=== PATIENT | female | born 1950 | race Caucasian/White ===

== ENCOUNTER → 2017-05-27 | Outpatient (CLI) | payer BC, SELFPAY | PROVIDERS: Visit Provider Internal Medicine | DX: R07.89 Other chest pain (principal); I10 Essential (primary) hypertension; R06.00 Dyspnea, unspecified; G47.33 Obstructive sleep apnea (adult) (pediatric) | CPT/HCPCS: 75571; 76770; 93976 ==

== ENCOUNTER → 2017-07-24 11:18 | Outpatient (CLI) | payer BC, SELFPAY ==
--- NOTE | 2017-07-24 11:30 | XR_ITS ---
XR ankle LT min 3V HISTORY: Pain following injury ITS.REASON: LEDT ANKLE SPRAIN ORDERING PHYSICIAN: GENIE Saldivar PATIENT AGE: 66 years COMPARISON: None FINDINGS: No fracture or dislocation. Some minimal hypertrophic change at the tip of the medial malleolus and along the anterior distal tibia. IMPRESSION: No acute finding
== END ==
PROVIDERS: PCP Physician Assistant; Visit Provider Physician Assistant
DX: S93.402A Sprain of unspecified ligament of left ankle, initial encounter (principal)
CPT/HCPCS: 73610

== ENCOUNTER → 2017-11-30 16:20 | Outpatient (CLI) | payer MEDICARE, SELFPAY ==
--- NOTE | 2017-11-30 | NVE_ITS ---
Venous Exam Indications: 729.81 Swelling of limb. IMPRESSIONS 1. There is no evidence of significant Reflux. 2. No evidence of deep or superficial vein thrombosis involving the left lower extremity History: Left lower extremity pain. Swelling of the left lower extremity. Risk factors: Hypertension. Patient states her lateral ankle has been swollen since August 2017. She denies any trauma. Left lower extremity venous duplex evaluation. Doppler flow study including spectral analysis, color and dickson scale imaging. Location: Vascular laboratory. Patient status: Outpatient. Tables: Venous flow and imaging: + +-------+ + Location Overall Flow properties + +-------+ + Left common femoral Patent Normal phasicity; spontaneous; normal augmentation; compressible + +-------+ + Left saphenofemoral junction Patent Compressible + +-------+ + Left profunda femoral Patent Compressible + +-------+ + Left femoral Patent Normal phasicity; spontaneous; normal augmentation; compressible + +-------+ + Left greater saphenous Patent Normal phasicity; spontaneous; normal augmentation; compressible + +-------+ + Left popliteal Patent Normal phasicity; spontaneous; normal augmentation; compressible + +-------+ + Left posterior tibial Patent Compressible + +-------+ + Left peroneal Patent Compressible + +-------+ + Left gastrocnemius Patent Compressible + +-------+ + Left soleal Patent Compressible + +-------+ + (Report amended ) Electronically signed by: Jun Todd [id number]
--- NOTE | 2017-11-30 16:53 | XR_ITS ---
EXAM: XR lumbar spine min 4V HISTORY: ITS.REASON: ACUTE BILATERAL LOW BACK PAIN W/ LEFT SIDE SCIATICA ORDERING PHYSICIAN: Jeyson Garcia MD PATIENT AGE: 67 years COMPARISON: None FINDINGS: Mild degenerative disc disease is present at T12-L1 and L1-L2. There is minimal anterolisthesis of L4 on L5 of 3 mm and there are mild facet arthritic changes at L5-S1. No fracture or dislocation. Facet hypertrophic changes are present on the right at L5-S1. IMPRESSION: 1. Degenerative disc disease T12-L1 and L1-L2. 2. Facet arthritic changes at L5-S1. 3. 3 mm anterolisthesis of L4 on L5
== END ==
PROVIDERS: PCP Family Medicine; Visit Provider Family Medicine
DX: M54.42 Lumbago with sciatica, left side (principal); R60.0 Localized edema
CPT/HCPCS: 72110; 93971

== ENCOUNTER → 2017-12-03 11:22 | Outpatient (CLI) | payer MEDICARE, SELFPAY ==
--- NOTE | 2017-12-03 11:37 | XR_ITS ---
XR foot LT min 3V HISTORY: Left foot pain and swelling ITS.REASON: LEFT FOOT AND ANKLE PAIN ORDERING PHYSICIAN: Bobby Cespedes MD PATIENT AGE: 67 years COMPARISON: None FINDINGS: No fracture or dislocation. No lytic or blastic change. There is normal mineralization.. The joint spaces are well-preserved. There are hypertrophic changes along the neck of the talus anteriorly minimal hypertrophic changes are present at the lateral aspect of the first MTP joint. IMPRESSION: 1. No acute finding. 2. Mild bony hypertrophic changes of the talus and the first MCP joint
--- NOTE | 2017-12-03 11:37 | XR_ITS ---
XR ankle LT min 3V HISTORY: ITS.REASON: LEFT FOOT AND ANKLE PAIN ORDERING PHYSICIAN: Bobby Cespedes MD PATIENT AGE: 67 years Comparison: 07/24/2017 FINDINGS: There are mild hypertrophic changes of the tip of the medial malleolus and the anterior aspect of the distal tibia. No fracture or dislocation. The talar dome has an unremarkable appearance. The joint spaces well-preserved. IMPRESSION: Mild hypertrophic changes of the anterior distal tibia and medial malleolus otherwise negative
== END ==
PROVIDERS: PCP Family Medicine; Visit Provider Family Medicine
DX: M79.672 Pain in left foot (principal)
CPT/HCPCS: 73610; 73630

== ENCOUNTER → 2018-04-05 12:32 | Outpatient (CLI) | payer MEDICARE, SELFPAY ==
--- NOTE | 2018-04-05 12:46 | MR_ITS ---
MR ankle LT wo/w con HISTORY: Pain and swelling with numbness ITS.REASON: Osteoarthritis and pain ORDERING PHYSICIAN: Tanya Quarles DPM PATIENT AGE: 67 years Comparison: 12/03/2017 TECHNIQUE: Standard multiplanar multiecho sequences are performed without and with gadolinium enhancement. FINDINGS: There is slight increased T2 signal along the talar dome medially which does show some mild contrast enhancement. This area measures approximately 8 x 4 mm with some minimal subcortical cystic change along the junction of the medial talar dome in the lateral aspect of the talus.. The ligaments appear intact about the ankle. No fracture or dislocation. There is increased T2 signal surrounding an os trigonum. There is some enhancement at this region as well. Small amount fluid is present around the flexor hallucis longus tendon. The other tendons have an unremarkable appearance IMPRESSION: 1. 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 2. Inflammatory changes surrounding an os trigonum with a small amount of fluid and enhancement at this area 3. Tendinitis of the flexor hallucis longus
--- NOTE | 2018-04-05 12:46 | MR_ITS ---
MR foot LT wo/w con HISTORY: Left foot pain and swelling with pain greater along the great toe ITS.REASON: Osteoarthritis and pain ORDERING PHYSICIAN: Tanya Quarles DPM PATIENT AGE: 67 years Comparison: None TECHNIQUE: Standard multiplanar multiecho sequences are performed without and with contrast enhancement. FINDINGS: No fracture or dislocation. No bony destructive process. No bone marrow edema. There is a small amount of fluid at the metatarsal phalangeal joint of the first, second, third, and fourth toes.. Fluid is also present in the intermetatarsal region distally between this first and second and third and fourth metatarsals. No soft tissue mass abscess or other significant anomalies. The tendons and ligaments have an unremarkable appearance. IMPRESSION: 1. Small amount of fluid in the first through fourth metatarsophalangeal joints and intermetatarsal region consistent with intermetatarsal bursitis/cellulitis/capsulitis 2. Otherwise negative MRI of the left foot
[2018-04-05 12:59] LABS: Blood Urea Nitrogen 16 mg/dL (7-18); Creatinine,Serum 0.87 mg/dL (0.55-1.02); Estimated Glomerular Filt Rate 65 ml/min (>60); GFR (African American) 79 ML/MIN (>60)
--- NOTE | 2018-04-05 15:39 | HMH.ITSHM ---
Current Home Medications as stated by this patient Antonette Sim or data entry representative. []LISINOPRIL MELOXICAM DICLOFENAC LEVOTHYROXINE FUROSEMIDE BENADRYL
== END ==
PROVIDERS: Visit Provider Podiatrist
DX: M19.072 Primary osteoarthritis, left ankle and foot (principal); M25.872 Other specified joint disorders, left ankle and foot
CPT/HCPCS: 36415; 73223; 73720; 82565; 84520; A9576

== ENCOUNTER → 2018-04-20 14:41 | Outpatient (CLI) | payer MEDICARE, SELFPAY ==
--- NOTE | 2018-04-20 15:20 | XR_ITS ---
XR chest 2V HISTORY: ITS.REASON: HTN, ORDERING PHYSICIAN: Tanya Quarles DPM PATIENT AGE: 67 years COMPARISON: None FINDINGS: The cardiomediastinal silhouette and pulmonary vascularity are within normal limits. No lobar consolidation or collapse. On the lateral view there is a faint nodular opacity overlying the T7 vertebral body and may be due to summation artifact having a somewhat square appearance or could be due to a a sclerotic area in the T7 vertebral body. No acute bony anomalies. IMPRESSION: No acute finding. Faint nodular opacity overlies the T7 vertebral body at 7 mm. Consider follow-up chest x-ray to confirm stability
[2018-04-20 15:37] LABS: Basophils % 0.5 % (0.1-2.0); Eosinophils # 0.1 K/mm3 (0.0-0.4); Hematocrit 44.5 % (37.0-47.0); Hemoglobin 14.4 g/dL (12.2-16.2); Lymphocytes # 3.3 K/mm3 (0.7-4.5); Lymphocytes % 45.7 % (10-50); Mean Corpuscular HGB Conc 32.2 g/dL (31.8-35.4); Mean Corpuscular Hemoglobin 30.1 pg (27.0-31.2); Mean Corpuscular Volume 93.5 fl (81-99); Mean Platelet Volume 7.9 fl (7.4-10.4); Monocytes # 0.3 K/mm3 (0.1-1.0); Monocytes % 3.8 % (1.7-9.3); Neutrophils # 3.4 K/mm3 (1.8-7.8); Platelet Count 202 K/mm3 (142-424); Red Blood Count 4.76 M/mm3 (4.20-5.40); White Blood Count 7.2 K/mm3 (4.8-10.8)
[2018-04-20 16:04] LABS: Alanine Aminotransferase 61 U/L (12-78); Albumin Level 3.7 gm/dL (3.4-5.0); Alkaline Phosphatase 85 U/L (46-116); Blood Urea Nitrogen 16 mg/dL (7-18); Chloride 103 mmol/L (98-107); Globulin 3.7 gm/dl (1.3-3.2); Total Protein,Serum 7.4 gm/dL (6.4-8.2)
[2018-04-20 16:18] LABS: Potassium 4.3 mmoL/L (3.5-5.1)
[2018-04-20 16:32] LABS: Anion Gap 12.3 mEq/L (5-15); Aspartate Amino Transferase 31 U/L (15-37); Bilirubin,Total 0.4 mg/dL (0.2-1.0); Calcium 9.2 mg/dL (8.5-10.1); Carbon Dioxide 30 mmol/L (21.0-32.0); Creatinine,Serum 0.93 mg/dL (0.55-1.02); Estimated Glomerular Filt Rate 61 ml/min (>60); GFR (African American) 73 ML/MIN (>60); Glucose 87 mg/dL (74-106); Sodium 141 mmol/L (136-145)
[2018-04-22 19:50] LABS: Vitamin D 25 Hydroxy 16.6 ng/mL (30.0-100.0)
== END ==
PROVIDERS: Visit Provider Podiatrist
DX: Z01.818 Encounter for other preprocedural examination (principal); E55.9 Vitamin D deficiency, unspecified
CPT/HCPCS: 36415; 71046; 80053; 82652; 85025

== ENCOUNTER → 2018-05-20 13:03 | Outpatient (CLI) | payer MEDICARE, SELFPAY ==
--- NOTE | 2018-05-20 | XR_ITS ---
XR chest 2V HISTORY: Follow-up lung nodule ORDERING PHYSICIAN: Tanya Quarles DPM PATIENT AGE: 67 years COMPARISON: None FINDINGS: The cardiomediastinal silhouette and pulmonary vascularity are within normal limits. Previously described nodular density overlying the C7 vertebral body is once again noted. Developing pulmonary nodule is considered. Consider chest CT for further evaluation. There is calcified granuloma in the left lower lobe. No lobar consolidation or collapse. No acute bony anomalies. IMPRESSION: Persistent nodular density overlying the mid thoracic spine. Consider chest CT for further evaluation
--- NOTE | 2018-05-20 13:06 | XR_ITS ---
XR ankle wt bearing LT min 3V HISTORY: Follow-up surgery ITS.REASON: post-op views ORDERING PHYSICIAN: Tanya Quarles DPM PATIENT AGE: 67 years Comparison: 05/12/2018 FINDINGS: There remains good alignment. A splint is present. There are mild osteoarthritic changes with hypertrophy of the medial malleolus tip. Small spur along the neck of the talus with mild osteoarthritic change of the ankle. IMPRESSION: Mild osteoarthritic change. Posterior splint in place with good alignment
--- NOTE | 2018-05-20 13:06 | XR_ITS ---
XR foot wt bearing LT 3V HISTORY: ITS.REASON: post-op views ORDERING PHYSICIAN: Tanya Quarles DPM PATIENT AGE: 67 years COMPARISON: 05/12/2018 FINDINGS: Posterior splint remains in place. There remains good alignment. IMPRESSION: No change with no acute finding
== END ==
PROVIDERS: PCP Family Medicine; Visit Provider Podiatrist
DX: Z98.890 Other specified postprocedural states (principal)
CPT/HCPCS: 71046; 73610; 73630

== ENCOUNTER → 2018-06-10 10:23 | Outpatient (CLI) | payer MEDICARE, SELFPAY ==
--- NOTE | 2018-06-10 | CT_ITS ---
CT chest wo con HISTORY: Pulmonary nodule, solitary pulmonary nodule, abnormal chest x-ray ITS.REASON: ABNORMAL CXR ORDERING PHYSICIAN: Bobby Cespedes MD PATIENT AGE: 67 years COMPARISON: 05/20/2018 Technique: Axial images obtained with sagittal and coronal reformats. All CT scans at the facility use one or more dose reduction, viz: automated exposure control, ma/kV adjustment per patient size (including targeted exams where dose is matched to indication, i.e. head), or iterative reconstruction technique. FINDINGS: No mediastinal or hilar mass or adenopathy. There is small mediastinal Lymph nodes no ascitic. Some nodes are calcified. Normal heart size. No evidence of pericardial effusion. No suspicious pulmonary nodules are evident. No central obstructing lesion. There is a 3 mm subpleural nodular density in the right lower lobe anteriorly just deep to the major fissure. Image #38. Calcified granulomas are present in the left lower lobe. 3 mm noncalcified nodule superior segment left lower lobe axial image #2. There is prominent hypertrophy of the left costal vertebral joint at the T8 level which may account for the radiographic abnormality. Upper abdominal images show some infiltration of the retroperitoneal fat which is nonspecific along with some small nodes in the celiac region. No acute bony anomalies. IMPRESSION: 1. No suspicious pulmonary nodules evident. 2. Radiographic abnormality likely corresponds to overlying osteophyte
[2018-06-10 10:46] LABS: Blood Urea Nitrogen 17 mg/dL (7-18); Creatinine,Serum 0.94 mg/dL (0.55-1.02); Estimated Glomerular Filt Rate 60 ml/min (>60); GFR (African American) 72 ML/MIN (>60)
== END ==
PROVIDERS: Visit Provider Family Medicine
DX: R93.89 Abnormal findings on diagnostic imaging of other specified body structures (principal)
CPT/HCPCS: 36415; 71250; 82565; 84520

== ENCOUNTER → 2018-06-22 09:33 | Outpatient (CLI) | payer MEDICARE, SELFPAY ==
--- NOTE | 2018-06-22 09:37 | XR_ITS ---
XR foot wt bearing LT 3V HISTORY: Follow-up surgery ITS.REASON: postop views ORDERING PHYSICIAN: Tanya Quarles DPM PATIENT AGE: 67 years COMPARISON: 05/20/2018 FINDINGS: Normal alignment. Splint has been removed. Minimal osteoarthritic changes are present at the first metatarsophalangeal joint and at the tarsal metatarsal region dorsally. IMPRESSION: Interval removal of the splint with no acute finding..
--- NOTE | 2018-06-22 09:37 | XR_ITS ---
XR ankle wt bearing LT min 3V HISTORY: Follow-up surgery ITS.REASON: post op views ORDERING PHYSICIAN: Tanya Quarles DPM PATIENT AGE: 67 years Comparison: 05/20/2018 FINDINGS: The posterior splint has been removed. There is good alignment. Mild osteoarthritic changes are present at the ankle and midfoot overall not significant change. Normal alignment. No fracture or dislocation. IMPRESSION: Mild osteoarthritic change of the ankle and midfoot.
== END ==
PROVIDERS: PCP Family Medicine; Visit Provider Podiatrist
DX: Z98.890 Other specified postprocedural states (principal)
CPT/HCPCS: 73610; 73630

== ENCOUNTER 2018-07-27 09:00 | Outpatient (RCR) | payer MEDICARE, SELFPAY ==
--- NOTE | 2018-07-05 11:52 | HMH.PTOPWND ---
Rehab Outpt Wound Evaluation Rehab OP Wound Evaluation Start: 07/05/18 11:38 Freq: Status: Active Protocol: Document 07/05/18 11:38 GENOVEVA (Rec: 07/05/18 11:50 PHORNE [id number]) Electronically Signed By Trae Echevarria, PT 07/05/18 11:38 Subjective/History History History Pt is a 67 yowf who presents with c/o daniel LE edema, left > right, x ~ 1-2 mos S/P left ankle surgery for cyst removal . Her treatment was complicated by a fall at home the day after surgery with a resulting hematoma of the left ankle which required I&D. She now presents with open wound to the left lateral ankle and pain in the left foot. She reports being very sensitive to touch along the lateral left foot and ankle. She has hx of HTN and left knee meniscus repair. Subjective Subjective Pain currently 3/10, 8/10 at worst. Wound Eval Wound Left Lateral Ankle Wound Type post-I&D Is This a Chronic Wound Yes Wound Length (cm) 1.0 Wound Width (cm) 2.0 Wound Bed Appearance Beefy Red Yellow Percentage Granulated (%) 25 Percentage of Slough (%) 75 Wound Margins Description Well Defined Surrounding Tissue Appearance Delight Edema Type Pitting Edema Degree 1+ Query Text:1+ Trace, Barely Detectable, Rebound 15-30 seconds 2+ Moderate, Slight Indentation, Rebound 10-20 seconds 3+ Deep, Deeper Indentation, Rebound > 30 seconds 4+ Very Deep, Rebound > 60 seconds Edema Appearance Tight Puffy Drainage Description Serous Drainage Amount Small Primary Dressing Silver Dressing Comment Tegaderm Ag mesh Wound Secondary Dressing Type Hydrocolloid Comment flexicol 2x2 Wound Debridement Method Sharps Forceps Wound Debridement Amount of Tissue Minimal Removed Dressing Change Patient Tolerance Tolerated Well Lymphedema Eval Classification of Lymphedema Secondary Lymphedema Yes Stemmer's sign Stemmer's Sign no Stage of Lymphedema
== END 2018-07-27 09:05 | disposition home or self-care (01) ==
LOC: PT 09:00
PROVIDERS: Visit Provider Podiatrist
DX: S90.32XA Contusion of left foot, initial encounter (principal); R60.0 Localized edema
CPT/HCPCS: 97140; 97162

== ENCOUNTER 2018-10-04 10:00 | Outpatient (RCR) | payer MEDICARE, SELFPAY ==
--- NOTE | 2018-08-05 10:34 | HMH.PTOPEV ---
PT Outpatient Evaluation Rehab PT Outpatient Evaluation Start: 08/05/18 10:19 Freq: Status: Active Protocol: Document 08/05/18 10:20 GONZÁLEZ (Rec: 08/05/18 10:34 GONZÁLEZ [id number]) Electronically Signed By Bruce Kurtz, PT 08/05/18 10:20 Outpatient Therapy Subjective History Subjective History Pt reports L foot/ankle sx. on 05/12/18 for lateral ankle area cyst removal, and for ' fractured bone repair'. Pt reports success ful sx., however, fell off knee scooter after sx., causing DVT x2 in L foot, which lead to 2 other procedures to remove DVT's, and created chronic pain, swelling, and hypersensitivity in L foot. Chief Complaint Pain Stiff Swelling Gives out/Unstable Paresthesia Weakness Symptom Type Ache Throb Sharp Dull Stabbing Burning Numbness Tingling Symptoms Relieved By Rest/Positioning Symptoms Aggravated By Standing Physical Activity Walking Prior Functional Limitations Housework Standing Walking Current Functional Limitations Housework Standing Walking Balance Symptom Description Constant but Variable Level of pain today (0-10) 4 Pain scale - at its best (0-10) 3 Pain scale - at its worst (0-10) 8 Ankle/Foot Eval Gait Observation General Gait Pattern Observation Antalgic Gait Wide Based Gait Palpation Tenderness left Ankle/Foot Palpation Findings Tenderness Ankle/Foot Palpation Overall Comment 2-3/4 ATF TTP positive PTF TTP positive CF TTP positive ROM right Ankle/Foot Dorsiflexion w/Knee Extended 0-15 Active Range Motion (degrees) Ankle/Foot Plantar Flexion Active Range 0-40 of Motion (degrees) Ankle/Foot Eversion Active Range of 0-25 Motion (degrees) Ankle/Foot Inversion A
== END 2018-10-04 10:05 | disposition home or self-care (01) ==
LOC: PT 10:00
PROVIDERS: Visit Provider Podiatrist
DX: M25.572 Pain in left ankle and joints of left foot (principal); Z98.890 Other specified postprocedural states
CPT/HCPCS: 97010; 97014; 97016; 97110; 97112; 97140; 97163; G0283

== ENCOUNTER → 2018-11-09 13:30 | Outpatient (CLI) | payer MEDICARE, SELFPAY ==
--- NOTE | 2018-11-09 13:33 | CA_ITS ---
PROCEDURE: 2-D M-mode and color Doppler study INDICATIONS FOR THE TEST: Chest pain COPD Heart Murmur Tobacco Smoking Palpitations Fatigue Syncope EdemaX HypertensionXDiabetes Mellitus Rheumatic Fever SOBXDOE Obesity HyperlipidemiaX Family History HD Additional History TOMMY,CM TDS HEIGHT: 62 WEIGHT:203 GENDER: Female B/P:137/75 2-D/M-MODE INTERPRETATION: 2-D MEASUREMENTS OBSERVED VALUES IN CMS Right Ventricular Dimension (RVDd) 2.3 Interventricular Septum (Thickness)(IVsd) 1.2 Left Ventricular Internal Dimensions(LVIDd) 5.1 Left Ventricular Posterior Wall (Thickness)(LVPWd) .9 Aortic Root 3.5 Aortic Cusp Separation 1.9 Left Atrial Dimensions (LAD) 2.9 2D 1. Left Atrium is mildly enlarged, left ventricle is normal size, mild concentric left ventricular hypertrophy, visually estimated ejection fraction 55% with no regional wall motion abnormality. 2. The right atrium and right ventricle are mildly enlarged with normal contractility. 3. The aortic valve is minimally thickened and fibrosed. 4. The mitral and tricuspid valve leaflets are minimally thickened. 5. The pulmonic valve is poorly present. 6. No significant pericardial effusion noted. DOPPLER INTERROGATION: Doppler interrogation of the aortic, mitral and tricuspid valvular presence of mild mitral and tricuspid regurgitation, tricuspid regurgitation jet velocity is inadequate for calculation of the right ventricular systolic pressure, grade 1 diastolic dysfunction seen with tissue Doppler evidence of raised left atrial pressure. CONCLUSION: 1. Mildly enlarged left atrium, normal left ventricular size, mild concentric left ventricular hypertrophy, visually estimated ejection fraction 55% with no regional wall motion abnormality, grade 1 diastolic dysfunction seen with tissue Doppler evidence of raised left atrial pressure. 2. Mildly enlarged right ventricle with normal contractility. 3. Mild mitral and tricuspid regurgitation 4. No significant pericardial effusion noted.
== END ==
PROVIDERS: PCP Family Medicine; Visit Provider Nurse Practitioner Family
DX: G47.33 Obstructive sleep apnea (adult) (pediatric) (principal); I10 Essential (primary) hypertension; R06.02 Shortness of breath
CPT/HCPCS: 93306

== ENCOUNTER → 2018-11-16 09:12 | Outpatient (CLI) | payer MEDICARE, SELFPAY ==
--- NOTE | 2018-11-16 09:17 | MM_ITS ---
MM Dig screening mamm BI w/CAD ORDERING PHYSICIAN : GENIE Saldivar PATIENT AGE: 68 years GENDER: Female COMPARISON: Previous old films screen mammogram from March 2009 & October [address] chest from 06/10/2018 utilized INDICATION: Routine screening no hormones. No new complaints. Noncontributory family history. TECHNIQUE: Standard CC and MLO images were obtained. R2 CAD reviewed. Axillary cc views bilaterally included FINDINGS: Moderately dense heterogeneous breast pattern bilaterally- decreased sensitivity mammography.. RIGHT BREAST:I Region area of density at the superior, labeled A. Most likely is a stable feature reflecting overlapping dense tissue. However this area highlighted by CAD & would benefit from spot view & ultrasound to further evaluate this region. I believe this area of tissue labeled A likely reflects overlapping tissue extending towards upper-outer quadrant on x-ray cc view is well.. These additional studies also benefit to augment mammography in evaluating this heterogeneous breast.. LEFT BREAST: No prominent findings. Question a small 6.5 mm area of nodularity at the lateral central breast on initial cc view,-labeled X . This is not seen on other views.. It processing was present on previous studies from 2007. . Others just breast demonstrates Other areas of minimal nodularity most which most likely reflect normal fibroglandular elements and/or normal ductal elements. However suggest spot views to evaluate X and ultrasound survey {to augment mammography in this dense heterogeneous breast as well ------IMPRESSION: Moderately dense heterogeneous breast . Mammography ofdecreased sensitivity in breast of this character Suggest spot views ultrasound bilaterally, to further address areas of increased density discussed above. Favor these are benign features-likely merely reflecting overlapping moderately tissue or minor benign nodularity BI-RADS Category: 0 Need Additional Imaging Evaluation RECOMMENDED FOLLOW-UP: IMM - IMMEDIATE FOLLOW-UP RECOMMENDED (A letter has been sent to the patient regarding results of the study.)
== END ==
PROVIDERS: PCP Family Medicine; Visit Provider Physician Assistant
DX: Z12.31 Encounter for screening mammogram for malignant neoplasm of breast (principal)
CPT/HCPCS: 77067

== ENCOUNTER → 2018-11-26 12:56 | Outpatient (CLI) | payer MEDICARE, SELFPAY ==
--- NOTE | 2018-11-26 12:59 | US_ITS ---
US breast LT complete INDICATION: Abnormal mammogram follow-up ORDERING PHYSICIAN: GENIE Saldivar PATIENT AGE: 68 years COMPARISON: 11/26/2018, 11/16/2018, 03/06/2009 TECHNIQUE: Complete breast ultrasound with axilla FINDINGS: There is a 5 mm hypoechoic rounded nodule at 12:00 near the nipple unchanged consistent with a cyst or hypoechoic fibroadenoma. A 3 mm cyst is present at 11:00 area no suspicious lesions evident. IMPRESSION: Benign findings, no convincing evidence of malignancy BI-RADS Category: 2 Benign Finding(s) RECOMMENDED FOLLOW-UP: 1YR - 1 YEAR FOLLOW-UP (A letter has been sent to the patient regarding results of the study.)
--- NOTE | 2018-11-26 12:59 | US_ITS ---
US breast RT complete INDICATION: Abnormal mammogram ORDERING PHYSICIAN: GENIE Saldivar PATIENT AGE: 68 years COMPARISON: 11/16/2018, 11/26/2018 TECHNIQUE: Complete right breast ultrasound with axilla FINDINGS: There is some mild ductal dilatation at 5:00. Small hyperechoic nodule present at 10:00 at 5 mm and may represent a small lipoma. Small nodes are present in the axilla. No suspicious nodules are evident. IMPRESSION: Benign findings, no convincing evidence of malignancy BI-RADS Category: 2 Benign Finding(s) RECOMMENDED FOLLOW-UP: 1YR - 1 YEAR FOLLOW-UP (A letter has been sent to the patient regarding results of the study.)
--- NOTE | 2018-11-26 12:59 | MM_ITS ---
MM Dig mamm BI DX w/CAD COMPARISON: Digital screening mammogram with CAD 11/16/2018 INDICATION: Additional evaluation of possible asymmetric densities in each breast TECHNIQUE: Spot compression MLO view right breast and spot compression CC views of both breasts. FINDINGS: The spot compression views demonstrate diffusely heterogenic parenchymal pattern but decreased concern for any definite suspicious asymmetric density in either breast. There is no definite architectural distortion in either breast on the spot compression views and ultrasound performed the same date of each breast showed benign findings with tiny cysts seen in the left breast and mild ductal hyperplasia right breast along with what is likely a tiny lipoma. IMPRESSION: Heterogenic breast parenchyma with no suspicious lesion seen, recommend patient continue with yearly screening mammography BI-RADS Category: 2 Benign Finding(s) RECOMMENDED FOLLOW-UP: 1YR - 1 YEAR FOLLOW-UP (A letter has been sent to the patient regarding results of the study.)
== END ==
PROVIDERS: PCP Physician Assistant; Visit Provider Physician Assistant
DX: R92.8 Other abnormal and inconclusive findings on diagnostic imaging of breast (principal)
CPT/HCPCS: 76641; 77066

== ENCOUNTER → 2018-11-29 20:09 | Outpatient (CLI) | payer MEDICARE, SELFPAY | PROVIDERS: PCP Family Medicine; Visit Provider Internal Medicine | DX: G47.33 Obstructive sleep apnea (adult) (pediatric) (principal); I10 Essential (primary) hypertension | CPT/HCPCS: 95810 ==

== ENCOUNTER → 2019-03-17 10:45 | Outpatient (CLI) | payer MEDICARE, SELFPAY | PROVIDERS: Visit Provider Nurse Practitioner Family | DX: G47.33 Obstructive sleep apnea (adult) (pediatric) (principal) | CPT/HCPCS: 94762 ==

== ENCOUNTER → 2019-04-06 20:02 | Outpatient (CLI) | payer MEDICARE, SELFPAY | PROVIDERS: PCP Family Medicine; Visit Provider Nurse Practitioner Family | DX: G47.33 Obstructive sleep apnea (adult) (pediatric) (principal) | CPT/HCPCS: 95811 ==

== ENCOUNTER → 2019-06-27 15:00 | Outpatient (CLI) | payer MEDICARE, SELFPAY ==
--- NOTE | 2019-06-27 15:06 | US_ITS ---
PROCEDURE: US SPINAL CANAL CONTENT CLINICAL INDICATION: MASS OF BACK Palpable area in the mid COMPARISON: No exams were available for comparison FINDINGS: Ultrasound performed of the palpable abnormality in the mid back demonstrating an oval 2.6 x 1.5 x 0.6 cm fairly well-circumscribed area of slight decreased echogenicity compared to the subcutaneous fat with some central linear increased echogenicity. This may represent a lipoma IMPRESSION: Probable lipoma corresponding to palpable abnormality over the spine Dictated by: Jun Todd MD 06/27/2019 15:23 Electronically signed by Jun Todd MD in [place] 06/27/2019 15:23
== END ==
PROVIDERS: PCP Family Medicine; Visit Provider Physician Assistant
DX: R22.2 Localized swelling, mass and lump, trunk (principal)
CPT/HCPCS: 76800

== ENCOUNTER → 2019-11-29 09:12 | Outpatient (CLI) | payer MEDICARE, SELFPAY ==
--- NOTE | 2019-11-29 09:18 | XR_ITS ---
PROCEDURE: XR FOOT WT BEARING RT 3V CLINICAL INDICATION: PAIN COMPARISON: [id number] XR foot LT min 3V from 12/03/2017 [id number] XR foot LT min 3V from 05/12/2018 [id number] XR foot wt bearing LT 3V from 05/20/2018 [id number] XR foot wt bearing LT 3V from 06/22/2018 FINDINGS: No fracture or dislocation. No lytic or blastic change. There is normal mineralization. Mild osteoarthritic change 1st MTP joint with bony hypertrophy at the distal aspect of the 1st metatarsal. Other findings:None. IMPRESSION: Mild degenerative changes Dictated by: Jun Todd MD 11/29/2019 15:44 Electronically signed by Jun Todd MD in [facility] 11/29/2019 15:44
--- NOTE | 2019-11-29 09:18 | XR_ITS ---
PROCEDURE: XR FOOT WT BEARING LT 3V CLINICAL INDICATION: PAIN COMPARISON: [id number] XR foot LT min 3V from 12/03/2017 [id number] XR foot LT min 3V from 05/12/2018 [id number] XR foot wt bearing LT 3V from 05/20/2018 [id number] XR foot wt bearing LT 3V from 06/22/2018 FINDINGS: No fracture or dislocation. No lytic or blastic change. There is normal mineralization. Minimal osteoarthritic change 1st metatarsophalangeal joint. There is an area of dystrophic calcification along the dorsal aspect of the posterior talar process versus an old fracture the posterior talar process. Other findings:There are mild osteoarthritic changes at the ankle joint anteriorly IMPRESSION: Chronic changes as detailed above, no acute finding Dictated by: Jun Todd MD 11/29/2019 15:43 Electronically signed by Jun Todd MD in [facility] 11/29/2019 15:43
== END ==
PROVIDERS: PCP Family Medicine; Visit Provider Podiatrist
DX: M79.671 Pain in right foot (principal); M79.672 Pain in left foot
CPT/HCPCS: 73630

== ENCOUNTER → 2019-11-30 10:34 | Outpatient (CLI) | payer MEDICARE, SELFPAY ==
[2019-11-30 11:25] LABS: Basophils # 0.4 K/mm3 (0-0.2); Basophils % 6.6 % (0.1-2.0); Eosinophils # 0.1 K/mm3 (0.0-0.4); Eosinophils % 1.7 % (0.1-12.0); Hematocrit 43.7 % (37.0-47.0); Hemoglobin 14.1 g/dL (12.2-16.2); Lymphocytes # 3.1 K/mm3 (0.7-4.5); Lymphocytes % 49.8 % (10-50); Mean Corpuscular HGB Conc 32.4 g/dL (31.8-35.4); Mean Corpuscular Hemoglobin 31.8 pg (27.0-31.2); Mean Platelet Volume 10.7 fl (7.4-10.4); Monocytes # 0.3 K/mm3 (0.1-1.0); Monocytes % 4.1 % (1.7-9.3); Neutrophils # 2.7 K/mm3 (1.8-7.8); Neutrophils % 44.4 % (37.0-80.0); Platelet Count 189 K/mm3 (142-424); Red Blood Count 4.45 M/mm3 (4.20-5.40); Red Cell Distribution Width 17.8 % (11.5-17.5); White Blood Count 6.2 K/mm3 (4.8-10.8)
[2019-11-30 11:51] LABS: Hemoglobin A1C 8.4 % (4.0-6.0)
[2019-11-30 11:52] LABS: Chloride 103 mmol/L (98-107); Sodium 137 mmol/L (136-145)
[2019-11-30 11:54] LABS: Alanine Aminotransferase 41 U/L (12-78); Alkaline Phosphatase 98 U/L (38-126); Aspartate Amino Transferase 36 U/L (14-36); Bilirubin,Total 0.6 mg/dl (0.2-1.3); Blood Urea Nitrogen 18 mg/dl (7-17); Carbon Dioxide 28 mmol/L (22.0-30.0); Estimated Glomerular Filt Rate 72 ml/min (>60); GFR (African American) 87 ML/MIN (>60)
[2019-11-30 11:55] LABS: Albumin Level 4.1 g/dl (3.5-5.0); Albumin/Globulin Ratio 1.4 (1.1-1.8); Calcium 9.9 mg/dl (8.4-10.2); Glucose 182 mg/dl (74-100); Total Protein,Serum 7.1 g/dl (6.3-8.2); Uric Acid 5.5 mg/dl (2.5-6.2)
[2019-11-30 12:00] LABS: C-Reactive Protein 4.6 mg/L (0-4)
[2019-11-30 12:02] LABS: Erythrocyte Sedimentation Rate 24 mm/hr (0-30)
[2019-11-30 12:26] LABS: Thyroid Stimulating Hormone 3.66 uIU/mL (0.465-4.68)
[2019-12-01 11:34] LABS: Folate 14.7 ng/mL (>3.0); Vitamin B12 423 pg/mL (232-1245)
[2019-12-01 13:13] LABS: Anti-Centromere B Antibodies <0.2 AI (0.0-0.9); Anti-Jo-1 <0.2 AI (0.0-0.9); Anti-Smith Antibody <0.2 AI (0.0-0.9); Antichromatin Antibodies <0.2 AI (0.0-0.9); Antiscleroderma-70 Antibodies <0.2 AI (0.0-0.9); RNP Antibodies 1.3 AI (0.0-0.9); Sjogren's Anti-SS-A 0.3 AI (0.0-0.9); Sjogren's Anti-SS-B <0.2 AI (0.0-0.9)
[2019-12-01 14:22] LABS: Anti-DNA (DS) Ab Qn 6 IU/mL (0-9)
[2019-12-02 17:15] LABS: RA Latex Turbid. <10.0 IU/mL (0.0-13.9)
[2019-12-03 18:05] LABS: Antinuclear Antibodies, IFA Negative (.)
[2019-12-05 10:23] LABS: 1,25 Dihydroxy Vitamin D 54 pg/mL (.); 1,25-Dihydroxy, Vitamin D-2 <10 pg/mL (.); 1,25-Dihydroxy, Vitamin D-3 54 pg/mL (.)
== END ==
PROVIDERS: Visit Provider Podiatrist
DX: R53.83 Other fatigue; R73.9 Hyperglycemia, unspecified; M79.672 Pain in left foot; M79.671 Pain in right foot
CPT/HCPCS: 36415; 80053; 82607; 82652; 82746; 83036; 84443; 84550; 85025; 85651; 86038; 86140; 86225; 86235; 86431

== ENCOUNTER → 2019-12-14 12:55 | Outpatient (CLI) | payer MEDICARE, SELFPAY ==
--- NOTE | 2019-12-14 13:03 | XR_ITS ---
PROCEDURE: XR DEXA AXIAL SKELETON CLINICAL HISTORY: Osteopenia COMPARISON: No exams were available for comparison FINDINGS: The study is submitted to nm for interpretation on 01/25/2020. The right hip BMD is 0.768 with a T-score of -0.7. The left hip BMD is 0.706 with a T-score of -1.3. The lumbar spine BMD is 1.078 with a T-score of 0.3. IMPRESSION: This patient is considered osteopenic according to the World Health Organization criteria. Bone density is between 10 and 25 percent below young normal . Fracture risk is moderate. Treatment is advised. Based on these results of follow-up exam is recommended in 2 years Dictated by: Jun Todd MD 01/25/2020 11:39 Jun Todd MD in [facility] 01/25/2020 11:39
== END ==
PROVIDERS: PCP Family Medicine; Visit Provider Podiatrist
DX: M85.89 Other specified disorders of bone density and structure, multiple sites
CPT/HCPCS: 77080

== ENCOUNTER → 2020-01-26 09:00 | Outpatient (CLI) | payer MEDICARE, SELFPAY ==
--- NOTE | 2020-01-26 09:04 | MM_ITS ---
PROCEDURE: MM DIG SCREENING MAMM BI W/CAD Digital Breast Tomosynthesis Included CLINICAL INDICATION: SCREENING There is no personal or family history of breast cancer. COMPARISON: MG DIG MAMM-SCREEN LATOYA from 11/16/2018 MG DIG MAMM-DX LATOYA from 11/26/2018 TECHNIQUE: Standard CC and MLO images and 3D Tomosynthesis was obtained. R2 CAD reviewed. FINDINGS: Moderate scattered fibroglandular densities are seen in the central portions of both breasts and the findings of bilateral and symmetrical. There are mole markers on each breast. There are a couple of benign microcalcifications in each breast. There is no suspicious lesion and no suspicious microcalcifications. IMPRESSION: Moderate breast density with no suspicious lesions seen BI-RAD Category: 2 Benign Finding(s) FOLLOW-UP: 1YR 1 Year Follow-up (A letter has been sent to the patient regarding results of the study.) Dictated by: Dr. Octaviano Carpio MD 01/28/2020 17:23 Dr. Octaviano Carpio MD in [place] 01/28/2020 17:23
== END ==
PROVIDERS: PCP Family Medicine; Visit Provider Family Medicine
DX: Z12.31 Encounter for screening mammogram for malignant neoplasm of breast (principal)
CPT/HCPCS: 77063; 77067

== ENCOUNTER → 2020-03-20 09:33 | Outpatient (CLI) | payer MEDICARE, SELFPAY ==
--- NOTE | 2020-03-20 09:55 | XR_ITS ---
PROCEDURE: XR KNEE LT 4V CLINICAL INDICATION: LEFT KNEE PAIN COMPARISON: CR KNEE3L KNEE-3 VIEWS-LT from 10/10/2014 FINDINGS: There has been interval progression of the prominent degenerate changes seen on the previous study. There now is basically [id number] appearance medial joint space with mild eburnation of the medial tibial plateau. There is prominent spurring of the tibial spines. There is mild stable spurring of the lateral tibial plateau. There is narrowing of patellofemoral space. There is no definite effusion. IMPRESSION: Prominent degenerate change primarily involving the medial joint space with basically [id number] appearance with interval progression from the previous study Dictated by: Dr. Octaviano Carpio MD 03/20/2020 10:28 Dr. Octaviano Carpio MD in [place] 03/20/2020 10:28
== END ==
PROVIDERS: PCP Family Medicine; Visit Provider Orthopaedic Surgery
DX: M25.562 Pain in left knee (principal)
CPT/HCPCS: 73564

== ENCOUNTER → 2020-06-06 12:37 | Outpatient (CLI) | payer MEDICARE, SELFPAY ==
--- NOTE | 2020-06-06 12:47 | XR_ITS ---
PROCEDURE: XR HIP RT 2-3V W/PELVIS CLINICAL INDICATION: right hip pain COMPARISON: No exams were available for comparison FINDINGS: Minimal osteoarthritic changes are present involving right hip. No fracture or dislocation. No lytic or blastic change. Calcific density is present in pelvic region slightly toward the right and 9 mm consistent a phleboliths with a smaller calcific density just lateral to this region. There are some degenerative facet arthritic changes at the L5-S1 junction. IMPRESSION: Mild osteoarthritis of the right hips 6 Dictated by: Jun Todd MD 06/06/2020 18:11 Jun Todd MD in [place] 06/06/2020 18:12
== END ==
PROVIDERS: PCP Family Medicine; Visit Provider Orthopaedic Surgery
DX: M25.551 Pain in right hip (principal)
CPT/HCPCS: 73502

== ENCOUNTER → 2020-06-28 12:58 | Outpatient (POV) | payer MEDICARE, SELFPAY ==
[2020-06-28 13:41] VITALS: BP 142/77; PULSE 74; RESP 18; O2SAT 99; BMI 33.6
--- NOTE | 2020-06-28 15:48 | HMH.PMCON ---
Assessment and Plan (1) Sacroiliitis Status: Chronic Category: Medical Code(s): M46.1 - Sacroiliitis, not elsewhere classified (2) Back pain Status: Chronic Category: Medical Code(s): M54.9 - Dorsalgia, unspecified - Assessment and plan all Dx Assessment and Plan for all problems:: We will set up a right SI joint injection for the patient. I believe given her symptomology this would benefit her. I discussed with her she does not get relief from this injection we will move forward with a lumbar MRI to help determine pathology. Patient is agreeable she is failed over 6 months of conservative therapy including physical therapy. She is continuing anti-inflammatories. Dr. Ibrahim has reviewed this note and agrees with this plan of care. This note was dictated using voice recognition software and may contain errors or omissions HPI - Data of Consult Consult date: 06/28/20 Requesting Physician: Rachel Amos APRN Primary Care Provider: Bobby Cespedes MD - Consult Narrative Reason for consult: Back pain and right hip pain History of present illness: Ms. Sim is a 69 year old female who presents today for consultation regards to her back and right hip pain. Patient rates her pain a 5 out of 10. She is had this for multiple years. Patient states that sitting for long periods and leaning forward increases pain while nothing really decreases her pain. She is pain and numbness in her right leg they do not travel to her toe. Patient has had injections by Dr. Haddad in the past with minimal relief. She is tried and failed daytime caregiver along with physical therapy. Patient has had some moderate relief with massage therapy. She is also on anti-inflammatories. Patient does have a positive Dario test SI joint compression test Ras's test and distraction test on the right side. I do believe she may benefit from a right SI joint injection. She is agreeable. CC: Rachel Amos APRN [facility] History I have reviewed the patient's past medical history: Yes Medical History: Reports:: Cardiomyopathy, Diabetes Mellitus Type 2, Hyperlipidemia, Hypertension, Lung Disease, Migraine Denies:: Cancer, Diabetes Mellitus Type 1, Internal Pacemaker, MRSA, Seizures *Have you ever received a pneumonia vaccine?: Yes *Have you received a flu vaccine this season?: Yes Other Medical History: Reports: Arthritis, Hypothyroidism, Thyroid Disease, Other. Denies: Blood Transfusion Reaction Laterality Cases: Left: Arthroscopy Knee, Right: Other Other Surgeries: Yes: No Previous Surgery, Cardiac Catheterization, Colonoscopy, , EGD, Hysterectomy-Total, Hysterectomy-Partial, Other (foot surgery). No: Pacemaker Amputation: No Fractures: No - *Social History Smoking Status: Never smoker Alcohol Intake: never Alcohol Intake Frequency:: holidays/special occasions only Substance Use Type: denies use *Occupational Status:: employed Housing: house Household Members: other *Travel in the last 8 weeks: None Family Hx:: Unable to obtain Review of Systems - Review of Systems ROS General: no recent weight change, no fever, no sleep disturbances Respiratory: no cough, no shortness of air, no recurring pulmonary infections Cardiovascular/Peripheral Vascular: No chest pain, No palpitations, no edema, no shortness of breath. Gastrointestinal: no new onset incontinence, normal bowel movements reported Genitourinary: no new onset incontinence Musculoskeletal: Back pain, right SI joint pain Psychiatric: normal mood/ affect Neurological: [denies new onset weakness in extremities], [denies new onset balance issues] Meds Home Medications Medication Instructions Recorded Confirmed Type levothyroxine 75 mcg capsule 75 mcg PO DAILY cap 09/08/17 06/06/20 History Cholecalciferol (Vitamin D3) 50,000 unit PO QWEEK 05/11/18 06/06/20 History [Vitamin D3 50,000 unit Cap] lisinopril 20 mg tablet 20 mg PO DAILY
== END ==
PROVIDERS: PCP Family Medicine; Visit Provider Clinical Nurse Specialist Family Health
DX: M46.1 Sacroiliitis, not elsewhere classified (principal); M54.9 Dorsalgia, unspecified
CPT/HCPCS: 99202; G0463

== ENCOUNTER 2020-07-06 11:32 | Day surgery (SDC) | payer MEDICARE, SELFPAY ==
[2020-07-06 11:41] VITALS: BP 139/58; PULSE 56; RESP 18; TEMP 36.4; O2SAT 98; BMI 32.9
[2020-07-06 12:08] VITALS: BP 125/65; PULSE 68; RESP 18
[2020-07-06 12:09] VITALS: BP 128/68; PULSE 85; RESP 18; O2SAT 99
--- NOTE | 2020-07-06 12:13 | HMH.PMPROC ---
- Procedure Date: 07/06/20 Time: 12:13 Anesthesiologist:: Gordon Ibrahim MD Complications:: None Pre-procedure Diagnosis:: Sacroiliitis Post-procedure Diagnosis:: Same Indications for Procedure:: This patient is a pleasant 69-year-old white female who we are treating for right-sided hip pain and right-sided sacroiliitis. She is tender over the right SI joint. She has positive Ras's test on the right side. She has a positive Dario test on the right side. She has positive SI joint compression test on the right side. We are doing a right SI joint injection under fluoroscopy today to help her with her pain symptoms. Procedure Details:: Right SI joint injection under fluoroscopy Informed consent was obtained and the risks and benefits of the procedure was going to the patient. Patient was taken to the procedure room. Patient was placed prone on the procedure table. The right hip was prepped using ChloraPrep. The skin and subcutaneous tissues were anesthetized using lidocaine. I placed a 22-gauge spinal needle into the inferior aspect of the right SI joint. Needle placement was confirmed with dye. After this we injected 5 mL bupivacaine 0.25% and Depo-Medrol 40 mg into the right SI joint. The patient tolerated the procedure well with no complication. Plan and Disposition:: We will follow-up with her in 2 weeks. Will reevaluate her symptoms at that time.
[2020-07-06 12:25] VITALS: BP 148/68; PULSE 56; RESP 20; O2SAT 98
== END 2020-07-06 12:25 | disposition home or self-care (01) ==
LOC: SC.PAINP 11:35
PROVIDERS: PCP Family Medicine; Visit Provider Anesthesiology
DX: M46.1 Sacroiliitis, not elsewhere classified (principal); I10 Essential (primary) hypertension; K21.9 Gastro-esophageal reflux disease without esophagitis; E11.9 Type 2 diabetes mellitus without complications; G47.33 Obstructive sleep apnea (adult) (pediatric); E07.9 Disorder of thyroid, unspecified; Z91.041 Radiographic dye allergy status
CPT/HCPCS: 27096; G0260; J1040; Q9966

== ENCOUNTER → 2020-07-25 12:20 | Outpatient (CLI) | payer MEDICARE, SELFPAY ==
--- NOTE | 2020-07-25 12:31 | XR_ITS ---
PROCEDURE: XR KNEE RT 4V CLINICAL INDICATION: RT KNEE INJURY Pain COMPARISON: CR KNEE3L KNEE-3 VIEWS-LT from 10/10/2014 CR XR KNEE LT 4V from 03/20/2020 FINDINGS: There are mild osteoarthritic changes involving all 3 compartments. No acute fracture or dislocation. Other findings:None. IMPRESSION: Mild osteoarthritis otherwise negative Dictated by: Jun Todd MD 07/25/2020 16:51 Jun Todd MD in [place] 07/25/2020 16:51
== END ==
PROVIDERS: PCP Physician Assistant; Visit Provider Physician Assistant
DX: S89.91XA Unspecified injury of right lower leg, initial encounter (principal)
CPT/HCPCS: 73564

== ENCOUNTER → 2020-07-31 13:42 | Outpatient (CLI) | payer MEDICARE, SELFPAY ==
--- NOTE | 2020-07-31 13:46 | MR_ITS ---
PROCEDURE: MR KNEE RT WO CON CLINICAL INDICATION: INJURY OF RIGHT KNEE Pt fell on knee x2wks ago. Medial sided knee pain. Bruising and swelling in knee. COMPARISON: CR XR KNEE RT 4V from 07/25/2020 TECHNIQUE: Routine multiplanar multi echo sequences are performed without gadolinium enhancement. FINDINGS: Cruciate ligaments in, collateral ligaments, patellar tendon, and quadriceps tendon have an unremarkable appearance. The patellar cartilage is thinned with a small area subchondral edematous change involving the superior patella posteriorly consistent with chondromalacia patella. No meniscal tear.. There is mild diffuse subcutaneous edema about the knee. This is greatest in the prepatellar region. There is a thin collection of fluid in the prepatellar region. There is a small knee joint effusion with an area of loculated fluid present along the posterior tibiofibular junction at the fibular head region. This is contiguous with small knee joint effusion consistent with a multilocular Ortez's cyst. This measures 3 cm cephalad caudad and 1 cm transverse. No fracture or dislocation. Mild osteoarthritic changes are present involving all 3 compartments. No fracture or bone bruise. IMPRESSION: 1. No internal derangement. 2. Chondromalacia patella with subchondral bone marrow changes in the superior patella posteriorly which could be due to some developing osteochondrosis. 3. Mild osteoarthritic changes. Loculated Ortez's cyst present in the tibiofibular region. 4. Subcutaneous edema about the knee with a thin fluid collection superficial to the patella consistent with edematous changes or even old hemorrhage Dictated by: Jun Todd MD 08/01/2020 13:29 Jun Todd MD in [place] 08/01/2020 13:29
== END ==
PROVIDERS: PCP Family Medicine; Visit Provider Physician Assistant
DX: S89.91XA Unspecified injury of right lower leg, initial encounter (principal)
CPT/HCPCS: 73721

== ENCOUNTER → 2020-12-08 09:50 | Outpatient (CLI) | payer MEDICARE, SELFPAY ==
[2020-12-08 10:59] LABS: Basophils % 0.8 % (0.1-2.0); Eosinophils # 0.1 K/mm3 (0.0-0.4); Eosinophils % 2.3 % (0.1-12.0); Hematocrit 42.1 % (37.0-47.0); Hemoglobin 13.8 g/dL (12.2-16.2); Lymphocytes # 2.5 K/mm3 (0.7-4.5); Lymphocytes % 44.7 % (10-50); Mean Corpuscular HGB Conc 32.8 g/dL (31.8-35.4); Mean Corpuscular Hemoglobin 29.9 pg (27.0-31.2); Mean Corpuscular Volume 91.3 fl (81-99); Mean Platelet Volume 8.7 fl (7.4-10.4); Monocytes # 0.2 K/mm3 (0.1-1.0); Monocytes % 3.3 % (1.7-9.3); Neutrophils # 2.8 K/mm3 (1.8-7.8); Neutrophils % 48.9 % (37.0-80.0); Platelet Count 174 K/mm3 (142-424); Red Blood Count 4.61 M/mm3 (4.20-5.40); Red Cell Distribution Width 13.4 % (11.5-17.5); White Blood Count 5.7 K/mm3 (4.8-10.8)
[2020-12-08 11:34] LABS: Chloride 104 mmol/L (98-107); Sodium 140 mmol/L (136-145)
[2020-12-08 11:37] LABS: Blood Urea Nitrogen 22 mg/dl (7-17); Carbon Dioxide 28 mmol/L (22.0-30.0); Estimated Glomerular Filt Rate 83 ml/min (>60); GFR (African American) 101 ML/MIN (>60)
[2020-12-08 11:38] LABS: Calcium 9.5 mg/dl (8.4-10.2); Glucose 113 mg/dl (74-100)
== END ==
PROVIDERS: Visit Provider Surgery
DX: M46.1 Sacroiliitis, not elsewhere classified (principal); D17.1 Benign lipomatous neoplasm of skin and subcutaneous tissue of trunk; Z01.812 Encounter for preprocedural laboratory examination; Z20.822 Contact with and (suspected) exposure to COVID-19
CPT/HCPCS: 80048; 85025; U0003

== ENCOUNTER 2020-12-11 06:13 | Day surgery (SDC) | payer MEDICARE, SELFPAY ==
[2020-12-05 12:27] VITALS: BMI 33.3
[2020-12-11] VITALS (9 sets, daily range): BP systolic 95–133; BP diastolic 52–74; PULSE 50–65; RESP 16–18; TEMP 36.2–36.8; O2SAT 92–97
--- NOTE | 2020-12-11 06:56 | HMH.ANESCL ---
[facility] Anesthesia Checklist - Patient Identification Patient Identification: Arm Band - Structural Data Admitted From: Home Planned Operative Procedure/s: Lipoma excision - back Consent for Planned Operative Procedure(s) Verified: Yes - NPO Status Verified Time NPO: 00:00 - Additional verifications Anesthesia Reactions: No Hx Blood Transfusions: No Blood Transfusion Reaction: No - Airway Assessment C-Spine Mobility Assessed: Yes TMJ Mobility Assessed: Yes Dentition: Partials - Neurological Assessment Level of Consciousness: Awake Hx Seizures: No Numbness or tingling in extremities: No - Anesthesia Plan Anesthesia Risk discussed: Yes Anesthesia Plan: Verified ASA Class: III Anesthesia Type: General [facility] History I have reviewed the patient's past medical history: Yes Medical History: Reports:: Cardiomyopathy, Diabetes Mellitus Type 2, Hyperlipidemia, Hypertension, Migraine Denies:: Cancer, Diabetes Mellitus Type 1, Internal Pacemaker, MRSA, Seizures *Have you ever received a pneumonia vaccine?: Yes *Have you received a flu vaccine this season?: Yes Other Medical History: Reports: Arthritis, Hypothyroidism, Thyroid Disease, Other (TOMMY). Denies: Blood Transfusion Reaction Anesthesia experience/problems:: None Laterality Cases: Left: Arthroscopy Knee, Right: Other Other Surgeries: Yes: No Previous Surgery, Cardiac Catheterization, Colonoscopy, (x2), EGD, Hysterectomy-Total, Hysterectomy-Partial, Other. No: Pacemaker Amputation: No Fractures: Yes (fx right wrist) - *Social History Last grade of school completed: GED Smoking Status: Never smoker Alcohol Intake: current Alcohol Intake Frequency:: a few times a month Substance Use Type: denies use *Occupational Status:: retired Housing: house Household Members: spouse *Travel in the last 8 weeks: Inside the [facility] Family Hx:: Cancer, Coronary Artery Disease, Heart Attack
--- NOTE | 2020-12-11 07:51 | P.OP_ITS ---
Date of procedure: 12/11/20 Pre-op Diagnosis:: Lipoma on mid back Post-op Diagnosis:: Same Procedure performed:: Excision of lipoma (excisional length approximately 3.0 cm) with intermediate complexity closure. Surgeon:: Mello Castillo MD INSIDE SALES SPECIALIST:: Randall Contreras Anesthesia: LMA Estimated blood loss (mL): 5 Clinical Note:: Patient is a pleasant 70-year-old female referred by Maria Fernanda Genao for lipoma on her back. She does state that she has had several lipomas in the past. Incidentally she does have an asymptomatic lipoma on her right forearm. She had a lesion removed from her right posterior shoulder area sometime ago which was quite large. On the mid thoracic area just to the left of the spine she has a lipoma. She states that this has been x-rayed in the past. It has been present for up to 3 years but has been causing her more problems. She states that it is bothersome more frequently especially when laying down at night and having p ressure on the area. On examination she was found to have a subtle approximately 2 cm subcutaneous lipoma near the mid thoracic area just to the left of the midline. It was explained to the patient that excision may not relieve her pain and discomfort. She understood and wished to proceed. Plan was made for excision under anesthesia. Operative findings:: Consistent with subcutaneous lipoma Operative note:: In the preoperative area with the patient awake and with her direction the area was marked with a skin marker. Patient was taken to the operating room. General anesthesia was induced via LMA. She was positioned in right lateral decubitus position. The area was prepped and draped in standard surgical fashion. Approximately 3 cm incision was made overlying the lesion. Dissection was carried down through full-thickness of the skin to the superficial subcutaneous tissues. Relatively well-circumscribed mildly lobulated fatty nodule was encountered. It was dissected free from surrounding tissues with tenotomy dissection. This was in the subcutaneous tissues. It was sent off as specimen. Hemostasis was achieved with electrocautery. Local anesthetic was infiltrated. Deep dermal tissues were closed with interrupted 3-0 Vicryl. Skin was closed with 4-0 Monocryl in a subcuticular fashion. Clean dry sterile dressing was applied. Condition: stable Disposition: PACU Specimens:: Lipoma Complications:: None immediately apparent
--- NOTE | 2020-12-11 07:55 | P.PN_ITS ---
[facility] Anesthesia Record Part I Intake, IV Amount: 500 Estimated blood loss (mL): 5 Urine output (mL): 0 Blood Pressure: 95/52 SaO2: 93 Pulse Rate: 50 Respiratory Rate: 16 Temperature: 98.2 F Patient is:: Drowsy, Stable Stable to PACU at:: 07:50
--- NOTE | 2020-12-11 08:11 | PC.NURSE ---
FSBS 101
[2020-12-11 08:15] LABS: POC Glucose,Bedside 101 (70-110)
--- NOTE | 2020-12-11 10:20 | HMH.ANESII ---
[facility] Anesthesia Record Part II Discharge Time: 08:20 Destination: Surgical Day Care (OP Surgery) PACU nurse assessment reviewed?: Yes Patient Condition:: Good Anesthesia Complications:: None Swallowing reflex intact?: Yes Cyanosis?: No Blood Pressure: 128/67 Pulse Rate: 50 Temperature: 97.2 F Mental Status: Alert & Oriented Pain level:: 0 Nausea and/or vomitting:: None Intake, IV Amount: 0
[2020-12-12 08:50] LABS: POC Glucose,Bedside 108 (70-110)
== END 2020-12-11 08:55 | disposition home or self-care (01) ==
LOC: OR 06:14
PROVIDERS: PCP Family Medicine; Visit Provider Surgery
DX: D17.1 Benign lipomatous neoplasm of skin and subcutaneous tissue of trunk (principal); E11.9 Type 2 diabetes mellitus without complications; I42.9 Cardiomyopathy, unspecified; E78.5 Hyperlipidemia, unspecified; I10 Essential (primary) hypertension; G43.909 Migraine, unspecified, not intractable, without status migrainosus; M19.90 Unspecified osteoarthritis, unspecified site; E03.9 Hypothyroidism, unspecified; G47.33 Obstructive sleep apnea (adult) (pediatric); Z80.9 Family history of malignant neoplasm, unspecified; Z82.3 Family history of stroke; Z91.041 Radiographic dye allergy status
CPT/HCPCS: 11403; 82962; 88304; 96374; J2405

== ENCOUNTER → 2021-03-08 14:50 | Outpatient (CLI) | payer MEDICARE, SELFPAY ==
--- NOTE | 2021-03-08 14:56 | XR_ITS ---
PROCEDURE: XR HIP RT 2-3V W/PELVIS CLINICAL INDICATION: RT HIP PAIN COMPARISON: CR XR HIP RT 2-3V W/PELVIS from 06/06/2020 FINDINGS: No fracture or dislocation is evident. No significant degenerative change. No lytic or blastic change. Unremarkable soft tissues. IMPRESSION: No acute findings. Dictated by: Dr. Octaviano Carpio MD 03/08/2021 15:38 Dr. Octaivano Carpio MD in [place] 03/08/2021 15:38
--- NOTE | 2021-03-08 14:56 | XR_ITS ---
PROCEDURE: XR HIP LT 2-3V W/PELVIS CLINICAL INDICATION: LT HIP PAIN COMPARISON: CR XR HIP RT 2-3V W/PELVIS from 06/06/2020 FINDINGS: No fracture or dislocation is evident. No significant degenerative change. No lytic or blastic change. Unremarkable soft tissues. There is a small smoothly marginated bone fragment adjacent to the greater trochanter probably a partially avulsed osteophyte. There are no soft tissue calcifications. IMPRESSION: No significant abnormality noted Dictated by: Dr. Octaviano Carpio MD 03/08/2021 15:37 Dr. Octaviano Carpio MD in [place] 03/08/2021 15:37
== END ==
PROVIDERS: PCP Family Medicine; Visit Provider Physician Assistant
DX: M25.552 Pain in left hip (principal); M25.551 Pain in right hip
CPT/HCPCS: 73502

== ENCOUNTER → 2021-03-21 12:56 | Outpatient (CLI) | payer MEDICARE, SELFPAY ==
--- NOTE | 2021-03-21 13:07 | US_ITS ---
PROCEDURE INFORMATION: Exam: US Left Breast, Complete Exam date and time: 03/21/2021 1:07 PM Age: 70 years old Clinical indication: Palpable abnormality in the left upper inner quadrant TECHNIQUE: Imaging protocol: Complete ultrasound of all four quadrants of the Left breast and the retroareolar regions, including ultrasound of the axilla when performed. COMPARISON: BREASTLT US breast LT complete 11/26/2018 1:51 PM FINDINGS: Breast: Sonographic images of the left breast including the retroareolar region, all 4 quadrants and the axilla demonstrates few scattered subcentimeter cysts. Hypoechoic mass containing calcium measuring 0.5 cm in greatest dimension in the deep left 11 o'clock axis most closely corresponds to a coarse dystrophic calcification on mammography. The patient reports a palpable abnormality in the left 11 o'clock axis outer breast. This corresponds to a subcutaneous echogenic ovoid mass measuring 1.9 x 0.6 x 1.5 cm in dimension, most consistent with a benign lipoma. No architectural distortion or acoustical shadowing. No skin thickening or axillary adenopathy. IMPRESSION: Palpable abnormality in the left upper inner quadrant corresponds to a benign subcutaneous lipoma. Further evaluation of a palpable abnormality should be based on clinical grounds regardless of radiographic findings or lack thereof.No sonographic evidence of malignancy. Annual screening is recommended unless otherwise clinically indicated. ASSESSMENT: BI-RADS Category 2: Benign
--- NOTE | 2021-03-21 13:07 | MM_ITS ---
PROCEDURE: MM DIG SCREENING MAMM BI W/CAD Digital Breast Tomosynthesis Included CLINICAL INDICATION: SCREENING There is no personal or family history of breast cancer. COMPARISON: MG DIG MAMM-SCREEN LATOYA from 11/16/2018 MG DIG MAMM-DX LATOYA from 11/26/2018 MG MM DIG SCREENING MAMM BI W/CAD from 01/26/2020 TECHNIQUE: Standard CC and MLO images and 3D Tomosynthesis was obtained. R2 CAD reviewed. FINDINGS: Moderate diffuse somewhat heterogenic fibroglandular densities are seen throughout both breasts. There are mole markers on each breast. There are few benign-appearing microcalcifications in each breast with small clusters of microcalcifications in the outer quadrants of both breast likely secondary to sclerosing adenosis. There is a single macrocalcification left breast. There is no suspicious lesion and no suspicious microcalcifications. IMPRESSION: Stable exam with moderately dense parenchymal pattern and no suspicious lesions seen BI-RAD Category: 2 Benign Finding(s) FOLLOW-UP: 1YR 1 Year Follow-up (A letter has been sent to the patient regarding results of the study.) Dictated by: Dr. Octaviano Carpio MD 03/27/2021 08:10 Dr. Octaviano Carpio MD in [place] 03/27/2021 08:10
== END ==
PROVIDERS: PCP Family Medicine; Visit Provider Physician Assistant
DX: Z12.31 Encounter for screening mammogram for malignant neoplasm of breast (principal); N63.20 Unspecified lump in the left breast, unspecified quadrant; R92.8 Other abnormal and inconclusive findings on diagnostic imaging of breast
CPT/HCPCS: 76641; 77063; 77067

== ENCOUNTER → 2021-05-20 17:00 | Outpatient (CLI) | payer MEDICARE, SELFPAY ==
--- NOTE | 2021-05-20 17:06 | MR_ITS ---
PROCEDURE INFORMATION: Exam: MR Lumbar Spine Without Contrast Exam date and time: 05/20/2021 5:06 PM Age: 70 years old Clinical indication: Low back pain; Additional info: Lower back pain. Bilateral lbp. Swelling on lt side of groin. Lt leg pain, numbness, and tingling. Symptoms xyrs. No prior. TECHNIQUE: Imaging protocol: Multiplanar magnetic resonance images of the lumbar spine without intravenous contrast. COMPARISON: US SPINAL CANAL CONTENT 06/27/2019 2:51 PM FINDINGS: Grade 1 anterolisthesis of L4 on L5. Vertebral body heights are preserved. There are multifocal vertebral body hemangiomas. Disc desiccation. Negative for discitis/osteomyelitis. No epidural fluid collection. Conus medullaris terminates L1-L2. There is mild increased signal involving the central canal of the distal thoracic cord, incompletely visualized. L1-L2: No central or foraminal stenosis. L2-L3: No central or foraminal stenosis. L3-L4: Minimal disc bulge and mild bilateral facet joint arthropathy. No significant central or foraminal stenosis. L4-L5: Mild disc bulge and [id number] bilateral facet joint arthropathy. There is borderline central canal stenosis without significant foraminal stenosis. L5-S1: Minimal disc bulge and bilateral facet joint arthropathy. No significant central or foraminal stenosis. IMPRESSION: 1. Mild increased signal involving the central canal of the distal thoracic cord, incompletely visualized. Dedicated MRI of the thoracic spine may be considered to assess for possible thoracic syrinx. 2. Mild degenerative disc disease as above most prominently at L4-L5 where there is borderline central canal stenosis. No high-grade central canal stenosis throughout.
== END ==
PROVIDERS: PCP Family Medicine; Visit Provider Orthopaedic Surgery
DX: M54.9 Dorsalgia, unspecified (principal); M54.50 Low back pain, unspecified
CPT/HCPCS: 72148; 76376

== ENCOUNTER → 2021-05-21 13:06 | Outpatient (CLI) | payer MEDICARE, SELFPAY ==
[2021-05-21 13:59] LABS: Basophils % 0.6 % (0.1-2.0); Eosinophils # 0.2 K/mm3 (0.0-0.4); Eosinophils % 2.2 % (0.1-12.0); Hematocrit 41.3 % (37.0-47.0); Hemoglobin 13.9 g/dL (12.2-16.2); Lymphocytes # 2.5 K/mm3 (0.7-4.5); Lymphocytes % 36.4 % (10-50); Mean Corpuscular HGB Conc 33.6 g/dL (31.8-35.4); Mean Corpuscular Hemoglobin 30.7 pg (27.0-31.2); Mean Corpuscular Volume 91.5 fl (81-99); Mean Platelet Volume 7.8 fl (7.4-10.4); Monocytes # 0.3 K/mm3 (0.1-1.0); Monocytes % 4.7 % (1.7-9.3); Neutrophils # 3.8 K/mm3 (1.8-7.8); Neutrophils % 56.1 % (37.0-80.0); Platelet Count 195 K/mm3 (142-424); Red Blood Count 4.52 M/mm3 (4.20-5.40); Red Cell Distribution Width 12.8 % (11.5-17.5); White Blood Count 6.7 K/mm3 (4.8-10.8)
== END ==
PROVIDERS: PCP Family Medicine; Visit Provider Nurse Practitioner
DX: Z20.822 Contact with and (suspected) exposure to COVID-19 (principal)
CPT/HCPCS: 36415; 85025; 87275; 87276; C9803; U0003; U0005

== ENCOUNTER → 2021-08-29 11:33 | Outpatient (CLI) | payer MEDICARE, SELFPAY ==
[2021-08-29 12:18] LABS: Chloride 105 mmol/L (98-107); Potassium 4.2 mmoL/L (3.5-5.1); Sodium 139 mmol/L (136-145)
[2021-08-29 12:21] LABS: Alanine Aminotransferase 32 U/L (12-78); Albumin Level 4.1 g/dl (3.5-5.0); Albumin/Globulin Ratio 1.5 (1.1-1.8); Alkaline Phosphatase 78 U/L (38-126); Anion Gap 11.2 mEq/L (5-15); Aspartate Amino Transferase 41 U/L (14-36); Bilirubin,Total 0.7 mg/dl (0.2-1.3); Blood Urea Nitrogen 19 mg/dl (7-17); Calcium 8.6 mg/dl (8.4-10.2); Carbon Dioxide 27 mmol/L (22.0-30.0); Creatine Kinase 90 U/L (30-135); Estimated Glomerular Filt Rate 71 ml/min (>60); GFR (African American) 86 ML/MIN (>60); Globulin 2.8 g/dL (1.3-3.2); Glucose 111 mg/dl (74-100); Total Protein,Serum 6.9 g/dl (6.3-8.2)
[2021-08-29 12:39] LABS: Hemoglobin A1C 6.5 % (4.0-6.0)
[2021-08-29 12:44] LABS: CKMB Relative Index 1.2 U/L (0-4.0); Creatine Kinase MB 1.1 ng/ml (0.0-2.03)
[2021-08-29 12:51] LABS: Troponin I < 0.01 ng/ml (0.00-0.034)
[2021-08-29 12:57] LABS: Free T4 (Free Thyroxine) 1.33 ng/dl (0.78-2.19)
--- NOTE | 2021-08-29 13:02 | ECG_ITS ---
APPROVED REPORT Exam: Resting ECG HR:53 bpm ECG Measurements Heart Rate 53 AXES MS 169 P -2 QRSd 85 QRS 25 QT 431 T 24 QTc 414 Conclusion SINUS BRADYCARDIA LOW QRS VOLTAGE IN PRECORDIAL LEADS [QRS DEFLECTION < 1.0 mV IN CHEST LEADS] BORDERLINE ECG UNCONFIRMED REPORT Electronically signed by : Rafa Burns MD 08/31/2021 08:17:38
[2021-08-29 13:06] LABS: Thyroid Stimulating Hormone 2.28 uIU/mL (0.465-4.68)
== END ==
PROVIDERS: PCP Family Medicine; Visit Provider Physician Assistant
DX: R07.9 Chest pain, unspecified (principal); I10 Essential (primary) hypertension; E03.9 Hypothyroidism, unspecified; E11.9 Type 2 diabetes mellitus without complications; Z79.84 Long term (current) use of oral hypoglycemic drugs
CPT/HCPCS: 36415; 80053; 82550; 82553; 83036; 84439; 84443; 84484; 93005

== ENCOUNTER → 2021-11-07 06:18 | Outpatient (CLI) | payer MEDICARE, SELFPAY ==
--- NOTE | 2021-11-07 06:21 | CA_ITS ---
APPROVED REPORT Exam: Pharmacologic Technologist: Marah Choi, Ht: 5 ft 2 in Wt: 192 lbs BSA: 1.88 m2 HR: 56 bpm BP: 152/64 mmHg Rhythm: sinus mazin, low voltage QRS Indications: CP, SOA Medical History Medical History: HTN, Hyperlipidemia, Diabetes Medications: Lisinopril,,,,, Levothyroxine,,,,, Cardiac Risk Factors: HTN, Hyperlipidemia, FHX of CAD Stress Test Details Test: LEXISCAN HR Resting HR: 63 bpm Max Heart Rate (APMHR): 151.011814 bpm Max HR Achieved: 91 bpm Target HR (85% APMHR): 128.139538 bpm % of APMHR: 60.26 Recovery HR: 71 bpm BP Resting BP: 152/64 mmHg Max BP: 172/78 mmHg Recovery BP: 157.0/70.0 mmHg ECG Resting ECG: sinus mazin, low voltage QRS Clinical Exercise duration: 04:02 min Highest Stage Achieved: Exercise capacity: 1.0 METs Stress ECG Conclusion During lexiscan pt experinced mild chest discomfort, SOA, and dizziness. Occasional isolated unifocal PVC. NS T wave changes. Unremarkable lexiscan stress. Myoview images reported separately. Test Summary REST . . . . . . . Sitting REST 07:35 . . 63 . 152/ 64 . . Stage 1 01:00 . . 75 . . . . Stage 2 01:00 . . 87 . 172/ 78 . . Stage 3 01:00 . . 82 . . . . Stage 4 01:00 . . 76 . 158/ 76 . . Stage 4 01:02 . . 77 . 158/ 76 . Stop exercise at 04:02 RECOVERY 01:00 . . 74 . . . . RECOVERY 02:00 . . 69 . . . . RECOVERY 03:00 . . 70 . 157/ 70 . . RECOVERY 03:50 . . 67 . 166/ 73 . . Electronically signed by : Everett Selby MD 11/08/2021 10:59:39
--- NOTE | 2021-11-07 06:21 | NM_ITS ---
APPROVED REPORT Exam: Nuclear Stress Test Indication: chest pain..short of breath..fatigue Patient Location: Outpatient Stress Tech: Marah Choi NM Tech:Adriana Martinez WALIEliezer RT(R)(N) Ht: 5 ft 2 in Wt: 192 lbs Bra Size: 38d BP: 152/64 mmHg BSA: 1.88 m2 TID: 1.11 BMI: 35.1 History: chest pain..short of breath..fatigue Procedure: Patient received a 0.4 mg of intravenous Lexiscan, resting heart rate 63 bpm, resting blood pressure 152/64 mmHg, with Lexiscan maximum heart rate achived was 91 bpm which is Less than 85 % of the maximum predicted heart rate and blood pressure was 172/78 mmHg. With Lexiscan, patient denied any complaint of chest pain. Electrocardiogram Resting electrocardiogram shows sinus rhythm, with Lexiscan there is less than 1.[address] segment depression noted from the baseline EKG. The EKG portion of the Lexiscan is nondiagnostic. Cardiac Stress and Resting SPECT Images: Cardiac Stress and Resting SPECT images were obtained using technetium 99m Myoview 30.8 mCi stress and 10.53 mCi at rest. Gated SPECT analysis of segmental wall motion and calculation of the ejection fraction also done. Prone images were also obtained. Cardiac stress and rest SPECT images show reversible ischemia involving the anterior apical wall, computer derived ejection fraction is over 65% with no regional wall motion abnormality, right ventricle is normal size and contractility. Conclusion: 1. The EKG portion of the Lexiscan is nondiagnostic. 2. Scintigraphic abnormal reversible ischemia involving the anterior apical wall, computer derived ejection fraction is over 65% with no regional wall motion abnormality, right ventricle is normal size and contractility. 3. Abnormal Lexiscan Myoview study. Electronically signed by : Everett Selby MD 11/08/2021 11:03:19
--- NOTE | 2021-11-07 06:21 | CA_ITS ---
APPROVED REPORT EXAM: Comprehensive 2D, Doppler, and color-flow Echocardiogram Day Care Provider: KARIE Mcwilliams, RVS Ht: 5 ft 2 in Wt: 192lbs BSA: 1.88 BP: 172/76 mmHg Indications: HTN, HLDSOB, FAUST, DM, resolved CM, CP, Diastolic dysfunction 2D Dimensions IVSd 0.96 cm LVEF (Visual) 67.50 % PWd 1.04 cm LA Volume 45.80 mL LVDd 4.90 cm LA Volume Index [id number] mL/m2 (M/F) 16-34 LVDs 3.06 cm Aortic Root 3.07 cm Left Atrium 4.05 cm LVOT 2.00 cm (M/F) 1.5-2.5 M-Mode Dimensions RVDd 2.01 cm (0.9-2.6) LA Diam 4.34 cm (1.9-4.0) LVDd 5.54 cm (3.5-5.7) Ao Diam 3.06 cm (2.0-3.7) LVDs 3.81 cm (3.5-5.7) IVSd 1.20 cm (0.6-1.1) PWd 1.33 cm (0.6-1.1) EF (Teich) 58.40% EPSs 0.24 cm FS 31.20% EDV (Teich) 149.90 mL TAPSE 2.54 (<1.7) ESV (Teich) 62.30 mL LV Diastology E Decel Time 220.00 (160-240 msec) E/A Ratio 0.86 MED E' 8.60 (< 7 cm/sec) MED A' 11.20 cm/s E'/MED E' Ratio 12.14 (>14) LAT E' 6.50 (<10 cm/sec) LAT A' 11.40 cm/s E/LAT E' Ratio 16.06 (>14) Aortic Valve LVOT Max 131.00 (70-110 cm/s) LVOT VTI 31.83 cm AoV Peak Orion. 144.00 (50-130 cm/s) AO Peak GR. 8.20 mmHg AO Mean GR. 4.10 (<5 mmHg) AO VTI 33.28 (18-25 cm) DEMOND (VTI) 3.00 (2.5-4.5 cm2) Mitral Valve MV A Velocity 122.00 (40-130 cm/s) E/A Ratio 0.86 MV Decel. Time 220.00 (160-240 ms) MV Mean Gr. 3.00 (<2mmHg) MV PHT 53.00 ms Pulmonary Valve PV Peak Velocity 82.00 (50-150 cm/s) Tricuspid Valve TR P. Velocity 196.00 cm/s RAP Estimate 10.00 mmHg RVSP 25.40 mmHg Left Ventricle Left atrium is mildly enlarged, left ventricle is normal size, mild concentric left ventricular hypertrophy, estimated ejection fraction 55% with no regional wall motion abnormality, grade 1 diastolic dysfunction seen with tissue Doppler evidence of raise left atrial pressure. Right Ventricle Right atrium and right ventricle are normal size and contractility. Aortic Valve Aortic valve is minimally thickened and fibrosed, there is mild aortic insufficiency. Mitral Valve Mitral valve is grossly normal, there is trace mitral regurgitation. Tricuspid Valve Tricuspid regurgitation jet velocity is inadequate tricuspid valve is grossly normal, there is trace tricuspid regurgitation noted, tricuspid regurgitation jet velocity is inadequate for calculation of the right ventricular systolic pressure. Pulmonic Valve Pulmonic valve is poorly visualized. Great Vessels Aortic root is normal size. Inferior vena cava is poorly visualized. Pericardium No significant pericardial effusion noted. Conclusion 1. Mildly enlarged left atrium, normal left ventricular size, mild concentric left ventricular hypertrophy, estimated ejection fraction 55% with no regional wall motion abnormality, grade 1 diastolic dysfunction seen with tissue Doppler evidence of raise left atrial pressure. 2. Mild aortic, trace mitral and tricuspid regurgitation. 3. No significant pericardial effusion. 4. Inferior vena cava is poorly visualized. Electronically signed by : Everett Selby MD 11/08/2021 11:57:43
== END ==
PROVIDERS: PCP Family Medicine; Visit Provider Nurse Practitioner
DX: H53.9 Unspecified visual disturbance (principal); I10 Essential (primary) hypertension; R06.02 Shortness of breath; R07.9 Chest pain, unspecified; R53.83 Other fatigue; R60.0 Localized edema
CPT/HCPCS: 78452; 93017; 93306; A9502; J2785

== ENCOUNTER → 2021-11-16 09:30 | Outpatient (CLI) | payer MEDICARE, SELFPAY | PROVIDERS: PCP Family Medicine; Visit Provider Internal Medicine | DX: Z01.812 Encounter for preprocedural laboratory examination (principal); Z20.822 Contact with and (suspected) exposure to COVID-19; R94.31 Abnormal electrocardiogram [ECG] [EKG] | CPT/HCPCS: C9803; U0003; U0005 ==

== ENCOUNTER 2021-11-18 07:00 | Day surgery (SDC) | payer MEDICARE, SELFPAY ==
[2021-11-18] VITALS (12 sets, daily range): BP systolic 134–172; BP diastolic 72–96; PULSE 53–67; RESP 16–20; TEMP 36.9; O2SAT 91–100; BMI 34.9
--- NOTE | 2021-11-18 | IR_ITS ---
APPROVED REPORT Patient Location: Outpatient Technician Biological Health: DASHAWN Davison RT (R) PROCEDURES Left heart catheterization Left ventriculogram Selective coronary angiogram INDICATION Angina pectoris, Abnormal Myoview, Informed consent was obtained prior to the procedure. COMPLICATIONS None Estimated Blood Loss: Less than 10 mls TECHNIQUE One percent lidocaine used to anesthetize the right anterior aspect of the wrist. The right radial artery was accessed via the Seldinger technique. A 6 Slovenian sheath was placed in the right radial artery. 2.5 mg of verapamil, 800 mcg of nitroglycerin, 1mg Lidocaine and 5000 U Heparin were given through the arterial sheath. The papa catheter was also used to perform left heart catheterization, left ventriculogram and selective coronary angiogram. At the end of the procedure the sheath was removed good hemostasis was achieved using Traclet band, patient was transferred to the postop holding area in stable condition. ANGIOGRAPHIC RESULTS The left main artery Normal The left anterior descending artery Normal The circumflex artery Normal The right coronary artery Dominant normal The TOLENTINO ventriculogram reveals Normal 65% The left ventricular end-diastolic pressure 25 mmHg IMPRESSION Normal coronary arteries Normal ejection fraction Elevated LVEDP consistent with diastolic dysfunction PLAN 1. Treatment of diastolic dysfunction which is the etiology for patient's angina Electronically signed by : Matthew Delatorre MD 11/18/2021 10:20:00
[2021-11-18 08:39] LABS: Basophils # 0.2 K/mm3 (0-0.2); Basophils % 3.2 % (0.1-2.0); Eosinophils # 0.2 K/mm3 (0.0-0.4); Eosinophils % 2.8 % (0.1-12.0); Hemoglobin 14.4 g/dL (12.2-16.2); Lymphocytes # 2.8 K/mm3 (0.7-4.5); Lymphocytes % 43.5 % (10-50); Mean Corpuscular HGB Conc 34.2 g/dL (31.8-35.4); Mean Corpuscular Hemoglobin 31.4 pg (27.0-31.2); Mean Corpuscular Volume 91.9 fl (81-99); Mean Platelet Volume 8.1 fl (7.4-10.4); Monocytes # 0.2 K/mm3 (0.1-1.0); Monocytes % 3.6 % (1.7-9.3); Neutrophils % 46.9 % (37.0-80.0); Platelet Count 184 K/mm3 (142-424); Red Blood Count 4.57 M/mm3 (4.20-5.40); Red Cell Distribution Width 13.4 % (11.5-17.5); White Blood Count 6.4 K/mm3 (4.8-10.8)
[2021-11-18 08:43] LABS: Chloride 104 mmol/L (98-107)
[2021-11-18 08:44] LABS: Potassium 3.9 mmoL/L (3.5-5.1); Sodium 139 mmol/L (136-145)
[2021-11-18 08:46] LABS: Blood Urea Nitrogen 20 mg/dl (7-17); Creatinine Clearance Estimated 73 mL/min (50-200); Estimated Glomerular Filt Rate 71 ml/min (>60); GFR (African American) 86 ML/MIN (>60)
[2021-11-18 08:47] LABS: Anion Gap 10.9 mEq/L (5-15); Calcium 9.1 mg/dl (8.4-10.2); Carbon Dioxide 28 mmol/L (22.0-30.0); Glucose 131 mg/dl (74-100)
== END 2021-11-18 13:50 | disposition home or self-care (01) ==
LOC: CATHLAB 07:03
PROVIDERS: PCP Family Medicine; Visit Provider Internal Medicine
DX: R94.31 Abnormal electrocardiogram [ECG] [EKG] (principal); I25.118 Atherosclerotic heart disease of native coronary artery with other forms of angina pectoris; I42.9 Cardiomyopathy, unspecified; I10 Essential (primary) hypertension; K21.9 Gastro-esophageal reflux disease without esophagitis; R06.09 Other forms of dyspnea; G47.53 Recurrent isolated sleep paralysis; E11.9 Type 2 diabetes mellitus without complications; E03.9 Hypothyroidism, unspecified; Z79.899 Other long term (current) drug therapy
CPT/HCPCS: 80048; 85025; 93458; 99152; C1725; C1769; J1644; Q9967

== ENCOUNTER → 2021-11-25 11:59 | Outpatient (CLI) | payer MEDICARE, SELFPAY ==
--- NOTE | 2021-11-25 12:01 | CA_ITS ---
FINAL REPORT CLINICAL HISTORY: 1 week post Right radial artery cardiac catheterization tenderness and bruising. FINDINGS: ARTERIAL DUPLEX DOPPLER BILATERAL UPPER EXTREMITIES PROCEDURE: Spectral and color Doppler waveform evaluation of the right upper extremity was performed. Spectral analysis was performed. There is thrombus of the right radial artery without evidence of pseudoaneurysm. IMPRESSION: Thrombus of the right radial artery without evidence of pseudoaneurysm. Reviewed, Interpreted and Dictated by Mello Allen III, MD Transcribed by Lorene Gilliam Authenticated and . [facility]
== END ==
PROVIDERS: PCP Family Medicine; Visit Provider Nurse Practitioner Family
DX: I77.0 Arteriovenous fistula, acquired (principal); M25.531 Pain in right wrist
CPT/HCPCS: 93931

== ENCOUNTER → 2021-12-04 09:33 | Outpatient (CLI) | payer MEDICARE, SELFPAY ==
--- NOTE | 2021-12-04 09:51 | CA_ITS ---
FINAL REPORT CLINICAL HISTORY: patient was diagnosed right radial thrombus 11/25/21 status post heart cath. Patient states she has been taking a blood thinner as a treatment but was advised to stop yesterday due to a nosebleed. She presents today for follow-up to this radial thrombus. COMPARISON: November 25, 2021 FINDINGS: UPPER EXTREMITY ARTERIAL DUPLEX Limited Spectral and Doppler waveform evaluations of the right wrist were performed. Spectral analysis was performed. There is persistent thrombus in the right radial artery. IMPRESSION: Persistent thrombus in the right radial artery. Conchis De APRN was notified by the mri special procedures technologist at the time of the study. Reviewed, Interpreted and Dictated by Mello Allen III, MD Transcribed by Anmol Cobb Authenticated and [facility]
== END ==
PROVIDERS: PCP Family Medicine; Visit Provider Nurse Practitioner Family
DX: I77.0 Arteriovenous fistula, acquired (principal); M25.531 Pain in right wrist
CPT/HCPCS: 93931

== ENCOUNTER → 2021-12-16 14:35 | Outpatient (CLI) | payer MEDICARE, SELFPAY ==
[2021-12-16 17:55] LABS: Anion Gap 13.5 mEq/L (5-15); Blood Urea Nitrogen 22 mg/dl (7-17); Calcium 9.6 mg/dl (8.4-10.2); Carbon Dioxide 28 mmol/L (22.0-30.0); Chloride 99 mmol/L (98-107); Estimated Glomerular Filt Rate 62 ml/min (>60); GFR (African American) 75 ML/MIN (>60); Glucose 154 mg/dl (74-100); Potassium 5.5 mmoL/L (3.5-5.1); Sodium 135 mmol/L (136-145)
== END ==
PROVIDERS: PCP Family Medicine; Visit Provider Nurse Practitioner Family
DX: E11.69 Type 2 diabetes mellitus with other specified complication (principal); G47.33 Obstructive sleep apnea (adult) (pediatric); I10 Essential (primary) hypertension; K21.9 Gastro-esophageal reflux disease without esophagitis; R06.02 Shortness of breath; R07.89 Other chest pain; R60.0 Localized edema
CPT/HCPCS: 36415; 80048

== ENCOUNTER → 2021-12-23 10:33 | Outpatient (CLI) | payer MEDICARE, SELFPAY ==
[2021-12-23 11:02] LABS: Chloride 103 mmol/L (98-107); Sodium 139 mmol/L (136-145)
[2021-12-23 11:03] LABS: Potassium 4.1 mmoL/L (3.5-5.1)
[2021-12-23 11:05] LABS: Blood Urea Nitrogen 29 mg/dl (7-17); Estimated Glomerular Filt Rate 62 ml/min (>60); GFR (African American) 75 ML/MIN (>60)
[2021-12-23 11:06] LABS: Anion Gap 9.1 mEq/L (5-15); Carbon Dioxide 31 mmol/L (22.0-30.0)
[2021-12-23 11:14] LABS: Calcium 9.7 mg/dl (8.4-10.2); Glucose 182 mg/dl (74-100)
== END ==
PROVIDERS: PCP Family Medicine; Visit Provider Physician Assistant
DX: E11.9 Type 2 diabetes mellitus without complications (principal); G47.33 Obstructive sleep apnea (adult) (pediatric); I10 Essential (primary) hypertension; K21.9 Gastro-esophageal reflux disease without esophagitis; R06.02 Shortness of breath; R07.89 Other chest pain
CPT/HCPCS: 36415; 80048

== ENCOUNTER → 2022-01-24 10:34 | Outpatient (CLI) | payer MEDICARE, SELFPAY ==
[2022-01-24 11:48] LABS: Anion Gap 9.2 mEq/L (5-15); Blood Urea Nitrogen 23 mg/dl (7-17); Calcium 9.8 mg/dl (8.4-10.2); Carbon Dioxide 29 mmol/L (22.0-30.0); Chloride 103 mmol/L (98-107); Estimated Glomerular Filt Rate 62 ml/min (>60); GFR (African American) 75 ML/MIN (>60); Glucose 152 mg/dl (74-100); Potassium 4.2 mmoL/L (3.5-5.1); Sodium 137 mmol/L (136-145)
[2022-01-24 12:21] LABS: Hemoglobin A1C 7.4 % (4.0-6.0)
[2022-02-02 20:02] LABS: 1,25 Dihydroxy Vitamin D 37 pg/mL (.); 1,25-Dihydroxy, Vitamin D-2 <10 pg/mL (.); 1,25-Dihydroxy, Vitamin D-3 37 pg/mL (.)
== END ==
PROVIDERS: PCP Family Medicine; Visit Provider Nurse Practitioner
DX: M79.10 Myalgia, unspecified site (principal); R53.83 Other fatigue; R73.03 Prediabetes; E66.9 Obesity, unspecified; Z68.35 Body mass index [BMI] 35.0-35.9, adult
CPT/HCPCS: 36415; 80048; 82652; 83036

== ENCOUNTER → 2022-03-03 13:14 | Outpatient (CLI) | payer MEDICARE, SELFPAY ==
--- NOTE | 2022-03-03 13:25 | XR_ITS ---
FINAL REPORT CLINICAL HISTORY: pain COMPARISON: November 29, 2019 FINDINGS: LEFT FOOT Three views of the left foot demonstrate no acute fracture or dislocation. The visualized joint spaces are normally aligned. There are mild degenerative changes which are greatest at the 1st MTP joint. There is is planus deformity. The soft tissues are unremarkable. IMPRESSION: Pes planus deformity. Mild degenerative changes with no acute bony abnormality. Reviewed, Interpreted and Dictated by Mello Allen III, MD Transcribed by Nat Pelaez Authenticated and [facility]
== END ==
PROVIDERS: PCP Family Medicine; Visit Provider Podiatrist
DX: M79.672 Pain in left foot (principal)
CPT/HCPCS: 73630

== ENCOUNTER → 2022-03-20 09:30 | Outpatient (CLI) | payer MEDICARE, SELFPAY ==
--- NOTE | 2022-03-20 09:34 | US_ITS ---
FINAL REPORT CLINICAL HISTORY: CLAUDICATION,REST PAIN,DM,EX SMOKER,HTN FINDINGS: COMPLETE ANKLE/BRACHIAL INDICES BILATERAL Complete ankle brachial indices was obtained. The right JUAN ALBERTO is 1.0. The left JUAN ALBERTO is 1.1. IMPRESSION: ABIs are within normal limits bilaterally. Reviewed, Interpreted and Dictated by Mello Allen III, MD Transcribed by Jessica Johnson Authenticated and [facility]
== END ==
PROVIDERS: PCP Family Medicine; Visit Provider Podiatrist
DX: R09.89 Other specified symptoms and signs involving the circulatory and respiratory systems (principal)
CPT/HCPCS: 93923

== ENCOUNTER → 2022-04-17 14:19 | Outpatient (CLI) | payer MEDICARE, SELFPAY ==
--- NOTE | 2022-04-17 14:19 | MR_ITS ---
FINAL REPORT CLINICAL HISTORY: ankle pain. foot pain. DORSAL FOOT PAIN AND PLANTAR FOOT PAIN AT MTP JOINT. HISTORY FOOT SURGERY 2.5 YEARS AGO AND PAIN HAS GOTTEN WORSE. FINDINGS: Multiplanar MR imaging of the left ankle was performed without contrast. There is fusiform enlargement of the Achilles tendon consistent with chronic partial tear. The plantar fascia is intact. The bony structures are intact without evidence of fracture, bone bruise or marrow edema. There is a small osteochondral lesion in the medial talar dome measuring 5 mm. The ligaments are intact without evidence of injury. The flexor and extensor tendons are intact. No significant joint effusion is seen. The musculature is intact. There is no evidence of soft tissue mass or cyst. 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 Small osteochondral lesion in the medial talar dome. Reviewed, Interpreted and Dictated by Momo Shelby MD Transcribed by Anmol Cobb Authenticated and [facility]
--- NOTE | 2022-04-17 14:19 | MR_ITS ---
FINAL REPORT CLINICAL HISTORY: foot pain. DORSAL FOOT PAIN AND PLANTAR FOOT PAIN AT MTP JOINT. HISTORY FOOT SURGERY 2.5 YEARS AGO AND PAIN HAS GOTTEN WORSE. FINDINGS: Multiplanar MR imaging of the left foot was performed without contrast. The bony structures are intact without evidence of fracture, bone bruise or marrow edema. The flexor and extensor tendons are intact. The musculature is intact. The plantar fascia is intact. No soft tissue mass or cyst is identified. IMPRESSION: No focal abnormality is identified. Please see report of MRI ankle. Reviewed, Interpreted and Dictated by Momo Shelby MD Transcribed by Anmol Cobb Authenticated and [facility]
== END ==
PROVIDERS: PCP Family Medicine; Visit Provider Podiatrist
DX: M25.372 Other instability, left ankle (principal); M84.375A Stress fracture, left foot, initial encounter for fracture; M25.572 Pain in left ankle and joints of left foot
CPT/HCPCS: 73718; 73721

== ENCOUNTER → 2022-07-26 08:48 | Outpatient (CLI) | payer MEDICARE, SELFPAY ==
[2022-07-26 10:11] LABS: Hemoglobin A1C 7.6 % (4.0-6.0)
[2022-07-26 10:14] LABS: Alanine Aminotransferase 51 U/L (12-78); Albumin Level 4.2 g/dl (3.5-5.0); Albumin/Globulin Ratio 1.6 (1.1-1.8); Alkaline Phosphatase 99 U/L (38-126); Anion Gap 5.1 mEq/L (5-15); Aspartate Amino Transferase 46 U/L (14-36); Bilirubin,Total 0.7 mg/dl (0.2-1.3); Blood Urea Nitrogen 26 mg/dl (7-17); Calcium 9.2 mg/dl (8.4-10.2); Carbon Dioxide 32 mmol/L (22.0-30.0); Chloride 103 mmol/L (98-107); Chol/HDL Ratio 4.9 (1-3.5); Cholesterol 215 mg/dl (140-200); Estimated Glomerular Filt Rate 71 ml/min (>60); GFR (African American) 86 ML/MIN (>60); Globulin 2.6 g/dL (1.3-3.2); Glucose 158 mg/dl (74-100); HDL Cholesterol 44 mg/dl (40-60); Potassium 4.1 mmoL/L (3.5-5.1); Sodium 136 mmol/L (136-145); Total Protein,Serum 6.8 g/dl (6.3-8.2); Triglycerides 242 mg/dl (30-150); VLDL Cholesterol 48 mg/dL (0-40)
[2022-07-26 10:24] LABS: Direct LDL Cholesterol 118.05 mg/dL (100-129)
[2022-07-26 10:44] LABS: Thyroid Stimulating Hormone 2.16 uIU/mL (0.465-4.68)
== END ==
PROVIDERS: PCP Family Medicine; Visit Provider Family Medicine
DX: E11.9 Type 2 diabetes mellitus without complications (principal); E03.9 Hypothyroidism, unspecified
CPT/HCPCS: 36415; 80053; 80061; 83036; 84443

== ENCOUNTER 2022-10-01 13:48 | Emergency (ER) | payer MEDICARE, SELFPAY ==
[2022-10-01 13:57] VITALS: BP 128/71; PULSE 76; RESP 19; TEMP 36.8; O2SAT 100; BMI 33.6
--- NOTE | 2022-10-01 14:22 | EXP.UTC ---
Discharge Plan Disposition Patient Disposition: Home, Self-Care Condition: Good Prescriptions Prescriptions: New ofloxacin 0.3 % drops See Rx Instructions .ROUTE .COMPLEX 7 Days Qty: 10 0RF Rx Instructions: put 1-2 drps into affected eye(s) every 2-4 h x 2 days, then 1-2 drps 4 times/day days 3-7 No Action Zyrtec 10 mg capsule 10 mg PO DAILY PRN omeprazole 40 mg capsule,delayed release(DR/EC) 40 mg PO Label Comments: TAKE 1 CAPSULE BY MOUTH EVERY DAY glimepiride 1 mg tablet 1 mg PO Label Comments: TAKE 1 TABLET BY MOUTH EVERY DAY levothyroxine [Euthyrox] 50 mcg tablet 50 mcg PO DAILY triamterene-hydrochlorothiazid [Maxzide] 75-50 mg tablet 1 tab PO DAILY Qty: 30 2RF Referrals Follow up/Referrals: Bobby Cespedes MD [Primary Care Provider] - See instructions Activity Restrictions/Add. Instructions Additional Instructions/Restrictions: Wash hands well before and after applying eye drops Use drops as prescribed Follow up with your Eye Doctor if no improvement or any worsening of symptoms Return if needed Straight to ER if any life threatening symptoms Clinical Impressions Clinical Impression: Conjunctivitis Stand Alone Forms Stand Alone Forms: Work/School Release Instructions Patient Instructions: DI for Conjunctivitis, Conjunctivitis, Ofloxacin Ophthalmic Discharge ED Provider: Юлия Kirkland [facility] General Stated complaint: LT eye irritation Mode of Arrival: Ambulatory Source of Information: Patient Limitations: No Limitations Time Seen by Provider: 10/01/22 14:22 Description of Symptoms (Recalled from Triage Doc. by RN): pt c/o her L eye aching since yesterday. HEENT Symptoms (Recalled from RN notes): Yes Resp Symptoms (Recalled from RN notes): No Skin Symptoms (Recalled from RN notes): No MS Symptoms (Recalled from RN notes): No Functional Status (Recalled from RN notes): wnl History of Present Illness Provider Complaint: Patient states that she was recently around her son and daughter in law that had pink eye States that a couple days ago her left eye felt irritated, draining and slightly swollen with some matting States that she had some left over eye drops and used them today and it has helped some but they are outdated Denies injury to eye Denies known FB Related Data Home Medications Medication Instructions Recorded Confirmed levothyroxine 50 mcg tablet 50 mcg PO DAILY . 03/20/21 08/26/22 (Euthyrox) cetirizine 10 mg capsule (Zyrtec) 10 mg PO DAILY PRN 11/25/21 08/26/22 glimepiride 1 mg tablet 1 mg PO 08/26/22 08/26/22 omeprazole 40 mg capsule,delayed 40 mg PO 08/26/22 08/26/22 release Previous Rx's Medication Instructions Recorded triamterene 75 1 tab PO DAILY #30 tabs 09/02/22 mg-hydrochlorothiazide 50 mg tablet (Maxzide) ofloxacin 0.3 % eye drops See Rx Instructions ophthalmic 10/01/22 (eye) .COMPLEX 7 days #10 mL Allergies Allergy/AdvReac Type Severity Reaction Status Date / Time Iodinated Contrast Media Allergy Intermediate burning Verified 10/01/22 14:06 [IODINATED CONTRAST MEDIA - ORAL AND] Worker's Comp Is this a Worker's Comp case?: No [facility] Disclaimer: The information contained in this section may have been updated after the patient was seen, as this information can be updated by other users. Medical History Abnormal cardiovascular stress test Atypical angina Bradycardia Diabetes mellitus SOB (shortness of breath) Social History Smoking Status: Never smoker second hand exposure: No alcohol intake: never substance use type: denies use current occupational status: retired Travel in the last 8 weeks: Inside the [place] household members: spouse housing: house current occupational exposures/hazards: No caffeine: Yes ROS Obt
[2022-10-01 14:31] VITALS: BP 128/71; PULSE 76; RESP 19; TEMP 36.8
== END 2022-10-01 14:31 | disposition home or self-care (01) ==
PROVIDERS: Emergency Provider Nurse Practitioner; PCP Family Medicine
DX: H10.32 Unspecified acute conjunctivitis, left eye (principal); E11.9 Type 2 diabetes mellitus without complications; K21.9 Gastro-esophageal reflux disease without esophagitis; Z79.84 Long term (current) use of oral hypoglycemic drugs
CPT/HCPCS: 99212; 99214; G0463

== ENCOUNTER → 2022-10-21 16:27 | Outpatient (CLI) | payer MEDICARE, SELFPAY ==
--- NOTE | 2022-10-21 16:48 | XR_ITS ---
PROCEDURE INFORMATION: Exam: XR Left Foot Complete; Alignment Exam date and time: 10/21/2022 5:17 PM Age: 71 years old Clinical indication: Pain; Foot; Left; Additional info: Foot pain TECHNIQUE: Imaging protocol: Radiologic exam of the left foot. Views: 3 or more views. COMPARISON: MR FOOT LT WO CON 04/17/2022 2:27 PM FINDINGS: Bones/joints: Minimal heel spurs. Mild degenerative changes 1st MTP joint. No acute fracture. Soft tissues: Normal. IMPRESSION: No acute abnormality.
== END ==
PROVIDERS: PCP Family Medicine; Visit Provider Podiatrist
DX: M76.72 Peroneal tendinitis, left leg (principal); M84.375A Stress fracture, left foot, initial encounter for fracture; M79.672 Pain in left foot
CPT/HCPCS: 73630

== ENCOUNTER → 2022-11-14 13:46 | Outpatient (CLI) | payer MEDICARE, SELFPAY ==
--- NOTE | 2022-11-14 13:53 | XR_ITS ---
FINAL REPORT CLINICAL HISTORY: Lt knee pain COMPARISON: 03/10/2020 FINDINGS: LEFT KNEE: Three views of the left knee were obtained. There is no acute fracture or dislocation. Visualized joint spaces are normally aligned. There is moderate degenerative change. Medial compartment narrowing is noted. There is no joint effusion. Soft tissues are unremarkable. IMPRESSION: No acute bony abnormality. Stable exam. Reviewed, Interpreted and Dictated by Mello Allen III, MD Transcribed by Katharine Howard Authenticated and [facility]
== END ==
PROVIDERS: PCP Family Medicine; Visit Provider Orthopaedic Surgery
DX: M25.562 Pain in left knee (principal)
CPT/HCPCS: 73562

== ENCOUNTER 2022-12-04 08:00 | Outpatient (RCR) | payer MEDICARE, SELFPAY ==
--- NOTE | 2022-11-05 11:24 | HMH.PTOPEV ---
PT Outpatient Evaluation Rehab PT Outpatient Evaluation Start: 11/05/22 09:07 Freq: Status: Active Protocol: Document 11/05/22 09:07 CLAU (Rec: 11/05/22 11:24 CLAU [id number]) E-signed By Kiya Butler, PT Outpatient Therapy Subjective History Subjective History Pt is a 72 y/o female who reports history of L ankle surgery on 05/12/18 to remove a cyst resulting in chronic ankle/foot pain. Pt reports she fell the day after surgery but had an xray without findings of further injury. Pt reports she has pain along the plantar/dorsal aspect of the great toe, along the lateral 3 MTP joints, and the lateral ankle. Pt reports a tightness/stretching sensation of the plantar aspect of the medial foot with ankle dorsiflexion. Pt reports pain is worse at night time and only relieves with self- massage. Pt reports she also has constant numbness of the lateral malleoli and lateral 3 digits that was present following surgery and unchanged since. Pt also reports noted edema of the ankle especially with increased activity located around the med/lat malleoli. Pt reports she had an unna boot applied at her last visit with Dr. Quarles to assist with edema which did help some . Pt also reports she was given a compounding cream that does help with pain as well. Pt also reports a sense of instability of the L ankle while gardening and walking [place]. Pt denies recent falls or use of an AD. Pt reports she had a L foot xray on 10/21/22 with impression of Bones/joints: Minimal heel spurs. Mild degenerative
--- NOTE | 2022-12-04 09:04 | HMH.RHREAS ---
Rehab Reassessment Rehab OP Re-assessment Start: 11/05/22 09:07 Freq: Status: Active Protocol: Document 12/04/22 08:12 CLAU (Rec: 12/04/22 09:04 CLAU [id number]) E-signed By Kiya Butler PT Rehab Re-assessment Subjective Subjective Pt reports she feels 80% improved since starting PT. Pt reports she continues to have soreness of the great toe and lateral 3 digits rated 4/10 on average. Pt reports intermittently pain inreases to a 7/10 at night but this does not happen as often as it used to. Pt reports pain is dependent on activity and what type of shoes she is wearing. Pt reports she is planning on getting her L knee replaced in January. Objective Objective Notes L ankle AROM: 10 Df, 45 PF, 25 invrsion, 18 eversion L ankle MMT: 5/5 grossly with exception of eversion 4+/5 L ankle figure 8 girth: 56 cm (same as R) Balance: FT EC 30 without LOB , Tandem stance EO 25 without LOB Assessment Progress Assessment Progressing as Expected Assessment Notes Pt has attended 9 PT visits consisting of aerobic exercise , LE stretching/strengthening, balance/proprioception training, manual therapy and modalities with good tolerance . Pt demonstrated improved L ankle AROM, strength and balance since starting PT. Pt continues to reports pain at worst as 7/10 of the great toe and lateral 3 digits likely due to compensated gait pattern from L knee pain. Pt is planning to get a L TKA in January. Pt met most PT goals and is appropriate to d/ c to independent HEP at this time. Patient goals met ST5 LT/9 Goals Not Met
== END 2022-12-04 08:05 | disposition home or self-care (01) ==
LOC: PT 08:00
PROVIDERS: PCP Family Medicine; Visit Provider Podiatrist
DX: M25.572 Pain in left ankle and joints of left foot (principal); M25.372 Other instability, left ankle
CPT/HCPCS: 97010; 97035; 97110; 97140; 97163; 97164

== ENCOUNTER → 2023-01-03 08:33 | Outpatient (CLI) | payer MEDICARE, SELFPAY ==
--- NOTE | 2023-01-03 08:33 | MR_ITS ---
PROCEDURE INFORMATION: Exam: MR Left Lower Extremity Joint Without Contrast; Ankle Exam date and time: 01/03/2023 8:49 AM Age: 72 years old Clinical indication: Pain; Ankle; Left; Additional info: Ankle pain. Pain on lateral side of foot and ankle and ball of foot pain TECHNIQUE: Imaging protocol: Magnetic resonance imaging of the left lower extremity without contrast. Exam focused on the ankle. COMPARISON: MR ANKLE LT WO CON 04/17/2022 2:27 PM FINDINGS: Bones/joints: There is a chronic nondisplaced osteochondral lesion of the medial talar dome. This is more clearly delineated today compared with the prior study, though still slightly indistinct, with subarticular focus of edema of 1 cm diameter and 6 mm depth, and approximally 6 mm transverse thickness, see coronal series 6, images 20 1-22, sagittal proton density series 4, images 11 -12, and this is also visible on sagittal T1 series 3, image 11. This remains nondisplaced. Minimal edema of articular cartilage along the medial ankle mortise. No new fracture or dislocation in the interval. Minimal ankle effusion. Minimal anterior talonavicular arthritis. Narrowed calcaneal-navicular articulation sagittal series 3, image 16, but no definite coalition is seen on the other series. LIGAMENTS: Distal tibiofibular syndesmosis: Unremarkable. No tear. Anterior talofibular ligament: Unremarkable. No tear. Posterior talofibular ligament: Unremarkable. No tear. Calcaneofibular ligament: Unremarkable. No tear. Deltoid ligament complex: No acute tear. There is loss of the normal fatty striated pattern of the ligament on T1 series 5, suggesting underlying ligamentous scarring/fibrosis. TENDONS: Flexor tendons of foot: Unremarkable as visualized. Tibialis posterior tendon: Trace fluid in the tendon sheath at the level of the ankle. The tendon appears normal in signal and contour, no tear or swelling. Peroneal tendons: Unremarkable as visualized. Extensor tendons of foot: Unremarkable as visualized. Tibialis anterior tendon: Unremarkable as visualized. Achilles tendon: Chronic thickening of the proximal to mid tendon up to 1.2 cm AP thickness, sagittal series 4, image 13, axial series 1, image 24. Minimally increased T1 signal in the tendon and minimally increased proton density signal in the distal tendon suggesting mild tendinosis. There is no fluid intensity to suggest acute tear or acute tenosynovitis. Minimal bursal fluid anterior to the tendon insertion series 1, image 32. Minimal Achilles calcaneal spur seen on T1 images Tarsal canal (Sinus tarsi): Unremarkable. Normal signal of the fat. Tarsal tunnel: Unremarkable. Soft tissues: There are no soft tissue masses or fluid collections. Plantar fascia: Minimal plantar calcaneal spur. Mild chronic posterior plantar fascial thickening up to 6 mm sagittal series 7, image 22. No focal fibromatosis. No acute tear. IMPRESSION: 1. No acute findings. 2. Chronic Achilles tendinosis and tendon thickening, trace bursal fluid anterior to the tendon insertion, no acute tear. 3. Minimal plantar calcaneal spur, mild chronic posterior plantar fascial thickening, no acute inflammation or tear. 4. Chronic nondisplaced osteochondral lesion of the medial talar dome, measuring up to 1 cm diameter. 5. Likely chronic interstitial scarring in the deltoid ligament, no acute sprain. 6. Trace fluid in the tibialis posterior tendon sheath at the ankle, but no tendon tear or edema. 7. Additional nonemergency and chronic findings as above.
--- NOTE | 2023-01-03 08:33 | MR_ITS ---
PROCEDURE INFORMATION: Exam: MR Left Lower Extremity Without Contrast; Forefoot Exam date and time: 01/03/2023 8:49 AM Age: 72 years old Clinical indication: Pain; Prior surgery; Surgery date: 6+ months; Surgery type: Left foot and ankle SX; Additional info: Foot pain. Pain on lateral side of foot and ankle and ball of foot pain TECHNIQUE: Imaging protocol: MR of the left foot without contrast. Exam focused on the forefoot. COMPARISON: MR FOOT LT WO CON 04/17/2022 2:27 PM FINDINGS: Bones/joints: Mild arthritis at the 1st metatarsophalangeal joint with some small periarticular spurs, minimal ankle joint effusion. Slight subarticular marrow edema along the lateral head of the 1st metatarsal bone. Minimal effusions in the other MTP joints and in joints of the midfoot. Hallux sesamoids appear intact and normally aligned, no findings of plantar plate injury. No fracture or dislocation. LIGAMENTS: Collateral ligaments of digits: Unremarkable. No evidence of tear. Lisfranc ligament: Unremarkable. No evidence of tear. TENDONS: Flexor tendons of foot: Unremarkable. No evidence of tear. Tibialis posterior tendon: Unremarkable in the foot. Trace fluid in the tendon sheath at the level of the ankle. Extensor tendons of foot: Unremarkable. No evidence of tear. Peroneal tendons: Tendons appear intact and normal intensity. Soft tissues: There are no soft tissue masses or significant fluid collections. Trace fluid in the 1st and 2nd intermetatarsal bursae, versus artifact from prominent blood vessels, series 6, image 16 and axial series 4, image 25. IMPRESSION: 1. For findings in the ankle and hindfoot, please see the ankle MRI report. 2. No acute findings in the remainder of the foot. 3. Mild arthritis at the 1st MTP joint, some minimal scattered joint effusions. 4. No acute fracture, dislocation, ligament sprain or tendon injury detected.
== END ==
PROVIDERS: PCP Family Medicine; Visit Provider Podiatrist
DX: M25.372 Other instability, left ankle (principal); M76.72 Peroneal tendinitis, left leg; M84.375S Stress fracture, left foot, sequela; M25.572 Pain in left ankle and joints of left foot
CPT/HCPCS: 73718; 73721

== ENCOUNTER → 2023-01-16 07:13 | Outpatient (CLI) | payer MEDICARE, SELFPAY ==
[2023-01-16 08:40] LABS: Chloride 104 mmol/L (98-107); Sodium 140 mmol/L (136-145)
[2023-01-16 08:43] LABS: Alanine Aminotransferase 38 U/L (12-78); Albumin/Globulin Ratio 1.4 (1.1-1.8); Alkaline Phosphatase 94 U/L (38-126); Aspartate Amino Transferase 36 U/L (14-36); Bilirubin,Total 0.6 mg/dl (0.2-1.3); Blood Urea Nitrogen 28 mg/dl (7-17); Carbon Dioxide 26 mmol/L (22.0-30.0); Cholesterol 250 mg/dl (140-200); Estimated Glomerular Filt Rate 55 ml/min (>60); GFR (African American) 66 ML/MIN (>60); Globulin 2.9 g/dL (1.3-3.2); Total Protein,Serum 6.9 g/dl (6.3-8.2); Triglycerides 232 mg/dl (30-150); VLDL Cholesterol 46 mg/dL (0-40)
[2023-01-16 08:44] LABS: Glucose 109 mg/dl (74-100); HDL Cholesterol 50 mg/dl (40-60)
[2023-01-16 08:55] LABS: Direct LDL Cholesterol 127.65 mg/dL (100-129)
[2023-01-16 09:14] LABS: Thyroid Stimulating Hormone 4.57 uIU/mL (0.465-4.68)
[2023-01-16 11:45] LABS: Hemoglobin A1C 6.7 % (4.0-6.0)
== END ==
PROVIDERS: PCP Family Medicine; Visit Provider Family Medicine
DX: E11.9 Type 2 diabetes mellitus without complications (principal); E78.5 Hyperlipidemia, unspecified; E03.9 Hypothyroidism, unspecified
CPT/HCPCS: 36415; 80053; 80061; 83036; 84443

== ENCOUNTER → 2023-02-14 10:08 | Outpatient (CLI) | payer MEDICARE, SELFPAY ==
[2023-02-14 10:32] LABS: Basophils # 0.1 K/mm3 (0-0.2); Basophils % 0.9 % (0.1-2.0); Eosinophils # 0.1 K/mm3 (0.0-0.4); Eosinophils % 1.8 % (0.1-12.0); Hematocrit 46.8 % (37.0-47.0); Hemoglobin 15.1 g/dL (12.2-16.2); Lymphocytes # 1.5 K/mm3 (0.7-4.5); Lymphocytes % 23.2 % (10-50); Mean Corpuscular HGB Conc 32.3 g/dL (31.8-35.4); Mean Corpuscular Hemoglobin 29.8 pg (27.0-31.2); Mean Corpuscular Volume 92.2 fl (81-99); Mean Platelet Volume 8.4 fl (7.4-10.4); Monocytes # 0.3 K/mm3 (0.1-1.0); Monocytes % 4.1 % (1.7-9.3); Neutrophils # 4.6 K/mm3 (1.8-7.8); Neutrophils % 70.1 % (37.0-80.0); Platelet Count 182 K/mm3 (142-424); Red Blood Count 5.08 M/mm3 (4.20-5.40); Red Cell Distribution Width 13.3 % (11.5-17.5); White Blood Count 6.5 K/mm3 (4.8-10.8)
[2023-02-14 11:08] LABS: Alanine Aminotransferase 47 U/L (12-78); Albumin Level 4.3 g/dl (3.5-5.0); Albumin/Globulin Ratio 1.4 (1.1-1.8); Alkaline Phosphatase 85 U/L (38-126); Anion Gap 10.2 mEq/L (5-15); Aspartate Amino Transferase 44 U/L (14-36); Bilirubin,Total 0.8 mg/dl (0.2-1.3); Blood Urea Nitrogen 29 mg/dl (7-17); Calcium 9.2 mg/dl (8.4-10.2); Carbon Dioxide 32 mmol/L (22.0-30.0); Chloride 99 mmol/L (98-107); Estimated Glomerular Filt Rate 55 ml/min (>60); GFR (African American) 66 ML/MIN (>60); Globulin 3.1 g/dL (1.3-3.2); Glucose 153 mg/dl (74-100); Potassium 3.2 mmoL/L (3.5-5.1); Sodium 138 mmol/L (136-145); Total Protein,Serum 7.4 g/dl (6.3-8.2)
[2023-02-14 12:33] LABS: Vitamin B12 360 pg/mL (239-931)
[2023-02-14 13:41] LABS: Hemoglobin A1C 6.8 % (4.0-6.0)
== END ==
PROVIDERS: PCP Family Medicine; Visit Provider Specialist
DX: E11.42 Type 2 diabetes mellitus with diabetic polyneuropathy (principal); G62.9 Polyneuropathy, unspecified; G89.29 Other chronic pain; M25.562 Pain in left knee
CPT/HCPCS: 36415; 80053; 82607; 82746; 83036; 85025

== ENCOUNTER → 2023-02-19 16:36 | Outpatient (CLI) | payer MEDICARE, SELFPAY ==
--- NOTE | 2023-02-19 16:43 | XR_ITS ---
PROCEDURE INFORMATION: Exam: XR Chest Exam date and time: 02/19/2023 4:46 PM Age: 72 years old Clinical indication: Other: Pain on respiration; Additional info: Painful respiration TECHNIQUE: Imaging protocol: Radiologic exam of the chest. Views: 2 views. COMPARISON: CHESTWO CT chest wo con 06/10/2018 10:48 AM FINDINGS: Lungs: Unremarkable. No consolidation. Pleural spaces: Unremarkable. No pleural effusion. No pneumothorax. Heart/Mediastinum: Unremarkable. No cardiomegaly. Diaphragm: There is elevation of the right hemidiaphragm. Bones/joints: There are degenerative changes of the thoracic spine. IMPRESSION: No dense parenchymal consolidation, pleural effusion, or pneumothorax.
== END ==
PROVIDERS: PCP Family Medicine; Visit Provider Physician Assistant
DX: R07.1 Chest pain on breathing (principal)
CPT/HCPCS: 71046

== ENCOUNTER 2023-03-07 10:27 | Emergency (ER) | payer MEDICARE, SELFPAY ==
[2023-03-07 10:35] VITALS: BP 148/77; PULSE 73; RESP 20; TEMP 36.7; O2SAT 98; BMI 33.6
--- NOTE | 2023-03-07 10:44 | EXP.UTC ---
Discharge Plan Disposition Patient Disposition: Home, Self-Care Condition: Good Prescriptions Prescriptions: New prednisone 20 mg tablet 20 mg PO BID Qty: 10 0RF lidocaine [Lidoderm] 5 % adhesive patch,medicated See Rx Instructions .ROUTE .COMPLEX Qty: 30 0RF Rx Instructions: leave on most painful area for up to 12 hrs No Action omeprazole 40 mg capsule,delayed release(DR/EC) 40 mg PO Patient Comments: TAKE 1 CAPSULE BY MOUTH EVERY DAY Farxiga 10 mg tablet 10 mg PO DAILY levothyroxine [Euthyrox] 50 mcg tablet 50 mcg PO DAILY triamterene-hydrochlorothiazid [Maxzide] 75-50 mg tablet 1 tab PO DAILY Qty: 90 3RF Referrals Follow up/Referrals: Bobby Cespedes MD [Primary Care Provider] - See instructions Activity Restrictions/Add. Instructions Additional Instructions/Restrictions: Follow up with Dr Cespedes next week Clinical Impressions Clinical Impression: Rib pain on left side Instructions Patient Instructions: DI for Cervical Radiculopathy Discharge ED Provider: Kyleigh Chavarria [facility] [place] H[place] General Stated complaint: rib pain, no accident Time Seen by Provider: 03/07/23 10:54 History of Present Illness Provider Complaint: Patient has had pain between her shoulder blades, radiating around her chest for the past month or so. Saw PCP. Had labs and CXR. Given muscle relaxers. Pain between shoulder blades, in back, has gone but still has pain under left breast. No rash. No injury or trauma. Denies chest pain. Denies shortness of breath. Onset (ago): month(s) (1) Location: chest and back Severity: moderate Severity scale (1-10): 5 Quality: burning and sharp Consistency: intermittent Relieving factors: none Exacerbating factors: none Associated symptoms: denies other symptoms Treatments prior to arrival: other (muscle relaxers) Related Data Home Medications Medication Instructions Recorded Confirmed levothyroxine 50 mcg tablet 50 mcg PO DAILY . 03/20/21 02/11/23 (Euthyrox) omeprazole 40 mg capsule,delayed 40 mg PO 08/26/22 02/11/23 release dapagliflozin propanediol 10 mg 10 mg PO DAILY 02/11/23 02/11/23 tablet (Farxiga) Previous Rx's Medication Instructions Recorded triamterene 75 1 tab PO DAILY #90 tabs 02/17/23 mg-hydrochlorothiazide 50 mg tablet (Maxzide) lidocaine 5 % topical patch See Rx Instructions topical 03/07/23 (Lidoderm) .COMPLEX #30 ea prednisone 20 mg tablet 20 mg PO BID #10 tabs 03/07/23 Allergies Allergy/AdvReac Type Severity Reaction Status Date / Time Iodinated Contrast Media Allergy Intermediate burning Verified 02/11/23 15:38 [IODINATED CONTRAST MEDIA - ORAL AND] [facility] Disclaimer: The information contained in this section may have been updated after the patient was seen, as this information can be updated by other users. Medical History (Updated 03/07/23 @ 11:02 by GENIE Cole) Abnormal cardiovascular stress test Atypical angina Bradycardia Diabetes mellitus Hypertension Obstructive sleep apnea SOB (shortness of breath) Surgical History (Updated 02/11/23 @ 15:41 by Юлия Suazo) History of cardiac catheterization History of colonoscopy History of partial hysterectomy Family History (Updated 02/11/23 @ 15:42 by Юлия Suazo) Cancer Hypertension Social History Smoking Status: Never smoker second hand exposure: No alcohol intake: never substance use type: denies use current occupational status: retired Travel in the last 8 weeks: Inside the [place] household members: spouse housing: house current occupational exposures/hazards: No caffeine: Yes ROS Obtained: Yes All systems reviewed & no additional complaints except as documented Physical Exam General General appearance: alert and in no apparent distress Chest Chest inspection: Present tenderness
[2023-03-07 11:00] VITALS: BP 148/77; PULSE 73; RESP 20; TEMP 36.7; O2SAT 98
== END 2023-03-07 11:06 | disposition home or self-care (01) ==
PROVIDERS: Emergency Provider Physician Assistant; PCP Family Medicine
DX: R07.81 Pleurodynia (principal); M54.12 Radiculopathy, cervical region; I20.89 Other forms of angina pectoris; E11.9 Type 2 diabetes mellitus without complications; I10 Essential (primary) hypertension; G47.33 Obstructive sleep apnea (adult) (pediatric); Z79.84 Long term (current) use of oral hypoglycemic drugs
CPT/HCPCS: 99212; 99214; G0463

== ENCOUNTER → 2023-03-13 06:51 | Outpatient (CLI) | payer MEDICARE, SELFPAY ==
--- NOTE | 2023-03-13 06:57 | CT_ITS ---
FINAL REPORT TECHNIQUE: Axial CT images of the abdomen were obtained without contrast. Coronal reformatted images were also obtained.This study was performed with techniques to keep radiation doses as low as reasonably achievable (ALARA). Individualized dose reduction techniques using automated exposure control or adjustment of mA and/or kV according to the patient''s size were employed. CLINICAL HISTORY: LUQ PAIN x1 month no injury FINDINGS: There is fatty infiltration of the liver. The pancreas appears normal. The spleen size is within normal limits. The adrenals are unremarkable. There is no evidence of renal stone or hydronephrosis. There is no evidence of adenopathy. No abnormal fluid collection is seen. The appendix is normal. IMPRESSION: Mild fatty liver. Reviewed, Interpreted and Dictated by Mello Allen III, MD Transcribed by Jessica Johnson Authenticated and [facility]
--- NOTE | 2023-03-13 06:57 | CT_ITS ---
FINAL REPORT TECHNIQUE: Axial CT images were performed from the lung apices through the upper abdomen. Coronal reformats were submitted. This study was performed with techniques to keep radiation doses as low as reasonably achievable (ALARA). Individualized dose reduction techniques using automated exposure control or adjustment of mA and/or kV according to the patient's size were employed. CLINICAL HISTORY: LEFT SIDED CHEST PAIN x1 month COMPARISON: 06/10/2018 FINDINGS: There is no axillary adenopathy. There are multiple calcified mediastinal nodes. Heart size is normal. There is no pericardial or pleural effusion. No suspicious infiltrate or nodule is identified on lung window images. IMPRESSION: No acute process. Reviewed, Interpreted and Dictated by Mello Allen III, MD Transcribed by Jessica Johnson Authenticated and [facility]
== END ==
PROVIDERS: PCP Family Medicine; Visit Provider Physician Assistant
DX: R10.12 Left upper quadrant pain (principal); R07.9 Chest pain, unspecified
CPT/HCPCS: 71250; 74150

== ENCOUNTER → 2023-03-20 08:46 | Outpatient (CLI) | payer MEDICARE, SELFPAY ==
--- NOTE | 2023-03-20 08:51 | XR_ITS ---
FINAL REPORT CLINICAL HISTORY: MID BACK PAIN x 1 week FINDINGS: THORACIC SPINE Three views demonstrate no acute fracture. There are mild and moderate degenerative changes with multilevel osteophytes. There is no malalignment. IMPRESSION: Degenerative changes. Reviewed, Interpreted and Dictated by Mello Allen III, MD Transcribed by Jessica Johnson Authenticated and [facility]
== END ==
PROVIDERS: PCP Family Medicine; Visit Provider Physician Assistant
DX: M54.9 Dorsalgia, unspecified (principal)
CPT/HCPCS: 72072

== ENCOUNTER → 2023-04-29 16:20 | Outpatient (CLI) | payer MEDICARE, SELFPAY ==
--- NOTE | 2023-04-29 16:22 | MR_ITS ---
FINAL REPORT CLINICAL HISTORY: MID BACK PAIN that radiates to the left side. no injury or trauma. symptoms xyears. COMPARISON: None FINDINGS: Multiplanar MR imaging of the thoracic spine was performed without contrast. On the sagittal T2-weighted images, there is abnormal decreased signal throughout the thoracic discs. There is no evidence of fracture. There are multiple scattered foci of abnormal signal throughout the thoracic and upper lumbar vertebra demonstrating increased signal on T1 and T2 weighted images, probably due to hemangiomas. On the axial images, at the T6-7 level there is moderate left paracentral disc protrusion with moderate compromise of the left side of the spinal canal best seen on images 25 and 26 of series 8. The remaining disc levels appear unremarkable. There is prominence of the central canal in the lower thoracic cord at approximately the T9-10 level. IMPRESSION: Moderate left paracentral disc protrusion at T6-7 with moderate compromise of the left side of the spinal canal. Scattered hemangiomas, most evident at L1. Reviewed, Interpreted and Dictated by Momo Shelby MD Transcribed by Katharine Howard Authenticated and [facility]
== END ==
PROVIDERS: PCP Family Medicine; Visit Provider Physician Assistant
DX: M54.9 Dorsalgia, unspecified (principal)
CPT/HCPCS: 72146

== ENCOUNTER 2023-08-25 14:24 | Outpatient (CLI) | payer MEDICARE, SELFPAY ==
[2023-08-25 15:08] LABS: Basophils # 0.1 K/mm3 (0-0.2); Basophils % 0.8 % (0.1-2.0); Eosinophils # 0.1 K/mm3 (0.0-0.4); Eosinophils % 0.6 % (0.1-12.0); Hematocrit 45.3 % (37.0-47.0); Hemoglobin 15.1 g/dL (12.2-16.2); Lymphocytes # 2.7 K/mm3 (0.7-4.5); Lymphocytes % 30.7 % (10-50); Mean Corpuscular HGB Conc 33.3 g/dL (31.8-35.4); Mean Corpuscular Hemoglobin 31.2 pg (27.0-31.2); Mean Corpuscular Volume 93.8 fl (81-99); Mean Platelet Volume 8.7 fl (7.4-10.4); Monocytes # 0.3 K/mm3 (0.1-1.0); Monocytes % 3.9 % (1.7-9.3); Neutrophils # 5.6 K/mm3 (1.8-7.8); Platelet Count 185 K/mm3 (142-424); Red Blood Count 4.83 M/mm3 (4.20-5.40); Red Cell Distribution Width 13.7 % (11.5-17.5); White Blood Count 8.7 K/mm3 (4.8-10.8)
[2023-08-25 16:08] LABS: Alanine Aminotransferase 45 U/L (12-78); Aspartate Amino Transferase 36 U/L (14-36); Bilirubin,Unconjugated 0.4 mg/dL (0.0-1.1)
[2023-08-25 16:09] LABS: Albumin Level 4.1 g/dl (3.5-5.0); Alkaline Phosphatase 84 U/L (38-126); Bilirubin,Direct 0.1 mg/dl (0.0-0.4); Bilirubin,Indirect 0.3 mg/dL (0.0-0.9); Bilirubin,Total 0.4 mg/dl (0.2-1.3); Chol/HDL Ratio 4.9 (1-3.5); Cholesterol 230 mg/dl (140-200); HDL Cholesterol 47 mg/dl (40-60); Total Protein,Serum 6.6 g/dl (6.3-8.2); Triglycerides 146 mg/dl (30-150); VLDL Cholesterol 29 mg/dL (0-40)
[2023-08-25 16:21] LABS: Direct LDL Cholesterol 123.11 mg/dL (100-129)
[2023-08-25 17:38] LABS: D-Dimer 0.45 ug/mL (0.0-0.5)
== END 2023-08-25 23:59 ==
LOC: LAB 14:27
PROVIDERS: PCP Family Medicine; Visit Provider Nurse Practitioner
DX: R10.10 Upper abdominal pain, unspecified (principal); E78.5 Hyperlipidemia, unspecified; R07.89 Other chest pain
CPT/HCPCS: 36415; 80061; 80076; 85025; 85378

== ENCOUNTER 2023-08-31 07:53 | Outpatient (CLI) | payer MEDICARE, SELFPAY ==
--- NOTE | 2023-08-31 08:01 | MM_ITS ---
PROCEDURE INFORMATION: Exam: MG Bilateral Screening 3D Mammography Exam date and time: 08/31/2023 8:20 AM Age: 72 years old Clinical indication: Screening mammogram TECHNIQUE: Imaging protocol: Bilateral Screening tomosynthesis and 2D mammography including computer-aided detection (CAD) when performed. COMPARISON: 1. MG MM DIG SCREENING MAMM BI W/CAD 03/21/2021 1:14 PM 2. MG MM DIG SCREENING MAMM BI W/CAD 01/26/2020 9:07 AM 3. MG DIG MAMM-DX LATOYA 11/26/2018 1:16 PM 4. MG DIG MAMM-SCREEN [place]OYA 11/16/2018 9:30 AM FINDINGS: MAMMOGRAPHY: Breast composition: There are scattered areas of fibroglandular density. Mass: None. Architectural distortion: No new or suspicious architectural distortion. Calcifications: Stable benign-appearing calcifications are present. No new or suspicious cluster of microcalcifications have developed. Asymmetric density: No new or suspicious asymmetric density is present Skin thickening: None. Axillary adenopathy: None. IMPRESSION: No mammographic evidence of malignancy. Recommend annual screening mammography unless otherwise clinically indicated. ASSESSMENT: BI-RADS category 2: Benign.
--- NOTE | 2023-08-31 08:02 | XR_ITS ---
FINAL REPORT CLINICAL HISTORY: MENOPAUSE PRESENT COMPARISON: None FINDINGS: Using L1-4, the bone mineral density of the spine is 1.063 g/cm2, corresponding to T-score of 0.1 which is within normal limits. Using the left hip, the bone mineral density of the femoral neck is 0.709 g/cm2, corresponding to a T-score of -1.3, consistent with low bone density. Using the right hip, the bone mineral density of the femoral neck is 0.790 g/cm2, corresponding to a T-score of -0.5 which is within normal limits. FRAX 10 year fracture risk is 1.1% for a hip fracture and 8.9% for a major osteoporotic fracture. NOTE: T-score: Standard deviation compared with peak bone mass of young adult mean. *Following the recommendations of the International Society of Bone densitometry, classification of hip BMD is based on the lower of two T-scores; total hip or femoral neck. IMPRESSION: Diminished bone mineral density consistent with low bone density. Reviewed, Interpreted and Dictated by Mello Allen III, MD Transcribed by Katharine Howard Authenticated and [facility]
--- NOTE | 2023-08-31 08:05 | US_ITS ---
FINAL REPORT CLINICAL HISTORY: RIGHT UPPER QUADRANT PAIN FINDINGS: Sonographic images of the right upper quadrant were obtained. The pancreas is partially obscured. There is increased echogenicity in the liver consistent with fatty infiltration. The gallbladder appears normal without evidence of gallstones.There is no evidence of biliary ductal dilatation.The common duct measures 4mm. Limited images of the right kidney are unremarkable. IMPRESSION: Fatty liver. Reviewed, Interpreted and Dictated by Mello Allen III, MD Transcribed by Lillian Shaffer Authenticated and [facility]
== END 2023-08-31 23:59 ==
LOC: RAD 07:54
PROVIDERS: PCP Family Medicine; Visit Provider Family Medicine
DX: Z12.31 Encounter for screening mammogram for malignant neoplasm of breast (principal); Z78.0 Asymptomatic menopausal state; R10.11 Right upper quadrant pain
CPT/HCPCS: 76705; 77063; 77067; 77080

== ENCOUNTER 2023-09-01 18:37 | Emergency (ER) | payer MEDICARE, SELFPAY ==
[2023-09-01 19:32] VITALS: BP 146/67; PULSE 93; RESP 16; TEMP 37.1; O2SAT 96; BMI 32.3
--- NOTE | 2023-09-01 19:32 | CT_ITS ---
PROCEDURE INFORMATION: Exam: CTA Abdomen and Pelvis With Contrast Exam date and time: 09/01/2023 8:32 PM Age: 72 years old Clinical indication: Abdominal pain; Localized; Right upper quadrant (ruq); Additional info: Epigastric/ruq abd pain TECHNIQUE: Imaging protocol: Computed tomographic angiography of the abdomen and pelvis with contrast. Exam focused on the arteries. 3D rendering (Not supervised by radiologist): MIP and/or 3D reconstructed images were created by the technologist. Radiation optimization: All CT scans at this facility use at least one of these dose optimization techniques: automated exposure control; mA and/or kV adjustment per patient size (includes targeted exams where dose is matched to clinical indication); or iterative reconstruction. Contrast material: ISO 370; Contrast volume: 100 ml; Contrast route: INTRAVENOUS (IV); COMPARISON: CT ABDOMEN WO CON 13/03/2023 06:57 FINDINGS: Aorta: No aortic aneurysm. No aortic dissection. Celiac trunk and mesenteric arteries: No occlusion or significant stenosis. Renal arteries: No occlusion or significant stenosis. Right iliac arteries: No occlusion or significant stenosis. Left iliac arteries: No occlusion or significant stenosis. Liver: Area of enhancement in the right hepatic lobe of indeterminate significance. This could be a transient vascular phenomenon or mild hyperemia. Hepatic steatosis. Gallbladder and bile ducts: Enhancement of the gallbladder wall of indeterminate significance. Gallbladder does not appear dilated. Pancreas: [id number] pancreatic atrophy. Spleen: Splenic focus of enhancement in hilum most likely representing a hemangioma. Adrenal glands: Unremarkable. No mass. Kidneys and ureters: Unremarkable. No solid mass. No hydronephrosis. Stomach and bowel: Bowel wall thickening the colon. Distended segments of proximal small bowel could be due to peristalsis or mild ileus. Mild sigmoid diverticulosis without diverticulitis. Appendix: No evidence of appendicitis. Intraperitoneal space: Unremarkable. No free air. No significant fluid collection. Lymph nodes: There are ileocecal mesenteric lymph nodes that are larger than on prior study. Urinary bladder: Unremarkable. No mass. Reproductive: Unremarkable as visualized. Bones/joints: No acute fracture. Soft tissues: Unremarkable. Other findings: Please see separate report for CT chest. IMPRESSION: 1. Bowel wall thickening of the colon. This is most likely colitis. 2. There are ileocecal mesenteric lymph nodes that are larger than on prior study. This could be reaction to infection/inflammation. However, if the patient is not up-to-date on screening colonoscopy, consider follow-up colonoscopy to exclude cecal malignancy. 3. Enhancement of the gallbladder wall of indeterminate significance. Gallbladder does not appear dilated. Consider ultrasound for further evaluation. 4. Hepatic steatosis.
--- NOTE | 2023-09-01 19:38 | CT_ITS ---
PROCEDURE INFORMATION: Exam: CTA Chest With Contrast Exam date and time: 09/01/2023 8:32 PM Age: 72 years old Clinical indication: Pain; Right-sided; Additional info: Chest pain, R sided TECHNIQUE: Imaging protocol: Computed tomographic angiography of the chest with contrast. Exam focused on the arteries. 3D rendering (Not supervised by radiologist): MIP and/or 3D reconstructed images were created by the technologist. Radiation optimization: All CT scans at this facility use at least one of these dose optimization techniques: automated exposure control; mA and/or kV adjustment per patient size (includes targeted exams where dose is matched to clinical indication); or iterative reconstruction. Contrast material: ISO 370; Contrast volume: 100 ml; Contrast route: INTRAVENOUS (IV); COMPARISON: CT CHEST WO CON 13/03/2023 06:57 FINDINGS: Pulmonary arteries: Evaluation of the pulmonary arteries is limited to the segmental arterial level due to poor bolus timing. Aorta: The aorta demonstrates mild atherosclerotic disease. Lungs: Unremarkable. No consolidation. No masses. Pleural spaces: Unremarkable. No pneumothorax. No pleural effusion. Heart: Unremarkable. No cardiomegaly. No pericardial effusion. Lymph nodes: Unremarkable. No enlarged lymph nodes. Bones/joints: Unremarkable. No acute fracture. Soft tissues: Unremarkable. Other findings: Stigmata of old granulomatous disease. Please see separate report for abdomen/pelvis. IMPRESSION: Evaluation of the pulmonary arteries is limited to the segmental arterial level due to poor bolus timing. Within the limitations of the study, no pulmonary emboli.
[2023-09-01 19:39] LABS: Basophils # 0.1 K/mm3 (0-0.2); Basophils % 0.8 % (0.1-2.0); Eosinophils # 0.1 K/mm3 (0.0-0.4); Eosinophils % 1.2 % (0.1-12.0); Hematocrit 48.8 % (37.0-47.0); Hemoglobin 16.1 g/dL (12.2-16.2); Lymphocytes # 1.9 K/mm3 (0.7-4.5); Lymphocytes % 22.4 % (10-50); Mean Corpuscular HGB Conc 32.9 g/dL (31.8-35.4); Mean Corpuscular Hemoglobin 31.3 pg (27.0-31.2); Mean Corpuscular Volume 95.1 fl (81-99); Mean Platelet Volume 8.5 fl (7.4-10.4); Monocytes # 0.5 K/mm3 (0.1-1.0); Monocytes % 5.3 % (1.7-9.3); Neutrophils % 70.2 % (37.0-80.0); Platelet Count 213 K/mm3 (142-424); Red Blood Count 5.13 M/mm3 (4.20-5.40); Red Cell Distribution Width 13.7 % (11.5-17.5); White Blood Count 8.6 K/mm3 (4.8-10.8)
--- NOTE | 2023-09-01 19:40 | ED_ITS ---
Discharge Plan Disposition Patient Disposition: Home, Self-Care Condition: Good Prescriptions Prescriptions: New hydrocodone-acetaminophen 5-325 mg tablet 1 tab PO Q8H PRN (Reason: pain) Qty: 10 0RF ketorolac 10 mg tablet 10 mg PO Q8H PRN (Reason: pain) 1 Days Qty: 20 0RF ondansetron 4 mg tablet,disintegrating 4 mg PO Q8H PRN (Reason: nausea and vomiting) 4 Days Qty: 12 0RF No Action Farxiga 10 mg tablet 10 mg PO DAILY levothyroxine [Euthyrox] 50 mcg tablet 50 mcg PO DAILY venlafaxine 37.5 mg tablet 75 mg PO ONCE Patient Comments: TAKE 1 TABLET BY MOUTH ONCE DAILY WITH FOOD gabapentin 300 mg capsule 300 mg PO HS gabapentin 100 mg capsule 100 mg PO DAILY Patient Comments: TAKE 1 CAPSULE BY MOUTH EVERY DAY IN THE MORNING venlafaxine 75 mg capsule,extended release 24hr 75 mg PO DAILY Patient Comments: TAKE 1 CAPSULE BY MOUTH EVERY DAY WITH FOOD omeprazole 40 mg capsule,delayed release(DR/EC) 40 mg PO DAILY Patient Comments: TAKE 1 CAPSULE BY MOUTH DAILY (DME) FreeStMolecular Detection Marcelina 3 Sensor Device See Rx Instructions .ROUTE .MEDSUPPLY Qty: 1 Patient Comments: USE DIRECTED Rx Instructions: As directed triamterene-hydrochlorothiazid [Maxzide] 75-50 mg tablet 1 tab PO DAILY Qty: 90 3RF lidocaine [Lidoderm] 5 % adhesive patch,medicated See Rx Instructions .ROUTE .COMPLEX Qty: 30 0RF Rx Instructions: leave on most painful area for up to 12 hrs Referrals Follow up/Referrals: Mello Castillo MD [Staff Physician] - See instructions Bobby Cespedes MD [Primary Care Provider] - See instructions Karson Baker MD [Staff Physician] - See instructions Activity Restrictions/Add. Instructions Additional Instructions/Restrictions: You were evaluated in the emergency department today. It is important that you follow-up very closely with general surgery, as I feel that you need further workup as an outpatient. Your gallbladder is slightly enlarged on CT scan, but you also have thickening of your colon which can be a result of inflammation/infection such as colitis, but it could also be a sign of underlying malignancy. It is important that she follow-up very closely. I am prescribing with medications to treat your symptoms in the meantime. Return to the emergency department for new or worsening symptoms, such as fever greater than 100.4 ?F, significant worsening pain, intractable nausea and vomiting despite medications, or other concerns. Do not drive or operate heavy machinery while taking narcotic pain medication. Be careful not to double up on Tylenol, as it is in the hydrocodone/acetaminophen tablet. Be careful not to take ibuprofen/aleve with toradol, as it is also an NSAID. Clinical Impressions Clinical Impression: Abdominal pain, Hypokalemia, Bowel wall thickening, Colitis, Enlarged gallbladder Stand Alone Forms Stand Alone Forms: Work/School Release Instructions Patient Instructions: DI for Acute Abdominal Pain, DI for Colitis Discharge ED Provider: Kiya Hutchins General Adult HPI General Chief complaint: Abdominal Pain Stated complaint: abd pain, diarrhea Time Seen by Provider: 09/01/23 18:49 Mode of Arrival: Ambulatory Source of Information: Patient Limitations: No Limitations Description of Symptoms (Recalled from ER Triage Doc. by RN): pt c/o RUQ/epigasteric pain that is sharp and 6/10. pt states this pain has been ongoing x3wks. pt also c/o N/D x1wk. pt reports she had an abd US yesterday and is currently being worked up by her PCP. History of Present Illness HPI narrative: This patient is a 72-year-old female with history of hypertension, hyperlipidemia, diabetes, angina, and GERD presenting to the emergency department for evaluation with concern for right upper quadrant and epigastric pain. Patient reports that for a month now, he has been having intermittent chest pains on that side. She notes that she was told she had herniated disc in her thoracic spine, and she could be having pain from that. She notes that for the last few days, she has had right upper quadrant/epigastric abdominal pain, nausea and diarrhea. She was seen by her primary care provider who had ordered an outpatient ultrasound, which was reassuring on medical record review. She notes that the pain has been persistent and is worse today. She has not had vomiting, but she has been feeling very nauseated. Diarrhea is nonbloody and nonmelanotic. Symptoms are worse with eating. No other concerns noted at this time. Related Data Home Medications Medication Instructions Recorded Confirmed levothyroxine 50 mcg tablet 50 mcg PO DAILY . 03/20/21 04/08/23 (Euthyrox) dapagliflozin propanediol 10 mg 10 mg PO DAILY 02/11/23 04/08/23 tablet (Farxiga) gabapentin 100 mg capsule 100 mg PO DAILY 04/08/23 04/08/23 gabapentin 300 mg capsule 300 mg PO HS 04/08/23 04/08/23 venlafaxine 37.5 mg tablet 75 mg PO ONCE 04/08/23 04/08/23 blood-glucose sensor (FreeStyle #1 ea 08/25/23 08/25/23 Marcelina 3 Sensor device) omeprazole 40 mg capsule,delayed 40 mg PO DAILY 08/25/23 08/25/23 release venlafaxine 75 mg capsule,extended 75 mg PO DAILY 08/25/23 08/25/23 release 24 hr Previous Rx's Medication Instructions Recorded triamterene 75 1 tab PO DAILY #90 tabs 02/17/23 mg-hydrochlorothiazide 50 mg tablet (Maxzide) lidocaine 5 % topical patch See Rx Instructions topical 03/07/23 (Lidoderm) .COMPLEX #30 ea hydrocodone 5 mg-acetaminophen 325 1 tab PO Q8H PRN pain #10 tabs 09/01/23 mg tablet ketorolac 10 mg tablet 10 mg PO Q8H PRN pain 1 day #20 09/01/23 tabs ondansetron 4 mg disintegrating 4 mg PO Q8H PRN nausea and 09/01/23 tablet vomiting 4 days #12 tabs Allergies Allergy/AdvReac Type Severity Reaction Status Date / Time Iodinated Contrast Media Allergy Intermediate burning Verified 08/25/23 13:54 [IODINATED CONTRAST MEDIA - ORAL AND] [facility] Disclaimer: The information contained in this section may have been updated after the patient was seen, as this information can be updated by other users. Medical History Hypertension Atypical angina Abnormal cardiovascular stress test Diabetes mellitus Bradycardia SOB (shortness of breath) Obstructive sleep apnea Surgical History History of partial hysterectomy History of cardiac catheterization History of colonoscopy Family History Other Cancer Hypertension Social History Smoking Status: Never smoker second hand exposure: No alcohol intake: never substance use type: denies use current occupational status: retired Travel in the last 8 weeks: Inside the [place] household members: spouse housing: house current occupational exposures/hazards: No caffeine: Yes ROS Obtained: Yes All systems reviewed & no additional complaints except as documented Physical Exam General General appearance: alert and in no apparent distress Head Head exam: atraumatic and normocephalic Eye Eye exam: Present normal appearance, PERRL and EOMI ENT ENT exam: Present normal exam, normal oropharynx, mucous membranes moist and normal external ear exam Neck Neck exam: Present normal inspection, full ROM and trachea midline; Absent tenderness Chest Chest inspection: Present normal inspection and symmetric chest wall rise; Absent tenderness Respiratory Respiratory exam: Present normal lung sounds bilaterally; Absent respiratory distress, wheezes, stridor or accessory muscle use Cardiovascular Cardiovascular exam: Present regular rate and normal rhythm Abdominal Exam Abdominal exam: Present soft and tenderness (Epigastric/right upper quadrant abdominal pain); Absent distention, guarding, rebound or rigidity Extremities Exam Extremities exam: Present normal inspection, full ROM and normal capillary refill; Absent tenderness or edema Back Exam Back exam: Present normal inspection and full ROM; Absent tenderness Neurological Exam Neurological exam: Present alert, oriented X3, CN II-XII intact and normal gait; Absent motor sensory deficit Psychiatric Psychiatric exam: Present normal affect and normal mood Skin Skin exam: Present warm and dry Medical Decision Making Medical Records Medical records reviewed: Yes I reviewed the patient's medical records. Aries Inquiry Pt receiving controlled substance: Yes Aries was queried for this patient: Yes Risks and benefits of using a controlled substance: were discussed with pt by me Vital Signs: 09/01/23 19:32 09/01/23 22:23 Temperature 98.7 F 98.7 F Temperature Source Oral Oral Pulse Rate 73 Pulse Rate [Left] 93 H Respiratory Rate 16 16 Blood Pressure 108/61 L Blood Pressure [Right Arm] 146/67 H Blood Pressure Mean [Right Arm] 93 Blood Pressure Source Automatic Cuff Blood Pressure Source [Right Arm] Automatic Cuff Blood Pressure Position Sitting Blood Pressure Position [Right Arm] Sitting 02 Sat by Pulse Oximetry 96 Oxygen Delivery Method Room Air Lab Data Lab results reviewed: Yes I reviewed the patient's lab results. Lab Results 09/01/23 19:29: WBC 8.6, RBC 5.13, Hgb 16.1, Hct 48.8 H, MCV 95.1, MCH 31.3 H, MCHC 32.9, RDW 13.7, Plt Count 213, MPV 8.5, Neut % (Auto) 70.2, Lymph % (Auto) 22.4, Newberry % (Auto) 5.3, Eos % (Auto) 1.2, Baso % (Auto) 0.8, Neut # (Auto) 6.0, Lymph # (Auto) 1.9, Newberry # (Auto) 0.5, Eos # (Auto) 0.1, Baso # (Auto) 0.1, S odium 134 L, Potassium 3.1 L, Chloride 104, Carbon Dioxide 22, Anion Gap 11.1, B UN 35 H, Creatinine 0.90, Estimated Creat Clear 66, Estimated GFR 62, Est GFR ( Amer) 75, Glucose 152 H, Lactate 0.9, Calcium 10.0, Total Bilirubin 0.7, AST 42 H, ALT 40, Alkaline Phosphatase 96, Troponin I < 0.01, Total Protein 7.0, Albumin 4.0, Globulin 3.0, Albumin/Globulin Ratio 1.3, Lipase 68 09/01/23 19:39: Urine Color Yellow, Urine Appearance Clear, Urine pH 6.0, Ur Specific Galloway 1.015, Urine Protein Trace, Urine Glucose (UA) Negative, Urine Ketones 1+, Urine Blood 1+, Urine Nitrate Negative, Urine Bilirubin Negative, Urine Urobilinogen 0.2, Ur Leukocyte Esterase Negative, Urine RBC Occasional, Urine WBC Occasional, Ur Squamous Epith Cells 3-5, Urine Bacteria Trace 09/01/23 19:29 09/01/23 19:29 Orders (Tests/Meds): ED MEDICATIONS Discontinued Medications Generic Name Dose Route Start Last Admin Trade Name Freq PRN Reason Stop Dose Admin Hydrocodone Bitart/Acetaminophen 1 tab 09/01/23 21:55 09/01/23 22:23 Hydrocodone/Apap 5/325 Mg Tablet PO 09/01/23 21:56 Not Given ONCE ONE Lactated Ringer's 1,000 mls @ 999 mls/hr 09/01/23 19:32 09/01/23 19:41 Lactated Ringer's 1000 Ml Bag IV 09/01/23 20:32 999 mls/hr .Q1H1M ONE Administration Iopamidol 100 ml 09/01/23 20:39 04/02/24 20:40 Iopamidol-370 (76%);100ml Bottle IV 09/01/23 20:40 100 ml ONCE ONE Administration Ketorolac Tromethamine 15 mg 09/01/23 21:55 09/01/23 22:15 Ketorolac 30mg/Ml Vial IV 09/01/23 21:56 15 mg ONCE ONE Administration Morphine Sulfate 4 mg 09/01/23 19:32 09/01/23 19:42 Morphine 4mg/Ml Syringe IV 09/01/23 19:33 4 mg ONCE ONE Administration Ondansetron HCl 4 mg 09/01/23 19:32 09/01/23 19:41 Ondansetron 4mg/2ml Vial IV 09/01/23 19:33 4 mg ONCE ONE Administration Potassium Chloride 40 meq 09/01/23 20:09 09/01/23 20:55 Potassium Chloride 20meq Tab PO 09/01/23 20:10 40 meq ONCE ONE Administration Sodium Chloride 50 ml 09/01/23 20:39 09/01/23 20:40 0.9 % Sodium Chloride 50 Ml Vial IV 09/01/23 20:40 50 ml ONCE ONE Administration Sodium Chloride 10 ml 09/01/23 20:39 09/01/23 20:40 Sodium Chloride 0.9% 10ml Syr (Rad Only) IV 09/01/23 20:40 10 ml ONCE ONE Administration ORDERS Category Date Time Status CT angio abdomen pelvis Stat Cat Scan 09/01/23 19:[address] angio chest PE protocol Stat Cat Scan 09/01/23 19:38 Completed Complete Blood Count Auto Diff Stat Lab 09/01/23 19:29 Completed Comprehensive Metabolic Panel Stat Lab 09/01/23 19:29 Completed Lactic Acid Stat Lab 09/01/23 19:29 Completed Lipase Stat Lab 09/01/23 19:29 Completed Troponin I Stat Lab 09/01/23 19:29 Completed UA [Urinalysis and Microscopic] Stat Lab 09/01/23 19:39 Completed ECG Data Tracing #1: I reviewed this ECG and interpreted as documented below: Normal sinus rhythm with a ventricular rate of [address] elevations concerning for STEMI. Nonspecific T wave abnormality. No significant changes noted from prior EKG. ECG initial impression date: 09/01/23 ECG initial impression time: 21:19 HEART Score History (anamnesis): Slightly suspicious ECG: Normal Age: >65 years Risk factors: 1-2 risk factors Troponin: </= normal limit HEART Score: 3 Medical Decision Narrative: In summary, this patient is a 72-year-old female presenting to the Emergency Department for evaluation of gastric/right upper quadrant abdominal pain, nausea, diarrhea. Differential diagnoses considered include but are not limited to ACS, GERD, dysrhythmia, pancreatitis, peptic ulcer disease, cholecystitis, cholelithiasis, referred pain from thoracic spine, chronic mesenteric ischemia. Ruling out the most morbid conditions drove assessment. On exam, the patient is nontoxic-appearing and is in no acute distress. She has epigastric and right upper quadrant tenderness with no rebound or guarding. Workup included CBC, CMP, lipase, lactic acid, troponin, urinalysis, EKG, CTA PE protocol, and CTA abdomen and pelvis. She was given a bolus of IV fluids as well as IV morphine and Zofran. I independently interpreted CT scans prior to the radiologist read and noted slightly enlarged gallbladder without significant pericholecystic fluid. Please see their read for final interpretation. Radiology also notes thickening of the colon and lymphadenopathy concerning for colitis, but cannot exclude malignancy or other pathology. Labs were obtained that demonstrated no significant leukocytosis, no significant transaminitis, no elevation in bilirubin, and no other acute concerns. Lactic acid is within normal limits. Ultimately, I had a long discussion with the patient, his pain is improved after medications above. I advised that she needs further outpatient testing, as this could be her gallbladder given nonspecific enlargement, though her labs are reassuring and I am not concerned for acute cholecystitis based on presentation. I also advised that she could have colitis versus some underlying IBD or malignancy. I advised that she follow-up very closely with general surgery as well as her primary care provider for further evaluation and management of this, as they can perform other testing, such as HIDA scan or colonoscopy as indicated and determined by the specialist that she sees. Ultimately, she is agreeable to discharge home with outpatient follow-up and instructions for supportive management. She was given prescriptions for Thicket, Toradol, and Zofran to treat possible colitis. She was given instructions for follow-up with surgery and strict return precautions. She was discharged after all questions were answered. Critical Care Critical Care Time Critical Care Time: No
[2023-09-01 19:41] LABS: Chloride 104 mmol/L (98-107); Sodium 134 mmol/L (136-145)
[2023-09-01] MEDS: LACTATED RINGERS 1000ML 1,000 ML 999 ML IV (19:41)
[2023-09-01] MEDS: ONDANSETRON 4MG/2ML VIAL 4 MG IV (19:41)
[2023-09-01 19:42] LABS: Potassium 3.1 mmoL/L (3.5-5.1)
[2023-09-01] MEDS: MORPHINE 4MG/ML SYRINGE 4 MG IV (19:42)
[2023-09-01 19:44] LABS: Alanine Aminotransferase 40 U/L (12-78); Alkaline Phosphatase 96 U/L (38-126); Anion Gap 11.1 mEq/L (5-15); Aspartate Amino Transferase 42 U/L (14-36); Bilirubin,Total 0.7 mg/dl (0.2-1.3); Blood Urea Nitrogen 35 mg/dl (7-17); Carbon Dioxide 22 mmol/L (22.0-30.0); Creatinine Clearance Estimated 66 mL/min (50-200); Estimated Glomerular Filt Rate 62 ml/min (>60); GFR (African American) 75 ML/MIN (>60); Glucose 152 mg/dl (74-100); Lipase 68 U/L (23-300)
[2023-09-01 19:45] LABS: Albumin/Globulin Ratio 1.3 (1.1-1.8); Lactic Acid 0.9 mmol/L (0.7-2.1)
[2023-09-01 19:50] LABS: Microscopic, Urine URINE MICROSCOPIC (MICROSCOPIC)
[2023-09-01 19:54] LABS: Appearance,Urine CLEAR (Clear); Bilirubin,Urine Negative (Negative); Blood, Urine 1+ (Negative); Color,Urine YELLOW (Yellow); Glucose,Urine (UA) Negative (Negative); Ketones,Urine 1+ (Negative); Leukocyte Esterase,Urine Negative (Negative); Nitrate,Urine Negative (Negative); Protein,Urine TRACE (Negative); Specific Gravity, Urine 1.015 (1.005-1.030); Urobilinogen,Urine 0.2 EU/dl (0.2)
[2023-09-01 20:04] LABS: Troponin I < 0.01 ng/ml (0.00-0.034)
[2023-09-01 20:18] LABS: Bacteria,Urine Trace /lpf; RBC,Urine Occasional #/hpf (0-3); WBC,Urine Occasional #/hpf (0-3)
[2023-09-01] MEDS: IOPAMIDOL-370 (76%);100ML BOTTLE 100 ML IV (20:40)
[2023-09-01] MEDS: 0.9 % SODIUM CHLORIDE 50 ML VIAL IV (20:40)
[2023-09-01] MEDS: SODIUM CHLORIDE 0.9% 10ML SYR (RAD ONLY) 10 ML IV (20:40)
--- NOTE | 2023-09-01 20:48 | PC.NURSE ---
I rounded on the pt she states she is feeling better. no needs voiced. call rudolph in reach.
[2023-09-01] MEDS: POTASSIUM CHLORIDE 20MEQ TAB 40 MEQ PO (20:55)
--- NOTE | 2023-09-01 21:16 | ECG_ITS ---
APPROVED REPORT Exam: Resting ECG HR:73 bpm ECG Measurements Heart Rate 73 AXES FL 167 P 55 QRSd 85 QRS 22 QT 381 T 31 QTc 407 Conclusion SINUS RHYTHM NONSPECIFIC T-WAVE ABNORMALITY Electronically signed by : SARAH CARBALLO, 09/01/2023 23:02:43
[2023-09-01] MEDS: KETOROLAC 30MG/ML VIAL 15 MG IV (22:15)
[2023-09-01 22:23] VITALS: BP 108/61; PULSE 73; RESP 16; TEMP 37.1; O2SAT 96
== END 2023-09-01 22:25 | disposition home or self-care (01) ==
PROVIDERS: Emergency Provider Emergency Medicine; PCP Family Medicine
DX: E87.6 Hypokalemia (principal); R10.13 Epigastric pain; K63.9 Disease of intestine, unspecified; K82.8 Other specified diseases of gallbladder; K52.9 Noninfective gastroenteritis and colitis, unspecified; R11.0 Nausea; I11.9 Hypertensive heart disease without heart failure; E78.5 Hyperlipidemia, unspecified; K21.9 Gastro-esophageal reflux disease without esophagitis; E11.9 Type 2 diabetes mellitus without complications; I20.9 Angina pectoris, unspecified; Z79.84 Long term (current) use of oral hypoglycemic drugs
CPT/HCPCS: 71275; 74174; 80053; 81001; 83605; 83690; 84484; 85025; 93005; 96361; 96374; 96375; 99285; J2405; Q9967

== ENCOUNTER 2023-09-14 11:54 | Day surgery (SDC) | payer MEDICARE, SELFPAY ==
[2023-09-14] VITALS (7 sets, daily range): BP systolic 89–134; BP diastolic 50–76; PULSE 56–71; RESP 18; TEMP 36.6–36.7; O2SAT 9–100; BMI 32.3
[2023-09-14] MEDS: LACTATED RINGERS 1000ML 1,000 ML 25 ML IV (12:21)
[2023-09-14 12:23] LABS: POC Glucose,Bedside 79 (70-110)
--- NOTE | 2023-09-14 13:28 | P.PNANES_ITS ---
[facility] Disclaimer: The information contained in this section may have been updated after the patient was seen, as this information can be updated by other users. Medical History Hypertension Atypical angina Abnormal cardiovascular stress test Diabetes mellitus Bradycardia SOB (shortness of breath) Obstructive sleep apnea Stable on BiPAP. She was given a sample mask, nasal mask,MATHEW at last appo intment. Prescription sent to [facility] for mask, supplies. Surgical History History of partial hysterectomy History of cardiac catheterization History of colonoscopy Family History Other Cancer Hypertension Social History Smoking Status: Never smoker second hand exposure: No alcohol intake: never substance use type: denies use current occupational status: retired Travel in the last 8 weeks: [place] the [place] household members: spouse housing: house current occupational exposures/hazards: No caffeine: Yes [facility] Anesthesia Checklist Patient Identification Patient Identification: Verbal (Name & ) Structural Data Admitted From: Home Planned Operative Procedure/s: colonoscopy Consent for Planned Operative Procedure(s) Verified: Yes Additional verifications Anesthesia Reactions: No Hx Blood Transfusions: No Blood Transfusion Reaction: No Airway Assessment Mallampati Score:: Class II C-Spine Mobility Assessed: Yes TMJ Mobility Assessed: Yes Dentition: Partials Neurological Assessment Level of Consciousness: Awake, Alert and Appropriate Anesthesia Plan Anesthesia Risk discussed: Yes Anesthesia Plan: Verified ASA Class: II Anesthesia Type: MAC
--- NOTE | 2023-09-14 14:18 | HMH.SCOPE ---
Procedure: Date: 09/14/23 Patient Date of :: 1950 Procedure Performed:: Total colonoscopy to terminal ileum with polypectomy and biopsies Indications:: Patient presents for colonoscopy. She is a 72-year-old female referred by the emergency department. Primary care provider is [facility]. She was recently seen in the emergency department on 09/01/2023. She has been having right upper quadrant and epigastric pain which had been ongoing for several weeks. Workup in the emergency department included CT scan. She was able to be managed as an outpatient. She was set up for outpatient surgical evaluation. Final reading on the CT angiogram reveals bowel wall thickening of the colon with ileocecal mesenteric lymph nodes larger than on prior study. There was enhancement of the gallbladder wall without dilatation of indeterminate significance. She did have a gallbladder ultrasound done as an outpatient the day before on 08/31/2023 which revealed fatty liver and otherwise unremarkable. I had previously seen the patient for excision of lipoma. She did undergo colonoscopy by Dr. Tony Spencer on 11/01/2018 at which time she had diminutive colonic polyp x 3 removed and was noted to have left-sided diverticulosis. Repeat colonoscopy was recommended for 5 years. She had 2 sessile serrated adenomas in the cecum and a tubular adenoma in the sigmoid colon. She describes relatively consistent pain for several weeks. She has to take pain medication. She states that it seems to be somewhat positional such as when lying down at night but she also has associated nausea and exacerbation after eating. She does have a strong family history of multiple cancers but no known colon cancer. Given the atypical nature of the patient's symptoms regarding gallbladder and her findings on CT scan I was concerned about colonic pathology. Plan was made to proceed with expeditious outpatient colonoscopy. . Performing Provider:: Mello Castillo MD Referring Provider:: Maria Fernanda Genao Sedation:: MAC sedation Procedure:: Patient history was obtained and appropriate physical examination was performed. Patient's medications and allergies were reviewed. Informed consent was obtained after explaining the benefits, alternatives, and risks of the procedure including, but not limited to, bleeding, perforation, missed lesions, and adverse reaction to anesthesia medications. Patient was transported to endoscopy procedure room. Patient was connected to monitoring devices. Throughout the procedure the patient's blood pressure, pulse, and oxygen saturations were monitored continuously. Patient identification and planned procedure were verified by the staff. Patient was positioned in lateral decubitus position. Digital anorectal exam was performed. Variable stiffness Olympus colonoscope was inserted and advanced under direct visualization to the cecum. Adequacy of the colonic preparation was noted. The colonoscope was advanced a short distance into the terminal ileum. The colonoscope was then slowly withdrawn while carefully examining the color, texture, anatomy, and integrity of the mucosoa circumferentially. Within the rectum retroflexion was performed. Colonoscope was then withdrawn. . Colonic preparation was good. The distal terminal ileum appeared unremarkable. However there was some prolapse of the ileocecal valve and a tiny ulceration with some surrounding induration on the ileocecal valve. A couple biopsies were obtained of this location. In the ascending colon there was a small adenomatous appearing polyp removed with cold snare. There was a tiny diminutive adenomatous appearing polyp at the hepatic flexure removed with cold snare. In the sigmoid colon there was a punctate erosion that was biopsied. Likely inconsequential. She had some left-sided diverticulosis and a couple of diverticuli in the cecum. . Findings:: Polyps as noted above Small ulcer on the ileocecal valve of uncertain significance Diverticulosis Recommendations:: Likely repeat colonoscopy 3 years pending pathology and given prior history of adenomatous polyps. Regarding her abdominal pain, somewhat uncertain. I will follow-up on the pathology and if symptoms persist counseling may be given regarding possible gallbladder. . Complications:: None immediately apparent Estimated blood obtained (mL): 3 Colonoscopy Component Colonoscopy Component Was a colonoscopy performed during today's procedure?: Yes Recommended follow up colonoscopy of at least 10 years?: No If no, follow up colonoscopy recommended in ___ years?: See above Reason for not recommending >/= 10 yr follow-up interval?: See above
== END 2023-09-14 14:47 | disposition home or self-care (01) ==
PROVIDERS: PCP Family Medicine; Visit Provider Surgery
PROC: 0DJD8ZZ Inspection of Lower Intestinal Tract, Via Natural or Artificial Opening Endoscopic (ICD-10-PCS; CPT 45385; principal; 2023-09-14 13:00)
DX: K63.5 Polyp of colon (principal); D12.3 Benign neoplasm of transverse colon; D12.2 Benign neoplasm of ascending colon; R10.13 Epigastric pain; R10.11 Right upper quadrant pain; Z12.11 Encounter for screening for malignant neoplasm of colon; D12.0 Benign neoplasm of cecum; E11.9 Type 2 diabetes mellitus without complications; Z80.0 Family history of malignant neoplasm of digestive organs; K57.92 Diverticulitis of intestine, part unspecified, without perforation or abscess without bleeding
CPT/HCPCS: 45385; 82962; 88305

== ENCOUNTER 2023-10-19 10:09 | Outpatient (CLI) | payer MEDICARE, SELFPAY ==
--- NOTE | 2023-10-19 10:09 | NM_ITS ---
FINAL REPORT CLINICAL HISTORY: RUQ pain 10:30AM 8.57 MCI TC CHOLETEC 1.5 MCG CCK NO PAIN WITH CCK COMPARISON: None FINDINGS: The patient was injected with 8.57 mCi of technetium 99m Choletec and subsequently 1.5 mcg of CCK. Images of the abdomen were obtained for one hour. There is normal distribution of radiopharmaceutical throughout the liver. Sequential images demonstrate progressive accumulation of activity within the gallbladder. There is a calculated ejection fraction of 94%, within normal limits. IMPRESSION: Normal ejection fraction of 94%. Reviewed, Interpreted and Dictated by Momo Shelby MD Transcribed by Katharine Howard Authenticated and [facility]
[2023-10-19] MEDS: SINCALIDE 1.5 MCG in 0.9 % SODIUM CHLORIDE 50 ML 100 MCG IV (12:22)
[2023-10-19] MEDS: SODIUM CHLORIDE 0.9% 10ML SYR (RAD ONLY) 10 ML IV (12:22)
[2023-10-19] MEDS: ISOTOPE CHOLETECH;1 DOSE (UP TO 15 MCI) IV (12:22)
== END 2023-10-19 23:59 | disposition home or self-care (01) ==
LOC: RAD 10:09
PROVIDERS: PCP Family Medicine; Visit Provider Surgery
DX: R10.11 Right upper quadrant pain (principal)
CPT/HCPCS: 78227; A9537; J2805

== ENCOUNTER 2023-12-28 13:14 | Emergency (ER) | payer MEDICARE, SELFPAY ==
[2023-12-28 13:20] VITALS: BP 148/74; PULSE 72; RESP 20; TEMP 36.9; O2SAT 98; BMI 28.8
--- NOTE | 2023-12-28 13:44 | ED_ITS ---
Discharge Plan Disposition Patient Disposition: Home, Self-Care Condition: Good Prescriptions Prescriptions: New prednisone 10 mg tablet 10 mg PO BID 3 Days Qty: 6 0RF No Action (DME) FreeStyle Marcelina 3 Sensor Device See Rx Instructions .ROUTE .MEDSUPPLY Qty: 1 Patient Comments: USE DIRECTED Rx Instructions: As directed venlafaxine 37.5 mg capsule,extended release 24hr 37.5 mg PO DAILY triamterene-hydrochlorothiazid 75-50 mg tablet 1 tab PO DAILY desvenlafaxine succinate 25 mg tablet extended release 24 hr 25 mg PO DAILY Referrals Follow up/Referrals: Bobby Cespedes MD [Primary Care Provider] - See instructions Activity Restrictions/Add. Instructions Additional Instructions/Restrictions: Over the counter oral benadryl may help with allergic reactions Start oral steriods tomorrow Follow up with your Family Doctor if needed Straight to ER if any chest pain, trouble swallowing, shortness of breath or any life threatening symptoms Clinical Impressions Clinical Impression: Bee sting reaction Instructions Patient Instructions: DI for Insect Bites and Stings, Insect Bites and Stings Print Language Print Language: [place] Discharge ED Provider: Юлия Kirkland [facility] HPI General Stated complaint: Bee stings all over body, itchy fever Mode of Arrival: Ambulatory Source of Information: Patient Limitations: No Limitations Time Seen by Provider: 12/28/23 13:44 Description of Symptoms (Recalled from Triage Doc. by RN): PATIENT C/O YELLOW JACKET STINGS ALL OVER, ITCHING, AND BODY ACHES X 2 DAYS HEENT Symptoms (Recalled from RN notes): No Resp Symptoms (Recalled from RN notes): No Skin Symptoms (Recalled from RN notes): Yes MS Symptoms (Recalled from RN notes): No Functional Status (Recalled from RN notes): WNL History of Present Illness Provider Complaint: Patient states that she was mowing over the weekend and she ran over a yellow jacket nest and they stung her multiple times all over her body on her ankles, arms back and face States that she has been using topical benadryl but this morning when she woke up she was still swollen under her eyes, her throat felt scratchy going into her chest, not swollen but scratchy and has been swallowing and drinking ok, she was worried that she may be having reaction States that she is having some pain in her RUQ/rib area but that has been going on for months and she is being worked up for that and scheduled for MRI Related Data Home Medications ?Medication ?Instructions ?Recorded ?Confirmed blood-glucose sensor (FreeStyle #1 ea 08/25/23 10/22/23 Marcelina 3 Sensor device) desvenlafaxine succinate 25 mg 25 mg PO DAILY 12/28/23 12/28/23 tablet,extended release 24 hr triamterene 75 1 tab PO DAILY 12/28/23 12/28/23 mg-hydrochlorothiazide 50 mg tablet venlafaxine 37.5 mg 37.5 mg PO DAILY 12/28/23 12/28/23 capsule,extended release 24 hr Previous Rx's ?Medication ?Instructions ?Recorded prednisone 10 mg tablet 10 mg PO BID 3 days #6 tabs 12/28/23 Allergies Allergy/AdvReac Type Severity Reaction Status Date / Time Iodinated Contrast Media Allergy Intermediate burning Verified 10/22/23 13:12 [IODINATED CONTRAST MEDIA - ORAL AND] Worker's Comp Is this a Worker's Comp case?: No [facility] Disclaimer: The information contained in this section may have been updated after the patient was seen, as this information can be updated by other users. Medical History Hypertension Atypical angina Abnormal cardiovascular stress test Diabetes mellitus Bradycardia SOB (shortness of breath) Obstructive sleep apnea Stable on BiPAP. She was given a sample mask, nasal mask,MATHEW at last appointment. Prescription sent to [facility] for mask, supplies. Surgical History History of partial hysterectomy History of cardiac catheterization History of colonoscopy Family History Other Cancer Hypertension Social History Smoking Status: Never smoker second hand exposure: No alcohol intake: never substance use type: denies use current occupational status: retired Travel in the last 8 weeks: Inside the [place] household members: spouse housing: house current occupational exposures/hazards: No caffeine: Yes ROS Obtained: Yes All systems reviewed & no additional complaints except as documented and Yes Systems reviewed as appropriate & no additional complaints except as documented Constitutional Constitutional: Reports system reviewed and no additional complaints, except as documented and Reports as per HPI ENT Ears, Nose, Mouth, and Throat: Reports system reviewed and no additional complaints, except as documented, Reports as per HPI and Reports other (reports scratchy throat and chest) Cardiovascular Cardiovascular: Reports system reviewed and no additional complaints, except as documented, Reports as per HPI, Denies chest pain, Denies dyspnea on exertion and Denies lightheadedness Respiratory Respiratory: Reports system reviewed and no additional complaints, except as documented, Reports as per HPI, Denies shortness of breath, Denies cough and Denies dyspnea on exertion Gastrointestinal Gastrointestingal: Reports system reviewed and no additional complaints, except as documented and as per HPI; Denies abdominal pain, nausea or vomiting Genitourinary Female Genitourinary: Reports system reviewed and no additional complaints, except as documented and Reports as per HPI Musculoskeletal Musculoskeletal: Reports system reviewed and no additional complaints, except as documented and Reports as per HPI Integumentary/Breasts Skin/Breast: Reports system reviewed and no additional complaints, except as documented, Reports as per HPI and Reports other Comments: Mild swelling under eyes, there is redness and swelling to bee stings on ankles and arms Physical Exam General General appearance: alert and in no apparent distress ENT ENT exam: Present mucous membranes moist Expanded ENT Exam Nose exam: Absent sinus tenderness Mouth exam: Present tongue normal; Absent lip swelling, tongue elevation or tongue swelling Throat exam: Present normal inspection Comment: able to swallow easily drinking water Respiratory Respiratory exam: Present normal lung sounds bilaterally and other (Patient able to speak in clear complete sentences no distress); Absent respiratory distress, wheezes or stridor Cardiovascular Cardiovascular exam: Present regular rate, normal rhythm and normal heart sounds Neurological Exam Neurological exam: Present alert, oriented X3 and normal gait Skin Skin exam: Present other (mild swelling and redness to bee stings on ankle and face under eyes) Medical Decision Making Aries Inquiry Pt receiving controlled substance: No Aries was queried for this patient: No Vital Signs: 12/28/23 13:20 Temperature 98.5 F Temperature Source Oral Pulse Rate [Left Brachial] 72 Respiratory Rate 20 Blood Pressure [Left Arm] 148/74 H Blood Pressure Mean [Left Arm] 98 Blood Pressure Source [Left Arm] Automatic Cuff Blood Pressure Position [Left Arm] Sitting 02 Sat by Pulse Oximetry 98 Oxygen Delivery Method Room Air Medical Decision Narrative: Patient reports scratchy like feeling in throat and chest area after being stung multiple times on Thursday Denies CP or SOA, denies trouble swallowing and able to speak in complete sentences States she does feels a little anxious and has some swelling and puffiness under eyes from where she was stung so she came in Discussed transfer to the ED and she declined at this time Patient states that she feels much better after injection Swelling/puffiness in face improved no longer having scratchy like feeling in her throat and chest
[2023-12-28 14:07] LABS: UTC Strep Screen (Rapid) Negative (Negative)
[2023-12-28] MEDS: METHYLPREDNISOLONE SOD SUCC 125MG VIAL 125 MG IM (14:20)
[2023-12-28] MEDS: FAMOTIDINE 20MG TABLET 20 MG PO (14:20)
[2023-12-28] MEDS: LORATADINE 10MG TABLET 10 MG PO (14:20)
[2023-12-28 14:44] VITALS: BP 148/74; PULSE 72; RESP 20; TEMP 36.9; O2SAT 98
== END 2023-12-28 14:53 | disposition home or self-care (01) ==
PROVIDERS: Emergency Provider Nurse Practitioner; PCP Family Medicine
DX: T63.441A Toxic effect of venom of bees, accidental (unintentional), initial encounter (principal)
CPT/HCPCS: 87880; 96372; 99212; 99214; G0463; J2919

== ENCOUNTER 2024-01-08 06:27 | Day surgery (SDC) | payer MEDICARE, SELFPAY ==
[2024-01-05 13:56] VITALS: BMI 29.9
[2024-01-08] MEDS: LACTATED RINGERS 1000ML 1,000 ML 25 ML IV (06:44)
[2024-01-08 06:47] VITALS: BP 117/77; PULSE 65; RESP 18; TEMP 36.2; O2SAT 96
--- NOTE | 2024-01-08 06:54 | HMH.SCOPE ---
Procedure: Date: 01/08/24 Patient Date of :: 1950 Procedure Performed:: Esophagogastroduodenoscopy with biopsies Total colonoscopy to terminal ileum with biopsies and polypectomy . Indications:: Patient is a 73-year-old female who presents for upper endoscopy and repeat colonoscopy. I had originally seen her as a referral from the emergency department for possible gallbladder. She did have gallbladder ultrasound on 08/31/2023 which was unremarkable other than fatty liver. Following that she had presented to the emergency department on 09/01/2023 at which time she had a CT angiogram performed which interestingly revealed bowel wall thickening of the colon with ileocecal mesenteric lymph nodes larger than on prior study. She did have a colonoscopy with Dr. Tony Spencer on 11/01/2018 at which time she had 2 sessile serrated adenomas and a tubular adenoma. I was concerned for possible colon pathology and therefore performed expeditious colonoscopy on 09/14/2023 which revealed some prolapsing ileocecal valve and there was a small ulcer on the ileocecal valve. This was biopsied which interestingly returned as tubular adenoma. She also had a tubular adenoma in the ascending colon and at the hepatic flexure. She subsequently underwent HIDA scan which reveals an ejection fraction of 94%. It was felt that unlikely etiology of her postprandial right upper quadrant pain was gallbladder. Plan was made to proceed with upper endoscopy however with the interesting findings of tubular adenoma on the biopsy of the small ulcer on the ileocecal valve plan was for follow-up colonoscopy to ensure no residual mass/lesion. Interestingly, she has had ongoing symptoms of postprandial upper abdominal pain and bloating. This seems to be worse with high-fat foods and meats. . Performing Provider:: Mello Castillo MD Referring Provider:: Usman Cespedes MD . Sedation:: MAC sedation . Procedure:: Patient history was obtained and appropriate physical examination was performed. Patient's medications and allergies were reviewed. Informed consent was obtained after explaining the benefits, alternatives, and risks of the procedure including, but not limited to, bleeding, perforation, missed lesions, and adverse reaction to anesthesia medications. Patient was transported to endoscopy procedure room. Patient was connected to monitoring devices. Throughout the procedure the patient's blood pressure, pulse, and oxygen saturations were monitored continuously. Patient identification and planned procedure were verified by the staff. Patient was positioned in lateral decubitus position. Attention was first turned to upper endoscopy. Olympus endoscope was inserted via the oropharynx and esophagus was cannulated. There was some cricopharyngeal spasm. Endoscope was advanced. There is some minor tortuosity to the esophagus consistent with mild esophageal dysmotility. Gastroesophageal junction was encountered at approximately 35 cm from the incisors. 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 Stomach was cannulated. Retroflexion revealed a very tiny hiatal hernia measuring about 1 or 2 cm. There was some diffuse mild nonerosive gastropathy. There was some prominent mucosa in the prepyloric location. Pylorus was traversed. Duodenum appeared normal. There were a couple biopsies obtained within the duodenum. Endoscope was withdrawn into the stomach and biopsy was obtained at the prepyloric location. A couple biopsies were obtained at the gastroesophageal junction and distal esophageal biopsy was obtained. Next attention was turned to colonoscopy. Digital anorectal exam was performed. Variable stiffness Olympus colonoscope was inserted and advanced under direct visualization to the cecum. Adequacy of the colonic preparation was noted. Preparation was initially somewhat poor as there was a large amount of opaque particulate stool throughout the colon. High-volume irrigation and suctioning was performed which allowed for decent visualization. The colonoscope was advanced a short distance into the terminal ileum. There was no evidence of any ulceration at the ileocecal valve. Prolonged inspection was carried out around the ileocecal valve given prior history. There was some redundant somewhat prolapsing mucosa adjacent to the ileocecal valve. This did not appear to be definitively adenomatous. Numerous biopsies were obtained. The colonoscope was then slowly withdrawn while carefully examining the color, texture, anatomy, and integrity of the mucosoa circumferentially. She had some pandiverticulosis. In the descending colon there was a tiny diminutive adenomatous appearing polyp removed with biopsy forceps. In the sigmoid colon there was a 6 tiny diminutive adenomatous appearing polyp removed in a piecemeal fashion using biopsy forceps. Within the rectum retroflexion was performed. Colonoscope was then withdrawn. . Findings:: Cricopharyngeal spasm Possible esophageal dysmotility Diminutive hiatal hernia Mild nonerosive gastropathy Somewhat redundant mucosa adjacent to ileocecal valve, biopsied given prior history/pathology Pandiverticulosis Diminutive sigmoid polyp Diminutive descending colon polyp . Recommendations:: Unclear as to the etiology of the patient's postprandial abdominal pain and bloating. If symptoms persist and biopsies unremarkable may consider counseling for possible cholecystectomy. Follow-up colonoscopy pending pathology. Complications:: None immediate Estimated blood obtained (mL): 2 Colonoscopy Component Colonoscopy Component Was a colonoscopy performed during today's procedure?: Yes Recommended follow up colonoscopy of at least 10 years?: No If no, follow up colonoscopy recommended in ___ years?: Unknown Reason for not recommending >/= 10 yr follow-up interval?: Pending pathology
--- NOTE | 2024-01-08 07:06 | EXP.ANES.CKL ---
[facility] Disclaimer: The information contained in this section may have been updated after the patient was seen, as this information can be updated by other users. Medical History Hypertension Atypical angina Abnormal cardiovascular stress test Diabetes mellitus Bradycardia SOB (shortness of breath) Obstructive sleep apnea Stable on BiPAP. She was given a sample mask, nasal mask,MATHEW at last appointment. Prescription sent to [facility] for mask, supplies. Surgical History History of partial hysterectomy History of cardiac catheterization History of colonoscopy Family History Other Cancer Hypertension Social History Smoking Status: Never smoker second hand exposure: No alcohol intake: never substance use type: denies use current occupational status: retired Travel in the last 8 weeks: None household members: spouse housing: house current occupational exposures/hazards: No caffeine: Yes [facility] Anesthesia Checklist Patient Identification Patient Identification: Arm Band and Family Structural Data Admitted From: Home Planned Operative Procedure/s: EGD. Colonoscopy. Consent for Planned Operative Procedure(s) Verified: Yes Verified Documents: Surgical Consent and History and Physical NPO Status Verified Time NPO: 00:00 Additional verifications Patient : No Anesthesia Reactions: No Hx Blood Transfusions: No Blood Transfusion Reaction: No Cephalosporin Allergy: No Airway Assessment Mallampati Score:: Class I C-Spine Mobility Assessed: Yes TMJ Mobility Assessed: Yes Dentition: Good Dentition Neurological Assessment Level of Consciousness: Alert, Appropriate and Follows Commands Hx Seizures: No Numbness or tingling in extremities: No Anesthesia Plan Anesthesia Risk discussed: Yes ASA Class: II Anesthesia Type: MAC
[2024-01-08 07:37] VITALS: O2SAT 100
[2024-01-08 08:28] VITALS: BP 113/60; PULSE 71; RESP 16; TEMP 36.2; O2SAT 99
[2024-01-08 08:38] VITALS: BP 94/60; PULSE 67; RESP 16; O2SAT 97
[2024-01-08 08:48] VITALS: BP 121/68; PULSE 64; RESP 18; O2SAT 97
[2024-01-08 08:58] VITALS: BP 116/73; PULSE 68; RESP 18; O2SAT 97
[2024-01-09 10:36] LABS: POC Glucose,Bedside 113 (70-110)
== END 2024-01-08 08:58 | disposition home or self-care (01) ==
PROVIDERS: PCP Family Medicine; Visit Provider Surgery
PROC: 0DJ08ZZ Inspection of Upper Intestinal Tract, Via Natural or Artificial Opening Endoscopic (ICD-10-PCS; CPT 43235; principal; 2024-01-08 07:30)
DX: Z09 Encounter for follow-up examination after completed treatment for conditions other than malignant neoplasm (principal); Z86.010 Personal history of colon polyps; Z12.11 Encounter for screening for malignant neoplasm of colon; R10.11 Right upper quadrant pain; J39.2 Other diseases of pharynx; K44.9 Diaphragmatic hernia without obstruction or gangrene; K31.9 Disease of stomach and duodenum, unspecified; K57.90 Diverticulosis of intestine, part unspecified, without perforation or abscess without bleeding; D12.4 Benign neoplasm of descending colon; D12.5 Benign neoplasm of sigmoid colon
CPT/HCPCS: 43239; 45380; 82962; J2704; J7120

== ENCOUNTER 2024-01-27 13:46 | Outpatient (CLI) | payer MEDICARE, SELFPAY ==
--- NOTE | 2024-01-27 13:50 | XR_ITS ---
FINAL REPORT CLINICAL HISTORY: LT SIDE LOW BACK PAIN WITH LT SIDE SCIATICA COMPARISON: None FINDINGS: LUMBOSACRAL SPINE SERIES 6 views of the lumbosacral spine were obtained. There is no fracture present. There is no malalignment. There is mild anterior osteophyte formation at L2-3, L3-4, and L4-5. Moderate facet sclerosis is noted in the lower lumbar spine. IMPRESSION: Degenerative changes without acute process. Reviewed, Interpreted and Dictated by Momo Shelby MD Transcribed by Katharine Howard Authenticated and [facility]
== END 2024-01-27 23:59 | disposition home or self-care (01) ==
LOC: RAD 13:48
PROVIDERS: PCP Family Medicine; Visit Provider Family Medicine
DX: M54.42 Lumbago with sciatica, left side (principal)
CPT/HCPCS: 72110

== ENCOUNTER 2024-02-15 14:00 | Outpatient (CLI) | payer MEDICARE, SELFPAY ==
--- NOTE | 2024-02-15 14:06 | XR_ITS ---
FINAL REPORT CLINICAL HISTORY: Left Hip Pain COMPARISON: 03/08/2021 FINDINGS: LEFT HIP: Two views of the left hip demonstrate no acute fracture or dislocation. The joint spaces appear unremarkable, and stable since the prior exam of 2020. The visualized bony structures are well aligned. There is an ossific density superior to the greater trochanter measuring 1.5 cm, well-corticated, appears chronic. IMPRESSION: Left hip remained stable since the prior exam of 2020, with no acute bony abnormality. Reviewed, Interpreted and Dictated by Momo Shelby MD Transcribed by Kimberly Quigley Authenticated and [facility]
--- NOTE | 2024-02-15 14:06 | XR_ITS ---
FINAL REPORT CLINICAL HISTORY: Left Knee pain COMPARISON: 11/14/2022 FINDINGS: LEFT KNEE 3 views of the left knee were obtained. There is no acute fracture or dislocation. There is marked medial compartment degenerative change, with subchondral sclerosis, which has advanced since the prior exam of 2022. There is widening of the lateral joint space with osteophyte formation. Soft tissues are unremarkable. IMPRESSION: Marked medial compartment degenerative change, which has worsened since the prior exam of 2022. Reviewed, Interpreted and Dictated by Momo Shelby MD Transcribed by Kimberly Quigley Authenticated and [facility]
== END 2024-02-15 23:59 | disposition home or self-care (01) ==
LOC: RAD 14:03
PROVIDERS: PCP Family Medicine; Visit Provider Orthopaedic Surgery
DX: M25.552 Pain in left hip (principal); M25.562 Pain in left knee
CPT/HCPCS: 73502; 73562

== ENCOUNTER 2024-02-18 04:24 | Emergency (ER) | payer MEDICARE, SELFPAY ==
[2024-02-18 04:26] VITALS: BP 190/97; PULSE 74; RESP 18; TEMP 36.6; O2SAT 100; BMI 28.9
--- NOTE | 2024-02-18 04:42 | [facility].EDGENADL ---
Discharge Plan Disposition Patient Disposition: Home, Self-Care Condition: Good Prescriptions Prescriptions: No Action (DME) FreeStyle Marcelina 3 Sensor Device See Rx Instructions .ROUTE .MEDSUPPLY Qty: 1 Patient Comments: USE DIRECTED Rx Instructions: As directed pantoprazole [Protonix] 40 mg tablet,delayed release (DR/EC) 40 mg PO DAILY Qty: 30 2RF venlafaxine 37.5 mg capsule,extended release 24hr 37.5 mg PO DAILY triamterene-hydrochlorothiazid 75-50 mg tablet 1 tab PO DAILY lidocaine 5 % adhesive patch,medicated 1 patch topical DAILY PRN (Reason: pain) Qty: 30 0RF Rx Instructions: leave on most painful area for up to 12 hrs methocarbamol 500 mg tablet 500 mg PO Q6H PRN (Reason: leg pain) Qty: 30 0RF diclofenac sodium 3 % gel 1 applic topical BID Qty: 100 2RF Referrals Follow up/Referrals: Bobby Cespedes MD [Primary Care Provider] - See instructions Activity Restrictions/Add. Instructions Additional Instructions/Restrictions: Please discuss with your doctor who prescribed a course of steroids next steps given that your symptoms seem to have come on after initiation of the steroids. You do have rhinovirus on your respiratory panel which may explain your symptoms as well. Please return with any new or worsening symptoms. Clinical Impressions Clinical Impression: Shortness of breath, Rhinovirus, Chest pain Print Language Print Language: Greenlandic Discharge ED Provider: Abdulaziz Slater General Adult HPI <Dilip Spicer MD - Last Filed: 02/18/24 06:39> General Chief complaint: Shortness of Breath/Dyspnea Stated complaint: soa Time Seen by Provider: 02/18/24 04:25 Mode of Arrival: Ambulatory Source of Information: Patient Limitations: No Limitations Description of Symptoms (Recalled from ER Triage Doc. by RN): Patient presents to ED with SOA that started tim. 2 hours ago. Patient reports it hit her as she was laying in bed, she got up walked around outside and it went away and then presented again after she laid back down. Patient reports she started taking a steriod dose pack and believes that is what is causing her SOA. Patient states she received a flu shot last week and received a knee injection yesterday. Patient is on RA with O2 sats 100%. History of Present Illness HPI narrative: 73-year-old female with history of arthritis, hypertension presents with shortness of breath. She reports that it started this evening. She has been on prednisone and methylprednisolone for the last few days for her arthritis. She reports getting a flu shot last week. She reports some burning in her chest but otherwise denies chest pain. She reports that she has gotten some shortness of breath the past but usually is able to walk it off. She reports that this time is different and it is worse with walking and worse with lying down. Related Data Home Medications ?Medication ?Instructions ?Recorded ?Confirmed blood-glucose sensor (FreeStyle #1 ea 08/25/23 02/15/24 Marcelina 3 Sensor device) triamterene 75 1 tab PO DAILY 12/28/23 02/15/24 mg-hydrochlorothiazide 50 mg tablet venlafaxine 37.5 mg 37.5 mg PO DAILY 12/28/23 02/15/24 capsule,extended release 24 hr Previous Rx's ?Medication ?Instructions ?Recorded pantoprazole 40 mg tablet,delayed 40 mg PO DAILY #30 tabs 01/21/24 release (Protonix) diclofenac sodium 3 % topical gel 1 applic topical BID #100 grams 02/01/24 lidocaine 5 % topical patch 1 patch topical DAILY PRN pain #30 02/01/24 ea methocarbamol 500 mg tablet 500 mg PO Q6H PRN leg pain #30 tabs 02/01/24 Allergies Allergy/AdvReac Type Severity Reaction Status Date / Time No Known Allergies Allergy Verified 02/15/24 14:54 [facility] <Dilip Spicer MD - Last Filed: 02/18/24 06:39> [facility] Disclaimer: The information contained in this section may have been updated after the patient was seen, as this information can be updated by other users. Medical History Hypertension Atypical angina Abnormal cardiovascular stress test Diabetes mellitus Bradycardia SOB (shortness of breath) Obstructive sleep apnea Stable on BiPAP. She was given a sample mask, nasal mask,MATHEW at last appointment. Prescription sent to [facility] for mask, supplies. Surgical History History of partial hysterectomy History of cardiac catheterization History of colonoscopy Family History Other Cancer Hypertension Social History Smoking Status: Never smoker second hand exposure: No alcohol intake: never substance use type: denies use current occupational status: retired Travel in the last 8 weeks: None household members: spouse housing: house current occupational exposures/hazards: No caffeine: Yes <Dilip Spicer MD - Last Filed: 02/18/24 06:39> ROS Obtained: Yes All systems reviewed & no additional complaints except as documented Physical Exam <Dilip Spicer MD - Last Filed: 02/18/24 06:39> General General appearance: alert and in no apparent distress Head Head exam: atraumatic and normocephalic Eye Eye exam: Present normal appearance, PERRL and EOMI ENT ENT exam: Present normal oropharynx and normal external ear exam Neck Neck exam: Present normal inspection and full ROM Chest Chest inspection: Present normal inspection and symmetric chest wall rise; Absent tenderness Respiratory Respiratory exam: Present normal lung sounds bilaterally; Absent respiratory distress Cardiovascular Cardiovascular exam: Present regular rate and normal rhythm Abdominal Exam Abdominal exam: Present soft; Absent distention, tenderness or guarding Extremities Exam Extremities exam: Present normal inspection and edema (Mild, bilateral lower extremity, nonpitting); Absent joint swelling Back Exam Back exam: Present normal inspection; Absent tenderness Neurological Exam Neurological exam: Present alert and oriented X3; Absent motor sensory deficit Psychiatric Psychiatric exam: Present normal affect and normal mood Skin Skin exam: Present warm, dry and normal color Lymphatic Lymphatic Findings: no adenopathy Medical Decision Making <Dilip Spicer MD - Last Filed: 02/18/24 06:39> Medical Records Medical records reviewed: Yes I reviewed the patient's medical records. Screening: Per USPSTF and CDC recommendations, given the prevalence of disease in our region, it is our hospital?s policy to screen for HIV and viral Hepatitis for all patients aged 18 and over and those with ongoing risk factors. Aries Inquiry Pt receiving controlled substance: No Aries was queried for this patient: No Vital Signs: 02/18/24 04:26 02/18/24 05:00 02/18/24 05:30 Temperature 97.8 F Temperature Source Oral Pulse Rate 62 58 L Pulse Rate [Right Brachial] 74 Respiratory Rate 18 16 16 Blood Pressure 152/81 H 146/81 H Blood Pressure [Right Arm] 190/97 H Blood Pressure Mean 104 102 Blood Pressure Mean [Right Arm] 128 Blood Pressure Source [Right Arm] Automatic Cuff Blood Pressure Position [Right Arm] Supine 02 Sat by Pulse Oximetry 100 98 97 Oxygen Delivery Method Room Air 02/18/24 06:00 02/18/24 07:47 Temperature 98.0 F Temperature Source Pulse Rate 64 63 Pulse Rate [Right Brachial] Respiratory Rate 16 15 Blood Pressure 157/87 H 160/84 H Blood Pressure [Right Arm] Blood Pressure Mean 95 Blood Pressure Mean [Right Arm] Blood Pressure Source [Right Arm] Blood Pressure Position [Right Arm] 02 Sat by Pulse Oximetry 98 Oxygen Delivery Method Room Air Lab Data Lab results reviewed: Yes I reviewed the patient's lab results. Lab Results 02/18/24 04:32: WBC 8.1, RBC 4.63, Hgb 14.7, Hct 46.3, MCV 100.0 H, MCH 31.8 H, MCHC 31.8, RDW 13.6, Plt Count 202, MPV 8.3, Neut % (Auto) 76.0, Lymph % (Auto) 21.1, [place] % (Auto) 2.1, Eos % (Auto) 0.1, Baso % (Auto) 0.6, Neut # (Auto) 6.1, Lymph # (Auto) 1.7, [place] # (Auto) 0.2, Eos # (Auto) 0.0, Baso # (Auto) 0.1, D-Dimer 0.38, Sodium 141, Potassium 4.0, Chloride 106, Carbon Dioxide 28, Anion Gap 11.0, BUN 26 H, Creatinine 0.70, Estimated Creat Clear 58, Estimated GFR 82, Est GFR ( Amer) 100, Glucose 162 H, Calcium 10.1, Magnesium 2.2, Total Bilirubin 0.5, AST 44 H, ALT 51, Alkaline Phosphatase 96, Troponin I < 0.01, NT-Pro-B Natriuret Pep 403 H, Total Protein 8.2, Albumin 5.1 H, Globulin 3.1, Albumin/Globulin Ratio 1.6, Hepatitis C Antibody Non reactive, Hep C Ab Comment Comment, HIV 1&2 Antibody Rapid Nonreactive 02/18/24 04:51: Chlamy pneumoniae PCR Not detected, Adenovirus (PCR) Not detected, B. pertussis DNA (PCR) Not detected, Coronavirus OC43 (PCR) Not detected, Coronavirus HKU1 (PCR) Not detected, Coronavirus 229E (PCR) Not detected, SARS-CoV-2 (PCR) Not detected, Coronavirus NL63 (PCR) Not detected, Human Metapneumovir PCR Not detected, Influenza A (H1) PCR Not detected, Influ A (H1N1/09) PCR Not detected, Influenza A (H3) PCR Not detected, Influenza Type A (PCR) Not detected, Influenza Type B (PCR) Not detected, M. pneumoniae (PCR) Not detected, Parainfluenza 1 (PCR) Not detected, Parainfluenza 2 (PCR) Not detected, Parainfluenza 3 (PCR) Not detected, Parainfluenza 4 (PCR) Not detected, RSV (PCR) Not detected, Entero/Rhino (PCR) Detected A 02/18/24 06:46: Troponin I < 0.01 02/18/24 04:32 02/18/24 04:32 Orders (Tests/Meds): ORDERS Category Date Time Status CXR --portable [XR chest portable] Stat Exams 02/18/24 04:43 Completed BNP [NT Pro Brain Natriuretic Pep.] Stat Lab 02/18/24 04:32 Completed CBC w/Auto Diff [Complete Blood Count Auto Diff] Stat Lab 02/18/24 04:32 Completed CMP [Comprehensive Metabolic Panel] Stat Lab 02/18/24 04:32 Completed D-Dimer Stat Lab 02/18/24 04:32 Completed Full Resp Panel w/COVID ([facility]) Routine Lab 02/18/24 04:51 Completed HIV (1&2) Antibody Rapid Stat Lab 02/18/24 04:32 Completed Hep C Ab with Reflex to RNA Stat Lab 02/18/24 04:32 Completed Magnesium Stat Lab 02/18/24 04:32 Completed Troponin I Q3H Lab 02/18/24 04:32 Completed Troponin I Q3H Lab 02/18/24 06:46 Completed ECG Data Tracing #1: I reviewed this ECG and interpreted as documented below: Sinus rhythm, rate of 68, no significant ST derangements ECG initial impression date: 02/18/24 ECG initial impression time: 04:32 Normal Sinus Rhythm: Yes HEART Score History (anamnesis): Slightly suspicious ECG: Normal Age: >65 years Risk factors: 1-2 risk factors Troponin: </= normal limit HEART Score: 3 Medical Decision Narrative: 73-year-old female with history of arthritis, hypertension presents for shortness of breath since yesterday evening. History was obtained via interactive discussion with patient, chart review. On arrival, patient is [afebrile, hemodynamically stable though hypertensive, satting appropriately, alert, oriented x4, GCS 15], moving all extremities spontaneously. Full physical exam performed and significant for no significant physical exam abnormalities. Differential includes but is not limited to heart failure, ACS, PE, viral syndrome, steroid side effect. Workup initiated including CBC CMP troponin BNP chest x-ray EKG. On re-evaluation, patient [remains afebrile, HD stable.] Laboratory workup independently interpreted by me and significant for negative initial troponin, no significant leukocytosis, D-dimer within normal limits, viral swab positive for rhinovirus.. Imaging independently interpreted by me and significant for chest x-ray without focal opacity or pulmonary edema.. See radiology read for full review of final results. EKG independently interpreted by me and significant for normal sinus rhythm. Patient was placed in ED observation status for serial troponins. At this time care was handed off to oncoming physician.. <Abdulaziz Slater MD - Last Filed: 02/19/24 17:39> Vital Signs: 02/18/24 04:26 02/18/24 05:00 02/18/24 05:30 Temperature 97.8 F Temperature Source Oral Pulse Rate 62 58 L Pulse Rate [Right Brachial] 74 Respiratory Rate 18 16 16 Blood Pressure 152/81 H 146/81 H Blood Pressure [Right Arm] 190/97 H Blood Pressure Mean 104 102 Blood Pressure Mean [Right Arm] 128 Blood Pressure Source [Right Arm] Automatic Cuff Blood Pressure Position [Right Arm] Supine 02 Sat by Pulse Oximetry 100 98 97 Oxygen Delivery Method Room Air 02/18/24 06:00 02/18/24 07:47 Temperature 98.0 F Temperature Source Pulse Rate 64 63 Pulse Rate [Right Brachial] Respiratory Rate 16 15 Blood Pressure 157/87 H 160/84 H Blood Pressure [Right Arm] Blood Pressure Mean 95 Blood Pressure Mean [Right Arm] Blood Pressure Source [Right Arm] Blood Pressure Position [Right Arm] 02 Sat by Pulse Oximetry 98 Oxygen Delivery Method Room Air Lab Data Lab Results 02/18/24 04:32: WBC 8.1, RBC 4.63, Hgb 14.7, Hct 46.3, MCV 100.0 H, MCH 31.8 H, MCHC 31.8, RDW 13.6, Plt Count 202, MPV 8.3, Neut % (Auto) 76.0, Lymph % (Auto) 21.1, [place] % (Auto) 2.1, Eos % (Auto) 0.1, Baso % (Auto) 0.6, Neut # (Auto) 6.1, Lymph # (Auto) 1.7, [place] # (Auto) 0.2, Eos # (Auto) 0.0, Baso # (Auto) 0.1, D-Dimer 0.38, Sodium 141, Potassium 4.0, Chloride 106, Carbon Dioxide 28, Anion Gap 11.0, BUN 26 H, Creatinine 0.70, Estimated Creat Clear 58, Estimated GFR 82, Est GFR ( Amer) 100, Glucose 162 H, Calcium 10.1, Magnesium 2.2, Total Bilirubin 0.5, AST 44 H, ALT 51, Alkaline Phosphatase 96, Troponin I < 0.01, NT-Pro-B Natriuret Pep 403 H, Total Protein 8.2, Albumin 5.1 H, Globulin 3.1, Albumin/Globulin Ratio 1.6, Hepatitis C Antibody Non reactive, Hep C Ab Comment Comment, HIV 1&2 Antibody Rapid Nonreactive 02/18/24 04:51: Chlamy pneumoniae PCR Not detected, Adenovirus (PCR) Not detected, B. pertussis DNA (PCR) Not detected, Coronavirus OC43 (PCR) Not detected, Coronavirus HKU1 (PCR) Not detected, Coronavirus 229E (PCR) Not detected, SARS-CoV-2 (PCR) Not detected, Coronavirus NL63 (PCR) Not detected, Human Metapneumovir PCR Not detected, Influenza A (H1) PCR Not detected, Influ A (H1N1/09) PCR Not detected, Influenza A (H3) PCR Not detected, Influenza Type A (PCR) Not detected, Influenza Type B (PCR) Not detected, M. pneumoniae (PCR) Not detected, Parainfluenza 1 (PCR) Not detected, Parainfluenza 2 (PCR) Not detected, Parainfluenza 3 (PCR) Not detected, Parainfluenza 4 (PCR) Not detected, RSV (PCR) Not detected, Entero/Rhino (PCR) Detected A 02/18/24 06:46: Troponin I < 0.01 Orders (Tests/Meds): ORDERS Category Date Time Status CXR --portable [XR chest portable] Stat Exams 02/18/24 04:43 Completed BNP [NT Pro Brain Natriuretic Pep.] Stat Lab 02/18/24 04:32 Completed CBC w/Auto Diff [Complete Blood Count Auto Diff] Stat Lab 02/18/24 04:32 Completed CMP [Comprehensive Metabolic Panel] Stat Lab 02/18/24 04:32 Completed D-Dimer Stat Lab 02/18/24 04:32 Completed Full Resp Panel w/COVID ([facility]) Routine Lab 02/18/24 04:51 Completed HIV (1&2) Antibody Rapid Stat Lab 02/18/24 04:32 Completed Hep C Ab with Reflex to RNA Stat Lab 02/18/24 04:32 Completed Magnesium Stat Lab 02/18/24 04:32 Completed Troponin I Q3H Lab 02/18/24 04:32 Completed Troponin I Q3H Lab 02/18/24 06:46 Completed HEART Score HEART Score: 3 Medical Decision Narrative: 73-year-old female with history of arthritis, hypertension presents for shortness of breath since yesterday evening. History was obtained via interactive discussion with patient, chart review. On arrival, patient is [afebrile, hemodynamically stable though hypertensive, satting appropriately, alert, oriented x4, GCS 15], moving all extremities spontaneously. Full physical exam performed and significant for no significant physical exam abnormalities. Differential includes but is not limited to heart failure, ACS, PE, viral syndrome, steroid side effect. Workup initiated including CBC CMP troponin BNP chest x-ray EKG. On re-evaluation, patient [remains afebrile, HD stable.] Laboratory workup independently interpreted by me and significant for negative initial troponin, no significant leukocytosis, D-dimer within normal limits, viral swab positive for rhinovirus.. Imaging independently interpreted by me and significant for chest x-ray without focal opacity or pulmonary edema.. See radiology read for full review of final results. EKG independently interpreted by me and significant for normal sinus rhythm. Patient was placed in ED observation status for serial troponins. At this time care was handed off to oncoming physician.. Abdulaziz Slater MD: I assumed care of this patient from the previous emergency medicine physician. Repeat troponin is within normal limits. Patient reports improvement of symptoms upon repeat evaluation. Symptoms are thought to be multifactorial based off of information available at this time, including positive rhino enterovirus testing, as well as correlation with initiation of steroids. Patient was instructed to discuss potential medication changes with prescribing physician of steroids, and will return with any new or worsening symptoms. Return precautions given. Procedures <Dilip Spicer MD - Last Filed: 02/18/24 06:39> Risk/Benefits of Procedure(s) Were Explained: Yes Critical Care <Dilip Spicer MD - Last Filed: 02/18/24 06:39> Critical Care Time Critical Care Time: No
--- NOTE | 2024-02-18 04:43 | XR_ITS ---
PROCEDURE INFORMATION: Exam: XR Chest Exam date and time: 02/18/2024 4:48 AM Age: 73 years old Clinical indication: Shortness of breath; Additional info: SOA TECHNIQUE: Imaging protocol: Radiologic exam of the chest. Views: 1 view. COMPARISON: CT ANGIO CHEST PE PROTOCOL 09/01/2023 8:32 PM FINDINGS: Lungs: Unremarkable. No consolidation. Pleural spaces: Unremarkable. No pleural effusion. No pneumothorax. Heart/Mediastinum: Unremarkable. No cardiomegaly. Bones/joints: Unremarkable. IMPRESSION: No acute process identified.
--- NOTE | 2024-02-18 04:44 | ECG_ITS ---
APPROVED REPORT Exam: Resting ECG HR:68 bpm ECG Measurements Heart Rate 68 AXES [place] 162 P 45 QRSd 85 QRS 14 QT 389 T 3 QTc 407 Conclusion SINUS RHYTHM NORMAL ECG UNCONFIRMED REPORT Electronically signed by : CONNIE CHERRY, 02/19/2024 06:39:14
[2024-02-18 04:51] LABS: Basophils # 0.1 K/mm3 (0-0.2); Basophils % 0.6 % (0.1-2.0); Eosinophils % 0.1 % (0.1-12.0); Hematocrit 46.3 % (37.0-47.0); Hemoglobin 14.7 g/dL (12.2-16.2); Lymphocytes # 1.7 K/mm3 (0.7-4.5); Lymphocytes % 21.1 % (10-50); Mean Corpuscular HGB Conc 31.8 g/dL (31.8-35.4); Mean Corpuscular Hemoglobin 31.8 pg (27.0-31.2); Mean Platelet Volume 8.3 fl (7.4-10.4); Monocytes # 0.2 K/mm3 (0.1-1.0); Monocytes % 2.1 % (1.7-9.3); Neutrophils # 6.1 K/mm3 (1.8-7.8); Platelet Count 202 K/mm3 (142-424); Red Blood Count 4.63 M/mm3 (4.20-5.40); Red Cell Distribution Width 13.6 % (11.5-17.5); White Blood Count 8.1 K/mm3 (4.8-10.8)
[2024-02-18 04:55] LABS: Albumin Level 5.1 g/dl (3.5-5.0); Chloride 106 mmol/L (98-107); Magnesium 2.2 mg/dl (1.6-2.3); Sodium 141 mmol/L (136-145)
[2024-02-18 04:58] LABS: Alanine Aminotransferase 51 U/L (12-78); Albumin/Globulin Ratio 1.6 (1.1-1.8); Alkaline Phosphatase 96 U/L (38-126); Aspartate Amino Transferase 44 U/L (14-36); Bilirubin,Total 0.5 mg/dl (0.2-1.3); Blood Urea Nitrogen 26 mg/dl (7-17); Calcium 10.1 mg/dl (8.4-10.2); Carbon Dioxide 28 mmol/L (22.0-30.0); Creatinine Clearance Estimated 58 mL/min (50-200); Estimated Glomerular Filt Rate 82 ml/min (>60); GFR (African American) 100 ML/MIN (>60); Globulin 3.1 g/dL (1.3-3.2); Glucose 162 mg/dl (74-100); Total Protein,Serum 8.2 g/dl (6.3-8.2)
[2024-02-18 04:58] LABS: Adenovirus,PCR Not Detected (NotDetected); Bordetella Pertussis Not Detected (NotDetected); Chlamydophila Pneumoniae, PCR Not Detected (NotDetected); Coronavirus 19, PCR Not Detected (NotDetected); Coronavirus 229E Not Detected (NotDetected); Coronavirus NL63 Not Detected (NotDetected); Coronavirus OC43 Not Detected (NotDetected); Coronovirus HKU1,PCR Not Detected (NotDetected); Human Metapneumovirus Not Detected (NotDetected); Influenza A, PCR Not Detected (NotDetected); Influenza AH1, 2009 Not Detected (NotDetected); Influenza AH1, PCR Not Detected (NotDetected); Influenza AH3,PCR Not Detected (NotDetected); Influenza B, PCR Not Detected (NotDetected); Mycoplasma Pneumoniae, PCR Not Detected (NotDetected); Parainfluenza 1, PCR Not Detected (NotDetected); Parainfluenza 2, PCR Not Detected (NotDetected); Parainfluenza 3, PCR Not Detected (NotDetected); Parainfluenza 4, PCR Not Detected (NotDetected); Respiratory Syncytial Virus Not Detected (NotDetected)
[2024-02-18 05:00] VITALS: BP 152/81; PULSE 62; RESP 16; O2SAT 98
[2024-02-18 05:00] LABS: D-Dimer 0.38 ug/mL (0.0-0.5)
[2024-02-18 05:08] LABS: NT Pro Brain Natriuretic Pep. 403 pg/mL (0-125)
[2024-02-18 05:10] LABS: Troponin I < 0.01 ng/ml (0.00-0.034)
[2024-02-18 05:12] LABS: HIV (1&2) Antibody Rapid NONREACTIVE (NONREACTIVE)
[2024-02-18 05:30] VITALS: BP 146/81; PULSE 58; RESP 16; O2SAT 97
[2024-02-18 06:00] VITALS: BP 157/87; PULSE 64; RESP 16; O2SAT 98
[2024-02-18 06:14] LABS: Rhinovirus/Enterovirus Detected (NotDetected)
[2024-02-18 07:27] LABS: Troponin I < 0.01 ng/ml (0.00-0.034)
[2024-02-18 07:47] VITALS: BP 160/84; PULSE 63; RESP 15; TEMP 36.7; O2SAT 98
[2024-02-19 06:15] LABS: HCV Ab Non Reactive (Non Reactive)
== END 2024-02-18 07:48 | disposition home or self-care (01) ==
PROVIDERS: Emergency Medicine; Emergency Provider Emergency Medicine; PCP Family Medicine
DX: R07.9 Chest pain, unspecified (principal); R06.02 Shortness of breath; B97.89 Other viral agents as the cause of diseases classified elsewhere; I10 Essential (primary) hypertension; I20.9 Angina pectoris, unspecified; G47.33 Obstructive sleep apnea (adult) (pediatric); E11.9 Type 2 diabetes mellitus without complications
CPT/HCPCS: 71045; 80053; 83735; 83880; 84484; 85025; 85378; 86803; 87265; 87389; 87486; 87581; 87632; 87635; 93005; 99285

== ENCOUNTER 2024-03-01 12:49 | Outpatient (CLI) | payer MEDICARE, SELFPAY ==
--- NOTE | 2024-03-01 12:52 | XR_ITS ---
FINAL REPORT CLINICAL HISTORY: ankle pain FINDINGS: Left ankle Three views were obtained. There is no acute fracture or dislocation. The joint spaces appear normal. There is mild soft tissue swelling about the ankle. IMPRESSION: Mild soft tissue swelling. Reviewed, Interpreted and Dictated by Momo Shelby MD Transcribed by Jessica Johnson Authenticated and [facility]
--- NOTE | 2024-03-01 12:52 | XR_ITS ---
FINAL REPORT CLINICAL HISTORY: Foot Pain FINDINGS: Left foot Three views were obtained. There is no acute fracture or dislocation. There is mild narrowing of the 1st metatarsophalangeal joint consistent with osteoarthritis. No soft tissue abnormality is identified. 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 Reviewed, Interpreted and Dictated by Momo Shelby MD Transcribed by Jessica Johnson Authenticated and [facility]
== END 2024-03-01 23:59 | disposition home or self-care (01) ==
LOC: RAD 12:50
PROVIDERS: PCP Family Medicine; Visit Provider Podiatrist
DX: M79.672 Pain in left foot (principal); M25.572 Pain in left ankle and joints of left foot
CPT/HCPCS: 73610; 73630

== ENCOUNTER 2024-03-08 10:00 | Outpatient (RCR) | payer MEDICARE, SELFPAY ==
--- NOTE | 2024-02-22 16:04 | HMH.PTOPEV ---
PT Outpatient Evaluation Rehab PT Outpatient Evaluation Start: 02/22/24 13:58 Freq: Status: Active Protocol: Document 02/22/24 13:58 CLAU (Rec: 02/22/24 16:03 CLAU [id number]) E-signed By Kiya Butler, PT Outpatient Therapy Subjective History Subjective History Pt is a 73 y/o female who reports insidious onset of L posterolateral hip pain ~1 month ago. Pt reports pain often wakes her up at night with lying supine or on her left side which caused her to seek medical care. Pt reports intermittent pain that wraps around her left leg to her big toe described as dull in nature and numb/tingly to the touch. Pt also reports pain worsened 2 weeks ago with onset of anterior groin pain and difficulty lifting her left leg. Pt had a lumbar spine radiograph on 01/27/24 with impression of Degenerative changes without acute process. Pt reports pain is aggravated by prolonged standing/walking, walking on uneven ground in her yard, increased WB on the left side, going up steps, and laying down at night. Pt also reports localized lateral knee pain she received an injection for last week and pain of her medial malleoli and foot when she bends her big toe. Pt reports history of a lateral cyst removal in her L ankle years ago and is scheduled to see her form setter/driver later this week. Pt reports she was prescribed Lidocaine patches, Gabapentin and steroids which she states sometimes helps with pain. Job: Full-time at [employer] Medical History: Hypertension, Atypical angina, Abnormal cardiovascular stress test, Diabetes mellitus, Bradycardia , SOB (shortness of breath), Obstructive sleep apnea + slump test L, negative on R generalized LLE pain with most special tests with difficulty discerning pain origins this date New diagnosis of cancer in past 12 No months? Chief Complaint Pain Symptom Type Ache,Dull Symptoms Relieved By Rest/Positioning,Heat Symptoms Aggravated By Standing,Physical Activity, Walking Prior Functional Limitations None Current Functional Limitations Housework,Sleeping,Standing, Squatting,Walking,Stairs Symptom Description Constant but Variable Level of pain today (0-10) 4 Pain scale - at its best (0-10) 1 Pain scale - at its worst (0-10) 9 Lumbopelvic Eval Assistive device Assistive Devices None / NA Gait Observation General Gait Pattern Observation Antalgic Gait,Decrease Weight Bear (L) Palapation tenderness bilateral lumbar spinal tenderness Yes: L2-L5 buttock tenderness Yes: Glute med/min, piriformis , hip flexor mm Lumbar/Sacral Palpation Findings Tenderness Lumbar/Sacral Palpation Overall Comment L 3/4 TTP Accessory Movement L-spine Vertebrae Accessory Movements Central P/[place] that Elicit Symptoms L2 bilateral L3 bilateral L4 bilateral L5 bilateral S1 bilateral Range of Motion Lumbar Spine Active Flexion Range of 70 Motion (degrees) Lumbar Spine Active Extension Range of 20 Motion (degrees) Left Lumbar Spine Lateral Flexion Active 10 Range of Motion (degrees) Right Lumbar Spine Lateral Flexion 10 Active Range of Motion (degrees) Manual Muscle Test Left Knee Extension Strength Grade 4 Good Knee Flexion Strength Grade 4 Good Hip Flexion Strength Grade 3+ Fair+ Hip Abduction Strength Grade 4- Good- Hip Adduction Strength Grade 4- Good- Hip Extension Strength Grade 3 Fair Ankle Dorsiflexion Strength Grade 5 Normal DTR Rt Patellar 2+ Lt Patellar 1+ Rt Gastroc/Soleus 2+ Lt Gastroc/Soleus 2+ Altered Sensation Bilateral LE Dermatome Level L1,L2,L3,L4,L5,S1 Comment all decreased light touch L compared to R Special Tests Hip Scouring (Quadrant) Test Positive Left Hip Hamilton (DEJA) Test Positive Left Hip Piriformis Test Positive Left Sciatic Nerve Tension Test Positive Left Derrick Test Positive Hip/Knee Eval ROM left Hip Flexion w/Knee Flexed Active Range 85 of Motion (degrees) Hip External Rotation Active Range of 45 Motion (degrees) Hip Internal Rotation Active Range of 35 Motion (degrees) Lower Extremity Functional Index Activities Today, do you or would you have any difficulty at all with: a.Any of your usual work, housework or No difficulty school activities b. Your usual hobbies, recreational or Extreme difficulty or unable sporting activities to perform activity c. Getting into or out of the bath Moderate difficulty d. Walking between rooms Extreme difficulty or unable to perform activity e. Putting on your shoes or socks A little bit of difficulty f. Squatting Extreme difficulty or unable to perform activity g. Lifting an object, like a bag of Extreme difficulty or unable groceries from the floor to perform activity h. Performing light activities around Moderate difficulty your home i. Performing heavy activities around Extreme difficulty or unable your home to perform activity j. Getting into or out of a car A little bit of difficulty k. Walking 2 blocks Extreme difficulty or unable to perform activity l. Walking a mile Extreme difficulty or unable to perform activity m. Going up or down 10 stairs (about 1 Moderate difficulty flight of stairs) n. Standing for 1 hour Quite a bit of difficulty o. Sitting for 1 hour A little bit of difficulty p. Running on even ground Extreme difficulty or unable to perform activity q. Running on uneven ground A little bit of difficulty r. Making sharp turns while running fast Extreme difficulty or unable to perform activity s. Hopping Extreme difficulty or unable to perform activity t. Rolling over in bed Moderate difficulty LEFI Score Lower Extremity Functional Index Score 25 Outpatient Therapy Assessment Impairments Problems/Impairmments Palpation Tenderness,Impaired Range of Motion,Impaired Strength,Impaired Walking, Impaired Standing,Impaired Stair Climbing,Impaired Stepping on Uneven Surface, Impaired Work Activities, Subjective C/O Pain,Impaired Self Care/Self Management Prognosis Rehab Potential Good Clinical Impression Consistent with Diagnosis Yes Short Term Goals Number of Weeks 3 Improve Gait Pattern without Assistive Yes: non-antalgic to decrease Device fall risk Improve LEFI Score Yes: Improve score to at least 35 to improve overall QOL Decrease Subjective C/O Pain Yes: Improve pain at worst to 7/10 to improve overall QOL Improve Self Care/Self Management Yes Patient to be Ind w/ HEP Yes Senior Living Goals Number of Weeks 6 Increase Range of Motion Yes: Improve lumbar and L hip AROM to WFL Increase Strength Yes: Improve LLE MMT to 4-4+/5 grossly to assist with function Improve Ability to Climb Stairs Yes: 1 flight with HR with pain <5/10 to assist with community navigation Improve Ability to Step on Uneven Yes: report ability to walk in Surfaces yard with pain <5/10 Improve Tolerance to Work Activities Yes: report ability to work a full shift with pain 5/10 or less Improve LEFI Score Yes: Improve score to at least 45-50/80 to improve overall QOL Decrease Subjective C/O Pain Yes: Improve pain at worst to 5/10 to improve overall QOL Outpatient Therapy Plan of Care Treatment Plan May Include Therapeutic Exercise Including Home Yes Exercise Program Manual Therapy Techniques Yes Neuromuscular Re-education Yes Therapeutic Activities to Return to Yes Previous Functional/Work Level Gait Training Yes ADL/Self Care Education Yes Mechanical Traction Yes Dry Needling Yes Thermal Modalities Yes Electrical Stimulation Yes Ultrasound/Phonophoresis Yes Iontophoresis Yes Massage Yes Group Therapy for Medicare Yes Eval/Re-Eval Yes Frequency Times per week 2 Duration Number of Weeks 4-6 Addendums This patient is a candidate for social No or vocational rehab? Patient/Guardian verbally acknowledges Yes understanding of treatment program and consents to further treatment? Patient/Guardian verbally acknowledges Yes understanding of diagnosis, prognosis and goals for treatment? Eval Complexity PT Charges 11364 - Moderate Complexity Shoulder/Elbow Eval Shoulder Objective Measurements Elbow Objective Measurements PHYSICIAN CERTIFICATION: I certify the specified therapy services for Antonette Sim are required, authorized, and reviewed every 30 days.
== END 2024-03-08 23:59 | disposition home or self-care (01) ==
LOC: PT 10:00
PROVIDERS: Visit Provider Physician Assistant
DX: M54.32 Sciatica, left side (principal)
CPT/HCPCS: 97014; 97110; 97140; 97163; 97530; G0283

== ENCOUNTER 2024-07-21 16:35 | Outpatient (CLI) | payer MEDICARE, SELFPAY ==
--- NOTE | 2024-07-21 16:43 | MR_ITS ---
PROCEDURE INFORMATION: Exam: MR Thoracic Spine Without Contrast Exam date and time: 07/21/2024 4:46 PM Age: 73 years old Clinical indication: Pain in thoracic spine; Additional info: Intervertebral disc displacement thoacic region TECHNIQUE: Imaging protocol: Magnetic resonance imaging of the thoracic spine without contrast. COMPARISON: MR THORACIC SPINE WO CON 04/29/2023 4:16 PM FINDINGS: Bones/joints: Scattered intraosseous hemangiomas most notable in T10 and T12 unchanged. Thoracic alignment near anatomic. Lower cervical spinal degenerative disc disease partially imaged with moderate C5-C6 spinal canal stenosis. Small anterior osteophytes unchanged. There are type 1 endplate degenerative changes present at T6-T7 which are new. There is a small left-sided subarticular focal disc protrusion at the C6-C7 level which is smaller than the previous study with mild stenosis of the spinal canal improved since prior. Minimal diffuse disc bulging T11-12 unchanged. No other significant degenerative changes. No high-grade compromise of the thoracic neural foramina present. Spinal cord: There is a small syrinx of the lower thoracic cord T9-10 measuring 1-2 mm unchanged. Soft tissues: Unremarkable. Kidneys and ureters: Subcentimeter left simple appearing renal cysts. IMPRESSION: 1. T6-T7 degenerative disc disease is improved since the previous study now with mild spinal canal stenosis. There are new C6-C7 degenerative endplate changes which could be a source of pain. 2. Degenerative disc disease of the cervical spine seen on localizer imaging moderate suspected spinal canal stenosis at C5-C6. A dedicated MRI cervical spine can be performed for follow up if indicated. 3. Stable small syrinx lower thoracic cord measuring 1-2 mm T9-10.
== END 2024-07-21 23:59 | disposition home or self-care (01) ==
LOC: RAD 16:37
PROVIDERS: PCP Family Medicine; Visit Provider Specialist/Technologist Athletic Trainer
DX: M51.24 Other intervertebral disc displacement, thoracic region (principal)
CPT/HCPCS: 72146

== ENCOUNTER 2024-07-29 13:17 | Outpatient (CLI) | payer MEDICARE, SELFPAY ==
[2024-08-01 02:08] LABS: Pancreatic Elastase, Fecal 223 (>200)
== END 2024-07-29 23:59 | disposition home or self-care (01) ==
LOC: LAB 13:19
PROVIDERS: PCP Family Medicine; Visit Provider Nurse Practitioner Family
DX: R19.7 Diarrhea, unspecified (principal)
CPT/HCPCS: 82656

== ENCOUNTER 2024-08-18 09:34 | Outpatient (CLI) | payer MEDICARE, SELFPAY ==
--- NOTE | 2024-08-18 09:38 | CT_ITS ---
FINAL REPORT TECHNIQUE: IV contrast enhanced exam This study was performed with techniques to keep radiation doses as low as reasonably achievable, (ALARA). Individualized dose reduction techniques using automated exposure control or adjustment of mA and/or kV according to the patient''s size were employed. CLINICAL HISTORY: RUQ LUQ HX OF PANCREATITIS, PAIN COMPARISON: CTA abdomen and pelvis 09/01/2023 FINDINGS: Abdomen: No acute density is seen within the lung bases. The gallbladder is unremarkable. Solid abdominal organs are unremarkable. No bowel obstruction is present. There is no free air. No fluid collection is seen. Mild hazy density central mesentery likely due to mild panniculitis. Pelvis: The appendix is normal. No bowel wall thickening is present. The uterus is atrophic. The urinary bladder is normal. There is no free fluid. No pelvic mass is seen. IMPRESSION: No acute findings. Reviewed, Interpreted and Dictated by Jeyson Wallace MD Transcribed by Katharine Howard Authenticated and [facility]
[2024-08-18 10:05] LABS: Blood Urea Nitrogen 22 mg/dl (7-17); Estimated Glomerular Filt Rate 62 ml/min (>60); GFR (African American) 75 ML/MIN (>60)
[2024-08-18] MEDS: SODIUM CHLORIDE 0.9% 10ML SYR (RAD ONLY) 10 ML IV (11:06)
[2024-08-18] MEDS: IOPAMIDOL-370 (76%);100ML BOTTLE 75 ML IV (11:06)
== END 2024-08-18 23:59 | disposition home or self-care (01) ==
LOC: RAD 09:35
PROVIDERS: PCP Family Medicine; Visit Provider Nurse Practitioner Family
DX: R10.13 Epigastric pain (principal); Z87.19 Personal history of other diseases of the digestive system
CPT/HCPCS: 36415; 74177; 82565; 84520; Q9967

== ENCOUNTER 2024-08-30 16:48 | Outpatient (CLI) | payer MEDICARE, SELFPAY ==
--- NOTE | 2024-08-30 16:52 | MR_ITS ---
PROCEDURE INFORMATION: Exam: MR Cervical Spine Without Contrast Exam date and time: 08/30/2024 5:00 PM Age: 73 years old Clinical indication: Neck pain with left arm numbness and 3rd and 4th digits will burn at night; Additional info: Spondylosis TECHNIQUE: Imaging protocol: Magnetic resonance imaging of the cervical spine without contrast. COMPARISON: MR THORACIC SPINE WO CON 07/21/2024 4:46 PM FINDINGS: Bones/joints: See C4-C5 finding. Spinal cord: Normal signal. No cord compression. C2-C3: No significant disc bulge or herniation. No severe spinal canal stenosis. No significant neural foraminal narrowing. C3-C4: No significant disc bulge or herniation. No severe spinal canal stenosis. No significant neural foraminal narrowing. C4-C5: C4-C5 small posterior disc protrusion without spinal canal or neural foraminal stenosis. C5-C6: C5-C6 moderate broad-based posterior disc protrusion with endplate and facet osteophytosis results in moderate to severe left greater than right neural foraminal stenosis and moderate spinal canal stenosis. C6-C7: C6-C7 small posterior disc protrusion results in mild bilateral neural foraminal stenosis and mild spinal canal stenosis. C7-T1: No significant disc bulge or herniation. No severe spinal canal stenosis. No significant neural foraminal narrowing. Soft tissues: Unremarkable. Vasculature: Expected flow voids in the vertebral arteries. IMPRESSION: C5-C6 moderate broad-based posterior disc protrusion with endplate and facet osteophytosis results in moderate to severe left greater than right neural foraminal stenosis and moderate spinal canal stenosis.
== END 2024-08-30 23:59 | disposition home or self-care (01) ==
LOC: RAD 16:49
PROVIDERS: PCP Family Medicine; Visit Provider Nurse Practitioner
DX: M47.812 Spondylosis without myelopathy or radiculopathy, cervical region (principal)
CPT/HCPCS: 72141

== ENCOUNTER 2024-09-23 11:56 | Outpatient (CLI) | payer MEDICARE, SELFPAY ==
--- OUTSIDE RECORDS SUMMARY | 2024-09-23 11:58 | XMS_ITS | Continuity of Care Document ---
Author Organization [facility], [facility]OSURGERY [facility] Address [address] [facility] [address] [place] [address] Care Team Providers Care Guest Laundry Attendant Name Role Phone SUSANNE RICE Primary Care Provider [phone] TSERING VU Referring Provider [phone] Assessment Encounter Date Assessment Date Assessment LastModified by Organization Details LastModified Time 08/22/2024 08/22/2024 ASSESSMENT: Ms. 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 Soto. She does report neck pain, mid back pain, and low back pain with occasional left lower extremity sciatic pain and numbness into her left foot. 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 It is located around her shoulder blade area and was wrapping around more on the left than the right side around her diaphragm at her bra line. She reports the injection she had last year, was very helpful for her symptoms. They completed a new MRI and she reports Dr. Soto referred her to our office for a small tumor on the spinal column . She does also report cervical pain but denies any radicular symptoms into her upper extremities. Additionally she reports low back pain with pain to her left knee and her left ankle and some into her left foot that is occasionally associated with sciatic pain into her left groin and down the medial thigh. She reports doing physical therapy for her low back last fall which has been very helpful to manage the low back and sciatic issues. She reports, at times, she staggers when she is walking but she does not feel that her balance is terrible. She denies any significant issues with her dexterity other than stiffness in her hands in the morning that improves when she is up moving around. 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 She reports bladder control issues though with further discussion sounds more like urinary urgency. She denies any saddle paresthesia or bowel control issues. IMAGING: Thoracic MRI completed at [facility] on 07/21/2024. I have reviewed the images personally and read the radiologist's report. 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 Part of the visualized cervical spine does reveal stenosis at C5-6. 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 CD kept to review the images with Dr. Garcia. Nurse practitioner visit PLAN: Will contact the patient after images have been reviewed with Dr. Garcia Unfortunately, Dr. Garcia was not available at the time of her appointment to review her imaging. I kept her CD to have him review her updated pictures given Dr. Soto's concern of an abnormality. We did discuss that the syrinx as well as the hemangiomas visualized on her thoracic MRI, are stable and unchanged according to the radiologist who had access to an MRI from 2022. I will contact her after these images have been reviewed by Dr. Garcia. Updated thoracic MRI was reviewed by Dr. Garcia and myself. There is a small syrinx in the lower thoracic cord but no concerning findings related to this abnormality. There is spinal stenosis in her cervical spine at C5-6 that could be related to a small syrinx at that level though it is not well-visualized on this thoracic exam which could be adding to some of her balance issues reported. I will contact Ms. Sim and discuss with her that Dr. Garcia does not feel that any of the abnormality visualized on her thoracic exam was concerning but he would recommend a cervical MRI without contrast to evaluate for any cord compression in her cervical spine that could be causing some of the balance issues she has occasionally. [email or web address] Not available 08/23/2024 12:14:27 Plan of Treatment Reminders Order Date Submit Date Provider Last Modified By Organization Details Last Modified Time Details Appointments None record ed. Lab None record ed. Referral None record ed. Procedures None record ed. Surgeries None record ed. Imaging None record ed. Medication Orders None record ed. Patient TargetsNo targets recorded. Patient InstructionsNo instructions recorded. Reason for Referral None Reported. Results Created Date Observation Date Name Description Value Unit Range Abnormal Flag Note LastModifiedBy Organization Detail LastModifiedTime 08/12/1907/21/2024 MRI, thora cic spine , w/o contr ast No observ ation record ed. [email or web address] Not Available 2024 11:08:26 08/31/19 25 08/30/2024 MRI, cervi richard spine , w/o contr ast No observ ation record ed. [facility] [address], [place], [address], 08/30/2024 18:44:37 Result Notes None recorded. Medical Equipment None Reported. Allergies No known drug allergies Medications Not known to be on any medication Vitals Date Recorded Body height Body mass index (BMI) Body weight Systolic blood pressure Diastolic blood pressure Provider Name and Address Organization Details Last Updated DateTime 08/22/2024 157.48 cm 31.1 kg/m2 66135.7 g 124 mm[Hg] 78 mm[Hg] [facility] [place] 13:00:05 Social History None recorded. Functional Status None recorded. Mental Status None recorded. Family History Relationship Description Onset Age of this Age Resolved Age Notes LastModified by Organization Details LastModified Time Unspecified Relation Malignant neoplastic disease [email or web address] Not available 13:00:26 Unspecified Relation Diabetes mellitus [email or web address] Not available 13:00:31 Unspecified Relation Hypertensive disorder [email or web address] Not available 13:00:35 Unspecified Relation Back problem [email or web address] Not availabl e 08/22/2024 13:00:42 Medical History Condition Response Sleep Apnea Y Gynecological HistoryNo gynecological history recorded. Obstetrics History GPAL:G 0 P 0 0 0 0 Past Encounters Encounter ID Performer Location Encounter Start Date Encounter Closed Date Diagnosis/Indication Diagnosis SNOMED-CT Code Diagnosis ICD10 Code Diagnosis Note [id number] RNEAN BARONE, SEO MANAGER [facility] [address] [place] [address] 08/22/2024 12:26:20 08/23/2024 08:12:00 Lumbar spondylosis 215105218 M47.896 Cervical spondylosis 387 428486 M47.812 Thoracic spondylosis 387 119912 M47.814 Magnetic r esonance imaging of thoracic spine abnormal 699550682 R93.7 Health Concerns Section Related Observation LastModified by Organization Detai ls LastModified Time None Recorded Concern Status LastModified by Organization Details LastModified Time None Recorded Payers Encounter Date Sequence Insurance Name Policy Number Policy Menard Covered Member ID Menard Member ID Guarantor Name 08/22/2024 1 [place] Antonette Sim [id number] 1 Antonette Sim Notes Date Note Type Note Provider Name and Address Organization Details Recorded Time 08/22/2024 text/html Ms. 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 Soto. She does report neck pain, mid back pain, and low back pain with occasional left lower extremity sciatic pain and numbness into her left foot. RENAN BARONE, FABIO [address] [place], [address], [facility] 08/23/2024 12:17:11 OBGyn Episode No OBEpisode recorded.
--- OUTSIDE RECORDS SUMMARY | 2024-09-23 11:59 | XMS_ITS | Data Portability ---
Author Organization [place] [facility] Address [address] [facility] [address] [place] [address] Care Team Providers Care Fire Protection Equipment Technician Name Role Phone SUSANNE RICE Primary Care Provider TSERING VU Referring Provider Assessment Encounter Date Assessment Date Assessment LastModified [...] foot. 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 IMAGING: Thoracic MRI completed at [facility] on 07/21/2024. I have reviewed the images [...] of the balance issues she has occasionally. [email or web address] Not available 08/23/2024 12:14:27 Plan of Treatment [...] contr ast No observ ation record ed. [facility] [address], [place], [address], 08/30/2024 18:44:37 Result Notes None recorded. Procedures Surgical History None recorded. Imaging Results Imaging Date Name Status LastModified by Organ[facility] Details LastModified Time 07/21/2024 MRI, thoracic spine, w/o contrast completed [email or web address] Information not available 08/11/2024 11:08:26 08/30/2024 MRI, cervical spine, w/o contrast active [place] [address], [place], [address], 08/30/2024 18:44:37 Procedure Notes None recorded. Medical Equipment None Reported. Allergies No known drug allergies Medications Not known to be on any medication Vitals Date Recorded Body height Body mass index (BMI) Body weight Systolic blood pressure Diastolic blood pressure Provider Name and Address Organization Details Last Updated DateTime 08/22/2024 157.48 cm 31.1 kg/m2 54550.7 g 124 mm[Hg] 78 mm[Hg] [facility] 13:00:05 Social History None recorded. Functional Status [...] SNOMED-CT Code Diagnosis ICD10 Code Diagnosis Note [id number] RENAN BARONE, FABIO [facility] [address] [place] [address] 08/22/2024 12:26:20 08/23/2024 08:12:00 Lumbar spondylosis 870458255 M47.896 Cervical spondylosis 387 167459 M47.812 Thoracic spondylosis 387 817301 M47.814 Magnetic r esonance imaging of thoracic spine abnormal 058002491 R93.7 Health Concerns Section Related Observation LastModified by Organization Detai ls LastModified Time None Recorded Concern Status LastModified by Organization Details LastModified Time None Recorded Advance Directives Directive None Recorded Payers Encounter Date Sequence Insurance Name Policy Number Policy Menard Covered Member ID Menard Member ID Guarantor Name 08/22/2024 1 [place]IC[place] Antonette Sim [id number] 1 Antonette Sim Notes Date Note Type [...] her left foot. RENAN BARONE, FABIO [address] [place], [address], [facility] 08/23/2024 12:17:11 OBGyn Episode No OBEpisode recorded.
[2024-09-23 12:10] VITALS: BMI 31.6
[2024-09-23 12:15] VITALS: BP 146/74; PULSE 54; RESP 16; O2SAT 96
[2024-09-23 12:29] LABS: Chloride 100 mmol/L (98-107); Sodium 137 mmol/L (136-145)
[2024-09-23 12:30] LABS: Potassium 3.8 mmoL/L (3.5-5.1)
[2024-09-23 12:33] LABS: Anion Gap 8.8 mEq/L (5-15); Blood Urea Nitrogen 17 mg/dl (7-17); Carbon Dioxide 32 mmol/L (22.0-30.0); Creatinine Clearance Estimated 68 mL/min (50-200); Estimated Glomerular Filt Rate 62 ml/min (>60); GFR (African American) 75 ML/MIN (>60); Glucose 121 mg/dl (74-100)
[2024-09-23 12:52] VITALS: BP 146/93; PULSE 65; RESP 16; O2SAT 97
[2024-09-23 12:55] VITALS: BP 131/68; PULSE 59; RESP 16; O2SAT 96
[2024-09-23 13:00] VITALS: BP 109/59; PULSE 59; RESP 16; O2SAT 96
--- NOTE | 2024-09-23 13:00 | CT_ITS ---
APPROVED REPORT Senior Telecommunications Consultant: CLINICAL INDICATION Chest Pain TECHNIQUE Image Acquisition: A 128 slice MDCT scanner (Advanced Telemetrya View) was used for data acquisition. A noncontrast coronary calcium scan was performed. A CT attenuation threshold of 130 Hounsfield units (HU) was used for the detection of calcium in contiguous voxels of 1 sq mm in area to be counted as individual lesions. Bolus tracking in the ascending aorta with a threshold of 180 HU was performed. Immediately afterwards, ECG synchronized cardiac CT was then performed from the cardiac base to apex using retrospective gating with ECG tube current modulation. A total of 85 mL of Isovue 370 mg/mL contrast medium was administered at 5 mL/sec followed by a saline flush using a biphasic injection protocol. A tube voltage of 120 KVp was used. The patient received the following medications prior to the cardiac CT. 0.8 mg of sublingual nitroglycerin The average heart rate at the time of acquisition was 63 bpm and regular. Image Reconstruction Transaxial images were reconstructed at 0.67 mm slide thickness. Data was reviewed interactively on an advanced workstation capable of 2 and 3-dimensional displays in all conventional reconstruction formats, including multiplanar reformations, maximum intensity projections, curved multiplanar reformations, and volume rendered reconstructions. When applicable, selected routine images describing the relevant coronary anatomy and pathology were saved and sent to PACS. Complications None Technical Quality Overall image quality was good. Coronary artery opacification was adequate. Total DLP (Dose-Length Product) is 1111.4 mGy-cm. The reported value represents the total of one or more individual components during the CT acquisition of this date and at this time, and as such, the same value may appear in more than one CT report depending on the interpreting/reporting physicians. COMPARISON None FINDINGS CT Coronary Calcium Scoring LMA (Left Main Artery) = 0 LAD (Left Anterior Descending) = 0 LCX (Left Coronary Circumflex) = 0 RCA (Right Coronary Artery) = 0 Total Calcium Score = 0 using the AJ-130 method. The interpretation of the calcium heart score is based on the following continuum*: 0 = no calcified plaque detected (risk of coronary artery disease is very low ??? less than 5%) 1-10 = calcium detected in extremely minimal levels (risk of coronary diseases is still low ??? less than 10%) 11-100 = mild levels of plaque detected with certainty (mild or minimal narrowing of heart arteries is likely) 101-400 = definite,at least moderate levels of plaque detected (relatively high risk of a heart attack within 3-5 years) >401-999 = extensive levels of plaque detected (high risk of heart attack, high levels of vascular disease are present, high likelihood of at least one significant coronary narrowing) *The calcium heart score quantifies the burden of coronary calcification/plaque in the coronary arteries. The calcium heart score is not able to evaluate the presence or burden of non-calcified (i.e. soft) plaque. There is no identifiable calcification in the aortic valve, mitral annulus or mitral valve, pericardium, or myocardium. Coronary CT Angiography The coronary arterial system is right dominant. Quantitative Stenosis Grading: Left Main (LM): The left main originates normally from the left sinus of Valsalva. The LM bifurcates into the left anterior descending artery and left circumflex artery. The LM is patent with no evidence of atherosclerosis. Left Anterior Descending (LAD) and Diagonal Branches: The LAD gives off 3 diagonal branch(es). The LAD and its branches are patent with no evidence of atherosclerosis. There is no evidence of LAD-myocardial bridge. Left Circumflex (LCX) and Obtuse Marginals (OM): The LCX gives off 2 Obtuse Marginal (OM) branch(es). The LCX and its branches are patent with no evidence of atherosclerosis. Right Coronary Artery (RCA): The RCA originates normally from the right sinus of Valsalva.The RCA has a tortuous course. The RCA gives off a posterior descending artery (PDA) and posterolateral (PL) branches. The RCA and its branches are patent with no evidence of atherosclerosis. Non-Coronary Cardiac Findings: Analysis of the left ventricular (LV) structure and function was performed after 3-D reconstruction of the LV from axial images, with user-corrected automatic contouring for assessment of LV volumes and user-defined reconstruction from oblique planes for measurement of 3-D cardiac structure and function. -The left ventricle systolic function is normal. -There is no left atrial appendage filling defect. Two right pulmonary veins and two left pulmonary veins drain normally into the left atrium. -No pericardial thickening or calcification. -Central and branch pulmonary arteries in the [id number] are unremarkable. -Thoracic aorta within the visualized thoracic aortic-branches in the [id number] is unremarkable. Extracardiac Structures No significant extra-cardiac findings. Note, however, that this study is focused on the cardiac findings. IMPRESSION -Absence of coronary calcification with an Agatston score = 0 using the AJ-130 method. -No evidence of significant flow-limiting atherosclerosis of the coronary arteries. -CAD-RADS 0. Management recommendations per ACC/AHA guidelines*, as clinically appropriate. *Recommendations: CAD RADS 0: Reassurance. Consider non-atherosclerotic causes of chest pain. CAD RADS 1: Consider non-atherosclerotic causes of chest pain. Consider preventive therapy and risk factor modification. CAD RADS 2: Consider non-atherosclerotic causes of chest pain. Consider preventive therapy and risk factor modification, particularly for patients with nonobstructive plaque in multiple segments. CAD RADS 3: Consider further functional testing. Consider symptom-guided anti-ischemic and preventive pharmacotherapy as well as risk factor modification per published guideline statements. CAD RADS 4A: Consider further functional testing or invasive coronary angiography with revascularization per published guideline statements. Consider symptom-guided anti-ischemic and preventive pharmacotherapy as well as risk factor modification per published guideline statements. CAD RADS 4B: Invasive coronary angiography recommended with revascularization per published guideline statements. Consider symptom-guided anti-ischemic and preventive pharmacotherapy as well as risk factor modification per published guideline statements. CAD RADS 5: Consider invasive angiography and/or viability assessment with revascularization per published guideline statements. Consider symptom-guided anti-ischemic and preventive pharmacotherapy as well as risk factor modification per published guideline statements. CRITICAL RESULT None COMMUNICATION Per this written report The coronary and cardiac findings of this CCTA were reviewed, reported, and signed by Rony Barrera MD (Splash Line Operator) Conclusion Electronically signed by : Conchita Barrera MD 09/27/2024 21:37:10
[2024-09-23] MEDS: 0.9 % SODIUM CHLORIDE 50 ML VIAL IV (13:06)
[2024-09-23] MEDS: SODIUM CHLORIDE 0.9% 10ML SYR (RAD ONLY) 10 ML IV (13:06)
[2024-09-23] MEDS: IOPAMIDOL-370 (76%);100ML BOTTLE 85 ML IV (13:06)
== END 2024-09-23 13:12 | disposition home or self-care (01) ==
PROVIDERS: PCP Family Medicine; Visit Provider Nurse Practitioner Family
DX: I50.30 Unspecified diastolic (congestive) heart failure (principal); R07.9 Chest pain, unspecified
CPT/HCPCS: 75574; 80048; Q9967

== ENCOUNTER → 2024-09-27 20:16 | Outpatient (CLI) | payer MEDICARE, SELFPAY ==
--- OUTSIDE RECORDS SUMMARY | 2024-09-27 20:21 | XMS_ITS | Data Portability ---
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 She reports that she works with [facility] for pain management injections and has [...] control issues. IMAGING: Thoracic MRI completed at [facility] on 07/21/2024. I have reviewed the [...] of the balance issues she has occasionally. [email or web address] Not available 08/23/2024 12:14:27 Plan of Treatment [...] contr ast No observ ation record ed. [facility] [address], [place], [address], 08/30/2024 18:44:37 Result Notes None recorded. Procedures Surgical History None recorded. Imaging Results Imaging Date Name Status LastModified by Organiz [facility] Details LastModified Time 07/21/2024 MRI, thoracic spine, w/o contrast completed [email or web address] Information not available 08/11/2024 11:08:26 08/30/2024 MRI, cervical spine, w/o contrast active [facility] [address], [place], [address], 08/30/2024 18:44:37 Procedure Notes None recorded. Medical Equipment None Reported. Allergies No known drug allergies Medications Not known to be on any medication Vitals Date Recorded Body height Body mass index (BMI) Body weight Systolic blood pressure Diastolic blood pressure Provider Name and Address Organization Details Last Updated DateTime 08/22/2024 157.48 cm 31.1 kg/m2 44838.7 g 124 mm[Hg] 78 mm[Hg] [facility] 13:00:05 Social History None recorded. Functional Status [...] SNOMED-CT Code Diagnosis ICD10 Code Diagnosis Note [id number] RENAN BARONE, FABIO [facility] [address] [place] [address] 08/22/2024 12:26:20 08/23/2024 08:12:00 Lumbar spondylosis 748040952 M47.896 Cervical spondylosis 387 857568 M47.812 Thoracic spondylosis 387 814084 M47.814 Magnetic r esonance imaging of thoracic spine abnormal [id number] R93.7 Health Concerns Section Related Observation LastModified by Organization Detai ls LastModified Time None Recorded Concern Status LastModified by Organization Details LastModified Time None Recorded Advance Directives Directive None Recorded Payers Encounter Date Sequence Insurance Name Policy Number Policy Menard Covered Member ID Menard Member ID Guarantor Name 08/22/2024 1 [place]ARE[place] ([place]IC[place] Antonette Sim [id number] 1 Antonette Sim Notes Date Note Type [...] her left foot. RENAN BARONE, FABIO [address] [place], [address], [facility] 08/23/2024 12:17:11 OBGyn Episode No OBEpisode recorded.
--- OUTSIDE RECORDS SUMMARY | 2024-09-27 20:21 | XMS_ITS | Continuity of Care Document ---
Author Organization [facility] Address [address] [place] [address] Care Team Providers Care Beef Farmer Name Role Phone SUSANNE RICE Primary Care Provider [phone] TSERING VU Referring Provider Assessment Encounter Date [...] foot. She reports that she works with [employer] [facility] for pain management injections and has [...] control issues. IMAGING: Thoracic MRI completed at [facility] on 07/21/2024. I have reviewed the [...] of the balance issues she has occasionally. [email or web address] Not available 08/23/2024 12:14:27 Plan of Treatment [...] No observ ation record ed. [facility] [address], [place], [address], 08/30/2024 18:44:37 Result Notes None recorded. Medical Equipment None Reported. Allergies No known drug allergies Medications Not known to be on any medication Vitals Date Recorded Body height Body mass index (BMI) Body weight Systolic blood pressure Diastolic blood pressure Provider Name and Address Organization Details Last Updated DateTime 08/22/2024 157.48 cm 31.1 kg/m2 56877.7 g 124 mm[Hg] 78 mm[Hg] [facility] 13:00:05 Social History None recorded. Functional Status [...] SNOMED-CT Code Diagnosis ICD10 Code Diagnosis Note [id number] RENAN BARONE, NUTRITIONIST [facility] [address] [place] [address] 08/22/2024 12:26:20 08/23/2024 08:12:00 Lumbar spondylosis [id number] M47.896 Cervical spondylosis 387 840801 M47.812 Thoracic spondylosis 387 603480 M47.814 Magnetic r esonance imaging of thoracic spine abnormal [id number] R93.7 Health Concerns Section Related Observation LastModified by Organization Detai ls LastModified Time None Recorded Concern Status LastModified by Organization Details LastModified Time None Recorded Payers Encounter Date Sequence Insurance Name Policy Number Policy Menard Covered Member ID Menard Member ID Guarantor Name 08/22/2024 1 [place] Antonette Sim [id number] 1 Antonette Sim Notes Date Note Type [...] her left foot. RENAN BARONE, FABIO [address] [place], [address], [facility] 08/23/2024 12:17:11 OBGyn Episode No OBEpisode recorded.
== END ==
LOC: SL 20:19
PROVIDERS: PCP Family Medicine; Visit Provider Specialist
DX: G47.33 Obstructive sleep apnea (adult) (pediatric) (principal)
CPT/HCPCS: 95811

== ENCOUNTER 2024-09-28 13:41 | Outpatient (CLI) | payer MEDICARE, SELFPAY ==
--- NOTE | 2024-09-28 | CA_ITS ---
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: Sophia Rodriguez, RCS, RVS Ht: 5 ft 2 in Wt: 184lbs BSA: 1.85 BP: 150/77 mmHg Indications: SOB, HTN, HFpEF, DD< GERD, CP, DM, HLD 2D Dimensions IVSd 1.02 cm F: 0.6-1.0 LVEF (Visual) 75.20 % PWd 0.98 cm F: 0.6 - 1.0 LA Volume 52.20 mL LVDd 4.37 cm F: 3.9 - 5.3 LA Volume Index 28.274361 mL/m2 (M/F) 16-34 LVDs 2.46 cm F: 2.2 - 3.5 Left Atrium 3.71 cm F: 2.7 - 3.8 M-Mode Dimensions RVDd 2.39 cm (0.9-2.6) LA Diam 4.17 cm (1.9-4.0) LVDd 5.23 cm (3.5-5.7) LVDs 3.49 cm (3.5-5.7) IVSd 1.10 cm (0.6-1.1) PWd 0.95 cm (0.6-1.1) EF (Teich) 58.60% EPSs 0.42 cm FS 31.20% EDV (Teich) 122.10 mL TAPSE 2.10 (<1.7) ESV (Teich) 50.50 mL LV Diastology E Decel Time 213 (160-240 msec) E/A Ratio 0.80 MED A' 13.80 cm/s LAT A' 12.30 cm/s Aortic Valve DEMOND Index 1.42 cm2/m2 AoV Peak Orion. 151.0 (50-130 cm/s) AI PHT 407.00 ms AO Peak GR. 9.20 mmHg AO Mean GR. 5.10 (<5 mmHg) AO VTI 33.7 (18-25 cm) DEMOND (VTI) 2.69 (2.5-4.5 cm2) Mitral Valve MV A Velocity 113.0 (40-130 cm/s) E/A Ratio 0.80 Tricuspid Valve TR P. Velocity 253.00 cm/s RAP Estimate 10.00 mmHg RVSP 35.60 mmHg Left Ventricle The left ventricle is normal size. The left ventricular systolic function is normal. The left ventricular ejection fraction is within the normal range. There is increased LV wall thickness. There is normal LV segmental wall motion. Transmitral Doppler flow pattern suggests impaired LV relaxation. LVEF is 55%. Right Ventricle The right ventricle is normal size. The right ventricular systolic function is normal. Atria The left atrium is mildly dilated. The right atrium size is normal. There is no Doppler evidence of interatrial shunt. Aortic Valve The aortic valve is mildly thickened. There is no aortic valvular stenosis. Mild aortic regurgitation. Mitral Valve The mitral valve is normal in structure. No evidence of mitral valve stenosis. Trace mitral regurgitation. Tricuspid Valve Tricuspid valve is grossly normal in structure and function. Mild tricuspid regurgitation. RVSP is 20-25 mmHg. Trace pulmonic regurgitation. Pulmonic Valve The pulmonary valve is normal in structure. Great Vessels The aortic root is normal in size. IVC is normal in size and collapses >50% with inspiration. Pericardium There is no pericardial effusion. Other Information Study Quality: Fair Conclusion Normal biventricular systolic function. Mild LA dilation. Mild AI, mild TR. Electronically signed by : Conchita Barrera MD 10/04/2024 12:47:25
== END 2024-09-28 23:59 | disposition home or self-care (01) ==
LOC: RT 13:42
PROVIDERS: PCP Family Medicine; Visit Provider Nurse Practitioner Family
DX: I51.7 Cardiomegaly (principal); I35.1 Nonrheumatic aortic (valve) insufficiency; I36.1 Nonrheumatic tricuspid (valve) insufficiency; I50.33 Acute on chronic diastolic (congestive) heart failure; R06.02 Shortness of breath
CPT/HCPCS: 93306

== ENCOUNTER 2024-11-17 14:59 | Outpatient (CLI) | payer MEDICARE, SELFPAY ==
[2024-11-17 15:06] LABS: Microscopic, Urine URINE MICROSCOPIC (MICROSCOPIC)
[2024-11-17 15:29] LABS: Appearance,Urine CLEAR (Clear); Bilirubin,Urine Negative (Negative); Blood, Urine Negative (Negative); Color,Urine YELLOW (Yellow); Glucose,Urine (UA) Negative (Negative); Ketones,Urine Negative (Negative); Leukocyte Esterase,Urine 1+ (Negative); Nitrate,Urine Negative (Negative); PH,Urine 5.5 (5.0-8.5); Protein,Urine Negative (Negative); Urobilinogen,Urine 0.2 EU/dl (0.2)
[2024-11-17 15:34] LABS: Specific Gravity, Urine 1.026 (1.005-1.030)
[2024-11-17 15:53] LABS: Bacteria,Urine 4+ /lpf; Mucus,Urine 2+ /lpf; Squamous Epithelial Cell,Urine 50-100 #/hpf (0-5); WBC,Urine 50-100 #/hpf (0-3)
== END 2024-11-17 23:59 | disposition home or self-care (01) ==
LOC: LAB 15:00
PROVIDERS: PCP Family Medicine; Visit Provider Physician Assistant
DX: R82.90 Unspecified abnormal findings in urine (principal); R39.89 Other symptoms and signs involving the genitourinary system
CPT/HCPCS: 81001; 87086

== ENCOUNTER 2024-12-27 07:06 | Outpatient (CLI) | payer MEDICARE, SELFPAY ==
--- OUTSIDE RECORDS SUMMARY | 2024-04-16 07:15 | XMS_ITS ---
Author Organization [facility] Address [facility] [address] [place] [phone] Care Team Providers Care Salvage Winder Name Role Phone Joaquin Cespedes Primary Care Provider [phone] Teo Cabello [phone] Allergies Allergen (clinical drug ingredient) Drug/Non Drug [...] Encounter Location Date Provider Diagnosis [facility] [address] [facility] [address] [place] [phone] 04/16/2024 Teo Cabello Plan Of Treatment Next Appt Details Provider Name:Maria Fernanda hunter, 03/09/2025 11:15:00 AM, [address] [facility], [address], [place], [phone], Progress Notes * GUICHO BURKS CDOB: [birth year] [...] Electronic signature of Lizeth Cabello MD on 12/27/2024 at 07:08 AM EDT Sign off status: Pending * Provider: Ken Cabello M.D. Date: 06/16/2023 Generated for Chasity leal/Naeem/Gilda on: 0 12/27/2024 07:08 AM EDT History and Physical Notes * HPI (History of Present Illness) Category Sub-Category Detail Notes Category Not es Endocrinology Recent Blood Sugars
--- OUTSIDE RECORDS SUMMARY | 2024-09-01 10:00 | XMS_ITS ---
Author Organization [facility] Address [address] [facility] [address] [place] [id number] Care Team Providers Care Bed Bug Exterminator Name Role Phone Joaquin Cespedes Primary Care Provider [phone] LivermoreTeo Unavailable [phone] Jack Genaoa Unavailable [phone] Allergies Allergen (clinical drug ingredient) Drug/Non Drug [...] 02:22:22 PM Interpretation:Glu 119 Performing Lab: Notes/Report: CLIA: [id number] Jeremy Crespo MD, Automotive Technician Instructor [facility] , [address], [place] [address] Test performed by [employer] Sodium 140 135-145 mmol/L Potassium 4.1 3.5-5.3 [...] Interpretation:Normal Performing Lab: Notes/Report: Test performed by [employer] [address] [place] [address] , [address], [place] [address] Jeremy Crespo MD, Automotive Technician Instructor CLIA: [id number] Thyroxine Free (free T4) 1.40 0.86-1.76 ng/dL P-Hemoglobin A1C Reviewed date:09/08/2024 02:22:22 PM Interpretation:6.8 Performing Lab: Notes/Report: Test performed by [employer] [address] [place] [address] , [address], [place] [address] Jeremy Crespo MD, Automotive Technician Instructor CLIA: [id number] Hemoglobin A1C 6.8 <5.7 % The following HbA1c ranges recommended by the [place] Diabetes Association (ADA) may be used as an aid in the diagnosis of diabetes mellitus. HbA1c Suggested Diagnosis >=6.5% Diabetic 5.7% - 6.4% Pre-Diabetic <5.7% Non-Diabetic P-Lipid Panel Reviewed date:09/08/2024 02:22:22 PM Interpretation:Chol 253, Non-HDL 194, LDL Chol 165 Performing Lab: Notes/Report: Test performed by [employer] [address] [place] [address] , [address], [place] [address] Jeremy Crespo MD, Automotive Technician Instructor CLIA: [id number] Cholesterol 253 <200 mg/dL Triglycerides 143 <150 [...] Interpretation:Normal Performing Lab: Notes/Report: Test performed by [employer], [address] , [facility], [place] [address] Jeremy Crespo MD, Automotive Technician Instructor CLIA: [id number] TSH 3.44 0.43-5.25 mU/L P-Vitamin D 25-Hydroxy Reviewed date:09/08/2024 02:22:22 PM Interpretation:22 Performing Lab: Notes/Report: Test performed by [employer], [address] , [address], [place] [address] Jeremy Crespo MD, Automotive Technician Instructor CLIA: [id number] Vitamin D 25-Hydroxy 22.0 30.0-100.0 ng/mL Interpretation of Vitamin D 25 [place]: < 20 ng/mL - Deficiency 20 - 29 ng/mL - Insufficiency 30 - 100 ng/mL - Sufficiency > 100 ng/mL - Super-therapeutic- toxicity may occur above this level. Clinical correlation required. Estimated Average Glucose Reviewed date:09/08/2024 02:22:22 PM Interpretation:Normal Performing Lab: Notes/Report: Test performed by [employer] [address] [place] [address] [address], [place] [address] Jeremy Crespo MD, Automotive Technician Instructor CLIA: [id number] Estimated Average Glucose (eAG) 148 Estimated Average [...] Notes Start Date End Date Status Creon [id number] UNIT as directed Orally Active Gabapentin 300 [...] 09/01/2024 Encounters Encounter Location Date Provider Diagnosis [facility] [address] [facility] [address] [place], [place] [id number] 09/01/2024 Maria Fernanda Chadwick Local infection of [...] test results, Reason: Provider Name:Maria Fernanda hunter, 03/09/2025 11:15:00 AM, [address], [address] , [place], [place], [id number], Progress Notes * GUICHO BURKS CDOB: 3 (74 yo F)Acc No.[id number]:09/01/2024 Progress Notes Patient: GUICHO HUNTER Provider: GENIE Madrigal :1950 A ge:73 Y S ex:Female Date:09/01/2024 Address:[facility] [place], [id number] Pcp:Joaquin Cespedes Subjective: * Chief Complaints: * [...] , Determination:. * Medications: T aking Creon 34488-174285 UNIT Capsule Delayed Release Particles as directed [...] stimated Average Glucose 148 - mg/dL * [facility], support 09/02/2024 06:55:08 : This order was created by the Interface. Ladan Young 09/08/2024 02:22:14 PM > See phone encounter * Procedure Codes: G 2211 Complex e/[place], [address] CBC WITH AUTO DIFF, 3044F HG A1C LEVEL LT 7.0%, G8752 MOST RECENT SYSTOLIC BP < 140MM HG, G8754 MOST RECENT DIASTOLIC BP < 90MM HG * Follow Up: v ia phone to report test results * Images: Billing Information: * Visit Code: 39491 Office Visit, Est Pt., Level 4. * Procedure Codes: G2211 Complex e/[place]. [address] CBC WITH AUTO DIFF. 3044F HG A1C LEVEL LT 7.0%. G8752 MOST RECENT SYSTOLIC BP < 140MM HG. G8754 MOST RECENT DIASTOLIC BP < 90MM HG. * Electronic signature of GENIE Marcus on 12/27/2024 at 07:08 AM EDT Sign off status: Pending * Provider: GENIE Madrigal Date: 0 09/01/2024 Generated for Chasity leal/Naeem/Sunnyitting on: 0 12/27/2024 07:08 AM EDT History [...]
--- OUTSIDE RECORDS SUMMARY | 2024-12-07 07:15 | XMS_ITS ---
[facility] Organization [facility] Address [address] [place] [phone] Care Team Providers Care Registered Diet Technician Name Role Phone Joaquin Cespedes Primary Care Provider Teo Cabello Unavailable [phone] Maria Fernanda Genao Unavailable [phone] Allergies Allergen (clinical drug ingredient) Drug/Non Drug [...] of uncertai n behavior (D48.9) [facility] Referring Provider First Name Maria Fernanda Referring Provider Last Name Chadwick Referring Provider Speciality Physician Supervisor Fabrication And Assembly Referred Provider Dermatology, . Referred Provider Specialty [...] Orally Onc e a day Active Creon 40917-414075 UNIT as directed Orally Active Medrol 4 MG as directed Orally 12/07/2024 Active Vital Signs Blood pressure systolic 126 mm Hg 12/08/19 25 Blood pressure diastolic 78 mm Hg 025 Heart Rate 64 /min 12/07/2024 Height 62 in 12/07/2024 Weight 179.8 lbs 12/07/2024 BMI 32.88 kg/m2 12/07/2024 Encounters Encounter Location Date Provider [facility] [address] [id number] 12/07/2024 Maria Fernanda Genao Costochondritis M94. 0 [...] 03/09/2025 11:15:00 AM, [address] [facility], [address] , [place], [place], [phone], Progress Notes * GUICHO BURKS CDOB: [birth year] (74 yo F)Acc No.[id number]:12/07/2024 Progress Notes Patient: GUICHO HUNTER Shravan Provider: GENIE Madrigal :1950 A ge:74 Y S ex:Female Date:12/07/2024 Address:[address] [place], [place] [id number] Pcp:Joaquin Cespedes Subjective: * Chief Complaints: * [...] Orally Once a day , Taking Creon 12287-211434 UNIT Capsule Delayed Release Particles as directed [...] of insulin - E11.9 7 . B [place] 32.0-32.9,adult - Z68.32 Plan: * Treatment: 2. 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 * Procedure Codes: G2211 Complex e/[place]. [address] Urinalysis, no micro. 1036F TOBACCO NON-USER. 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 G8752 MOST RECENT SYSTOLIC BP < 140MM HG. G8754 MOST RECENT DIASTOLIC BP < 90MM HG. * Electronic signature of GENIE Marcus on 12/27/2024 at 07:09 AM EDT Sign off status: Pending * Provider: GENIE Madrigal Date: 0 12/07/2024 Generated for Chasity leal/Naeem/Sunnyitting on: 0 12/27/2024 07:09 AM EDT History and Physical Notes * [...]
--- OUTSIDE RECORDS SUMMARY | 2024-12-21 10:00 | XMS_ITS ---
Author Organization [facility] Address [address] [place] [address] Care Team Providers Care Shoe Dyer Name Role Phone PatriciareginaldSalvatore Unavailable [phone] REASON FOR VISIT no transportation Encounters Encounter Location Date Provider Diagnosis [address] [address] 12/21/2024 Salvatore Miller Plan Of Treatment No Information Progress Notes * RONAL BURKSОЛЕГOB:1950 (74 yo F)Acc No.[id number]:12/21/2024 Progress Notes Patient: GUICHO HUNTER Provider: Kajal Miller MD :1950 A ge:74 Y S ex:Female Date:12/21/2024 Address:[address] [place] [address] , [id number] Subjective: * Chief Complaints: * 1 . No transportation. * Medical History: Objective: * Vitals: Assessment: Plan: * Treatment: * * Electronic signature of Salvatore Miller MD on 12/27/2024 at 06:09 AM CDT Sign off status: Pending * Provider: Kajal Miller MD Date: 12/21/2024 Generated for Shayi elvis/Naeem/eTransmitting on: 12/27/2024 06:09 AM CDT
--- OUTSIDE RECORDS SUMMARY | 2024-12-27 07:09 | XMS_ITS | Patient Health Record ---
Author Organization [facility] Address [address] [place] [address] Care Team Providers Care Study Assistant Name Role Phone PatriciareginaldSalvatore Unavailable [phone] Reason For Referral No Information Plan Of Treatment No Information
--- OUTSIDE RECORDS SUMMARY | 2024-12-27 07:10 | XMS_ITS | Data Portability ---
Author Organization [facility] Address [address] [place] [address] Care Team Providers Care Weighmaster Lead Name Role Phone DANIELA EMERSON Referring Provider SUSANNE RICE Primary Care Provider [phone] Assessment Encounter Date Assessment Date Assessment LastModified by Organization Details LastModified Time 08/07/2023 08/07/2023 HPI: This is a 72-year-old thoracic back pain She has thoracic back pain, pain radiates from the mid back to the left breast. Denies any weakness or myelopathy. No prior back surgery. Referred by [facility] for thoracic radiculopathy and evaluation for thoracic MARION. Physical therapy not beneficial in the past. Anticoagulants: None PMHx: GERD, hypertension INJ Hx: None PSHx/Surgical Evaluation: Referred by Dr. Emerson for thoracic MARION IMAGING: MRI thoracic spine reviewed today, left T6-7 disc protrusion causing left-sided canal and foraminal compromise, patent canal posterior to the herniation for interlaminar MARION placement The above image findings were discussed with the patient. Current medications include NSAIDs. The patient feels that they receive adequate analgesia and activity improvement with the medication. The patient denies side effects from the medications. UDS was not obtained. ORT, PHQ-9 and MAN were reviewed today. VANGIE report was reviewed today and is appropriate. Based upon the above I would consider the patient to be Low risk. PT The patient completed over six weeks of physical therapy in the past without benefit for their pain ASSESSMENT/PLAN This is a 72-year-old female with mid back and thoracic radiculopathy I recommend thoracic interlaminar MARION T6-7 to the left. Pending results of this, if she has persistent pain, recommend gabapentin therapy. External records were reviewed and discussed as above, including imaging, clinical notes, and relevant labs. Much of this encounter is an electronic garbage stoker/tr anslation of spoken language to printed text. The electronic translation of spoken language may permit erroneous or at times nonsensical words of phrases to be inadvertently transcribed; Although I have reviewed the note for such errors, some may still exist. [email or web address] Not available 08/07/2023 15:37:22 09/25/2023 09/25/2023 Interval Hx: Ms. Sim follows up with thoracic back pain. She is S/P T6/7 MARION resulting in 80% relief. She is happy with this result, she reports improvement in mobility, sleep, and ability to perform ADLs. She reports minimal pain in office today. She manages any breakthrough pain with ibuprofen. No new health changes reported today. HPI: This is a 72-year-old thoracic back pain She has thoracic back pain, pain radiates from the mid back to the left breast. Denies any weakness or myelopathy. No prior back surgery. Referred by [facility] for thoracic radiculopathy and evaluation for thoracic MARION. Physical therapy not beneficial in the past. Anticoagulants: None PMHx: GERD, hypertension INJ Hx: 08/17/2023 #1 TESI T6/T7; 80% pain relief PSHx/Surgical Evaluation: Referred by Dr. Emerson for thoracic MARION IMAGING: MRI thoracic spine reviewed today, left T6-7 disc protrusion causing left-sided canal and foraminal compromise, patent canal posterior to the herniation for interlaminar MARION placement The above image findings were discussed with the patient. Medications/Comp liance: Current medications include NSAIDs. The patient feels that they receive adequate analgesia and activity improvement with the medication. The patient denies side effects from the medications. UDS was not obtained. ORT, PHQ-9 and MAN were reviewed today. VANGIE report was reviewed today and is appropriate. Based upon the above I would consider the patient to be Low risk. PT The patient completed over six weeks of physical therapy in the past without benefit for their pain ASSESSMENT/PLAN This is a 72-year-old female with mid back and thoracic radiculopathy. T6/7 MARION has provided significant benefit for her pain complaints. She understands this injection may be repeated every 3 months as needed. As she reports her pain to be stable at this time, further treatment with gabapentin is not needed. We will plan to follow up in October to reassess and discuss need for a repeat injection. She understands she may contact the clinic at anytime for sooner follow up if needed. [email or web address] Not available 09/25/2023 10:45:29 08/26/2024 08/26/2024 Interval Hx: Ms. Sim follows up with thoracic back pain. She has treated with this clinic for over 3 months. She was last seen in clinic 08/2023 following T6/7 MARION resulting in 80% relief. This lasted for over 6 months. As pain has returned she would like to repeat the injection. She continues tylenol for pain as needed, performs home exercises daily. She did see Dr. Emerson recently, he ordered updated T MRI, brief results noted below. Will request the full report. No surgery recommended, undergoing workup for lesion noted on imaging. No diagnosis at this time. Pain History: She has thoracic back pain, pain radiates from the mid back to the left breast. Denies any weakness or myelopathy. No prior back surgery. Referred by [facility] for thoracic radiculopathy and evaluation for thoracic MARION. Physical therapy not beneficial in the past. Past Medical History: GERD, hypertension Imaging: T MRI 07/2024 T6/7 degenerative disc disease improved. New C6-7 degenerative endplate changes. Mod suspected spinal canal stenosis at C5-6 MRI thoracic spine reviewed today, left T6-7 disc protrusion causing left-sided canal and foraminal compromise, patent canal posterior to the herniation for interlaminar MARION placement The above image findings were discussed with the patient. Surgical evaluation/ history: Referred by Dr. Emerson for thoracic MARION Conservative Treatments: Patient has failed conservative measures for greater than 6 weeks including physical therapy/chiropra ctic care/spinal manipulation, a monitored home exercise program, and/or NSAIDs within the last six months. Interventional treatment history: 08/17/2023 #1 ILESI T6/T7; 80% pain relief for over 6 months Previous analgesics: Current analgesics: NSAIDs Compliance Monitoring: The patient feels that they receive adequate analgesia and activity improvement with the medication. The patient denies side effects from the medications. UDS was not obtained. ORT, PHQ-9 and MAN were reviewed today. VANGIE report was reviewed today and is appropriate. Based upon the above I would consider the patient to be Low risk Anticoagulant/An tiplatelet Medications: None ASSESSMENT/PLAN This is a 72-year-old female with mid back and thoracic radiculopathy. T6/7 MARION provided significant relief for over 6 months. As pain has returned we will plan to repeat the injection. The recommended procedure is discussed with the patient in detail. This procedure is ordered today as she has failed at least 4 weeks of conservative treatment including home exercises and medication management. I will request the full updated MRI report for our records. We will follow up after the injection to assess benefit and further treatment planning. This service is incident to the course of treatment initiated by Dr. Sharp. The supervising physician, Dr. Sharp, is currently available in the office suite Not available 08/26/2024 12:31:07 Plan of Treatment Reminders Order Date Submit Date Provider Last Modified By Organization Details Last Modified Time Details Appointments FOLLOW UP 15 2024 08:30A GENIE CALDERÓN Not available Not available Not available Lab None recorded. Referral None recorded. Procedures remote therapeut ic monitorin g to monitor musculosk eletal system (PROC) - Patient prescribe d RTM (Remote Therapeut ic Monitorin g) to prevent further functiona l decline and monitor treatment effective ness. Patient will complete medicatio n tracking and physical therapy exercises as instructe d. Monitorin g to take place over the next 12 months using the CP&S Russ to also include functiona l assessmen ts as well as daily pain scores. Patient consent obtained and device provided. 2024 025 [email or web address] Not available 08/26/2024 12:30:45 epidural steroid injection , thoracic (PROC) - #2 ILESI T6/T7 no sed 2024 025 [email or web address] Not available 09/05/2024 12:26:47 epidural steroid injection , thoracic (PROC) - #1 TESI T6/[address]Milbur crowe in [place] - no sedation 2023 024 [email or web address] Not available 08/10/2023 20:51:34 Surgeries None recorded. Imaging None recorded. Medication Orders None recorded. Patient TargetsNo targets recorded. Patient Instructions Encounter Date Encounter Id Patient Instructions Last Modified By Organization Details Last Modified Time 08/26/2024 [id number] behavioral healt h screen* [email or web address] Not available 09/19/2024 07:29:23 medical record request* - please provide recent T MRI report - 07/2024 [email or web address] Not available 09/19/2024 07:29:23 Reason for Referral None Reported. Results Created Date Observation Date Name Description Value Unit Range Abnormal Flag Note LastModifiedBy Organization Detail LastModifiedTime 08/07/19 24 MRI, lumba r spine , w/o contr ast No observ ation record ed. [email or web address] Not Available 2023 15:15:30 Result Notes None recorded. Problems Name Problem SNOMED Code Status Onset Date Resolution Date Notes Provider Name and Address Organization Details Recorded Time Thoracic spondylosis 632715829 Active 2023 Araceli barragan [facility] 4 09:01:46 Thoracic radiculopathy 33476518 Active 2023 Araceli barragan [facility] 4 10:00:03 Chronic pain 47000345 Active 2024 GENIE CARBAJAL [address] [place] [address], [phone] , formerly [facility] 5 09:57:29 Problem Notes None recorded. Procedures Surgical History Date Name Laterality Status Provider Name and Address Organization Details Recorded Time 11/03/19 25 Thoracic MARION: Interlaminar completed Roya Gilbert Formerly [facility] 11/02/2024 16:31:58 08/17/19 24 Thoracic MARION: Interlaminar completed ROLDAN SHARP MD [address] [place] [address], [phone], formerly [facility] 08/17/2023 10:37:57 Imaging Results None recorded. Procedure Notes None recorded. Medical Equipment None Reported. Allergies No known drug allergies Medications Name Sig Start Date Stop Date Status Note LastModified by Organization Details LastModified Time methocarbam ol 500 mg tablet TAKE 1 TABLET BY MOUTH EVERY 6 HOURS NEEDED FOR LEG PAIN 08/26 completed Not Available Not Available Not Available venlafaxine ER 37.5 mg capsule,ext ended release 24 hr TAKE 1 CAPSULE BY MOUTH DAILY WITH FOOD active Not Available Not Available No t Available prednisone 10 mg tablet TAKE 1 TABLET BY MOUTH TWICE DAILY WITH FOOD FOR 3 DAYS 08/26 completed Not Available Not Available Not Available venlafaxine ER 75 mg capsule,ext ended release 24 hr 08/26 completed Not Available Not Available Not Available hydrocodone 5 mg-acetamin ophen 325 mg tablet TAKE 1 TABLET BY MOUTH EVERY 8 HOURS NEEDED FOR PAIN 08/26 completed Not Available Not Available Not Available sulfamethox azole 800 mg-trimetho prim 160 mg tablet TAKE 1 TABLET BY MOUTH TWICE DAILY FOR 3 DAYS 12/25 completed Not Available Not Available Not Available omeprazole 40 mg capsule,del ayed release TAKE 1 CAPSULE BY MOUTH DAILY active Not Available Not Available No t Available doxycycline monohydrate 100 mg tablet TAKE 1 TABLET BY MOUTH TWICE DAILY FOR 10 DAYS active Not Available Not Available No t Available triamcinolo ne acetonide 0.1 % topical cream APPLY TOPICALLY TO THE AFFECTED AREA FOUR TIMES DAILY FOR 3 WEEKS FOR REDNESS OR ITCHING 08/26 completed Not Available Not Available Not Available spironolact one 25 mg tablet TAKE 1 TABLET BY MOUTH DAILY active Not Available Not Available No t Available ketorolac 10 mg tablet TAKE 1 TABLET BY MOUTH EVERY 8 HOURS FOR 1 DAY NEEDED FOR PAIN 08/26 completed Not Available Not Available Not Available meclizine 25 mg tablet TAKE 1 TABLET BY MOUTH THREE TIMES DAILY NEEDED 08/26 completed Not Available Not Available Not Available doxycycline monohydrate 100 mg capsule TAKE 1 CAPSULE BY MOUTH EVERY 12 HOURS FOR 10 DAYS 08/26 completed Not Available Not Available Not Available Lasix 20 mg tablet Take 1 tablet every day by oral route. 08/26 completed Not Available Not Available Not Available pantoprazol e 40 mg tablet,fuenets yed release TAKE 1 TABLET BY MOUTH DAILY 08/26 completed Not Available Not Available Not Available lidocaine 5 % topical patch APPLY 1 PATCH TOPICALLY TO THE SKIN DAILY NEEDED FOR PAIN. LEAVE ON MOST PAINFUL AREA FOR UP TO 12 HOURS. REMOVE FOR 12 HOURS 08/26 completed Not Available Not Available Not Available gabapentin 300 mg capsule TAKE 1 CAPSULE BY MOUTH TWICE DAILY active Not Available Not Available No t Available triamterene 75 mg-hydrochl orothiazide 50 mg tablet TAKE 1 TABLET BY MOUTH DAILY active Not Available Not Available No t Available methylpredn isolone 4 mg tablets in a dose pack FOLLOW PACKAGE DIRECTION S active Not Available Not Available No t Available ondansetron 4 mg disintegrat ing tablet DISSOLVE 1 TABLET ON THE TONGUE EVERY 8 HOURS FOR 4 DAYS NEEDED FOR NAUSEA OR VOMITING 08/26 completed Not Available Not Available Not Available cyclobenzap rine 5 mg tablet TAKE 1 TABLET BY MOUTH THREE TIMES DAILY NEEDED active Not Available Not Available No t Available ranolazine ER 500 mg tablet,exte nded release,12 hr TAKE 1 TABLET BY MOUTH TWICE DAILY active Not Available Not Available No t Available Januvia 50 mg tablet 08/26 completed Not Available Not Available Not Available desvenlafax ine succinate ER 25 mg tablet,exte nded release 24 hr TAKE 1 TABLET BY MOUTH ONCE DAILY active Not Available Not Available No t Available ITM Power Marcelina 3 Sensor device USE DIRECTED active Not Available Not Available No t Available Vitals Date Recorded Body height Body mass index (BMI) Body weight Pain severity - 0-10 verbal numeric rating [Score] - Reported Heart rate Oxygen saturation Oxygen saturation in Arterial blood by Pulse oximetry Systolic And Diastolic Provider Name and Address Organization Details Last Updated DateTime 4 157.48 cm 32.4 kg/m2 15691.8 5 g 6 79 /min 98 % 98 % 131/85 mm[Hg] Araceli simmons Former[facility] 4 09:04:02 Date Recorded Body height Body mass index (BMI) Body weight Heart rate Oxygen saturation Oxygen saturation in Arterial blood by Pulse oximetry Systolic And Diastolic Provider Name and Address Organization Details Last Updated DateTime 5 157.48 cm 32.4 kg/m2 70472.8 5 g 57 /min 97 % 97 % 114/68 mm[Hg] Alan Person [facility] 5 09:40:45 Date Recorded Body height Body mass index (BMI) Body weight Pain severity - 0-10 verbal numeric rating [Score] - Reported Oxygen saturation Oxygen saturation in Arterial blood by Pulse oximetry Heart rate Systolic And Diastolic Provider Name and Address Organization Details Last Updated DateTime 4 157.48 cm 32.4 kg/m2 16126.8 5 g 2 97 % 97 % 66 /min 125/68 mm[Hg] Kisha Ho [facility] 4 10:23:03 Social History Question Answer Notes LastModified by Field [employer] Details LastModified Time Tobacco Smoking Status Never Smoker Araceli simmons yung [facility] 08/07/2023 09:05:25 Do You Have An Advance Directive? No Information not available 08/07/2023 What Type Of Diet Are You Following? REGULAR Information not available 08/07/2023 What Is The Highest Grade Or Level Of School You Have Completed Or The Highest Degree You Have Received? LR70625-5 Information not available 08/07/2023 Do You Have A Medical Power Of Early Childhood Special Educator? No Information not available 08/07/2023 What Was The Date Of Your Most Recent Tobacco Screening? 08/07/2023 Information not available 08/07/2023 What Is Your Relationship Status? Unknown Information not available 08/07/2023 Sex: Female Functional Status Question Answer Note LastModified by [employer] ion Details LastModified Time Do you use any illicit or recreational drugs? No Information not available 08/07/2023 What is your level of alcohol consumption? None Information not available 08/07/2023 Are you currently employed? No Information not available 08/07/2023 Are you able to walk? YESWOREST Information not available 08/07/2023 What is your exercise level? None Information not available 08/07/2023 Mental Status None recorded. Family History Nothing Reported. Medical History Condition Response Bipolar Disease N Coronary Artery Disease N Seizure Disorder N Gout N Atrial Fibrillation N Thyroid Disease N Hernia N Head Trauma/Injury N COPD N Depression N Anxiety Disorder N Acid Reflux (GERD) N Cancer N Stroke N Skin Disorder N High Cholesterol N Liver Disease N Rheumatoid Arthritis N Headaches N Fibromyalgia N Kidney Disease N Autoimmune Disease N Osteoarthritis N Neurosurgery N DVT N Peptic Ulcer Disease N Anemia N Heart Attack ([place]) N Diabetes N Cardiomyopathy N Bleeding Disorder N CHF N AIDS/HIV N Inflammatory Bowel Disease N Dementia N Asthma N Substance Abuse N Sleep Apnea N Hepatitis N Heart Disease N Pulmonary Embolism N Chronic Low Back Pain N Hypertension N Osteoporosis N Gynecological HistoryNo gynecological history recorded. Obstetrics History GPAL:G 0 P 0 0 0 0 Past Encounters Encounter ID Performer Location Encounter Start Date Encounter Closed Date Diagnosis/Indication Diagnosis SNOMED-CT Code Diagnosis ICD10 Code Diagnosis Note [id number] MD Linwood KENNEY [address] [place] [address] 08/07/2023 08:53:24 08/07/2023 17:10:36 Thoracic radiculopathy 48303112 M54.14 [id number] MD Linwood KENNEY [address] [place] [address] 08/17/2023 08:49:12 08/17/2023 09:41:14 Thoracic radiculopathy 42403334 M54.14 [id number] MD Linwood KENNEY [address] [place] [address] 09/25/2023 10:03:15 09/25/2023 10:42:23 Thoracic radiculopathy 21079057 M54.14 [id number] MD Linwood KENNEY [address] [place] [address] 08/26/2024 09:06:43 08/26/2024 11:55:51 Thoracic radiculopathy 25443197 M54.14 Chronic pain 33422197 G8 9.29 [id number] MD Lin[facility] KENNEY [address] [place] [address] 11/02/2024 15:12:11 11/02/2024 16:11:20 Thoracic radiculopathy 12892009 M54.14 Health Concerns Section Related Observation LastModified by Organization Detai ls LastModified Time None Recorded Concern Status LastModified by Organization Details LastModified Time None Recorded Advance Directives Directive N: Payers Insurance Date Sequence Insurance Name Policy Number Policy Menard Covered Member ID Menard Member ID Guarantor Name 12/25/2024 1 [place]ARE[place]ARE[place] Antonette Sim [id number] Antonette Sim 12/25/2024 2 AARP (MEDICARE SUPPLEMENT) Antonette Sim [id number] Antonette Sim OBGyn Episode No OBEpisode recorded.
--- OUTSIDE RECORDS SUMMARY | 2024-12-27 07:10 | XMS_ITS | Continuity of Care Document ---
Author Organization Count includes the [facility] in [facility] Address [address] [facility] [address] [place] [address] Care Team Providers Care Wage And Hour Investigator Name Role Phone DANIELA EMERSON Referring Provider SUSANNE RICE Primary Care Provider [phone] Assessment No assessment recorded. Plan of Treatment Reminders Order Date Submit Date Provider Last Modified By Organization Details Last Modified Time Details Appointments FOLLOW UP 15 2024 08:30A M EDMUNDO CARBAJAL Not available Not available Not available Lab None recorded . Referral None recorded . Procedures None recorded . Surgeries None recorded . Imaging None recorded . Medication Orders None recorded . Patient TargetsNo targets recorded. Patient InstructionsNo instructions recorded. Reason for Referral None Reported. Problems Name Problem SNOMED Code Status Onset Date Resolution Date Notes Provider Name and Address Organization Details Recorded Time Thoracic spondylosis 201526979 Active 2023 Araceli barragan [facility] includes the [facility] 4 09:01:46 Thoracic radiculopathy 66907779 Active 2023 Araceli barragan Count includes the [facility] 4 10:00:03 Chronic pain 13121893 Active 2024 EDMUNDO CARBAJAL [address] [place] [address], [phone] , [facility] 5 09:57:29 Problem Notes None recorded. Procedures Surgical History Date Name Laterality Status Provider Name and Address Organization Details Recorded Time 11/03/19 25 Thoracic MARION: Interlaminar completed Roya Gilbert Count includes the [facility] 11/02/2024 16:31:58 08/17/19 24 Thoracic MARION: Interlaminar completed ROLDAN MORSE MD [address] [place] [address], [phone], [facility] 08/17/2023 10:37:57 Imaging Results None recorded. Procedure [...] Available Not Available pantoprazol e 40 mg tablet,fuentes yed release TAKE 1 TABLET BY MOUTH [...] Not Available Not Available No t Available FreeStyle Marcelina 3 Sensor device USE DIRECTED active Not Available Not Available No t Available Vitals None Recorded Social History Question Answer Notes LastModified by Organizat ion Details LastModified Time Tobacco Smoking Status Never Smoker Araceli simmons [facility] [place] [facility] 08/07/2023 09:05:25 Do You Have An Advance Directive? No Information not available 08/07/2023 What Type Of Diet Are You Following? REGULAR Information not available 08/07/2023 What Is The Highest Grade Or Level Of School You Have Completed Or The Highest Degree You Have Received? [id number] Information not available 08/07/2023 Do You Have A Medical Power Of Business Mgr? No Information not available 08/07/2023 What Was The Date Of Your Most Recent Tobacco Screening? 08/07/2023 Information not available 08/07/2023 What Is Your Relationship Status? Unknown Information not available 08/07/2023 Sex: Female Functional Status Question Answer Note LastModified by Organizat ion Details LastModified Time Do you use [...] Bipolar Disease N Coronary Artery Disease N Gout N Seizure Disorder N Atrial Fibrillation N Thyroid Disease N Head Trauma/Injury N Hernia N Depression N COPD N Anxiety Disorder N Acid Reflux (GERD) N Cancer N Stroke N Skin Disorder N High Cholesterol N Liver Disease N Rheumatoid Arthritis N Headaches N Fibromyalgia N Kidney Disease N Autoimmune Disease N Osteoarthritis N Neurosurgery N DVT N Peptic Ulcer Disease N Anemia N Heart Attack ([place]) N Diabetes N Cardiomyopathy N Bleeding Disorder [...] SNOMED-CT Code Diagnosis ICD10 Code Diagnosis Note [id number] ROLDAN MORSE MD [place] [address] [place] [address] 11/02/2024 15:12:11 11/02/2024 16:11:20 Thoracic radiculopathy 28778965 M54.14 Health Concerns Section Related Observation LastModified by Organization Detai ls LastModified Time None Recorded Concern Status LastModified by Organization Details LastModified Time None Recorded Payers Encounter Date Sequence Insurance Name Policy Number Policy Menard Covered Member ID Menard Member ID Guarantor Name 11/02/2024 1 [place] Antonette Sim [id number] Antonette Sim 11/02/2024 2 AARP (MEDICARE SUPPLEMENT) Antonette Sim [id number] Antonette Sim OBGyn Episode No OBEpisode recorded.
--- OUTSIDE RECORDS SUMMARY | 2024-12-27 07:10 | XMS_ITS | Data Portability ---
Author Organization [facility] B[place]IT [place] CLOS[facility] Address [address] [facility] [facility] [address] [place] [address] Care Team Providers Care Associate Music Professor Name Role Phone SUSANNE RICE Primary Care Provider TSERING VU Referring Provider [phone] Assessment Encounter Date Assessment Date Assessment LastModified [...] foot. She reports that she works with [facility] for pain management injections and has [...] control issues. IMAGING: Thoracic MRI completed at [facility] on 07/21/2024. I have reviewed [...] her balance issues reported. I will contact Aubrey Chiquis and discuss with her that Dr. Garcia does not feel that any of the abnormality visualized on her thoracic exam was concerning but he would recommend a cervical MRI without contrast to evaluate for any cord compression in her cervical spine that could be causing some of the balance issues she has occasionally. [email or web address] Not available 08/23/2024 12:14:27 Plan of Treatment [...] contr ast No observ ation record ed. [email or web address] [facility] [address], [place], [address], 10/18/2024 09:04:42 Result Notes None recorded. Medical Equipment None Reported. Allergies No known drug allergies Medications Not known to be on any medication Vitals Date Recorded Body height Body mass index (BMI) Body weight Systolic And Diastolic Provider Name and Address Organization Details Last Updated DateTime 08/22/2024 157.48 cm 31.1 kg/m2 86038.7 g 124/78 mm[Hg] [facility] 08/22/2024 13:00:05 Social History None recorded. 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 [facility]OS[facility] [address] [place] [address] 08/22/2024 12:26:20 08/23/2024 08:12:00 Lumbar spondylosis 985919408 M47.896 Cervical spondylosis 387 913944 M47.812 Thoracic spondylosis 387 566817 M47.814 Magnetic r esonance imaging of thoracic spine abnormal [id number] R93.7 Health Concerns Section Related Observation LastModified by Organization Detai ls LastModified Time None Recorded Concern Status LastModified by Organization Details LastModified Time None Recorded Advance Directives Directive None Recorded Payers Insurance Date Sequence Insurance Name Policy Number Policy Menard Covered Member ID Menard Member ID Guarantor Name 08/11/2024 1 [place] Antonette Sim [id number] Antonette Sim 10/07/2024 2 AAR (MEDICARE SUPPLEMENT) Antonette Sim [id number] Antonette Sim OBGyn Episode No OBEpisode recorded.
--- OUTSIDE RECORDS SUMMARY | 2024-12-27 07:10 | XMS_ITS | Patient Health Record ---
Author Organization [facility] Address [address] [place] [id number] Care Team Providers Care Production Shift Supervisor Name Role Phone Joaquin Cespedes Primary Care Provider [phone] DestineyTeo Unavailable [phone] Carmela Carreno Unavailable [phone] Maria Fernanda Genao Unavailable [phone] Allergies Allergen (clinical drug ingredient) Drug/Non Drug [...] 119 Performing Lab: Notes/Report: Test performed by [facility] [facility] , [address], [place] [address] Jeremy Crespo MD, Drosophere Operator CLIA: [id number] Sodium 140 135-145 mmol/L Potassium 4.1 3.5-5.3 [...] Interpretation:Normal Performing Lab: Notes/Report: Test performed by [facility] [address] [place], [place] [address] [place] , [address], [place] [address] Jeremy Crespo MD, Drosophere Operator CLIA: [id number] Thyroxine Free (free T4) 1.40 0.86-1.76 ng/dL P-Hemoglobin A1C Reviewed date:09/08/2024 02:22:22 PM Interpretation:6.8 Performing Lab: Notes/Report: Test performed by [facility] [address] [place] [address] , [address], [place] [address] Jeremy Crespo MD, Drosophere Operator CLIA: [id number] Hemoglobin A1C 6.8 <5.7 % The following HbA1c ranges recommended by the [place] [employer] (ADA) may be used as an aid in the diagnosis of diabetes mellitus. HbA1c Suggested Diagnosis >=6.5% Diabetic 5.7% - 6.4% Pre-Diabetic <5.7% Non-Diabetic P-Lipid Panel Reviewed date:09/08/2024 02:22:22 PM Interpretation:Chol 253, Non-HDL 194, LDL Chol 165 Performing Lab: Notes/Report: Test performed by [facility] [address] [place] [address] [place] [address] Jeremy Crespo MD, Drosophere Operator [facility]: [id number] Cholesterol 253 <200 mg/dL Triglycerides 143 <150 [...] ATPIII guidelines LDL/HDL Ratio 2.8 <3.3 Ratio _ LDL Cholesterol Patient History _ Test Date: 08/04/2023 LDL Results: 108 Units: mg/dL % Change: - - Test Date: 09/01/2024 LDL Results: 165 Units: mg/dL % Change: +52% _ P-TSH Reviewed date:09/08/2024 02:22:22 PM Interpretation:Normal Performing Lab: Notes/Report: Test performed by [facility] [address] , [address], [place] [address] Jeremy Crespo MD, Drosophere Operator CLIA: [id number] TSH 3.44 0.43-5.25 mU/L P-Vitamin D 25-Hydroxy Reviewed date:09/08/2024 02:22:22 PM Interpretation:22 Performing Lab: Notes/Report: Test performed by [facility] [address] [place] [address] , [address], [place] [address] Jeremy Crespo MD, Drosophere Operator CLIA: [id number] Vitamin D 25-Hydroxy 22.0 30.0-100.0 ng/mL Interpretation of Vitamin D 25 OH: < 20 ng/mL - Deficiency 20 - 29 ng/mL - Insufficiency 30 - 100 ng/mL - Sufficiency > 100 ng/mL - Super-therapeutic- toxicity may occur above this level. Clinical correlation required. Estimated Average Glucose Reviewed date:09/08/2024 02:22:22 PM Interpretation:Normal Performing Lab: Notes/Report: Test performed by [facility] [address] [place] [address] , [address], [place] [address] Jeremy Crespo MD, Drosophere Operator CLIA: [id number] Estimated Average Glucose (eAG) 148 Estimated Average Glucose (eAG) is calculated using the equation eAG = (28.7 x HbA1c) - 46.7 based on the guidelines established by the ADA. If the patient has certain diseases including kidney disease, sickle cell anemia, thalassemia, or is taking medications such as dapsone, erythropoietin, or iron, eAG should not be evaluated. Urinalysis - Inhouse Reviewed date:12/09/2024 08:52:10 AM Interpretation: Performing Lab: Notes/Report: Color/Clarity yellow/cloudy Leuk neg Nitrite pos Urobili 3.2 Protein neg pH 5.5 Blood neg Sp. Gr. 1.015 Ketone neg Bili neg Gluc trace X ray : Spine, lumbosacral Reviewed date:01/28/2024 09:41:40 AM Interpretation:degenerative changes Performing Lab: Notes/Report: degenerative changes Glycohemoglobin A1c (in hous e) Reviewed date:02/10/2024 04:13:19 PM Interpretation:6.8 Performing Lab: Notes/Report: 6.8 glycohemoglobin 6.8% 5 - 6.5 % P-Comprehensive Metabolic Pa jose (CMP) Reviewed date:02/10/2024 04:13:19 PM Interpretation:gluc 132, Cr 1.07, gfr 55 Performing Lab: Notes/Report: Test performed by [facility] [place] [address] [facility] , [address], [place] [address] Jeremy Crespo MD, Drosophere Operator CLIA: [id number] Sodium 141 135-145 mmol/L Potassium 3.8 3.5-5.3 [...] 0.5 <0.2-1.2 mg/dL A/G Ratio 1.8 1.1-2.5 Medications Medication SIG (Take, Route, Frequency, Duration) Notes Start Date End Date Status Ranolazine ER 500 MG 1 tablet Orally Twi ce a day Active Omeprazole 40 MG 1 capsule 1/2 to 1 h our before morning meal Orally Once a day Active Medrol 4 MG as directed Orally 12/07/2024 Active Venlafaxine HCl ER 37.5 MG 1 capsule wit h food Orally Once a day; Duration: 90 days 12/07/2024 Active Spironolactone 25 MG 1 tablet Orally Onc e a day Active Creon 74194-628754 UNIT as directed Orally Active Immunizations Vaccine Route Administration Date Status Comme nts xFluzone High Dose-private (65yr&older) Unknown 03/25/2018 Administered Tetanus Tdap-Adacel (over 7yrs) IM Intramuscular 03/19/2010 Administered Tetanus Tdap-Adacel (over 7yrs) IM Intramuscular 01/12/2016 Administered Shingrix Unknown 02/13/2023 Administered Prevnar (PCV13) Unknown 03/25/2018 Administered PNEUMOVAX 23 VACCINE Unknown 03/17/2019 Administered Fluzone Quad (6months&older) Unknown 02/13/2023 Administered Fluzone High Dose (65yr and older) Unknown 02/02/2020 Administered Fluzone High Dose (65yr and older) Unknown 03/02/2021 Administered Fluzone High Dose (65yr and older) Unknown 03/31/2022 Administered COVID 19 Moderna Unknown 08/01/2020 Administered COVID 19 Moderna Unknown 08/29/2020 Administered Problems Problem Type SNOMED Code ICD Code Onset Dates Problem Status W/U Status Risk Notes Problem Hypothyroidism (94646282) Hypothyroidism, unspecified (E03.9) Active confirmed Problem Gastroesophageal reflux disease (626630694) GERD (gastroesophageal reflux disease) (K21.9) Active confirmed Problem Vitamin D deficiency (80593094) Vitamin D deficiency (E55.9) Active confirmed Problem Essential hypertension (36458535) Essential hypertension (I10) Active confirmed Problem Abnormal mammogram (746689817) Abnormal mammogram (R92.8) Active confirmed Problem Mixed anxiety and depressive disorder (654348333) Depression with anxiety (F41.8) Active confirmed Problem BMI 30+ - obesity (259739545) BMI 32.0-32.9,adult (Z68.32) Active confirmed Problem Mixed hyperlipidemia (038548665) Mixed hyperlipidemia (E78.2) Active confirmed Problem Obese class II (345737016912964) BMI 35.0-35.9,adult (Z68.35) Active confirmed Problem Acquired hypothyroidism (002882351) Acquired hypothyroidism (E03.9) Active confirmed Problem Obesity (604433272) Non morbid obesity due to excess calories (E66.09) Active confirmed Problem Disorder of neck (984431691) Disorder of neck (M53.82) Active confirmed Problem Dyslipidemia (910880670) Dyslipidemia (E78.5) Active confirmed Problem Type II diabetes mellitus without complication (843576746) Type 2 diabetes mellitus without complication, without long-term current use of insulin (E11.9) Active confirmed Problem Sciatica (15043644) Left-sided l ow back pain with left-sided sciatica, unspecified chronicity (M54.42) Active confirmed Problem Left atrial enlargement (32561709578714) Left atrial enlargement (I51.7) Active confirmed Problem Seasonal allergic rhinitis (301240305) Seasonal allergic rhinitis, unspecified trigger (J30.2) Active confirmed Problem Osteopenia following menopause (disorder) (605540690) Osteopenia 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 (M85.80) Active confirmed Vital Signs Heart Rate 64 /min 12/07/2024 Blood pressure diastolic 78 mm Hg 12/07/2024 Height 62 in 12/07/2024 Blood pressure systolic 126 mm Hg 12/07/2024 Weight 179.8 lbs 12/07/2024 BMI 32.88 kg/m2 12/07/2024 Encounters Encounter Location Date Provider Diagnosis [facility] [address] [place] [id number] 01/22/2024 [place] Left-sided low back pain with left-sided sciatica, unspecified chronicity M54.42 [facility] [address] [place] [id number] 02/05/2024 Maria Fernanda Genao Left hip pain M25.55 2 ; Left knee pain, unspecified chronicity M25.562 ; Type 2 diabetes mellitus without complication, without long-term current use of insulin E11.9 and Essential hypertension I10 [facility] [address] [place] [id number] 03/23/2024 [place] 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 ; Right rotator cuff tendinitis M75.81 ; Spasm of muscle M62.838 and Disorder of neck M53.82 [facility] [address] [place] [id number] 04/01/2024 Maria Fernanda Genao Infected tick bite, initial encounter W57.XXXA and Cellulitis, unspecified cellulitis site L03.90 [facility] [address] [place] [address] [place] [id number] 09/01/2024 Maria Fernanda Genao Local infection of [...] reflux disease) K21.9 and Mixed hyperlipidemia E78.2 [facility] [address] [facility] [address] [place], [place] [id number] 12/07/2024 Maria Fernanda Chadwick Costochondritis M94. 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 ; Depression with anxiety F41.8 ; Dyslipidemia E78.5 ; Type 2 diabetes mellitus without complication, without long-term current use of insulin E11.9 and BMI 32.0-32.9,adult Z68.32 [facility] [address] [facility] [address] [place], [place] [id number] 12/13/2024 R Usman Coy [facility] [address] [facility] [address] [place], [place] [id number] 01/28/2024 Teoivory Cabello [facility] [address] [facility] [address] [place], [place] [id number] 02/10/2024 Maria Fernanda Crowmelody [facility] [address] [facility] [address] [place], [place] [id number] 08/08/2024 R Usman Cespedes Left-sided low back pain with left-sided sciatica, unspecified chronicity M54.42 [facility] [address] [facility] [address] [place], [place] [id number] 09/08/2024 Maria Fernanda Genao Assessments Encounter Date Diagnosis (ICD Code) Assessment Notes Treatment Notes Treatment Clinical Notes Section Notes 01/22/2024 Left-sided low back pain with left-sided sciatica, unspecified chronicity (ICD-10 - M54.42) Current course of treatment reviewed, including pertinent labs and diagnostic imaging. Risks and benefits of the use of controlled substances discussed, including the risk of tolerance and drug dependence. Refer to [facility] Controlled Substance Agreement. 02/05/2024 Left hip pain (ICD-10 - M25.552) She went to the ER and had x-rays. Will make referral to Dr. Soto. 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 Will start on abx. 08/08/2024 Left-sided low back pain with left-sided sciatica, unspecified chronicity (ICD-10 - M54.42) 09/01/2024 Local infection of the skin and subcutaneous tissue, unspecified (ICD-10 - L08.9) 09/01/2024 Insect bite (nonvenomous), right thigh, initial encounter (ICD-10 - S70.361A) 12/07/2024 Costochondritis (ICD-10 - M94.0) Chest pain is likely due to costochondritis and not cardiac in nature. This is why the ranexa is not helping. Will start on some steroids. No heavy lifting, pushing, or pulling. 12/07/2024 Dysuria (ICD-10 - R30.0) 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) 09/01/2024 Bitten or stung by nonvenomous insect and other nonvenomous arthropods, initial encounter (ICD-10 - W57.XXXA) 04/01/2024 Cellulitis, unspecified cellulitis site (ICD-10 - L03.90) 03/23/2024 Spasm of muscle (ICD-10 - M62.838) 02/05/2024 Type 2 diabetes mellitus without complication, without long-term current use of insulin (ICD-10 - E11.9) 03/23/2024 Disorder of neck (ICD-10 - M53.82) heating pad to affected areas 2 to 3 times a day, Home exercise program provided to patient 02/05/2024 Essential hypertension (ICD-10 - I10) 12/07/2024 Depression with anxiety (ICD-10 - F41.8) Patient states her insurance would not cover the effexor so she was sent pristiq. She says this does not work as well and makes her feel weird. She would like it switched back. 09/01/2024 Type 2 diabetes mellitus without complication, without long-term current use of insulin (ICD-10 - E11.9) Patient cannot take ozempic due to history of pancreatitis. Will get labs and make decision on the need for new medication. 12/07/2024 Dyslipidemia (ICD-10 - E78.5) 09/01/2024 Essential hypertension (ICD-10 - I10) 12/07/2024 Type 2 diabetes mellitus without complication, without long-term current use of insulin (ICD-10 - E11.9) 09/01/2024 Acquired hypothyroidism (ICD-10 - E03.9) 12/07/2024 BMI 32.0-32.9,adult (ICD-10 - Z68.32) 09/01/2024 Depression with anxiety (ICD-10 - F41.8) 09/01/2024 Vitamin D deficiency (ICD-10 - E55.9) 09/01/2024 GERD (gastroesophageal reflux disease) (ICD-10 - K21.9) 09/01/2024 Mixed hyperlipidemia (ICD-10 - E78.2) Plan Of Treatment Pending Test Test Name Order Date Mammogram 07/24/2022 P-Culture, Urine 12/07/2024 Next Appt Details Provider Name:Maria Fernanda hunter, 03/09/2025 11:15:00 AM, [address] [facility], [address], [place], [place], [id number], Insurance Providers Payer Name Payer Address Payer Phone Subscriber Number Group Number Insured Name Patient Relationship to Insured Coverage Start Date Coverage End Date MEDICARE PART B [address] [address] [place] [id number] [phone] [id number] GUICHO BURKS Self - patient is the insured [facility] [address] [place] [id number] GUICHO BURKS Self - patient is the insured Medications Administered Medication Instructions Date of Administration Dosage Notes Depo- Medrol 40 mg/ml 10/10/2014 1 mL Dexamethasone 07/03/2011 1 mL Medical (General) History Medical History History ICD Code Irritable Bowel Syndrome Hypothyroidism Depression h/o pancreatitis Diabetes Mellitus 2 Surgical History Surgery Date(Month/Year) Supracervical hysterectomy and bilateral oophorectomy Upper GI Colonoscopy 2003 LT Knee Repaired Meniscus 03/2005 RT Wrist 07/2006 RT Wrist 12/2006 Hospitalization History Reason Date(Month/Year) Sleep Study 04/2019 Pancreatitis 2004
--- NOTE | 2024-12-27 07:30 | CT_ITS ---
FINAL REPORT TECHNIQUE: Thin section multiplanar axial images of the hip, knee, and ankle were obtained for preoperative planning. CLINICAL HISTORY: Left Knee Pain, pre-op planning for knee replacement FINDINGS: There is no acute abnormality of the hip. There is mild degenerative joint disease. There is tricompartment degenerative disease of the knee without acute osseous abnormality. Small joint effusion is identified. The soft tissues are without acute abnormality. IMPRESSION: Tricompartment degenerative disease of the knee for preoperative planning. Reviewed, Interpreted and Dictated by Carol Sofia MD Transcribed by Jessica Johnson Authenticated and . [facility]
== END 2024-12-27 23:59 | disposition home or self-care (01) ==
LOC: RAD 07:07
PROVIDERS: PCP Family Medicine; Visit Provider Orthopaedic Surgery
DX: M17.12 Unilateral primary osteoarthritis, left knee (principal)
CPT/HCPCS: 73700

== ENCOUNTER 2025-01-01 21:47 | Emergency (ER) | payer MEDICARE, SELFPAY ==
--- OUTSIDE RECORDS SUMMARY | 2024-04-16 07:15 | XMS_ITS ---
Author Organization [facility] Address [facility] [facility] [address] [facility] [address] [place] [id number] Care Team Providers Care Bowling Ball Weigher And Packer Name Role Phone Joaquin Cespedes Primary Care Provider Teo Cabello [phone] Allergies Allergen (clinical drug ingredient) Drug/Non Drug [...] Encounter Location Date Provider Diagnosis [facility] [address] [facility] [address] [place] [phone] 04/16/2024 Teo Cabello Plan Of Treatment Next Appt Details Provider Name:Maria Fernanda hunter, 03/09/2025 11:15:00 AM, [address] [facility] [address] [facility], [address], [place], [phone], Progress Notes * GUICHO BURKS CDOB: 3 (74 yo F)Acc No.[id number]:04/16/2024 Progress Notes Patient: eKn STOKES GUICHO Cheney Provider: Ken Cabello M.D. :1950 A ge:73 Y S ex:Female Date:04/16/2024 Address[address] [place] Pcp:Joaquin Cespedes Subjective: [...] Electronic signature of Lizeth Cabello MD on 01/01/2025 at 10:03 PM EDT Sign off status: Pending * Provider: Ken Cabello M.D. Date: 06/16/2023 Generated for Chasity leal/Naeem/Gilda on: 0 01/01/2025 10:03 PM EDT History and Physical Notes * HPI (History of Present Illness) Category Sub-Category Detail Notes Category Not es Endocrinology Recent Blood Sugars
--- OUTSIDE RECORDS SUMMARY | 2024-09-01 10:00 | XMS_ITS ---
Author Organization [facility]-[place] Address [address] [facility] [address] [place] [phone] Care Team Providers Care Shell Assembler Name Role Phone Joaquin Cespedes Primary Care Provider [phone] Teo Cabello Unavailable [phone] AquilinoMaria Fernanda oliver Unavailable [phone] Allergies Allergen (clinical drug ingredient) Drug/Non Drug [...] 119 Performing Lab: Notes/Report: Test performed by [employer], [employer][note 2]0 [facility] , [address], [place] [address] Jeremy Crespo MD, Insurance Defense Attorney CLIA: [id number] Sodium 140 135-145 mmol/L Potassium 4.1 3.5-5.3 [...] Interpretation:Normal Performing Lab: Notes/Report: Test performed by [employer] [address] [place] [address] , [address], [place] [address] Jeremy Crespo MD, Insurance Defense Attorney CLIA: [id number] Thyroxine Free (free T4) 1.40 0.86-1.76 ng/dL P-Hemoglobin A1C Reviewed date:09/08/2024 02:22:22 PM Interpretation:6.8 Performing Lab: Notes/Report: Test performed by [employer] [address] [place] [address] , [address], [place] [address] Jeremy Crespo MD, Insurance Defense Attorney CLIA: [id number] Hemoglobin A1C 6.8 <5.7 % The following HbA1c ranges recommended by the [place] Diabetes Association (ADA) may be used as an aid in the diagnosis of diabetes mellitus. HbA1c Suggested Diagnosis >=6.5% Diabetic 5.7% - 6.4% Pre-Diabetic <5.7% Non-Diabetic P-Lipid Panel Reviewed date:09/08/2024 02:22:22 PM Interpretation:Chol 253, Non-HDL 194, LDL Chol 165 Performing Lab: Notes/Report: Test performed by [employer] [address] [place] [address] , [address], [place] [address] Jeremy Crespo MD, Insurance Defense Attorney CLIA: [id number] Cholesterol 253 <200 mg/dL Triglycerides 143 <150 [...] Interpretation:Normal Performing Lab: Notes/Report: Test performed by [employer], [address] , [facility], [place] [address] Jeremy Crespo MD, Insurance Defense Attorney CLIA: [id number] TSH 3.44 0.43-5.25 mU/L P-Vitamin D 25-Hydroxy Reviewed date:09/08/2024 02:22:22 PM Interpretation:22 Performing Lab: Notes/Report: Test performed by [employer], [address] , [address], [place] [address] Jeremy Crespo MD, Insurance Defense Attorney CLIA: [id number] Vitamin D 25-Hydroxy 22.0 30.0-100.0 ng/mL Interpretation of Vitamin D 25 [place]: < 20 ng/mL - Deficiency 20 - 29 ng/mL - Insufficiency 30 - 100 ng/mL - Sufficiency > 100 ng/mL - Super-therapeutic- toxicity may occur above this level. Clinical correlation required. Estimated Average Glucose Reviewed date:09/08/2024 02:22:22 PM Interpretation:Normal Performing Lab: Notes/Report: Test performed by [employer] [address] [place] [address] [address], [place] [address] Jeremy Crespo MD, Insurance Defense Attorney CLIA: [id number] Estimated Average Glucose (eAG) 148 Estimated Average [...] Notes Start Date End Date Status Creon 09847-315800 UNIT as directed Orally Active Gabapentin 300 [...] 09/01/2024 Encounters Encounter Location Date Provider Diagnosis [facility] [address] [facility] [address] [place], [place] [phone] 09/01/2024 Maria Fernanda Chadwick Local infection of [...] [address], [address] , [place], [place], [id number], Progress Notes * GUCIHO BURKS CDOB: 3 (74 yo F)Acc No.[id number]:09/01/2024 Progress Notes Patient: GUICHO HUNTER Provider: GENIE Madrigal :1950 A ge:73 Y S ex:Female Date:09/01/2024 Address:[facility] [place], [id number] Pcp:Joaquin Cespedes Subjective: * Chief Complaints: * [...] , Determination:. * Medications: T aking Creon [id number] UNIT Capsule Delayed Release Particles as directed [...] stimated Average Glucose 148 - mg/dL * [facility], support 09/02/2024 06:55:08 : This order was created by the Interface. Ladan Young 09/08/2024 02:22:14 PM > See phone encounter * Procedure Codes: G 2211 Complex e/[place], [address] CBC WITH AUTO DIFF, 3044F HG A1C LEVEL LT 7.0%, G8752 MOST RECENT SYSTOLIC BP < 140MM HG, G8754 MOST RECENT DIASTOLIC BP < 90MM HG * Follow Up: v ia phone to report test results * Images: Billing Information: * Visit Code: 16731 Office Visit, Est Pt., Level 4. * Procedure Codes: G2211 Complex e/[place]. [address] CBC WITH AUTO DIFF. 3044F HG A1C LEVEL LT 7.0%. G8752 MOST RECENT SYSTOLIC BP < 140MM HG. G8754 MOST RECENT DIASTOLIC BP < 90MM HG. * Electronic signature of GENIE Marcus on 01/01/2025 at 10:03 PM EDT Sign off status: Pending * Provider: GENIE Madrigal Date: 0 09/01/2024 Generated for Chasity leal/Naeem/Sunnyitting on: 0 01/01/2025 10:03 PM EDT History [...] right upper thigh wi th a bite dsutin and surrounding erythema Neurologic Exam: Intact, gait normal Neck: supple, no lymphaden opathy Oral cavity: no lesions, mucosa m oist and WNL, no erythema Peripheral pulses: normal (2+) bilatera lly Chest: normal shape and exp ansion
--- OUTSIDE RECORDS SUMMARY | 2024-12-07 07:15 | XMS_ITS ---
[facility] Organization [facility] Address [address] [place] [id number] Care Team Providers Care Filtering Machine Tender Helper Name Role Phone Joaquin Cespedes Primary Care Provider Teo Cabello Unavailable [phone] Maria Fernanda Genao Unavailable [phone] Allergies Allergen (clinical drug ingredient) Drug/Non Drug [...] of uncertai n behavior (D48.9) [facility] Referring Provider First Name Maria Fernanda Referring Provider Last Name Chadwick Referring Provider Speciality Physician Legal Secretary Receptionist Referred Provider Dermatology, . Referred Provider Specialty [...] Orally Onc e a day Active Creon 44335-846053 UNIT as directed Orally Active Medrol 4 MG as directed Orally 12/07/2024 Active Vital Signs Blood pressure systolic 126 mm Hg 12/08/19 25 Blood pressure diastolic 78 mm Hg 025 Heart Rate 64 /min 12/07/2024 Height 62 in 12/07/2024 Weight 179.8 lbs 12/07/2024 BMI 32.88 kg/m2 12/07/2024 Encounters Encounter Location Date [facility] [address] [phone] 12/07/2024 Maria Fernanda Genao Costochondritis M94. 0 [...] weird. She would like it switched back. Pending Test Test Name Order Date P-Culture, Urine 12/07/2024 Referrals Referral Date Details 12/07/2024 12/07/2024, . Dermat ology Next Appt Details Follow Up: via phone to repo rt test results, Reason: Provider Name:Maria Fernanda Nisreen Dannie y, 03/09/2025 11:15:00 AM, [address] [facility], [address] , [place], [place], [phone], Progress Notes * GUICHO BURKS CDOB: [birth year] (74 yo F)Acc No.[id number]:12/07/2024 Progress Notes Patient: GUICHO HUNTER Shravan Provider: GENIE Madrigal :1950 A ge:74 Y S ex:Female Date:12/07/2024 Address:[address] [place], [place] [address] [id number] Pcp:Joaquin Cespedes Subjective: * Chief Complaints: * [...] of tests and everything was normal. T andriyy started her on Ranolazine 500mg twice daily [...] Orally Once a day , Taking Creon 90674-233731 UNIT Capsule Delayed Release Particles as directed [...] of insulin - E11.9 7 . B [place] 32.0-32.9,adult - Z68.32 Plan: * Treatment: 2. D ysuria L AB: P-Culture, Urine ?LAB: Urinalysis - Inhouse (Collection Date & [...] G 2211 Complex e/[place], [address] Urinalysis, no micro, 1036F TOBACCO NON- USER, G8783 BP SCR PRFRM RCMDD DEFIND SCR INTVL, G8752 MOST RECENT SYSTOLIC BP < 140MM HG, G8754 MOST RECENT DIASTOLIC BP < 90MM HG * Follow Up: v ia phone to report test results * Images: Billing Information: * Visit Code: 70753 Office Visit, Est Pt., Level 4. * Procedure Codes: G2211 Complex e/[place]. [address] Urinalysis, no micro. 1036F TOBACCO NON-USER. 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 G8752 MOST RECENT SYSTOLIC BP < 140MM HG. G8754 MOST RECENT DIASTOLIC BP < 90MM HG. * Electronic signature of GENIE Marcus on 01/01/2025 at 10:04 PM EDT Sign off status: Pending * Provider: GENIE Madrigal Date: 0 12/07/2024 Generated for Chasity leal/Naeem/Sunnyitting on: 0 01/01/2025 10:04 PM EDT History and Physical Notes * [...] have completely resolved. HPI Patient is here to y for Pt states that she has [...] Referral Date Referring Provider Referred Provider Not sheree 12/07/2024 Maria Fernanda Genao Dermatology, .
--- OUTSIDE RECORDS SUMMARY | 2024-12-21 10:00 | XMS_ITS ---
Author Organization [facility] Address [address] [place] [address] Care Team Providers Care Skein Yard Drier Name Role Phone PatriciareginaldSalvatore Unavailable [phone] REASON FOR VISIT no transportation Encounters Encounter Location Date Provider Diagnosis [address] [address] 12/21/2024 Salvatore Miller Plan Of Treatment No Information Progress Notes * RONAL BURKSОЛЕГOB:1950 (74 yo F)Acc No.[id number]:12/21/2024 Progress Notes Patient: GUICHO HUNTER Provider: Kajal Miller MD :1950 A ge:74 Y S ex:Female Date:12/21/2024 Address:[address] [place] [address] , [facility] Subjective: * Chief Complaints: * 1 . No transportation. * Medical History: Objective: * Vitals: Assessment: Plan: * Treatment: * * Electronic signature of Salvatore Miller MD on 01/01/2025 at 09:03 PM CDT Sign off status: Pending * Provider: Kajal Miller MD Date: 12/21/2024 Generated for Shayi ng/Fajovany/eTransmitting on: 01/01/2025 09:03 PM CDT
[2025-01-01] VITALS (8 sets, daily range): BP systolic 133–167; BP diastolic 66–84; PULSE 51–61; RESP 14; TEMP 36.8; O2SAT 94–98; BMI 32.1
--- OUTSIDE RECORDS SUMMARY | 2025-01-01 22:03 | XMS_ITS | Patient Health Record ---
Author Organization [facility] Address [address] [place] [address] Care Team Providers Care Front Load Trash Truck Driver Name Role Phone PatriciareginaldSalvatore Unavailable [phone] Reason For Referral No Information Plan Of Treatment No Information
--- OUTSIDE RECORDS SUMMARY | 2025-01-01 22:04 | XMS_ITS | Patient Health Record ---
Author Organization [facility] Address [address] [place] [phone] Care Team Providers Care Crisis Counselor Name Role Phone Joaquin Cespedes Primary Care Provider [phone] DestineyTeo Unavailable [phone] Carmela Carreno Unavailable [phone] Maria Fernanda Genao Unavailable [phone] Allergies Allergen (clinical drug ingredient) Drug/Non Drug [...] 119 Performing Lab: Notes/Report: Test performed by [facility] , [address], [place] [address] Jeremy Crespo MD, Manager Epic CLIA: [id number] Sodium 140 135-145 mmol/L Potassium 4.1 3.5-5.3 [...] Interpretation:Normal Performing Lab: Notes/Report: Test performed by [facility] [address] [place], [place] [id number] , [address], [place] [address] Jeremy Crespo MD, Manager Epic CLIA: [id number] Thyroxine Free (free T4) 1.40 0.86-1.76 ng/dL P-Hemoglobin A1C Reviewed date:09/08/2024 02:22:22 PM Interpretation:6.8 Performing Lab: Notes/Report: Test performed by [facility] [address] [place] [address] , [address], [place] [address] Jeremy Crespo MD, Manager [employer] CLIA: [id number] Hemoglobin A1C 6.8 <5.7 % The following HbA1c ranges recommended by the [place] [employer] (ADA) may be used as an aid in the diagnosis of diabetes mellitus. HbA1c Suggested Diagnosis >=6.5% Diabetic 5.7% - 6.4% Pre-Diabetic <5.7% Non-Diabetic P-Lipid Panel Reviewed date:09/08/2024 02:22:22 PM Interpretation:Chol 253, Non-HDL 194, LDL Chol 165 Performing Lab: Notes/Report: Test performed by [facility] [address] [place] [address] [place] [address] Jeremy Crespo MD, Manager Epic [facility]: [id number] Cholesterol 253 <200 mg/dL Triglycerides 143 <150 [...] Interpretation:Normal Performing Lab: Notes/Report: Test performed by [facility] [address] , [address], [place] [address] Jeremy Crespo MD, Manager Epic CLIA: [id number] TSH 3.44 0.43-5.25 mU/L P-Vitamin D 25-Hydroxy Reviewed date:09/08/2024 02:22:22 PM Interpretation:22 Performing Lab: Notes/Report: Test performed by [facility] [address] [place] [address] , [address], [place] [address] Jeremy Crespo MD, Manager [employer] CLIA: [id number] Vitamin D 25-Hydroxy 22.0 30.0-100.0 ng/mL Interpretation of Vitamin D 25 [place]: < 20 ng/mL - Deficiency 20 - 29 ng/mL - Insufficiency 30 - 100 ng/mL - Sufficiency > 100 ng/mL - Super-therapeutic- toxicity may occur above this level. Clinical correlation required. Estimated Average Glucose Reviewed date:09/08/2024 02:22:22 PM Interpretation:Normal Performing Lab: Notes/Report: Test performed by [facility] [address] [place] [address] , [address], [place] [address] Jeremy Crespo MD, Manager Epic CLIA: [id number] Estimated Average Glucose (eAG) 148 Estimated Average Glucose (eAG) is calculated using the equation eAG = (28.7 x HbA1c) - 46.7 based on the guidelines established by the ADA. If the patient has certain diseases including kidney disease, sickle cell anemia, thalassemia, or is taking medications such as dapsone, erythropoietin, or iron, eAG should not be evaluated. X ray : Spine, lumbosacral Reviewed date:01/28/2024 09:41:40 AM Interpretation:degenerative changes Performing Lab: Notes/Report: degenerative changes Glycohemoglobin A1c (in hous e) Reviewed date:02/10/2024 04:13:19 PM Interpretation:6.8 Performing Lab: Notes/Report: 6.8 glycohemoglobin 6.8% 5 - 6.5 % P-Comprehensive Metabolic Pa jose (CMP) Reviewed date:02/10/2024 04:13:19 PM Interpretation:gluc 132, Cr 1.07, gfr 55 Performing Lab: Notes/Report: Test performed by [facility] [address] [facility] , [address], [place] [address] Jeremy Crespo MD, Manager Epic CLIA: [id number] Sodium 141 135-145 mmol/L Potassium 3.8 3.5-5.3 [...] 0.5 <0.2-1.2 mg/dL A/G Ratio 1.8 1.1-2.5 Urinalysis - Inhouse Reviewed date:12/09/2024 08:52:10 AM Interpretation: Performing Lab: Notes/Report: Color/Clarity yellow/cloudy Leuk neg Nitrite pos Urobili 3.2 Protein neg pH 5.5 Blood neg Sp. Gr. 1.015 Ketone neg Bili neg Gluc trace Medications Medication SIG (Take, Route, Frequency, Duration) [...] Orally Onc e a day Active Creon [id number] UNIT as directed Orally Active Immunizations Vaccine Route Administration Date Status Comme nts COVID 19 Moderna Unknown 08/01/2020 Administered COVID 19 Moderna Unknown 08/29/2020 Administered Fluzone High Dose (65yr and older) Unknown 02/02/2020 Administered Fluzone High Dose (65yr and older) Unknown 03/02/2021 Administered Fluzone High Dose (65yr and older) Unknown 03/31/2022 Administered Fluzone Quad (6months&older) Unknown 02/13/2023 Administered PNEUMOVAX 23 VACCINE Unknown 03/17/2019 Administered Prevnar (PCV13) Unknown 03/25/2018 Administered Shingrix Unknown 02/13/2023 Administered Tetanus Tdap-Adacel (over 7yrs) IM Intramuscular 03/19/2010 Administered Tetanus Tdap-Adacel (over 7yrs) IM Intramuscular 01/12/2016 Administered xFluzone High Dose-private (65yr&older) Unknown 03/25/2018 Administered Problems Problem Type SNOMED Code ICD Code Onset Dates Problem Status W/U Status Risk Notes Problem Hypothyroidism (01293022) Hypothyroidism, unspecified (E03.9) Active confirmed Problem Gastroesophageal reflux disease (361866319) GERD (gastroesophageal reflux disease) (K21.9) Active confirmed Problem Vitamin D deficiency (75317361) Vitamin D deficiency (E55.9) Active confirmed Problem Essential hypertension (07690377) Essential hypertension (I10) Active confirmed Problem Abnormal mammogram (120206479) Abnormal mammogram (R92.8) Active confirmed Problem Mixed anxiety and depressive disorder (384244079) Depression with anxiety (F41.8) Active confirmed Problem BMI 30+ - obesity (691404627) BMI 32.0-32.9,adult (Z68.32) Active confirmed Problem Mixed hyperlipidemia (294303918) Mixed hyperlipidemia (E78.2) Active confirmed Problem Obese class II (275447845578262) BMI 35.0-35.9,adult (Z68.35) Active confirmed Problem Acquired hypothyroidism (842825831) Acquired hypothyroidism (E03.9) Active confirmed Problem Obesity (852385147) Non morbid obesity due to excess calories (E66.09) Active confirmed Problem Disorder of neck (868952051) Disorder of neck (M53.82) Active confirmed Problem Dyslipidemia (349768725) Dyslipidemia (E78.5) Active confirmed Problem Type II diabetes mellitus without complication (269619074) Type 2 diabetes mellitus without complication, without long-term current use of insulin (E11.9) Active confirmed Problem Sciatica (72495710) Left-sided l ow back pain with left-sided sciatica, unspecified chronicity (M54.42) Active confirmed Problem Left atrial enlargement (75044067640152) Left atrial enlargement (I51.7) Active confirmed Problem Seasonal allergic rhinitis (247042988) Seasonal allergic rhinitis, unspecified trigger (J30.2) Active confirmed Problem Osteopenia following menopause (disorder) (421587619) Osteopenia 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 (M85.80) Active confirmed Vital Signs Heart Rate 64 /min 12/07/2024 Blood pressure diastolic 78 mm Hg 12/07/2024 Height 62 in 12/07/2024 Blood pressure systolic 126 mm Hg 12/07/2024 Weight 179.8 lbs 12/07/2024 BMI 32.88 kg/m2 12/07/2024 Encounters Encounter Location Date Provider [facility] [address] [place] [id number] 01/22/2024 Teo Moclips Left-sided low back pain with left-sided sciatica, unspecified chronicity M54.42 [facility] [address] [place] [id number] 02/05/2024 Maria Fernanda Genao Left hip pain M25.55 2 ; Left knee pain, unspecified chronicity M25.562 ; Type 2 diabetes mellitus without complication, without long-term current use of insulin E11.9 and Essential hypertension I10 [facility] [address] [place] [id number] 03/23/2024 Teo Moclips 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 ; Right rotator cuff tendinitis M75.81 ; Spasm of muscle M62.838 and Disorder of neck M53.82 [facility] [address] [place] [id number] 04/01/2024 Maria Fernanda Genao Infected tick bite, initial encounter W57.XXXA and Cellulitis, unspecified cellulitis site L03.90 [facility] [address] [place] [address] [place] [id number] 09/01/2024 Maria Fernanda Genao Local infection of [...] reflux disease) K21.9 and Mixed hyperlipidemia E78.2 [facility] [address] [facility] [address] [place], [place] [id number] 12/07/2024 Maria Fernanda Genao Costochondritis M94. 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 ; Depression with anxiety F41.8 ; Dyslipidemia E78.5 ; Type 2 diabetes mellitus without complication, without long-term current use of insulin E11.9 and BMI 32.0-32.9,adult Z68.32 [facility] 12[address] [facility] [address] [place], [place] [id number] 01/28/2024 Teo Cabello [facility] 12[address] [facility] [address] [place], [place] [phone] 02/10/2024 Maria Fernanda Genao [facility] [address] [place], [place] [id number] 08/08/2024 Joaquin Cespedes Left-sided low back pain with left-sided sciatica, unspecified chronicity M54.42 [facility] [address] [facility] [address] [place], [place] [phone] 09/08/2024 Maria Fernanda Genao [facility] [address] [place], [place] [id number] 12/13/2024 Joaquin Cespedes Assessments Encounter Date Diagnosis (ICD Code) Assessment Notes Treatment Notes Treatment Clinical Notes Section Notes 01/22/2024 Left-sided low back pain with left-sided sciatica, unspecified chronicity (ICD-10 - M54.42) Current course of treatment reviewed, including pertinent labs and diagnostic imaging. Risks and benefits of the use of controlled substances discussed, including the risk of tolerance and drug dependence. Refer to [facility] Controlled Substance Agreement. 02/05/2024 Left hip pain [...] 03/09/2025 11:15:00 AM, [address] [facility], [address], [place], [place], [id number], Insurance Providers Payer Name Payer Address Payer Phone Subscriber Number Group Number Insured Name Patient Relationship to Insured Coverage Start Date Coverage End Date MEDICARE PART B [address] [address] [place] [address] [phone] [id number] GUICHO BURKS Self - patient is the insured [facility] [address] [place] [address] [phone] [id number] GUICHO BURKS Self - patient is the [...]
--- NOTE | 2025-01-01 22:38 | CT_ITS ---
PROCEDURE INFORMATION: Exam: CT Cervical Spine Without Contrast Exam date and time: 01/01/2025 10:53 PM Age: 74 years old Clinical indication: Injury or trauma; Fall; Blunt trauma; Additional info: Fall, injury TECHNIQUE: Imaging protocol: Computed tomography of the cervical spine without contrast. Radiation optimization: All CT scans at this facility use at least one of these dose optimization techniques: automated exposure control; mA and/or kV adjustment per patient size (includes targeted exams where dose is matched to clinical indication); or iterative reconstruction. COMPARISON: MR CERVICAL SPINE WO CON 08/30/2024 5:00 PM FINDINGS: Bones: There is diffuse osteopenia which somewhat limits bony assessment. The vertebral bodies are normal in height and alignment. Endplate and disc space degenerative changes are most notable at C5-C6 Multisegmental foraminal stenosis of variable degree. No significant bony canal stenosis. Lungs: Lung apices are normal. Soft tissues: Unremarkable. IMPRESSION: No acute fracture identified.
--- NOTE | 2025-01-01 22:38 | CT_ITS ---
PROCEDURE INFORMATION: Exam: CT Head Without Contrast Exam date and time: 01/01/2025 10:48 PM Age: 74 years old Clinical indication: Injury or trauma; Fall; Blunt trauma (contusions or hematomas); Additional info: Fall injury TECHNIQUE: Imaging protocol: Computed tomography of the head without contrast. Radiation optimization: All CT scans at this facility use at least one of these dose optimization techniques: automated exposure control; mA and/or kV adjustment per patient size (includes targeted exams where dose is matched to clinical indication); or iterative reconstruction. COMPARISON: CT HEAD/BRAIN WO CON 01/01/2025 10:48 PM FINDINGS: Limitations: There is dental artifact limiting assessment. Brain: There is mild periventricular white matter disease, nonspecific, most likely representing microvascular disease, although other etiologies are not excluded. No acute process, mass, or bleed. Cerebral ventricles: No ventriculomegaly. Paranasal sinuses: Visualized sinuses are unremarkable. No fluid levels. Mastoid air cells: Visualized mastoid air cells are well aerated. Bones: Unremarkable. No acute fracture. Soft tissues: Unremarkable. IMPRESSION: No intracranial bleed or depressed calvarial fracture identified.
--- NOTE | 2025-01-01 22:38 | CT_ITS ---
PROCEDURE INFORMATION: Exam: CT Maxillofacial Without Contrast Exam date and time: 01/01/2025 10:50 PM Age: 74 years old Clinical indication: Injury or trauma; Fall; Blunt trauma (contusions or hematomas); Head/scalp; Loss of consciousness not known; Additional info: Fall, injury TECHNIQUE: Imaging protocol: Computed tomography of the face without contrast. Radiation optimization: All CT scans at this facility use at least one of these dose optimization techniques: automated exposure control; mA and/or kV adjustment per patient size (includes targeted exams where dose is matched to clinical indication); or iterative reconstruction. COMPARISON: CT FACIAL BONES WO CON 01/01/2025 10:50 PM FINDINGS: Limitations: There is dental artifact limiting assessment. Paranasal sinuses: Sinuses well pneumatized and otherwise unremarkable. . Orbital cavities: Orbits are normal. Globes are unremarkable. 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 Bones: No acute fracture. Soft tissues: Mild soft tissue swelling left malar compartment suspicious for contusion. IMPRESSION: No acute fracture identified.
--- NOTE | 2025-01-01 22:38 | XR_ITS ---
PROCEDURE INFORMATION: Exam: XR Chest Exam date and time: 01/01/2025 10:54 PM Age: 74 years old Clinical indication: Injury or trauma; Fall; Blunt trauma (contusions or hematomas); Additional info: Fall, injury TECHNIQUE: Imaging protocol: Radiologic exam of the chest. Views: 1 view. COMPARISON: CR XR CHEST PORTABLE 02/18/2024 4:48 AM FINDINGS: Lungs: Unremarkable. No consolidation. Pleural spaces: Unremarkable. No pleural effusion. No pneumothorax. Heart/Mediastinum: Unremarkable. No cardiomegaly. Bones/joints: There are degenerative changes of the bones. IMPRESSION: No acute process identified.
--- NOTE | 2025-01-01 22:38 | XR_ITS ---
PROCEDURE INFORMATION: Exam: XR Left Hand Exam date and time: 01/01/2025 10:54 PM Age: 74 years old Clinical indication: Injury or trauma; Fall; Blunt trauma (contusions or hematomas); Hand; Left; Additional info: Fall, injury TECHNIQUE: Imaging protocol: Radiologic exam of the left hand. Views: 3 or more views. COMPARISON: No relevant prior studies available. FINDINGS: Bones/joints: There is diffuse osteopenia which somewhat limits bony assessment. Acute horizontally oriented fracture involving base of proximal phalanx of 5th finger with mild impaction and no significant angulation. Remaining bony alignment within normal limits.There is mild degenerative arthropathy. Soft tissues: Soft tissue swelling base of 5th finger. IMPRESSION: Acute fracture proximal phalanx 5th finger.
--- NOTE | 2025-01-01 22:41 | HMH.EDGENADL ---
Discharge Plan Disposition Patient Disposition: Home, Self-Care Prescriptions Prescriptions: No Action spironolactone 25 mg tablet 25 mg PO DAILY Qty: 30 2RF amitriptyline 10 mg tablet 10 mg PO DAILY Creon 12,000-38,000 -60,000 unit capsule,delayed release(DR/EC) 1 cap PO BID Rx Instructions: administer with meals and/or snacks (DME) FreeStyle Marcelina 3 Sensor Device See Rx Instructions .ROUTE .MEDSUPPLY Qty: 1 Patient Comments: USE DIRECTED Rx Instructions: As directed calcium polycarbophil [FiberCon] 625 mg tablet 625 mg PO BID omeprazole 40 mg capsule,delayed release(DR/EC) 40 mg PO DAILY Qty: 90 3RF Referrals Follow up/Referrals: Hernandez Soto DO [Staff Physician, Orthopedics] - See instructions Bobby Cespedes MD [Primary Care Provider, Medical] - See instructions Activity Restrictions/Add. Instructions Additional Instructions/Restrictions: Please call Dr. Soto's office to schedule follow up. Please keep splint in place until follow up. Recommend against using the hand until follow up. Clinical Impressions Clinical Impression: Head injury, Contusion of face, Cervical strain, Injury of hand, left, Fall Fracture of proximal phalanx of digit of left hand Qualifiers: Encounter type: initial encounter Fracture type: closed Qualified Code(s): S62.619A - Displaced fracture of proximal phalanx of unspecified finger, initial encounter for closed fracture Print Language Print Language: Eritrean Discharge ED Provider: Dilip Spicer General Adult HPI <Luciano Henderson MD - Last Filed: 01/01/25 22:45> General Chief complaint: Fall Stated complaint: AO 01/01/25 1830 Injury left side of body Time Seen by Provider: 01/01/25 22:21 Mode of Arrival: Family Vehicle Source of Information: Patient Description of Symptoms (Recalled from ER Triage Doc. by RN): Fall Pt presnets to the ED with c/o L sded arm, hand, knee, and facial pain and R sided finger pain after a famm 4 hrs [employer]. Pt rpeorts that she was mowing her awn with a push mower and fell sown a bank with gravel . Pt reports that he L small finger was popped out and that she popped it back in . Pt has 3 small skin tears on her L elbow. Pt denies LOC. History of Present Illness HPI narrative: Patient is a 74-year-old female presented today after an injury from a fall. She was mowing the grass when she went over an embankment that was more of a step down about 1 foot down onto a different level where she fell directly onto her face and left hand. States that she dislocated her left finger and had to reduce it spontaneously there is significant pain and swelling and ecchymosis/bruising since that time. She states that she has chronic left knee pain which is at her baseline. She also fell and hit her face and states her face head and cervical spine are having some discomfort. Denies any significant chest pain. Did have a little bit of a contusion on her back she states close to her shoulder blade. On any blood thinners. No loss of consciousness. No chest abdomen pelvis pain. Related Data Home Medications ?Medication ?Instructions ?Recorded ?Confirmed blood-glucose sensor (FreeStyle #1 ea 08/25/23 12/20/24 Marcelina 3 Sensor device) calcium polycarbophil 625 mg 625 mg PO BID 10/27/24 12/22/24 tablet (FiberCon) amitriptyline 10 mg tablet 10 mg PO DAILY 12/22/24 12/22/24 [id number] 1 cap PO BID 12/22/24 12/22/24 12,000-38,000-60,000 unit capsule,delayed rel (Creon) Previous Rx's ?Medication ?Instructions ?Recorded omeprazole 40 mg capsule,delayed 40 mg PO DAILY #90 caps 10/27/24 release spironolactone 25 mg tablet 25 mg PO DAILY #30 tabs 10/27/24 Allergies Allergy/AdvReac Type Severity Reaction Status Date / Time No Known Allergies Allergy Verified 12/22/24 14:50 [facility] <Luciano Henderson MD - Last Filed: 01/01/25 22:45> [facility] Disclaimer: The information contained in this section may have been updated after the patient was seen, as this information can be updated by other users. 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 She was given a sample mask, nasal mask,MATHEW at last appointment. Prescription sent to [facility] for mask, supplies. Surgical History History of esophagogastroduodenoscopy (EGD) History of partial hysterectomy History of cardiac catheterization History of colonoscopy Family History Other Cancer Hypertension Social History Smoking Status: Never smoker second hand exposure: No alcohol intake: never substance use type: denies use current occupational status: retired Travel in the last 8 weeks?: None household members: spouse housing: house current occupational exposures/hazards: No caffeine: Yes Have you lived/traveled outside [place] in past 30 days?: No Contact w/someone who lives/traveled outside US past 30 days?: No Exposure to someone with infectious disease in past 14 days?: No Do you have a fever (greater than 100.4 F or 38 C)?: No Have you tested positive for COVID-19?: No Exposed to someone with COVID-19 in past 14 days?: No Do you have a sore throat?: No Do you have a cough?: No Do you have any weakness?: No Do you have any diarrhea?: No Are you experiencing any unusual bleeding?: No Do you have any muscle aches/pain?: No Do you have any abdominal pain?: No Are you experiencing loss of taste or smell?: No Other Medical History Have you received the Flu Vaccine for this season: No Have you received the Pneumonia Vaccine: Yes <Luciano Henderson MD - Last Filed: 01/01/25 22:45> ROS Obtained: Yes All systems reviewed & no additional complaints except as documented Physical Exam <Luciano Henderson MD - Last Filed: 01/01/25 22:45> General General appearance: alert and in no apparent distress Head Head exam: atraumatic (Periorbital ecchymosis no significant step-offs or deformities on the left side of the face. Eye itself is normal visual acuity normal no hyphema or iritis in the left side globe appears to be normal midface and oral exam normal no depressible fractures noted) Eye Eye exam: Present normal appearance Neck Neck exam: Present tenderness (Midline cervical spine tenderness might very mild) Chest Chest inspection: Absent tenderness Respiratory Respiratory exam: Present normal lung sounds bilaterally and respiratory distress Cardiovascular Cardiovascular exam: Present regular rate Extremities Exam Extremities exam: Present other (All long bones palpated without any significant pain she does have ecchymosis over the left fifth digit which appears to be clinically reduced normal range of motion no pain around the elbow she has a small superficial skin abrasion normal range of motion in this region no soft tissue abnormalities ) Back Exam Back 1 view image:  1. Superficial tenderness in the paraspinal muscular area no pain with compression of the rib cage in the Neurological Exam Neurological exam: Present alert and oriented X3 Medical Decision Making <Luciano Henderson MD - Last Filed: 01/01/25 22:45> Medical Records Screening: Per USPSTF and CDC recommendations, given the prevalence of disease in our region, it is our hospital?s policy to screen for HIV and viral Hepatitis for all patients aged 18 and over and those with ongoing risk factors. Aries Inquiry Pt receiving controlled substance: No Vital Signs: 01/01/25 22:03 01/01/25 22:15 01/01/25 22:30 Temperature 98.2 F Temperature Source Oral Pulse Rate 56 L Pulse Rate [Right] 61 Respiratory Rate 14 Blood Pressure 136/73 Blood Pressure [Right Arm] 167/84 H Blood Pressure Mean 98 Blood Pressure Mean [Right Arm] 111 Blood Pressure Source Blood Pressure Source [Right Arm] Automatic Cuff Blood Pressure Position Blood Pressure Position [Right Arm] Sitting 02 Sat by Pulse Oximetry 98 94 L Oxygen Delivery Method Room Air 01/01/25 22:59 01/01/25 23:00 01/01/25 23:00 Temperature Temperature Source Pulse Rate 58 L 56 L Pulse Rate [Right] Respiratory Rate Blood Pressure 150/73 H Blood Pressure [Right Arm] Blood Pressure Mean 92 Blood Pressure Mean [Right Arm] Blood Pressure Source Blood Pressure Source [Right Arm] Blood Pressure Position Blood Pressure Position [Right Arm] 02 Sat by Pulse Oximetry 98 98 Oxygen Delivery Method 01/01/25 23:15 01/01/25 23:30 01/01/25 23:30 Temperature Temperature Source Pulse Rate 52 L 54 L Pulse Rate [Right] Respiratory Rate Blood Pressure 133/66 Blood Pressure [Right Arm] Blood Pressure Mean 88 Blood Pressure Mean [Right Arm] Blood Pressure Source Blood Pressure Source [Right Arm] Blood Pressure Position Blood Pressure Position [Right Arm] 02 Sat by Pulse Oximetry 97 95 Oxygen Delivery Method 01/01/25 23:45 01/02/25 00:00 01/02/25 00:00 Temperature Temperature Source Pulse Rate 51 L 52 L Pulse Rate [Right] Respiratory Rate Blood Pressure 136/63 Blood Pressure [Right Arm] Blood Pressure Mean 87 Blood Pressure Mean [Right Arm] Blood Pressure Source Blood Pressure Source [Right Arm] Blood Pressure Position Blood Pressure Position [Right Arm] 02 Sat by Pulse Oximetry 96 97 Oxygen Delivery Method 01/02/25 00:15 01/02/25 00:30 01/02/25 00:36 Temperature 98.2 F Temperature Source Oral Pulse Rate 55 L 55 L Pulse Rate [Right] Respiratory Rate 16 Blood Pressure 136/63 Blood Pressure [Right Arm] Blood Pressure Mean Blood Pressure Mean [Right Arm] Blood Pressure Source Automatic Cuff Blood Pressure Source [Right Arm] Blood Pressure Position Sitting Blood Pressure Position [Right Arm] 02 Sat by Pulse Oximetry 96 98 Oxygen Delivery Method Room Air Room Air Orders (Tests/Meds): ED MEDICATIONS Discontinued Medications Generic Name Dose Route Start Last Admin Trade Name Pawanq PRN Reason Stop Dose Admin Hydrocodone Bitart/Acetaminophen 1 tab 01/01/25 22:38 01/01/25 23:02 Hydrocodone/Apap 5/325 Mg Tablet PO 01/01/25 22:39 1 tab ONCE ONE Administration Ketorolac Tromethamine 30 mg 01/01/25 22:38 01/01/25 23:02 Ketorolac 30mg/Ml Vial IM 01/01/25 22:39 30 mg ONCE ONE Administration ORDERS Category Date Time Status CT cervical spine wo con Stat Cat Scan 01/01/25 22:[address] facial bones wo con Stat Cat Scan 01/01/25 22:[address] head/brain wo con Stat Cat Scan 01/01/25 22:38 Completed Hand XR left minimum 3 views [XR hand LT min 3V] Stat Exams 01/01/25 22:38 Completed XR chest portable Stat Exams 01/01/25 22:38 Completed Medical Decision Narrative: Patient with above history and physical chest abdomen pelvis and long bone exam is essentially unremarkable. She does have a superficial area of paraspinal muscular tenderness on the posterior back but I am not concerned about any significant thoracic spine or rib cage injury will get a plain film of the chest. Additionally we will get a CT scan of the patient's head face cervical spine given her injury pattern. Also will get an x-ray of the left hand sounds that she had a left fifth digit dislocation that she reduced herself. Will get an x-ray to ensure that there is no significant bony abnormality and have her follow-up with orthopedic surgery regarding that. Care will be transitioned to Dr. Spicer at 11pm <Dilip Spicer MD - Last Filed: 01/02/25 01:01> Vital Signs: 01/01/25 22:03 01/01/25 22:15 01/01/25 22:30 Temperature 98.2 F Temperature Source Oral Pulse Rate 56 L Pulse Rate [Right] 61 Respiratory Rate 14 Blood Pressure 136/73 Blood Pressure [Right Arm] 167/84 H Blood Pressure Mean 98 Blood Pressure Mean [Right Arm] 111 Blood Pressure Source Blood Pressure Source [Right Arm] Automatic Cuff Blood Pressure Position Blood Pressure Position [Right Arm] Sitting 02 Sat by Pulse Oximetry 98 94 L Oxygen Delivery Method Room Air 01/01/25 22:59 01/01/25 23:00 01/01/25 23:00 Temperature Temperature Source Pulse Rate 58 L 56 L Pulse Rate [Right] Respiratory Rate Blood Pressure 150/73 H Blood Pressure [Right Arm] Blood Pressure Mean 92 Blood Pressure Mean [Right Arm] Blood Pressure Source Blood Pressure Source [Right Arm] Blood Pressure Position Blood Pressure Position [Right Arm] 02 Sat by Pulse Oximetry 98 98 Oxygen Delivery Method 01/01/25 23:15 01/01/25 23:30 01/01/25 23:30 Temperature Temperature Source Pulse Rate 52 L 54 L Pulse Rate [Right] Respiratory Rate Blood Pressure 133/66 Blood Pressure [Right Arm] Blood Pressure Mean 88 Blood Pressure Mean [Right Arm] Blood Pressure Source Blood Pressure Source [Right Arm] Blood Pressure Position Blood Pressure Position [Right Arm] 02 Sat by Pulse Oximetry 97 95 Oxygen Delivery Method 01/01/25 23:45 01/02/25 00:00 01/02/25 00:00 Temperature Temperature Source Pulse Rate 51 L 52 L Pulse Rate [Right] Respiratory Rate Blood Pressure 136/63 Blood Pressure [Right Arm] Blood Pressure Mean 87 Blood Pressure Mean [Right Arm] Blood Pressure Source Blood Pressure Source [Right Arm] Blood Pressure Position Blood Pressure Position [Right Arm] 02 Sat by Pulse Oximetry 96 97 Oxygen Delivery Method 01/02/25 00:15 01/02/25 00:30 01/02/25 00:36 Temperature 98.2 F Temperature Source Oral Pulse Rate 55 L 55 L Pulse Rate [Right] Respiratory Rate 16 Blood Pressure 136/63 Blood Pressure [Right Arm] Blood Pressure Mean Blood Pressure Mean [Right Arm] Blood Pressure Source Automatic Cuff Blood Pressure Source [Right Arm] Blood Pressure Position Sitting Blood Pressure Position [Right Arm] 02 Sat by Pulse Oximetry 96 98 Oxygen Delivery Method Room Air Room Air Orders (Tests/Meds): ED MEDICATIONS Discontinued Medications Generic Name Dose Route Start Last Admin Trade Name Freq PRN Reason Stop Dose Admin Hydrocodone Bitart/Acetaminophen 1 tab 01/01/25 22:38 01/01/25 23:02 Hydrocodone/Apap 5/325 Mg Tablet PO 01/01/25 22:39 1 tab ONCE ONE Administration Ketorolac Tromethamine 30 mg 01/01/25 22:38 01/01/25 23:02 Ketorolac 30mg/Ml Vial IM 01/01/25 22:39 30 mg ONCE ONE Administration ORDERS Category Date Time Status CT cervical spine wo con Stat Cat Scan 01/01/25 22:[address] facial bones wo con Stat Cat Scan 01/01/25 22:[address] head/brain wo con Stat Cat Scan 01/01/25 22:38 Completed Hand XR left minimum 3 views [XR hand LT min 3V] Stat Exams 01/01/25 22:38 Completed XR chest portable Stat Exams 01/01/25 22:38 Completed Medical Decision Narrative: Patient with above history and physical chest abdomen pelvis and long bone exam is essentially unremarkable. She does have a superficial area of paraspinal muscular tenderness on the posterior back but I am not concerned about any significant thoracic spine or rib cage injury will get a plain film of the chest. Additionally we will get a CT scan of the patient's head face cervical spine given her injury pattern. Also will get an x-ray of the left hand sounds that she had a left fifth digit dislocation that she reduced herself. Will get an x-ray to ensure that there is no significant bony abnormality and have her follow-up with orthopedic surgery regarding that. Care will be transitioned to Dr. Spicer at 11pm. Dannielle HARRELL: I assumed care of the patient at the time of handoff from the prior provider. On reassessment patient reports symptomatic improvement. CT imaging was independently interpreted by me and shows no evidence of intracranial injury such as fracture or hemorrhage. Radiographs show a fracture of the base of the left fifth proximal phalanx. Given this, it is likely patient fractured and then reduced the fracture, rather than dislocated the finger. Interactive discussion was had with patient regarding her presentation. She was placed in an ulnar gutter splint which was applied by nursing and checked by me. Patient was discharged in stable condition and encouraged to follow-up with Dr. Soto for further assessment. Critical Care <Luciano Henderson MD - Last Filed: 01/01/25 22:45> Critical Care Time Critical Care Time: No
[2025-01-01] MEDS: KETOROLAC 30MG/ML VIAL 30 MG IM (23:02)
[2025-01-01] MEDS: HYDROCODONE/APAP 5/325 MG TABLET 1 TAB PO (23:02)
[2025-01-02] VITALS: BP 136/63; PULSE 52; O2SAT 97
[2025-01-02 00:15] VITALS: PULSE 55; O2SAT 96
[2025-01-02 00:30] VITALS: O2SAT 98
[2025-01-02 00:36] VITALS: BP 136/63; PULSE 55; RESP 16; TEMP 36.8; O2SAT 98
== END 2025-01-02 00:37 | disposition home or self-care (01) ==
PROVIDERS: Emergency Provider Emergency Medicine; PCP Family Medicine
DX: S62.619A Displaced fracture of proximal phalanx of unspecified finger, initial encounter for closed fracture (principal); S69.92XA Unspecified injury of left wrist, hand and finger(s), initial encounter; S16.1XXA Strain of muscle, fascia and tendon at neck level, initial encounter; S00.83XA Contusion of other part of head, initial encounter; S09.90XA Unspecified injury of head, initial encounter; W19.XXXA Unspecified fall, initial encounter
CPT/HCPCS: 70450; 70486; 71045; 72125; 73130; 96372; 99285; J1885

== ENCOUNTER 2025-01-26 10:36 | Outpatient (CLI) | payer MEDICARE, SELFPAY ==
--- OUTSIDE RECORDS SUMMARY | 2024-04-16 07:15 | XMS_ITS ---
Author Organization [facility] Address [facility] [facility] [address] [facility] [address] [place] [phone] Care Team Providers Care Kinder Teacher Name Role Phone Joaquin Cespedes Primary Care Provider [phone] Teo Cabello [phone] Allergies Allergen (clinical drug ingredient) Drug/Non Drug [...] Encounter Location Date Provider Diagnosis [facility] [address] [facility] [address] [place] [phone] 04/16/2024 Teo Cabello Plan Of Treatment Next Appt Details Provider Name:Maria Fernanda hunter, 03/09/2025 11:15:00 AM, [address] [facility], [address], [place], [phone], Progress Notes * GUICHO BURKS CDOB: [birth year] [...] Electronic signature of Lizeth Cabello MD on 01/26/2025 at 10:42 AM EDT Sign off status: Pending * Provider: Ken Cabello M.D. Date: 06/16/2023 Generated for Chasity leal/Naeem/Sunnyitting on: 0 01/26/2025 10:42 AM EDT History and Physical Notes * HPI (History of Present Illness) Category Sub-Category Detail Notes Category Not es Endocrinology Recent Blood Sugars
--- OUTSIDE RECORDS SUMMARY | 2024-09-01 10:00 | XMS_ITS ---
Author Organization [facility] Address [address] [facility] [address] [place] [id number] Care Team Providers Care Manager Bank Name Role Phone Joaquin Cespedes Primary Care Provider Teo Cabello Unavailable [phone] AquilinoMaria Fernanda oliver Unavailable [phone] Allergies Allergen (clinical drug ingredient) Drug/Non Drug [...] 119 Performing Lab: Notes/Report: Test performed by [facility], [facility] [facility] , [address], [place] [address] Jeremy Crespo MD, Dining Car Waiter/Waitress CLIA: [id number] Sodium 140 135-145 mmol/L Potassium 4.1 3.5-5.3 [...] Interpretation:Normal Performing Lab: Notes/Report: Test performed by [facility] [address] [place] [address] , [address], [place] [address] Jeremy Crespo MD, Dining Car Waiter/Waitress CLIA: [id number] Thyroxine Free (free T4) 1.40 0.86-1.76 ng/dL P-Hemoglobin A1C Reviewed date:09/08/2024 02:22:22 PM Interpretation:6.8 Performing Lab: Notes/Report: Test performed by [facility] [facility] [address] [place] [address] , [address], [place] [address] Jeremy Crespo MD, Dining Car Waiter/Waitress CLIA: [id number] Hemoglobin A1C 6.8 <5.7 % The following HbA1c ranges recommended by the [place] Diabetes [employer] (ADA) may be used as an aid in the diagnosis of diabetes mellitus. HbA1c Suggested Diagnosis >=6.5% Diabetic 5.7% - 6.4% Pre-Diabetic <5.7% Non-Diabetic P-Lipid Panel Reviewed date:09/08/2024 02:22:22 PM Interpretation:Chol 253, Non-HDL 194, LDL Chol 165 Performing Lab: Notes/Report: Test performed by [facility] [address] [place] [address] , [address], [place] [address] Jeremy Crespo MD, Dining Car Waiter/Waitress CLIA: [id number] Cholesterol 253 <200 mg/dL Triglycerides 143 <150 [...] Interpretation:Normal Performing Lab: Notes/Report: Test performed by [facility], [address] , [facility], [place] [address] Jeremy Crespo MD, Dining Car Waiter/Waitress CLIA: [id number] TSH 3.44 0.43-5.25 mU/L P-Vitamin D 25-Hydroxy Reviewed date:09/08/2024 02:22:22 PM Interpretation:22 Performing Lab: Notes/Report: Test performed by [facility], [address] , [address], [place] [address] Jeremy Crespo MD, Dining Car Waiter/Waitress CLIA: [id number] Vitamin D 25-Hydroxy 22.0 30.0-100.0 ng/mL Interpretation of Vitamin D 25 [place]: < 20 ng/mL - Deficiency 20 - 29 ng/mL - Insufficiency 30 - 100 ng/mL - Sufficiency > 100 ng/mL - Super-therapeutic- toxicity may occur above this level. Clinical correlation required. Estimated Average Glucose Reviewed date:09/08/2024 02:22:22 PM Interpretation:Normal Performing Lab: Notes/Report: Test performed by [facility] [facility] [address] [place] [address] [address], [place] [address] Jeremy Crespo MD, Dining Car Waiter/Waitress CLIA: [id number] Estimated Average Glucose (eAG) 148 Estimated Average [...] Notes Start Date End Date Status Creon [id number] UNIT as directed Orally Active Gabapentin 300 [...] 09/01/2024 Encounters Encounter Location Date Provider Diagnosis [facility] [address] [facility] [address], [place] [id number] 09/01/2024 Maria Fernanda Chadwick Local infection of [...] [address], [address] , [place], [place], [phone], Progress Notes * GUICHO BURKS CDOB: 3 (74 yo F)Acc No.[id number]:09/01/2024 Progress Notes Patient: GUICHO HUNTER Provider: GENIE Madrigal :1950 A ge:73 Y S ex:Female Date:09/01/2024 Address:[facility] [address], [id number] Pcp:Joaquin Cespedes Subjective: * Chief Complaints: * [...] , Determination:. * Medications: T aking Creon [id number] UNIT Capsule Delayed Release Particles as directed [...] 148 - mg/dL * [facility], support 09/02/2024 06:55:08 : This order was created by the Interface. Ladan Young 09/08/2024 02:22:14 PM > See phone encounter * Procedure Codes: G 2211 Complex e/[place], [address] CBC WITH AUTO DIFF, 3044F HG A1C LEVEL LT 7.0%, G8752 MOST RECENT SYSTOLIC BP < 140MM HG, G8754 MOST RECENT DIASTOLIC BP < 90MM HG * Follow Up: v ia phone to report test results * Images: Billing Information: * Visit Code: 03061 Office Visit, Est Pt., Level 4. * Procedure Codes: G2211 Complex e/[place]. [address] CBC WITH AUTO DIFF. 3044F HG A1C LEVEL LT 7.0%. G8752 MOST RECENT SYSTOLIC BP < 140MM HG. G8754 MOST RECENT DIASTOLIC BP < 90MM HG. * Electronic signature of GENIE Marcus on 01/26/2025 at 10:42 AM EDT Sign off status: Pending * Provider: GENIE Madrigal Date: 0 09/01/2024 Generated for Chasity leal/Naeem/Sunnyitting on: 0 01/26/2025 [...]
--- OUTSIDE RECORDS SUMMARY | 2024-12-07 07:15 | XMS_ITS ---
[facility] Address [address] [place] [id number] Care Team Providers Care Elder Assistant Name Role Phone Joaquin Cespedes Primary Care Provider [phone] Teo Cabello Unavailable [phone] Maria Fernanda Genao Unavailable [phone] Allergies Allergen (clinical drug ingredient) Drug/Non Drug [...] of uncertai n behavior (D48.9) [facility] Referring Provider First Name Maria Fernanda Referring Provider Last Name Chadwick Referring Provider Speciality Physician Plant Manager Referred Provider Dermatology, . Referred Provider Specialty [...] Orally Onc e a day Active Creon 86133-506370 UNIT as directed Orally Active Medrol 4 MG as directed Orally 12/07/2024 Active Vital Signs Weight 179.8 lbs 12/07/2024 Blood pressure systolic 126 mm Hg 12/08/19 25 Blood pressure diastolic 78 mm Hg 025 Heart Rate 64 /min 12/07/2024 Height 62 in 12/07/2024 BMI 32.88 kg/m2 12/07/2024 Encounters Encounter Location Date Provider [facility] [address] [id number] 12/07/2024 Maria Fernanda Genao Costochondritis M94. 0 [...] 03/09/2025 11:15:00 AM, [address] [facility], [address] , [place], [place], [id number], Progress Notes * GUICHO BURKS CDOB: [birth year] (74 yo F)Acc No.[id number]:12/07/2024 Progress Notes Patient: GUICHO HUNTER Shravan Provider: GENIE Madrigal :1950 A ge:74 Y S ex:Female Date:12/07/2024 Address:[address] [place], [place] [id number] Pcp:Joaquin Cespedes Subjective: * Chief Complaints: * [...] Orally Once a day , Taking Creon 48503-409897 UNIT Capsule Delayed Release Particles as directed [...] of insulin - E11.9 7 . B NC 32.0-32.9,adult - Z68.32 Plan: * Treatment: 2. 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 * Procedure Codes: G2211 Complex e/[place]. [address] Urinalysis, no micro. 1036F TOBACCO NON-USER. 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 G8752 MOST RECENT SYSTOLIC BP < 140MM HG. G8754 MOST RECENT DIASTOLIC BP < 90MM HG. * Electronic signature of GENIE Marcus on 01/26/2025 at 10:43 AM EDT Sign off status: Pending * Provider: GENIE Madrigal Date: 0 12/07/2024 Generated for Chasity leal/Naeem/Sunnyitting on: 0 01/26/2025 10:43 AM EDT History and Physical Notes * [...]
--- NOTE | 2025-01-26 10:37 | XR_ITS ---
FINAL REPORT CLINICAL HISTORY: proximal phalanx of left pinkie finger FINDINGS: AP, oblique and lateral views of the left hand fifth digit were obtained. There is no prior exam for comparison. There is a transverse fracture of the proximal shaft of the fifth proximal phalanx. There is slight ulnar displacement of the distal fracture fragment. The fracture does not extend to the joint space. Soft tissue edema is noted. IMPRESSION: Fifth proximal phalanx fracture with soft tissue edema. Reviewed, Interpreted and Dictated by Carol Sofia MD Transcribed by Katharine Howard Authenticated and [facility]
--- NOTE | 2025-01-26 10:37 | XR_ITS ---
FINAL REPORT CLINICAL HISTORY: left hand pain FINDINGS: AP, oblique, and lateral views of the left hand were obtained. There is no prior exam for comparison. There is a fracture at the proximal aspect of the fifth proximal phalanx. No other acute osseous abnormality identified. There is mild degenerative joint disease. Soft tissue edema is noted of the proximal fifth digit. IMPRESSION: Fifth proximal phalanx fracture with soft tissue edema. Reviewed, Interpreted and Dictated by Carol Sofia MD Transcribed by Katharine Howard Authenticated and [facility]
--- OUTSIDE RECORDS SUMMARY | 2025-01-26 10:43 | XMS_ITS | Patient Health Record ---
Author Organization [facility] Address [address] [place] [id number] Care Team Providers Care Men'S Leather Dress Belt Maker Name Role Phone Joaquin Cespedes Primary Care Provider Destiney Teo Unavailable [phone] Carmela Carreno Unavailable [phone] Maria Fernanda Genao Unavailable [phone] Allergies Allergen (clinical drug ingredient) Drug/Non Drug [...] 1.015 Ketone neg Bili neg Gluc trace CBC Venipuncture (in house) Reviewed date:09/08/2024 02:22:22 [...] 119 Performing Lab: Notes/Report: Test performed by [facility] [address] [place] [address] , Dania C, [place] [address] Jeremy Crespo MD, Machine Compositor CLIA: [id number] Sodium 140 135-145 mmol/L Potassium 4.1 3.5-5.3 [...] Interpretation:Normal Performing Lab: Notes/Report: Test performed by [facility] [address] [place] [address] [address] Velas[address] C, [place] [address] Jeremy Crespo MD, Machine Compositor CLIA: [id number] Thyroxine Free (free T4) 1.40 0.86-1.76 ng/dL P-Hemoglobin A1C Reviewed date:09/08/2024 02:22:22 PM Interpretation:6.8 Performing Lab: Notes/Report: Test performed by [facility] [address] [place] [address] [address]as[address] C, [place] [address] Jeremy Crespo MD, Machine Compositor CLIA: [id number] Hemoglobin A1C 6.8 <5.7 % The following HbA1c ranges recommended by the [place] [employer] (ADA) may be used as an aid in the diagnosis of diabetes mellitus. HbA1c Suggested Diagnosis >=6.5% Diabetic 5.7% - 6.4% Pre-Diabetic <5.7% Non-Diabetic P-Lipid Panel Reviewed date:09/08/2024 02:22:22 PM Interpretation:Chol 253, Non-HDL 194, LDL Chol 165 Performing Lab: Notes/Report: Test performed by [facility] [address] [place] [address] , [address], [place] [address] Jeremy Crespo MD, Machine Compositor CLIA: [id number] Cholesterol 253 <200 mg/dL Triglycerides 143 <150 [...] Interpretation:Normal Performing Lab: Notes/Report: Test performed by [facility] [address] [place] [address] , [place] [address] Jeremy Crespo MD, Machine Compositor CLIA: [id number] TSH 3.44 0.43-5.25 mU/L P-Vitamin D 25-Hydroxy Reviewed date:09/08/2024 02:22:22 PM Interpretation:22 Performing Lab: Notes/Report: Test performed by [facility] [address] , [place] [address] Jeremy Crespo MD, Machine Compositor CLIA: [id number] Vitamin D 25-Hydroxy 22.0 30.0-100.0 ng/mL Interpretation of Vitamin D 25 OH: < 20 ng/mL - Deficiency 20 - 29 ng/mL - Insufficiency 30 - 100 ng/mL - Sufficiency > 100 ng/mL - Super-therapeutic- toxicity may occur above this level. Clinical correlation required. Estimated Average Glucose Reviewed date:09/08/2024 02:22:22 PM Interpretation:Normal Performing Lab: Notes/Report: Test performed by [facility] [address] [place] [address] , [facility] [place] [address] Jeremy Crespo MD, Machine Compositor CLIA: [id number] Estimated Average Glucose (eAG) 148 Estimated Average Glucose (eAG) is calculated using the equation eAG = (28.7 x HbA1c) - 46.7 based on the guidelines established by the ADA. If the patient has certain diseases including kidney disease, sickle cell anemia, thalassemia, or is taking medications such as dapsone, erythropoietin, or iron, eAG should not be evaluated. Glycohemoglobin A1c (in hous e) Reviewed date:02/10/2024 04:13:19 PM Interpretation:6.8 Performing Lab: Notes/Report: 6.8 glycohemoglobin 6.8% 5 - 6.5 % P-Comprehensive Metabolic Pa jose (CMP) Reviewed date:02/10/2024 04:13:19 PM Interpretation:gluc 132, Cr 1.07, gfr 55 Performing Lab: Notes/Report: Test performed by [facility] [address] [place] [address] , [address], [place] [address] Jeremy Crespo MD, Machine Compositor CLIA: [id number] Sodium 141 135-145 mmol/L Potassium 3.8 3.5-5.3 [...] Orally Onc e a day Active Creon 87215-260836 UNIT as directed Orally Active Immunizations Vaccine [...] Status W/U Status Risk Notes Problem Hypothyroidism (61535081) Hypothyroidism, unspecified (E03.9) Active confirmed Problem Gastroesophageal reflux disease (957034642) GERD (gastroesophageal reflux disease) (K21.9) Active confirmed Problem Vitamin D deficiency (35884148) Vitamin D deficiency (E55.9) Active confirmed Problem Essential hypertension (17258402) Essential hypertension (I10) Active confirmed Problem Abnormal mammogram (800002272) Abnormal mammogram (R92.8) Active confirmed Problem Mixed anxiety and depressive disorder (348392012) Depression with anxiety (F41.8) Active confirmed Problem BMI 30+ - obesity (688990664) BMI 32.0-32.9,adult (Z68.32) Active confirmed Problem Mixed hyperlipidemia (424772659) Mixed hyperlipidemia (E78.2) Active confirmed Problem Obese class II (853063531950256) BMI 35.0-35.9,adult (Z68.35) Active confirmed Problem Acquired hypothyroidism (200040640) Acquired hypothyroidism (E03.9) Active confirmed Problem Obesity (557116453) Non morbid obesity due to excess calories (E66.09) Active confirmed Problem Disorder of neck (515278307) Disorder of neck (M53.82) Active confirmed Problem Dyslipidemia (744942593) Dyslipidemia (E78.5) Active confirmed Problem Type II diabetes mellitus without complication (492066188) Type 2 diabetes mellitus without complication, without long-term current use of insulin (E11.9) Active confirmed Problem Sciatica (53035537) Left-sided l ow back pain with left-sided sciatica, unspecified chronicity (M54.42) Active confirmed Problem Left atrial enlargement (57675287305268) Left atrial enlargement (I51.7) Active confirmed Problem Seasonal allergic rhinitis (305858304) Seasonal allergic rhinitis, unspecified trigger (J30.2) Active confirmed Problem Osteopenia following menopause (disorder) (354038682) Osteopenia 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 (M85.80) Active confirmed Vital Signs Heart Rate 64 /min 12/07/2024 Blood pressure diastolic 78 mm Hg 12/07/2024 Height 62 in 12/07/2024 Blood pressure systolic 126 mm Hg 12/07/2024 Weight 179.8 lbs 12/07/2024 BMI 32.88 kg/m2 12/07/2024 Encounters Encounter Location Date Provider [facility] [address] [place] [id number] 02/05/2024 Maria Fernanda Genao Left hip pain M25.55 2 ; Left knee pain, unspecified chronicity M25.562 ; Type 2 diabetes mellitus without complication, without long-term current use of insulin E11.9 and Essential hypertension I10 [facility] [address] [place] [id number] 03/23/2024 Teo Colver 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 ; Right rotator cuff tendinitis M75.81 ; Spasm of muscle M62.838 and Disorder of neck M53.82 [facility] [address] [place] [id number] 04/01/2024 Maria Fernanda Genao Infected tick bite, initial encounter W57.XXXA and Cellulitis, unspecified cellulitis site L03.90 [facility] [address] [place] [id number] 09/01/2024 Maria Fernanda Genao Local infection of [...] reflux disease) K21.9 and Mixed hyperlipidemia E78.2 [facility] [facility] [address] [place], [place] [id number] 12/07/2024 Maria Fernanda Genao Costochondritis M94. 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42 [facility] [address] [facility] [address] [place], [place] [id number] 09/08/2024 Maria Fernanda Genao [facility] [address] [facility] [address] [place], [place] [id number] 12/13/2024 Joaquin Cespedes Assessments Encounter Date Diagnosis [...] thigh, initial encounter (ICD-10 - S70.361A) 12/07/2024 Dysuria (ICD-10 - R30.0) 12/07/2024 Costochondritis (ICD-10 - M94.0) Chest pain is likely due to costochondritis and not cardiac in nature. This is why the ranexa is not helping. Will start on some steroids. No heavy lifting, pushing, or pulling. 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) 09/01/2024 Bitten or stung by nonvenomous insect and other nonvenomous arthropods, initial encounter (ICD-10 - W57.XXXA) 04/01/2024 Cellulitis, unspecified cellulitis site (ICD-10 - L03.90) 03/23/2024 Spasm of muscle (ICD-10 - M62.838) 02/05/2024 Type 2 diabetes mellitus without complication, without long-term current use of insulin (ICD-10 - E11.9) 02/05/2024 Essential hypertension (ICD-10 - I10) 03/23/2024 Disorder of neck (ICD-10 - M53.82) heating pad to affected areas 2 to 3 times a day, Home exercise program provided to patient 12/07/2024 Depression with anxiety (ICD-10 - F41.8) [...] E78.5) 09/01/2024 Essential hypertension (ICD-10 - I10) 09/01/2024 Acquired hypothyroidism (ICD-10 - E03.9) 12/07/2024 Type 2 diabetes mellitus without complication, without long-term current use of insulin (ICD-10 - E11.9) 12/07/2024 BMI 32.0-32.9,adult (ICD-10 - Z68.32) 09/01/2024 Depression with anxiety (ICD-10 - F41.8) 09/01/2024 Vitamin D deficiency (ICD-10 - E55.9) 09/01/2024 GERD (gastroesophageal reflux disease) (ICD-10 - K21.9) 09/01/2024 Mixed hyperlipidemia (ICD-10 - E78.2) Plan Of Treatment Pending Test Test Name Order Date P-Culture, Urine 12/07/2024 Next Appt Details Provider Name:Maria Fernanda hunter, 03/09/2025 11:15:00 AM, [address], [address], [place], [place], [id number], Insurance Providers Payer Name Payer Address Payer Phone Subscriber Number Group Number Insured Name Patient Relationship to Insured Coverage Start Date Coverage End Date MEDICARE PART B [address] [address] [place] [address] [id number] GUICHO BURKS Self - patient is the insured [facility] OPTIONS [address] [place] [address] [phone] [id number] GUICHO BURKS Self - patient is the [...]
== END 2025-01-26 23:59 | disposition home or self-care (01) ==
LOC: RAD 10:37
PROVIDERS: Visit Provider Physician Assistant Surgical
DX: S62.617A Displaced fracture of proximal phalanx of left little finger, initial encounter for closed fracture (principal); M79.89 Other specified soft tissue disorders
CPT/HCPCS: 73130; 73140

== ENCOUNTER 2025-02-23 10:10 | Outpatient (CLI) | payer MEDICARE, SELFPAY ==
--- OUTSIDE RECORDS SUMMARY | 2024-03-23 07:00 | XMS_ITS ---
Author Organization [facility] Address [address] [place] [id number] Care Team Providers Care Qc Manager Name Role Phone Joaquin Cespedes Primary Care Provider Teo Cabello Unavailable [phone] Allergies Allergen (clinical drug ingredient) Drug/Non Drug Allergy documented on EMR Reaction Allergy Type Onset Date Status amoxicillin / clavulanate Augmentin GI Drug Allergy Active ibuprofen Ibuprofen GI upset Drug Allergy Active Dye, Yellow Unknown Drug Allergy Activ e Iodinated contrast media (substance) Iodinated Contrast Media Unknown Drug Allergy Active metformin metFORMIN leg pain Drug Allergy Active Reason For Referral Reason [facility], no MD preferenc e 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 Referred Provider Specialty ENT General Notes Rosa Elena Thapa 024 11:38:08 AM > faxed to [facility] ENT Referral Priority Routine REASON FOR VISIT [...] Status Risk Notes Problem Disorder of neck (072946046) Disorder of neck (M53.82) Active confirmed Vital Signs Blood pressure systolic 120 mm Hg 03/23/20 24 Blood pressure diastolic 72 mm Hg 024 Heart Rate 75 /min 03/23/2024 Height 62 in 03/23/2024 Weight 156.6 lbs 03/23/2024 BMI 28.64 kg/m2 03/23/2024 Encounters Encounter Location Date Provider Diagnosis [facility] [address] [place] [id number] 03/23/2024 Teo Cabello Neoplasm of external ear [...] patient Referrals Referral Date Details 03/23/2024 03/23/2024, [facility], no MD preference, . ENT Next Appt Details Follow Up: via phone to repo rt progress, Reason: Provider Name:Maria Fernanda hunter, 03/09/2025 11:15:00 AM, [address], [address], [place], [id number], Progress Notes * GUICHO BURKS CDOB: 3 (74 yo F)Acc No.[id number]:03/23/2024 Progress Notes Patient: GUICHO HUNTER Provider: Ken Cabello M.D. :1950 A ge:73 Y S ex:Female Date:03/23/2024 Address:[facility] [place], [place] Pcp:Joaquin Cespedes Subjective: * Chief Complaints: * [...] * Images: Billing Information: * Visit Code: 90820 Office Visit, Est Pt., Level 4. * Procedure Codes: * Electronic signature of Lizeth Cabello MD on 02/23/2025 at 10:14 AM EDT Sign off status: Pending * Provider: Ken Cablelo M.D. Date: 1 Generated for Shayi ng/Fanikhilg/eTransmitting on: 0 02/23/2025 10:14 AM EDT History and Physical Notes * [...] Not es 03/23/2024 Teo Cabello ENT, . [facility], no MD p reference
--- OUTSIDE RECORDS SUMMARY | 2024-04-01 06:40 | XMS_ITS ---
Author Organization [facility] Address [address] [facility] [address] [place] [id number] Care Team Providers Care Inspector Glass Or Mirror Name Role Phone Joaquin Cespedes Primary Care Provider [phone] Liam Cabelloian Unavailable [phone] Maria Fernanda Genao Unavailable [phone] Allergies Allergen (clinical drug ingredient) Drug/Non Drug [...] Encounter Location Date Provider Diagnosis [facility] [address] [facility] 36 [facility] [address] [place], [place] [id number] 04/01/2024 Maria Fernanda Genao Infected tick bite, [...] Nisreen Pandey y, 03/09/2025 11:15:00 AM, [address] [facility] 36 [facility], [address], [place], [place], [phone], Progress Notes * GUICHO BURKS CDOB: 3 (74 yo F)Acc No.[id number]:04/01/2024 Progress Notes Patient: GUICHO HUNTER Provider: GENIE Madrigal :1950 A ge:73 Y S ex:Female Date:04/01/2024 Address:[facility] Pcp:Joaquin Cespedes Subjective: * Chief Complaints: * [...] * Images: Billing Information: * Visit Code: 00153 Office Visit, Est Pt., Level 3. * Procedure Codes: 77675 PULSE OX. * Electronic signature of GENIE Marcus on 02/23/2025 at 10:13 AM EDT Sign off status: Pending * Provider: GENIE Madrigal Date: 1 06/01/2023 Generated for Chasity leal/Naeem/eTransmitting on: 0 02/23/2025 10:13 AM EDT History and Physical Notes * [...]
--- OUTSIDE RECORDS SUMMARY | 2024-04-16 07:15 | XMS_ITS ---
Author Organization [facility] Address [address] [facility] [address] [facility] [address] [place] [phone] Care Team Providers Care Toe Puller Name Role Phone Joaquin Cespedes Primary Care Provider Teo Cabello [phone] Allergies Allergen (clinical drug ingredient) Drug/Non Drug [...] Encounter Location Date Provider Diagnosis [facility] [address] [facility] [address] [place] [phone] 04/16/2024 Teo Cabello Plan Of Treatment Next Appt Details Provider Name:Maria Fernanda hunter, 03/09/2025 11:15:00 AM, [address] [facility] [address] [facility], [address], [place], [phone], Progress Notes * GUICHO BURKS CDOB: 3 (74 yo F)Acc No.[id number]:04/16/2024 Progress Notes Patient: Ken STOKES GUICHO Cheney Provider: Ken Cabello M.D. [...] Date: 06/16/2023 Generated for Chasity leal/Naeem/Sunnyitting on: 0 02/23/2025 10:14 AM EDT History and Physical Notes * HPI (History of Present Illness) Category Sub-Category Detail Notes Category Not es Endocrinology Recent Blood Sugars
--- OUTSIDE RECORDS SUMMARY | 2024-09-01 10:00 | XMS_ITS ---
Author Organization [facility] Address [address] [facility] [address] [place] [id number] Care Team Providers Care Transitions Rn Care Coordinator Name Role Phone Joaquin Cespedes Primary Care Provider [phone] Teo Cabello Unavailable [phone] AquilinoMaria Fernanda oliver Unavailable [phone] Allergies Allergen (clinical drug ingredient) Drug/Non Drug [...] 119 Performing Lab: Notes/Report: Test performed by [facility], [facility] , [address], [place] [address] Jeremy Crespo MD, Furniture Builder CLIA: [id number] Sodium 140 135-145 mmol/L Potassium 4.1 3.5-5.3 [...] Interpretation:Normal Performing Lab: Notes/Report: Test performed by [facility] [address] [place] [address] , [address], [place] [address] Jeremy Crespo MD, Furniture Builder CLIA: [id number] Thyroxine Free (free T4) 1.40 0.86-1.76 ng/dL P-Hemoglobin A1C Reviewed date:09/08/2024 02:22:22 PM Interpretation:6.8 Performing Lab: Notes/Report: Test performed by [facility] [address] [place] [address] , [address], [place] [address] Jeremy Crespo MD, Furniture Builder CLIA: [id number] Hemoglobin A1C 6.8 <5.7 % The following HbA1c ranges recommended by the [place] [employer] (ADA) may be used as an aid in the diagnosis of diabetes mellitus. HbA1c Suggested Diagnosis >=6.5% Diabetic 5.7% - 6.4% Pre-Diabetic <5.7% Non-Diabetic P-Lipid Panel Reviewed date:09/08/2024 02:22:22 PM Interpretation:Chol 253, Non-HDL 194, LDL Chol 165 Performing Lab: Notes/Report: Test performed by [facility] [address] [place] [address] , [address], [place] [address] Jeremy Crespo MD, Furniture Builder CLIA: [id number] Cholesterol 253 <200 mg/dL Triglycerides 143 <150 [...] Interpretation:Normal Performing Lab: Notes/Report: Test performed by [facility], [address] , [facility], [place] [address] Jeremy Crespo MD, Furniture Builder CLIA: [id number] TSH 3.44 0.43-5.25 mU/L P-Vitamin D 25-Hydroxy Reviewed date:09/08/2024 02:22:22 PM Interpretation:22 Performing Lab: Notes/Report: Test performed by [facility], [address] , [address], [place] [address] Jeremy Crespo MD, Furniture Builder CLIA: [id number] Vitamin D 25-Hydroxy 22.0 30.0-100.0 ng/mL Interpretation of Vitamin D 25 OH: < 20 ng/mL - Deficiency 20 - 29 ng/mL - Insufficiency 30 - 100 ng/mL - Sufficiency > 100 ng/mL - Super-therapeutic- toxicity may occur above this level. Clinical correlation required. Estimated Average Glucose Reviewed date:09/08/2024 02:22:22 PM Interpretation:Normal Performing Lab: Notes/Report: Test performed by [facility] [address] [place] [address] [address], [place] [address] Jeremy Crespo MD, Furniture Builder CLIA: [id number] Estimated Average Glucose (eAG) 148 Estimated Average [...] Notes Start Date End Date Status Creon [id number] UNIT as directed Orally Active Gabapentin 300 [...] 09/01/2024 Encounters Encounter Location Date Provider Diagnosis [facility] [address] [facility] [address], [place] [id number] 09/01/2024 Maria Fernanda Chadwick Local infection of [...] [address], [address] , [place], [place], [phone], Progress Notes * GUICHO BURKS CDOB: 3 (74 yo F)Acc No.[id number]:09/01/2024 Progress Notes Patient: GUICHO HUNTER Provider: GENIE Madrigal :1950 A ge:73 Y S ex:Female Date:09/01/2024 Address:[facility] [address] [place], [id number] Pcp:Joaquin Cespedes Subjective: * Chief Complaints: * [...] , Determination:. * Medications: T aking Creon [id number] UNIT Capsule Delayed Release Particles as directed [...] stimated Average Glucose 148 - mg/dL * [facility], support 09/02/2024 06:55:08 : This order was created by the Interface. Ladan Young 09/08/2024 02:22:14 PM > See phone encounter * Procedure Codes: G 2211 Complex e/[place], [address] CBC WITH AUTO DIFF, 3044F HG A1C LEVEL LT 7.0%, G8752 MOST RECENT SYSTOLIC BP < 140MM HG, G8754 MOST RECENT DIASTOLIC BP < 90MM HG * Follow Up: v ia phone to report test results * Images: Billing Information: * Visit Code: 76796 Office Visit, Est Pt., Level 4. * Procedure Codes: G2211 Complex e/[place]. [address] CBC WITH AUTO DIFF. 3044F HG A1C LEVEL LT 7.0%. G8752 MOST RECENT SYSTOLIC BP < 140MM HG. G8754 MOST RECENT DIASTOLIC BP < 90MM HG. * Electronic signature of GENIE Marcus on 02/23/2025 at 10:13 AM EDT Sign off status: Pending * Provider: GENIE Madrigal Date: 0 09/01/2024 Generated for Chasity leal/Naeem/Sunnyitting on: 0 02/23/2025 10:13 AM EDT History [...]
--- OUTSIDE RECORDS SUMMARY | 2024-12-07 07:15 | XMS_ITS ---
[facility] Address [address] [place] [id number] Care Team Providers Care Benefits Director Name Role Phone Joaquin Cespedes Primary Care Provider [phone] Teo Cabello Unavailable [phone] Maria Fernanda Genao Unavailable [phone] Allergies Allergen (clinical drug ingredient) Drug/Non Drug [...] of uncertai n behavior (D48.9) [facility] Referring Provider First Name Maria Fernanda Referring Provider Last Name Chadwick Referring Provider Speciality Physician Psychiatric Arnp Referred Provider Dermatology, . Referred Provider Specialty [...] Orally Onc e a day Active Creon 99005-488052 UNIT as directed Orally Active Medrol 4 MG as directed Orally 12/07/2024 Active Vital Signs Blood pressure systolic 126 mm Hg 12/08/19 25 Blood pressure diastolic 78 mm Hg 025 Heart Rate 64 /min 12/07/2024 Height 62 in 12/07/2024 Weight 179.8 lbs 12/07/2024 BMI 32.88 kg/m2 12/07/2024 Encounters Encounter Location Date Provider [facility] [address] [id number] 12/07/2024 Maria Fernanda Genao Costochondritis M94. 0 [...] 03/09/2025 11:15:00 AM, [address] [facility], [address] , [place], [place], [id number], Progress Notes * GUICHO BURKS CDOB: 3 (74 yo F)Acc No.[id number]:12/07/2024 Progress Notes Patient: GUICHO HUNTER Shravan Provider: GENIE Madrigal :1950 A ge:74 Y S ex:Female Date:12/07/2024 Address:[address] [place], [place] [id number] Pcp:Joaquin Cespedes Subjective: * Chief Complaints: * [...] Orally Once a day , Taking Creon 82704-791065 UNIT Capsule Delayed Release Particles as directed [...] of insulin - E11.9 7 . B TN 32.0-32.9,adult - Z68.32 Plan: * Treatment: 2. 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 * Procedure Codes: G2211 Complex e/[place]. [address] Urinalysis, no micro. 1036F TOBACCO NON-USER. 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 G8752 MOST RECENT SYSTOLIC BP < 140MM HG. G8754 MOST RECENT DIASTOLIC BP < 90MM HG. * Electronic signature of GENIE Marcus on 02/23/2025 at 10:14 AM EDT Sign off status: Pending * Provider: GENIE Madrigal Date: 0 12/07/2024 Generated for Chasity leal/Naeem/Sunnyitting on: 0 02/23/2025 [...]
--- OUTSIDE RECORDS SUMMARY | 2025-02-23 10:15 | XMS_ITS | Patient Health Record ---
Author Organization [facility] Address [address] [place] [id number] Care Team Providers Care Hot Blaster Name Role Phone Joaquin Cespedes Primary Care Provider DestineyTeo Unavailable [phone] Carmela Carreno Unavailable [phone] Maria Fernanda Genao Unavailable [phone] Allergies Allergen (clinical drug ingredient) Drug/Non Drug [...] 119 Performing Lab: Notes/Report: Test performed by [facility] , [address], [place] [address] Jeremy Crespo MD, 1St Grade Teacher CLIA: [id number] Sodium 140 135-145 mmol/L Potassium 4.1 3.5-5.3 [...] Interpretation:Normal Performing Lab: Notes/Report: Test performed by [facility] [address] [place], [place] [address] [place] , [address], [place] [address] Jeremy Crespo MD, 1St Grade Teacher CLIA: [id number] Thyroxine Free (free T4) 1.40 0.86-1.76 ng/dL P-Hemoglobin A1C Reviewed date:09/08/2024 02:22:22 PM Interpretation:6.8 Performing Lab: Notes/Report: Test performed by [facility] [address] [place] [address] , [address], [place] [address] Jeremy Crespo MD, 1St Grade Teacher CLIA: [id number] Hemoglobin A1C 6.8 <5.7 % The following HbA1c ranges recommended by the [place] [employer] (ADA) may be used as an aid in the diagnosis of diabetes mellitus. HbA1c Suggested Diagnosis >=6.5% Diabetic 5.7% - 6.4% Pre-Diabetic <5.7% Non-Diabetic P-Lipid Panel Reviewed date:09/08/2024 02:22:22 PM Interpretation:Chol 253, Non-HDL 194, LDL Chol 165 Performing Lab: Notes/Report: Test performed by [facility] [address] [place] [address] [place] [address] Jeremy Crespo MD, 1St Grade Teacher [facility]: [id number] Cholesterol 253 <200 mg/dL Triglycerides 143 <150 [...] Interpretation:Normal Performing Lab: Notes/Report: Test performed by [facility] [address] , [address], [place] [address] Jeremy Crespo MD, 1St Grade Teacher CLIA: [id number] TSH 3.44 0.43-5.25 mU/L P-Vitamin D 25-Hydroxy Reviewed date:09/08/2024 02:22:22 PM Interpretation:22 Performing Lab: Notes/Report: Test performed by [facility] [address] [place] [address] , [address], [place] [address] Jeremy Crespo MD, 1St Grade Teacher CLIA: [id number] Vitamin D 25-Hydroxy 22.0 30.0-100.0 ng/mL Interpretation of Vitamin D 25 [place]: < 20 ng/mL - Deficiency 20 - 29 ng/mL - Insufficiency 30 - 100 ng/mL - Sufficiency > 100 ng/mL - Super-therapeutic- toxicity may occur above this level. Clinical correlation required. Estimated Average Glucose Reviewed date:09/08/2024 02:22:22 PM Interpretation:Normal Performing Lab: Notes/Report: Test performed by [facility] [address] [place] [address] , [address], [place] [address] Jeremy Crespo MD, 1St Grade Teacher CLIA: [id number] Estimated Average Glucose (eAG) 148 Estimated Average [...] Orally Onc e a day Active Creon 24073-156902 UNIT as directed Orally Active Immunizations Vaccine [...] Status W/U Status Risk Notes Problem Hypothyroidism (82250943) Hypothyroidism, unspecified (E03.9) Active confirmed Problem Gastroesophageal reflux disease (038681619) GERD (gastroesophageal reflux disease) (K21.9) Active confirmed Problem Vitamin D deficiency (69196579) Vitamin D deficiency (E55.9) Active confirmed Problem Essential hypertension (09355309) Essential hypertension (I10) Active confirmed Problem Abnormal mammogram (546513605) Abnormal mammogram (R92.8) Active confirmed Problem Mixed anxiety and depressive disorder (898827214) Depression with anxiety (F41.8) Active confirmed Problem BMI 30+ - obesity (044907554) BMI 32.0-32.9,adult (Z68.32) Active confirmed Problem Mixed hyperlipidemia (362970751) Mixed hyperlipidemia (E78.2) Active confirmed Problem Obese class II (940266779163542) BMI 35.0-35.9,adult (Z68.35) Active confirmed Problem Acquired hypothyroidism (483429541) Acquired hypothyroidism (E03.9) Active confirmed Problem Obesity (252648155) Non morbid obesity due to excess calories (E66.09) Active confirmed Problem Disorder of neck (840657324) Disorder of neck (M53.82) Active confirmed Problem Dyslipidemia (321408839) Dyslipidemia (E78.5) Active confirmed Problem Type II diabetes mellitus without complication (744566599) Type 2 diabetes mellitus without complication, without long-term current use of insulin (E11.9) Active confirmed Problem Sciatica (54683157) Left-sided l ow back pain with left-sided sciatica, unspecified chronicity (M54.42) Active confirmed Problem Left atrial enlargement (86471389479192) Left atrial enlargement (I51.7) Active confirmed Problem Seasonal allergic rhinitis (228516276) Seasonal allergic rhinitis, unspecified trigger (J30.2) Active confirmed Problem Osteopenia following menopause (disorder) (525775632) Osteopenia 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 (M85.80) Active confirmed Vital Signs Heart Rate 64 /min 12/07/2024 Blood pressure diastolic 78 mm Hg 12/07/2024 Height 62 in 12/07/2024 Blood pressure systolic 126 mm Hg 12/07/2024 Weight 179.8 lbs 12/07/2024 BMI 32.88 kg/m2 12/07/2024 Encounters Encounter Location Date Provider Diagnosis [facility] [address] [place] [id number] 03/23/2024 Teo Closplint 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 ; Right rotator cuff tendinitis M75.81 ; Spasm of muscle M62.838 and Disorder of neck M53.82 [facility] [address] [place] [id number] 04/01/2024 Maria Fernanda Genao Infected tick bite, initial encounter W57.XXXA and Cellulitis, unspecified cellulitis site L03.90 [facility] [address] [place] [id number] 09/01/2024 Maria Fernanda Genao Local infection of [...] reflux disease) K21.9 and Mixed hyperlipidemia E78.2 [facility] [address] [place] [id number] 12/07/2024 Maria Fernanda Genao Costochondritis M94. 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 ; Depression with anxiety F41.8 ; Dyslipidemia E78.5 ; Type 2 diabetes mellitus without complication, without long-term current use of insulin E11.9 and BMI 32.0-32.9,adult Z68.32 [facility] [address] [place] [address] [place] [id number] 08/08/2024 Joaquin Cespedes Left-sided low back pain with left-sided sciatica, unspecified chronicity M54.42 [facility] [address] [place] [address] [place] [id number] 09/08/2024 Maria Fernanda Genao [facility] [place] [id number] 12/13/2024 Joaquin Cespedes Assessments Encounter Date Diagnosis (ICD Code) Assessment Notes Treatment Notes Treatment Clinical Notes Section Notes 03/23/2024 Right rotator cuff tendinitis (ICD-10 - [...] cover the effexor so she was sent [employer]. She says this does not work as [...] [address], [address], [place], [id number], Insurance Providers Payer Name Payer Address Payer Phone Subscriber Number Group Number Insured Name Patient Relationship to Insured Coverage Start Date Coverage End Date MEDICARE PART B [address] [address] [place] [address] [id number] GUICHO BURKS Self - patient is the insured [facility] OPTIONS [address] [place] [address] [phone] [id number] GUICHO BURKS Self - patient is the [...]
--- NOTE | 2025-02-23 10:16 | XR_ITS ---
FINAL REPORT CLINICAL HISTORY: left hand fx COMPARISON: 01/26/2025 FINDINGS: AP, oblique, and lateral views of the left hand were obtained. No significant interval change in appearance of the base of the 5th proximal phalanx fracture. No new osseous abnormality. 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 The soft tissues are normal. IMPRESSION: No significant change 5th proximal phalanx fracture. Reviewed, Interpreted and Dictated by Carol Sofia MD Transcribed by Katharine Howard Authenticated and [facility]
== END 2025-02-23 23:59 | disposition home or self-care (01) ==
LOC: RAD 10:12
PROVIDERS: PCP Family Medicine; Visit Provider Physician Assistant Surgical
DX: S62.617D Displaced fracture of proximal phalanx of left little finger, subsequent encounter for fracture with routine healing (principal); X58.XXXD Exposure to other specified factors, subsequent encounter; M19.042 Primary osteoarthritis, left hand
CPT/HCPCS: 73130

== ENCOUNTER 2025-02-24 12:33 | Outpatient (CLI) | payer MEDICARE, SELFPAY ==
--- OUTSIDE RECORDS SUMMARY | 2024-03-23 07:00 | XMS_ITS ---
Author Organization [facility] Address [address] [place] [id number] Care Team Providers Care Logging Assistant Name Role Phone Joaquin Cespedes Primary Care Provider Teo Cabello Unavailable [phone] Allergies Allergen (clinical drug ingredient) Drug/Non Drug Allergy documented on EMR Reaction Allergy Type Onset Date Status amoxicillin / clavulanate Augmentin GI Drug Allergy Active ibuprofen Ibuprofen GI upset Drug Allergy Active Dye, Yellow Unknown Drug Allergy Activ e Iodinated contrast media (substance) Iodinated Contrast Media Unknown Drug Allergy Active metformin metFORMIN leg pain Drug Allergy Active Reason For Referral Reason [facility], no MD preferenc e 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 Referred Provider Specialty ENT General Notes Rosa Elena Thapa 024 11:38:08 AM > faxed to [facility] ENT Referral Priority Routine REASON FOR [...] 12/14/2023 Active Lidocaine & Adhesive Sheet Active Problems Problem Type SNOMED Code ICD Code Onset Dates Problem Status W/U Status Risk Notes Problem Disorder of neck (075444389) Disorder of neck (M53.82) Active confirmed Vital Signs Blood pressure systolic 120 mm Hg 03/23/20 24 Blood pressure diastolic 72 mm Hg 024 Heart Rate 75 /min 03/23/2024 Height 62 in 03/23/2024 Weight 156.6 lbs 03/23/2024 BMI 28.64 kg/m2 03/23/2024 Encounters Encounter Location Date Provider Diagnosis [facility] [address] [place] [id number] 03/23/2024 Teo Cabello Neoplasm of external ear [...] patient Referrals Referral Date Details 03/23/2024 03/23/2024, [facility], no MD preference, . ENT Next Appt Details Follow Up: via phone to repo rt progress, Reason: Provider Name:Maria Fernanda hunter, 03/09/2025 11:15:00 AM, [address], [address], [place], [id number], Progress Notes * GUICHO BURKS CDOB: 3 (74 yo F)Acc No.[id number]:03/23/2024 Progress Notes Patient: GUICHO HUNTER Provider: Ken Cabello M.D. :1950 A ge:73 Y S ex:Female Date:03/23/2024 Address:[facility] [place], [place] Pcp:Joaquin Cespedes Subjective: * Chief Complaints: * [...] * Images: Billing Information: * Visit Code: 03995 Office Visit, Est Pt., Level 4. * Procedure Codes: * Electronic signature of Lizteh Cabello MD on 02/24/2025 at 12:37 PM EDT Sign off status: Pending * Provider: Ken Cabello M.D. Date: 1 Generated for Shayi elvis/Fanikhilg/eTransmitting on: 0 02/24/2025 12:37 PM EDT History and Physical Notes * HPI [...] Not es 03/23/2024 Teo Cabello ENT, . [facility], no MD p reference
--- OUTSIDE RECORDS SUMMARY | 2024-04-01 06:40 | XMS_ITS ---
Author Organization [facility] Address [address] [facility] [address] [place] [id number] Care Team Providers Care Houseperson Name Role Phone Joaquin Cespedes Primary Care Provider Liam Cabelloian Unavailable [phone] Maria Fernanda Genao Unavailable [phone] Allergies Allergen (clinical drug ingredient) Drug/Non Drug [...] Signs Blood pressure systolic 120 mm Hg 04/01/20 24 Blood pressure diastolic 80 mm Hg 11/01/2 024 Heart Rate 53 /min 04/01/2024 Height 62 in 04/01/2024 Weight 160.2 lbs 04/01/2024 BMI 29.30 kg/m2 04/01/2024 Encounters Encounter Location Date Provider Diagnosis [facility] [address] [facility] [address] [facility] [address] [place], [place] [phone] 04/01/2024 Maria Fernanda Genao Infected tick bite, [...] Next Appt Details Follow Up: prn, Reason: Provider Name:Maria Fernanda Nisreen Pandey y, 03/09/2025 11:15:00 AM, [address] [facility] 36 [facility], [address], [place], [place], [phone], Progress Notes * GUICHO BURKS CDOB: 3 (74 yo F)Acc No.[id number]:04/01/2024 Progress Notes Patient: GUICHO HUNTER Provider: GENIE Madrigal :1950 A ge:73 Y S ex:Female Date:04/01/2024 [address] [place] [facility] Pcp:Joaquin Cespedes Subjective: * Chief Complaints: * [...] * Images: Billing Information: * Visit Code: 54519 Office Visit, Est Pt., Level 3. * Procedure Codes: 95990 PULSE OX. * Electronic signature of GENIE Marcus on 02/24/2025 at 12:37 PM EDT Sign off status: Pending * Provider: GENIE Madrigal Date: 1 06/01/2023 Generated for Chasity leal/Naeem/eTransmitting on: 0 02/24/2025 12:37 PM EDT History [...]
--- OUTSIDE RECORDS SUMMARY | 2024-04-16 07:15 | XMS_ITS ---
Author Organization [facility] Address [address] [facility] [address] [facility] [address] [place] [id number] Care Team Providers Care Fish Smoker Name Role Phone Joaquin Cespedes Primary Care Provider [phone] Teo Cabello [phone] Allergies Allergen (clinical drug ingredient) Drug/Non Drug [...] Encounter Location Date Provider Diagnosis [facility] [address] [facility] [address] [facility] [address] [place] [id number] 04/16/2024 Teo Cabello Plan Of Treatment Next Appt Details Provider Name:Maria Fernanda hunter, 03/09/2025 11:15:00 AM, [address] [facility] [address] [facility], [address], [place], [id number], Progress Notes * GUICHO BURKS CDOB: 3 [...] Electronic signature of Lizeth Cabello MD on 02/24/2025 at 12:37 PM EDT Sign off status: Pending * Provider: Ken Cabello M.D. Date: 06/16/2023 Generated for Chasity leal/Naeem/Sunnyitting on: 0 02/24/2025 12:37 PM EDT History and Physical Notes * HPI (History of Present Illness) Category Sub-Category Detail Notes Category Not es Endocrinology Recent Blood Sugars
--- OUTSIDE RECORDS SUMMARY | 2024-09-01 10:00 | XMS_ITS ---
Author Organization [facility]-[place] Address [address] [facility] [address] [place] [id number] Care Team Providers Care Sprinkler Helper Name Role Phone Joaquin Cespedes Primary Care Provider AndersonTeo Unavailable [phone] Jack Genaoa Unavailable [phone] Allergies Allergen (clinical drug ingredient) Drug/Non Drug [...] PM Interpretation:Glu 119 Performing Lab: Notes/Report: CLIA: [id number] Jeremy Crespo MD, Assistant Paralegal [facility] , [address], [place] [address] Test performed by [employer] Sodium 140 135-145 mmol/L Potassium 4.1 3.5-5.3 [...] Interpretation:Normal Performing Lab: Notes/Report: Test performed by [employer] [address] [place] [address] , [address], [place] [address] Jeremy Crespo MD, Assistant Paralegal CLIA: [id number] Thyroxine Free (free T4) 1.40 0.86-1.76 ng/dL P-Hemoglobin A1C Reviewed date:09/08/2024 02:22:22 PM Interpretation:6.8 Performing Lab: Notes/Report: Test performed by [employer] [address] [place] [address] , [address], [place] [address] Jeremy Crespo MD, Assistant Paralegal CLIA: [id number] Hemoglobin A1C 6.8 <5.7 % The following HbA1c ranges recommended by the [place] Diabetes Association (ADA) may be used as an aid in the diagnosis of diabetes mellitus. HbA1c Suggested Diagnosis >=6.5% Diabetic 5.7% - 6.4% Pre-Diabetic <5.7% Non-Diabetic P-Lipid Panel Reviewed date:09/08/2024 02:22:22 PM Interpretation:Chol 253, Non-HDL 194, LDL Chol 165 Performing Lab: Notes/Report: Test performed by [employer] [address] [place] [address] , [address], [place] [address] Jeremy Crespo MD, Assistant Paralegal CLIA: [id number] Cholesterol 253 <200 mg/dL Triglycerides 143 <150 [...] Interpretation:Normal Performing Lab: Notes/Report: Test performed by [employer], [address] , [facility], [place] [address] Jeremy Crespo MD, Assistant Paralegal CLIA: [id number] TSH 3.44 0.43-5.25 mU/L P-Vitamin D 25-Hydroxy Reviewed date:09/08/2024 02:22:22 PM Interpretation:22 Performing Lab: Notes/Report: Test performed by [employer], [address] , [address], [place] [address] Jeremy Crespo MD, Assistant Paralegal CLIA: [id number] Vitamin D 25-Hydroxy 22.0 30.0-100.0 ng/mL Interpretation of Vitamin D 25 [place]: < 20 ng/mL - Deficiency 20 - 29 ng/mL - Insufficiency 30 - 100 ng/mL - Sufficiency > 100 ng/mL - Super-therapeutic- toxicity may occur above this level. Clinical correlation required. Estimated Average Glucose Reviewed date:09/08/2024 02:22:22 PM Interpretation:Normal Performing Lab: Notes/Report: Test performed by [employer] [address] [place] [address] [address], [place] [address] Jeremy Crespo MD, Assistant Paralegal CLIA: [id number] Estimated Average Glucose (eAG) 148 Estimated Average [...] Notes Start Date End Date Status Creon 24767-090111 UNIT as directed Orally Active Gabapentin 300 [...] 09/01/2024 Encounters Encounter Location Date Provider Diagnosis [facility] [address] [facility] [address] [place], [place] [id number] 09/01/2024 Maria Fernanda Chadwick Local infection of [...] [address], [address] , [place], [place], [id number], Progress Notes * GUICHO BURKS CDOB: 3 (74 yo F)Acc No.[id number]:09/01/2024 Progress Notes Patient: GUICHO HUNTRE Provider: GENIE Madrigal :1950 A ge:73 Y S ex:Female Date:09/01/2024 Address:[facility] [place], [id number] Pcp:Joaquin Cespedes Subjective: * Chief Complaints: * [...] , Determination:. * Medications: T aking Creon 55448-871950 UNIT Capsule Delayed Release Particles as directed [...] stimated Average Glucose 148 - mg/dL * [facility], support 09/02/2024 06:55:08 : This order was created by the Interface. Ladan Young 09/08/2024 02:22:14 PM > See phone encounter * Procedure Codes: G 2211 Complex e/[place], [address] CBC WITH AUTO DIFF, 3044F HG A1C LEVEL LT 7.0%, G8752 MOST RECENT SYSTOLIC BP < 140MM HG, G8754 MOST RECENT DIASTOLIC BP < 90MM HG * Follow Up: v ia phone to report test results * Images: Billing Information: * Visit Code: 42680 Office Visit, Est Pt., Level 4. * Procedure Codes: G2211 Complex e/[place]. [address] CBC WITH AUTO DIFF. 3044F HG A1C LEVEL LT 7.0%. G8752 MOST RECENT SYSTOLIC BP < 140MM HG. G8754 MOST RECENT DIASTOLIC BP < 90MM HG. * Electronic signature of GENIE Marcus on 02/24/2025 at 12:37 PM EDT Sign off status: Pending * Provider: GENIE Madrigal Date: 0 09/01/2024 Generated for Chasity leal/Naeem/Sunnyitting on: 0 02/24/2025 [...]
--- OUTSIDE RECORDS SUMMARY | 2024-12-07 07:15 | XMS_ITS ---
Author Organization [facility] Address [address] [place] [id number] Care Team Providers Care Velvet Steamer Name Role Phone Joaquin Cespedes Primary Care Provider [phone] Teo Cabello Unavailable [phone] Maria Fernanda Genao Unavailable [phone] Allergies Allergen (clinical drug ingredient) Drug/Non Drug [...] of uncertai n behavior (D48.9) [facility] Referring Provider First Name Maria Fernanda Referring Provider Last Name Chadwick Referring Provider Speciality Physician Rate Clerk Passenger Referred Provider Dermatology, . Referred Provider Specialty [...] Orally Onc e a day Active Creon 94738-487708 UNIT as directed Orally Active Medrol 4 MG as directed Orally 12/07/2024 Active Vital Signs Blood pressure systolic 126 mm Hg 12/08/19 25 Blood pressure diastolic 78 mm Hg 025 Heart Rate 64 /min 12/07/2024 Height 62 in 12/07/2024 Weight 179.8 lbs 12/07/2024 BMI 32.88 kg/m2 12/07/2024 Encounters Encounter Location Date Provider [facility] [address] [id number] 12/07/2024 Maria Fernanda Genao Costochondritis M94. 0 [...] 03/09/2025 11:15:00 AM, [address] [facility], [address] , [place], [place], [id number], Progress Notes * GUICHO BURKS CDOB: 3 (74 yo F)Acc No.[id number]:12/07/2024 Progress Notes Patient: GUICHO HUNTER Shravan Provider: GENIE Mardigal :1950 A ge:74 Y S ex:Female Date:12/07/2024 Address:[address] [place], [place] [address] [facility] [id number] Pcp:Joaquin Cespedes Subjective: * Chief Complaints: * [...] Orally Once a day , Taking Creon 70821-500999 UNIT Capsule Delayed Release Particles as directed [...] of insulin - E11.9 7 . B [place] 32.0-32.9,adult - Z68.32 Plan: * Treatment: 2. 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 * Procedure Codes: G2211 Complex e/[place]. [address] Urinalysis, no micro. 1036F TOBACCO NON-USER. 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 G8752 MOST RECENT SYSTOLIC BP < 140MM HG. G8754 MOST RECENT DIASTOLIC BP < 90MM HG. * Electronic signature of GENIE Marcus on 02/24/2025 at 12:38 PM EDT Sign off status: Pending * Provider: GENIE Madrigal Date: 0 12/07/2024 Generated for Chasity leal/Naeem/Sunnyitting on: 0 02/24/2025 12:38 PM EDT History and Physical Notes * [...]
--- OUTSIDE RECORDS SUMMARY | 2025-02-24 12:38 | XMS_ITS | Patient Health Record ---
Author Organization [facility] Address [address] [place] [phone] Care Team Providers Care Tire Mechanic Name Role Phone Joaquin Cespedes Primary Care Provider DestineyTeo Unavailable [phone] Carmela Carreno Unavailable [phone] Maria Fernanda Genao Unavailable [phone] Allergies Allergen (clinical drug ingredient) Drug/Non Drug [...] 119 Performing Lab: Notes/Report: Test performed by [facility] , [address], [place] [address] Jeremy Crespo MD, Food Production Supervisor CLIA: [id number] Sodium 140 135-145 mmol/L Potassium 4.1 3.5-5.3 [...] Interpretation:Normal Performing Lab: Notes/Report: Test performed by [facility] [address] [place], [place] [address] , [address], [place] [address] Jeremy Crespo MD, Food Production Supervisor CLIA: [id number] Thyroxine Free (free T4) 1.40 0.86-1.76 ng/dL P-Hemoglobin A1C Reviewed date:09/08/2024 02:22:22 PM Interpretation:6.8 Performing Lab: Notes/Report: Test performed by [facility] [address] [place] [address] , [address], [place] [address] Jeremy Crespo MD, Food Production Supervisor CLIA: [id number] Hemoglobin A1C 6.8 <5.7 % The following HbA1c ranges recommended by the [place] [employer] (ADA) may be used as an aid in the diagnosis of diabetes mellitus. HbA1c Suggested Diagnosis >=6.5% Diabetic 5.7% - 6.4% Pre-Diabetic <5.7% Non-Diabetic P-Lipid Panel Reviewed date:09/08/2024 02:22:22 PM Interpretation:Chol 253, Non-HDL 194, LDL Chol 165 Performing Lab: Notes/Report: Test performed by [facility] [address] [place] [address] [place] [address] Jeremy Crespo MD, Food Production Supervisor [facility]: [id number] Cholesterol 253 <200 mg/dL Triglycerides 143 <150 [...] Interpretation:Normal Performing Lab: Notes/Report: Test performed by [facility] [address] , [address], [place] [address] Jeremy Crespo MD, Food Production Supervisor CLIA: [id number] TSH 3.44 0.43-5.25 mU/L P-Vitamin D 25-Hydroxy Reviewed date:09/08/2024 02:22:22 PM Interpretation:22 Performing Lab: Notes/Report: Test performed by [facility] [address] [place] [address] , [address], [place] [address] Jeremy Crespo MD, Food Production Supervisor CLIA: [id number] Vitamin D 25-Hydroxy 22.0 30.0-100.0 ng/mL Interpretation of Vitamin D 25 OH: < 20 ng/mL - Deficiency 20 - 29 ng/mL - Insufficiency 30 - 100 ng/mL - Sufficiency > 100 ng/mL - Super-therapeutic- toxicity may occur above this level. Clinical correlation required. Estimated Average Glucose Reviewed date:09/08/2024 02:22:22 PM Interpretation:Normal Performing Lab: Notes/Report: Test performed by [facility] [address] [place] [address] , [address], [place] [address] Jeremy Crespo MD, Food Production Supervisor CLIA: [id number] Estimated Average Glucose (eAG) 148 Estimated Average [...] Orally Onc e a day Active Creon [id number] UNIT as directed Orally Active Immunizations Vaccine [...] Status W/U Status Risk Notes Problem Hypothyroidism (82545253) Hypothyroidism, unspecified (E03.9) Active confirmed Problem Gastroesophageal reflux disease (420180575) GERD (gastroesophageal reflux disease) (K21.9) Active confirmed Problem Vitamin D deficiency (77314419) Vitamin D deficiency (E55.9) Active confirmed Problem Essential hypertension (15928612) Essential hypertension (I10) Active confirmed Problem Abnormal mammogram (908307856) Abnormal mammogram (R92.8) Active confirmed Problem Mixed anxiety and depressive disorder (222058808) Depression with anxiety (F41.8) Active confirmed Problem BMI 30+ - obesity (587055315) BMI 32.0-32.9,adult (Z68.32) Active confirmed Problem Mixed hyperlipidemia (999139349) Mixed hyperlipidemia (E78.2) Active confirmed Problem Obese class II (494574773762591) BMI 35.0-35.9,adult (Z68.35) Active confirmed Problem Acquired hypothyroidism (311879380) Acquired hypothyroidism (E03.9) Active confirmed Problem Obesity (237893036) Non morbid obesity due to excess calories (E66.09) Active confirmed Problem Disorder of neck (132079926) Disorder of neck (M53.82) Active confirmed Problem Dyslipidemia (402684194) Dyslipidemia (E78.5) Active confirmed Problem Type II diabetes mellitus without complication (231826993) Type 2 diabetes mellitus without complication, without long-term current use of insulin (E11.9) Active confirmed Problem Sciatica (89549240) Left-sided l ow back pain with left-sided sciatica, unspecified chronicity (M54.42) Active confirmed Problem Left atrial enlargement (05710857186491) Left atrial enlargement (I51.7) Active confirmed Problem Seasonal allergic rhinitis (515799016) Seasonal allergic rhinitis, unspecified trigger (J30.2) Active confirmed Problem Osteopenia following menopause (disorder) (385337077) Osteopenia 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 (M85.80) Active confirmed Vital Signs Heart Rate 64 /min 12/07/2024 Blood pressure diastolic 78 mm Hg 12/07/2024 Height 62 in 12/07/2024 Blood pressure systolic 126 mm Hg 12/07/2024 Weight 179.8 lbs 12/07/2024 BMI 32.88 kg/m2 12/07/2024 Encounters Encounter Location Date Provider Diagnosis [facility] [address] [place] [id number] 03/23/2024 Teo [place] 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 ; Right rotator cuff tendinitis M75.81 ; Spasm of muscle M62.838 and Disorder of neck M53.82 [facility] [address] [place] [id number] 04/01/2024 Maria Fernanda Genao Infected tick bite, initial encounter W57.XXXA and Cellulitis, unspecified cellulitis site L03.90 [facility] [address] [place] [id number] 09/01/2024 Maria Fernanda Genao Local infection of [...] reflux disease) K21.9 and Mixed hyperlipidemia E78.2 [facility] [address] [place] [id number] 12/07/2024 Maria Fernanda Genao Costochondritis M94. 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 ; Depression with anxiety F41.8 ; Dyslipidemia E78.5 ; Type 2 diabetes mellitus without complication, without long-term current use of insulin E11.9 and BMI 32.0-32.9,adult Z68.32 [facility] [address] [place] [address] [place] [id number] 08/08/2024 Joaquin Cespedes Left-sided low back pain with left-sided sciatica, unspecified chronicity M54.42 [facility] [address] [place] [address] [place] [id number] 09/08/2024 [facility]ao [facility] [place] [id number] 12/13/2024 Joaquin Cespedes Assessments Encounter Date Diagnosis [...] day, Home exercise program provided to patient 09/01/2024 Type 2 diabetes mellitus without complication, without long-term current use of insulin (ICD-10 - E11.9) Patient cannot take ozempic due to history of pancreatitis. Will get labs and make decision on the need for new medication. 12/07/2024 Depression with anxiety (ICD-10 - F41.8) Patient states her insurance would not cover the effexor so she was sent pristiq. She says this does not work as well and makes her feel weird. She would like it switched back. 12/07/2024 Dyslipidemia (ICD-10 - E78.5) 09/01/2024 Essential [...] [address], [address], [place], [phone], Insurance Providers Payer Name Payer Address Payer Phone Subscriber Number Group Number Insured Name Patient Relationship to Insured Coverage Start Date Coverage End Date MEDICARE PART B [address] [address] [place] [id number] GUICHO BURKS Self - patient is the insured [facility] [employer] [address] [place] [address] [phone] [id number] GUICHO BURKS Self - patient is the [...]
--- NOTE | 2025-02-24 12:53 | XR_ITS ---
FINAL REPORT TECHNIQUE: Chest PA & Lateral CLINICAL HISTORY: pre op sx COMPARISON: 01/01/2025 FINDINGS: 2 views of the chest were performed. There are calcified right paratracheal lymph nodes. The heart size is normal. The mediastinum is within normal limits. There is no acute cardiopulmonary process. There are no pleural effusions. There is no pneumothorax. The bony thorax appears intact. IMPRESSION: No acute cardiopulmonary process. Reviewed, Interpreted and Dictated by Momo Shelby MD Transcribed by Lupe Hunter Authenticated and . [facility]
[2025-02-24 13:06] LABS: Hematocrit 39.6 % (37.0-47.0); Hemoglobin 13.2 g/dL (12.2-16.2); Immature Granulocytes % 0.4 %; Mean Corpuscular HGB Conc 33.3 g/dL (31.8-35.4); Mean Corpuscular Hemoglobin 30.8 pg (27.0-31.2); Mean Corpuscular Volume 92.3 fl (81-99); Nucleated Red Blood Cells % 0 %; Platelet Count 149 K/mm3 (142-424); Red Blood Count 4.29 M/mm3 (4.20-5.40); Red Cell Distribution Width-SD 43.2 fL; White Blood Count 5.2 K/mm3 (4.8-10.8)
[2025-02-24 13:14] LABS: Chloride 103 mmol/L (98-107); Potassium 4.3 mmoL/L (3.5-5.1); Sodium 138 mmol/L (136-145)
[2025-02-24 13:17] LABS: Anion Gap 10.3 mEq/L (5-15); Blood Urea Nitrogen 18 mg/dl (7-17); Calcium 9.3 mg/dl (8.4-10.2); Carbon Dioxide 29 mmol/L (22.0-30.0); Creatinine,Serum 0.80 mg/dl (0.52-1.04); Estimated Glomerular Filt Rate 71 ml/min (>60); GFR (African American) 85 ML/MIN (>60); Glucose 128 mg/dl (74-100)
== END 2025-02-24 23:59 | disposition home or self-care (01) ==
LOC: PREOP 12:35
PROVIDERS: PCP Family Medicine; Visit Provider Orthopaedic Surgery
DX: Z01.811 Encounter for preprocedural respiratory examination (principal); Z01.812 Encounter for preprocedural laboratory examination; Z01.818 Encounter for other preprocedural examination
CPT/HCPCS: 71046; 80048; 85025

== ENCOUNTER 2025-02-28 12:28 | Outpatient (RCR) | payer MEDICARE, SELFPAY ==
--- NOTE | 2025-02-28 13:56 | HMH.OTOPEV ---
OT Evaluation Rehab OT Outpatient Eval Start: 02/28/25 13:04 Freq: Status: Active Protocol: Document 02/28/25 13:35 ASHLI (Rec: 02/28/25 13:56 ASHLI [id number]) E-signed By Joanna Sawant, OT Outpatient Therapy Subjective History Subjective History Pt is a 74 yr old female who presents to initial OT OP evaluation due to injury to L hand. pt reports they fell aprox 8 weeks ago and broke pinky finger. Pt reports they were in casting for 7 weeks of brace and hard cast and was just released from cast on Thursday. Pt reports they are R hand dominant. Pt reports they have sharp shooting pain especially at night if digits get caught on covers. pt reports they have hx of skin cancer on ear in either August/July of this year and have follow up with roller engraver for place on face. Pt presents with stiffness of L hand in ring finger and pinky. Pt presents with swelling across at digits. New diagnosis of Yes: skin cancer august/july 2024 cancer in past 12 months? Chief Complaint Pain,Stiff,Swelling,Catches/Locks,Weakness,Decreased Urgent Care Nurse Practitioner Strength,Decreased Coordination Symptom Type Ache,Sharp,Shooting Symptoms Relieved By Rest/Positioning,OTC Meds Symptoms Aggravated Physical Activity,Lifting By Prior Functional None Limitations Current Functional Lifting,Housework,Dressing,Desk Work/Reading,Driving, Limitations Sleeping,Recreation Activity Symptom Description Constant and Continuous Level of pain today 2 (0-10) Pain scale - at its 2 best (0-10) Pain scale - at its 8 worst (0-10) Wrist/Hand Eval Finger Range of Motion Left Little Finger Finger ROM Muscle Tone,Pain Limitations Finger 65 Metacarpophalangeal Flexion Active Range of Motion (degrees) Finger Proximal 30 Interphalangeal Flexion Active Range (degrees) Finger Distal 10 Interphalangeal Flexion Active Range of Motion (degrees) Finger Distal 0 Interphalangeal Extension Active Range Motion ( degrees) Left Index Finger Finger ROM Muscle Tone,Pain Limitations Finger 90 Metacarpophalangeal Flexion Active Range of Motion (degrees) Finger Proximal 65 Interphalangeal Flexion Active Range (degrees) Finger Distal 10 Interphalangeal Flexion Active Range of Motion (degrees) Finger Distal 0 Interphalangeal Extension Active Range Motion ( degrees) Hand/Finger Manual Muscle testing Little Finger Finger Flexion 3- Fair- Strength Grade Finger Extension 3- Fair- Strength Grade Finger Abduction 3- Fair- Strength Grade Finger Adduction 3- Fair- Strength Grade Left Ring Finger Finger Flexion 3- Fair- Strength Grade Finger Extension 3- Fair- Strength Grade Finger Abduction 3- Fair- Strength Grade Finger Adduction 3- Fair- Strength Grade Urgent Care Nurse Practitioner/Pinch Strength Right Urgent Care Nurse Practitioner Strength 43 Measurement (lbs) Left Urgent Care Nurse Practitioner Strength 5 Measurement (lbs) QuickDASH Activities Please rate your ability to do the following activities in the last week by selecting the number below the appropriate response. 1. Open a tight or Unable new jar. 2. Do heavy Moderate difficulty flour inspector (e. g., wash og, floors). 3. Carry a shopping Moderate difficulty bag or briefcase. 4. Wash your back. Severe difficulty 5. Use a knife to Severe difficulty cut food. 6. Recreational Severe difficulty activities in which you take some force or impact through your arm, shoulder, or hand (e.g., golf, hammering, tennis, etc.). 7. During the past Moderately week, to what extent has your arm, shoulder or hand problem interfered with your normal social activities with family, friends , neighbors or groups? 8. During the past Very limited week, were you limited in your work or other regular daily activites as a result of your arm, shoulder or hand problem? 9. Arm, shoulder or Severe hand pain. 10. Tingling (pins Severe and needles) in your arm, shoulder or hand. 11. During the past Severe difficulty week, how much difficulty have you had sleeping because of the pain in your arm, shoulder or hand? Quick DASH 42 OT Patient Goals OT Patient Goals OT Short Term 1. Pt will improve L pinky finger MCP flexion to 90 Patient Goals degrees, PIP flexion to 40 degrees, and DIP flexion to 15 degrees. 2. Pt will improve L ring finger PIP flexion to 70 degrees and DIP flexion to 15 degrees. 3. Pt will improve subjective pain at worst to 6/10. 4. Pt will improve L hand furnace roaster strength to 15 lbs. 5. Pt will improve endurance by completion of L hand exercises for 20 mins before rest. 6. Pt will be ind in HEP AAROM exercises for L hand and digits. 7. Pt will improve QuickDash Score Activities to 35 or below. 8. Pt will improve MMT of L ring and pinky finger to 3+ /5. OT Retirement Patient 1. Pt will improve L pinky finger MCP flexion to 90 Goals degrees, PIP flexion to 50 degrees, and DIP flexion to 25 degrees. 2. Pt will improve L ring finger PIP flexion to 80 degrees and DIP flexion to 25 degrees. 3. Pt will improve subjective pain at worst to 5/10. 4. Pt will improve L hand furnace roaster strength to 25 lbs. 5. Pt will improve endurance by completion of L hand exercises for 25 mins before rest. 6. Pt will be ind in HEP advanced AROM exercises and strengthening for L hand and digits. 7. Pt will improve QuickDash Score Activities to 25 or below. 8. Pt will improve MMT of L ring and pinky finger to 4- /5. OT Outpatient Assessment Impairments Problems/Impairments Impaired Range of Motion,Impaired Strength,Impaired Endurance,Impaired Lifting,Impaired Dressing,Impaired Shower/Bathing,Impaired Household Care,Impaired Recreational Activities,Subjective C/O Pain,Impaired Self Care/Self Management Prognosis Rehab Potential Good Comment Pt would benefit from skilled OT services and interventions to address functional limitations in occupational performance. Clinical Impression Consistent with Yes Diagnosis Outpatient Therapy Plan of Care Treatment Plan May Include Therapeutic Exercise Yes Including Home Exercise Program Manual Therapy Yes Techniques Neuromuscular Re- Yes education Therapeutic Yes Activities to Return to Previous Functional/Work Level ADL/Self Care Yes Education Thermal Modalities Yes Electrical Yes Stimulation Ultrasound/ Yes Phonophoresis Iontophoresis Yes Parrafin Yes Orthotics/Bracing/ Yes Splinting Group Therapy for Yes Medicare Eval/Re-Eval Yes Frequency Times per week 2 Duration Number of Weeks 6 Addendums This patient is a No candidate for social or vocational rehab ? Patient/Guardian Yes verbally acknowledges understanding of treatment program and consents to further treatment? Patient/Guardian Yes verbally acknowledges understanding of diagnosis, prognosis and goals for treatment? Eval Complexity OT Charge 02271 - Moderate Complexity Shoulder/Elbow Eval Shoulder Objective Measurements Elbow Objective Measurements PHYSICIAN CERTIFICATION: I certify the specified therapy services for Antonette Sim are required, authorized, and reviewed every 30 days.
== END 2025-02-28 23:59 | disposition home or self-care (01) ==
LOC: OT 12:28
PROVIDERS: PCP Family Medicine; Visit Provider Physician Assistant Surgical
DX: S62.619A Displaced fracture of proximal phalanx of unspecified finger, initial encounter for closed fracture (principal); W19.XXXA Unspecified fall, initial encounter
CPT/HCPCS: 97110; 97140; 97166

== ENCOUNTER 2025-03-06 14:00 | Outpatient (RCR) | payer MEDICARE, SELFPAY | END 2025-03-06 23:59 | disposition home or self-care (01) | LOC: OT 14:00 | PROVIDERS: PCP Family Medicine; Visit Provider Physician Assistant Surgical | DX: S62.617A Displaced fracture of proximal phalanx of left little finger, initial encounter for closed fracture (principal) | CPT/HCPCS: 97010; 97110; 97140 ==

== ENCOUNTER 2025-03-07 06:58 | Observation (INO) | payer MEDICARE, SELFPAY ==
[2025-02-24 13:35] VITALS: BMI 34.7
[2025-03-07] VITALS (14 sets, daily range): BP systolic 110–149; BP diastolic 54–80; PULSE 61–83; RESP 14–18; TEMP 36.2–43; O2SAT 96–100
[2025-03-07] MEDS: LACTATED RINGERS 1000ML 1,000 ML 100 ML IV (07:04)
--- NOTE | 2025-03-07 07:35 | EXP.ANES.CKL ---
[facility] Disclaimer: The information contained in this section may have been updated after the patient was seen, as this information can be updated by other users. 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 She was given a sample mask, nasal mask,MATHEW at last appointment. Prescription sent to [facility] for mask, supplies. Surgical History History of esophagogastroduodenoscopy (EGD) History of partial hysterectomy History of cardiac catheterization History of colonoscopy Family History Other Cancer Hypertension Social History Smoking Status: Never smoker second hand exposure: No alcohol intake: never substance use type: denies use current occupational status: retired Travel in the last 8 weeks?: None household members: spouse housing: house current occupational exposures/hazards: No caffeine: Yes Have you lived/traveled outside [place] in past 30 days?: No Contact w/someone who lives/traveled outside US past 30 days?: No Exposure to someone with infectious disease in past 14 days?: No Do you have a fever (greater than 100.4 F or 38 C)?: No Have you tested positive for COVID-19?: No Exposed to someone with COVID-19 in past 14 days?: No Do you have a sore throat?: No Do you have a cough?: No Do you have any weakness?: No Do you have any diarrhea?: No Are you experiencing any unusual bleeding?: No Do you have any muscle aches/pain?: No Do you have any abdominal pain?: No Are you experiencing loss of taste or smell?: No [facility] Anesthesia Checklist Patient Identification Patient Identification: Arm Band and Verbal (Name & ) Structural Data Admitted From: Home Planned Operative Procedure/s: L knee replacement Consent for Planned Operative Procedure(s) Verified: Yes Verified Documents: Surgical Consent NPO Status Verified Time NPO: 00:00 Additional verifications Anesthesia Reactions: No Hx Blood Transfusions: No Blood Transfusion Reaction: No Airway Assessment Mallampati Score:: Class II C-Spine Mobility Assessed: Yes TMJ Mobility Assessed: Yes Dentition: Partials Neurological Assessment Level of Consciousness: Awake, Alert and Appropriate Hx Seizures: No Numbness or tingling in extremities: No Anesthesia Plan Anesthesia Risk discussed: Yes Anesthesia Plan: Verified ASA Class: III Anesthesia Type: General w/block
[2025-03-07] MEDS: TRANEXAMIC ACID IV (08:11)
[2025-03-07] MEDS: SODIUM CHLORIDE 0.9% IV (08:11)
[2025-03-07] MEDS: SODIUM CHLORIDE IRRIG SOLUTION 3,000 ML 200 ML IR (09:31)
--- NOTE | 2025-03-07 11:54 | P.PNANES_ITS ---
[facility] Anesthesia Record Part I Anesthesia Record I Intake, IV Amount: 3,000 Hydration: Adequate Estimated blood loss (mL): 0 Urine output (mL): 250 Blood Pressure: 110/72 SaO2: 100 Pulse Rate: 68 Airway Patency: Patent Respiratory Rate: 16 Temperature: 97.5 F Patient is:: Awake and Stable Stable to PACU at:: 11:50
--- NOTE | 2025-03-07 11:57 | XR_ITS ---
FINAL REPORT CLINICAL HISTORY: s/p LEFT TKA FINDINGS: LEFT KNEE 2 views of the left knee were obtained. Patient is status post total knee arthroplasty. Hardware is intact. No immediate hardware complication is seen. There are expected soft tissue changes with anterior surgical skin stacie. IMPRESSION: Expected postoperative changes of left total knee arthroplasty. Hardware intact. Reviewed, Interpreted and Dictated by Carol Sofia MD Transcribed by Lorene Gilliam Authenticated and . [facility]
--- NOTE | 2025-03-07 12:10 | P.OP_ITS ---
Date of procedure: 03/07/25 Pre-op Diagnosis:: End-stage osteoarthritis left knee Post-op Diagnosis:: Same Procedure performed:: Left total knee arthroplasty Surgeon:: Hernandez Soto DO Magnetic Healer(s):: Gen BARROS MANAGER MISSION:: Remi Thapa Anesthesia: regional and spinal Estimated blood loss (mL): 50 Clinical Note:: Implants Medacta size 3 femur size 3 tibia 10 mm poly insert size 1 patella Operative findings:: Severe end-stage osteoarthritis left knee Operative note:: Patient identified preoperatively. Left knee marked with yes my initials. Taken the operating room. Given spinal anesthesia. Once adequate anesthesia was in place taken to the operating table. Left lower extremity was prepped and draped in normal sterile fashion. Once prepped and draped final operative timeout performed to identify proper patient procedure and extremity. Everyone involved in the case agreed. There is no counter indications beginning. Did receive preoperative antibiotics. Marking pen was used to make planned midline incision over the knee Esmarch was used to exsanguinate the extremity pneumatic tourniquet inflated to 300 mmHg. Knee was flexed skin knife was used incise through skin down to the capsule. Medial parapatellar approach was utilized large effusion evacuated patella everted. Anterior aspects of the medial lateral meniscus were sacrificed ACL sacrificed the soft tissues around the knee were retracted the Extrapriseacta preplanned femoral distal cutting guide was utilized and pinned into place according to the model in its proper position. Distal femoral cut was performed size three 4-in-1 cutting block was then utilized the anterior and posterior cuts were made the anterior posterior chamfer cuts were made. Excess bone was removed. The trial femur size [address] and gave good fill. Lug holes were drilled. Femoral trial removed. Attention was then brought to the soft tissues the rest of the medial and lateral meniscus were removed. Tibia was subluxed anteriorly using the Medacta previously made specific tibial cutting guide tibial osteotomy was performed. The trial tibial plate was then selected and placed in the proper rotation based on preoperative templating. The reamer followed by the punch was utilized and the tibial trial was impacted into place followed by the femoral trial and a size 10 poly knee was taken through range of motion found to be very stable in flexion and extension. Knee was then brought into extension and attention was brought to the patella. Patellar clamp was utilized to cut 10 mm off of the patella the preoperative measurement of the patella was 20. 10 mm osteotomy performed the size 1 clamp was utilized and drilled the patella trial was placed in knee was taken through range of motion found to be very stable patella tracking properly. Once the trial implants were satisfactory they were all removed irrigation of the wound was performed final implants opened on the back table size 3 femur size 3 tibia 10 mm poly and a size 1 patella Final implants were then cemented into place as cement was prepared cement was allowed to harden and excess cement was removed prior to hardening. Once the cement was hardened tourniquet was deflated hemostasis obtained directly with electrocautery irrigation repeated. The capsule was closed with a running STRATAFIX suture followed by 0 Vicryl and 2-0 Vicryl and surgical clips in the skin. Sterile dressing placed from toe to thigh patient waken anesthesia taken recovery stable condition. Condition: stable Disposition: PACU Complications:: None apparent
--- NOTE | 2025-03-07 12:46 | PC.NURSE ---
arrived by bed from surgery at 12:21
[2025-03-07] MEDS: LACTATED RINGERS 1000ML 1,000 ML 75 ML IV (13:30)
[2025-03-07 14:40] LABS: Microscopic,Cath URINE MICROSCOPIC (MICROSCOPIC)
[2025-03-07 14:45] LABS: Appearance,Urine/Cath CLEAR (Clear); Bilirubin,Cath Negative (Negative); Blood, Urine/Cath Negative (Negative); Color,Urine/Cath YELLOW (Yellow); Glucose,Urine/Cath (UA) Negative (Negative); Ketones,Urine/Cath Negative (Negative); Leukocyte Esterase,Cath Negative (Negative); Nitrate,Cath Negative (Negative); PH,Urine/Cath 5.5 (5.0-8.5); Protein,Urine/Cath Negative (Negative); Specific Gravity, Urine/Cath 1.020 (1.005-1.030); Urobilinogen,Cath 0.2 EU/dl (0.2)
[2025-03-07] MEDS: HYDROCODONE/APAP 5/325 MG TABLET 2 TAB PO ×2 (16:44→20:17)
--- NOTE | 2025-03-07 17:34 | PC.NURSE ---
post op total L knee. polar pack in place. complained of pain once and treated with norco per jul. abx given per jul. vss. no needs at this time
[2025-03-07] MEDS: KETOROLAC 15MG/ML VIAL 15 MG IV (20:57)
--- NOTE | 2025-03-07 21:20 | PC.NURSE ---
patient c/o pain increasing and not tolerable post medications per MAR and polar pack - notified Soto and received verbal orders for pain medications, tx per jul. patient also repositioned and shifted hips with draw sheets/placed pillow partially under left hip, but left leg/knee remains straight.
--- NOTE | 2025-03-07 21:43 | PC.NURSE ---
home meds in patient room.
[2025-03-08] MEDS: LACTATED RINGERS 1000ML 1,000 ML 75 ML IV (01:44)
[2025-03-08] MEDS: HYDROCODONE/APAP 5/325 MG TABLET 2 TAB PO ×3 (01:45→15:24)
[2025-03-08 04:00] VITALS: BP 120/58; PULSE 75; RESP 14; TEMP 36.9; O2SAT 92; BMI 35.9
[2025-03-08 06:56] LABS: Hematocrit 40.8 % (37.0-47.0); Hemoglobin 13.1 g/dL (12.2-16.2); Immature Granulocytes % 0.3 %; Mean Corpuscular HGB Conc 32.1 g/dL (31.8-35.4); Mean Corpuscular Hemoglobin 30.4 pg (27.0-31.2); Mean Corpuscular Volume 94.7 fl (81-99); Nucleated Red Blood Cells % 0 %; Platelet Count 144 K/mm3 (142-424); Red Blood Count 4.31 M/mm3 (4.20-5.40); Red Cell Distribution Width-SD 43.3 fL; White Blood Count 7.9 K/mm3 (4.8-10.8)
[2025-03-08 07:01] LABS: Chloride 99 mmol/L (98-107); Potassium 4.0 mmoL/L (3.5-5.1); Sodium 133 mmol/L (136-145)
[2025-03-08 07:04] LABS: Anion Gap 13.0 mEq/L (5-15); Calcium 8.2 mg/dl (8.4-10.2); Carbon Dioxide 25 mmol/L (22.0-30.0); Glucose 129 mg/dl (74-100)
[2025-03-08 08:00] VITALS: BP 149/76; PULSE 80; RESP 16; TEMP 36.6; O2SAT 93
--- NOTE | 2025-03-08 08:31 | EXP.ANES.I ---
[facility] Anesthesia Record Part I Anesthesia Record I Intake, IV Amount: 600 Hydration: Adequate Estimated blood loss (mL): 25 Urine output (mL): 30 Blood Pressure: 106/76 SaO2: 96 Pulse Rate: 68 Airway Patency: Patent Respiratory Rate: 16 Temperature: 97.5 F Patient is:: Awake and Stable Stable to PACU at:: 08:10
[2025-03-08 08:32] VITALS: BP 106/76; PULSE 68; RESP 16; TEMP 36.4; O2SAT 96
--- NOTE | 2025-03-08 09:00 | SW/DCPLANNER ---
Addendum entered by Ayanna Wallace 03/08/25 11:56: [facility] is able to accept patient. Sandra Cosby Addendum entered by Ayanna Wallace 03/08/25 10:06: Faxed patient's information to [facility]. I will update once i hear back from [facility] if they can accept patient or not. Sandra Cosby Original Note: I spoke w/ patient regarding plans once medically stable for discharge. PT evaluated patient and recommended SNF vs home health services. I did explain to patient that SNF level of care would require private pay due to not having qualifying stay. Patient spoke w/ daughter (April) and decided to discharge home w/ daughter and set up home health services. Patient does not have an agency preference. Patient has also requested a rolling walker from [facility]. CM will set up home health services and rolling walker prior to discharge.
--- NOTE | 2025-03-08 09:03 | CARE MANAGER ---
Patient has had a left total knee arthroplasty and will require a rolling walker for adequate support and a bedside commode due to distance to bathroom.
--- NOTE | 2025-03-08 09:27 | EXP.HPDC ---
General Admission date:: 03/07/25 *Admission Date: 03/07/25 *Chief complaint: L knee OA s/p L TKR *History of present illness: Pt seen inthe office for c/o L knee pain, offered L TKR on 03/07/[address] Soto, and was scheduled after R/B/A discussed in office. [facility] Disclaimer: The information contained in this section may have been updated after the patient was seen, as this information can be updated by other users. 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 She was given a sample mask, nasal mask,MATHEW at last appointment. Prescription sent to [facility] for mask, supplies. Surgical History History of esophagogastroduodenoscopy (EGD) History of partial hysterectomy History of cardiac catheterization History of colonoscopy Family History Other Cancer Hypertension Social History Smoking Status: Never smoker second hand exposure: No alcohol intake: never substance use type: denies use current occupational status: retired Travel in the last 8 weeks?: None household members: spouse housing: house current occupational exposures/hazards: No caffeine: Yes Other Medical History Have you received the Flu Vaccine for this season: Yes Have you received the Pneumonia Vaccine: Yes Exam Data for Last 24 hours Vital signs and Labs for Last 24 Hours: Temp Pulse Resp BP Pulse Ox O2 Del Method 97.5 F L 68 16 106/76 L 92 L Room Air 03/08/25 08:32 03/08/25 08:32 03/08/25 08:32 03/08/25 08:32 03/08/25 04:00 03/08/25 08:30 Laboratory Results - last 24 hr 03/07/25 09:00: Urine Color Yellow, Urine Appearance Clear, Urine pH 5.5, Ur Specific [place] 1.020, Urine Protein Negative, Urine Glucose (UA) Negative, Urine Ketones Negative, Urine Blood Negative, Urine Nitrate Negative, Urine Bilirubin Negative, Urine Urobilinogen 0.2, Ur Leukocyte Esterase Negative, Urine RBC None, Urine WBC None, Ur Squamous Epith Cells None, Urine Bacteria None 03/08/25 05:41: WBC 7.9, RBC 4.31, Hgb 13.1, Hct 40.8, MCV 94.7, MCH 30.4, MCHC 32.1, RDW 12.2, Plt Count 144, MPV 10.6 H, Neut % (Auto) 63.1, Lymph % (Auto) 26.3, Thomas % (Auto) 9.3, Eos % (Auto) 0.6, Baso % (Auto) 0.4, Neut # (Auto) 5.0, Lymph # (Auto) 2.1, Thomas # (Auto) 0.7, Eos # (Auto) 0.1, Baso # (Auto) 0.0, Sodium 133 L, Potassium 4.0, Chloride 99, Carbon Dioxide 25, Anion Gap 13.0, Glucose 129 H, Calcium 8.2 L I & O for Last 24 hours: Intake & Output 03/05/25 03/06/25 03/07/25 03/08/25 23:59 23:59 23:59 23:59 Intake Total 4799 / 5279 2080 / 2080 Output Total 1400 / 1400 1000 / 1000 Balance 3399 / 3879 1080 / 1080 Weight 88.632 kg *Routine HEENT Exam Head: Present normocephalic Eye: Present EOMI ENT: Present mucous membranes moist *Routine Respiratory Exam Respiratory: Present normal respiratory effort *Routine Cardiovascular Exam Cardiovascular: Present RRR *Routine Abdominal Exam Abdominal: Present soft *Routine Rectal Exam Rectal:: deferred *Routine Genitalia Exam Genitalia:: deferred Detailed Lower Extremity Exam Comments: Left knee: Dressing C/D/I. THigh and Calf soft and nontender. Neurovascularly intact distally with <2 sec cap refill, SILT 1st DWS/PA and motor intact EHL/FHL/GS/TA. Post op XR from 03/07/25 shows a well seated TKR with good cement mantle and no signs of lucency. Meds Home Medications and Allergies Home Medications ?Medication ?Instructions ?Recorded ?Confirmed ?Type calcium polycarbophil 625 mg 625 mg PO BID 10/27/24 03/07/25 History tablet (FiberCon) omeprazole 40 mg capsule,delayed 40 mg PO DAILY #90 caps 10/27/24 03/07/25 Rx release amitriptyline 10 mg tablet 10 mg PO DAILY 12/22/24 03/07/25 History spironolactone 25 mg tablet 25 mg PO DAILY #30 tabs 02/22/25 03/07/25 Rx venlafaxine 37.5 mg 37.5 mg PO DAILY 03/02/25 03/07/25 History capsule,extended release 24 hr New Prescriptions to Start Prescriptions: Allergies Allergy/AdvReac Type Severity Reaction Status Date / Time No Known Allergies Allergy Verified 03/07/25 08:05 Hospital Course Hospital Course Hospital Course: Pt seen in the office for c/o L knee pain x several years, offered L TKR on 03/07/[address] Soto, and was scheduled after R/B/A discussed in office. She was admitted post-op to the floor, with labs and vitals within normal limits POD#1. She was able to work with PT, with pain well-controlled. Patient is scheduled to be discharged later today to home with services. Results Data Completed and Pending Labs on day of discharge: Labs from last 24 hours 03/08/25 03/07/25 05:41 09:00 WBC 7.9 RBC 4.31 Hgb 13.1 Hct 40.8 MCV 94.7 MCH 30.4 MCHC 32.1 RDW 12.2 Plt Count 144 MPV 10.6 H Neut % (Auto) 63.1 Lymph % (Auto) 26.3 Thomas % (Auto) 9.3 Eos % (Auto) 0.6 Baso % (Auto) 0.4 Neut # (Auto) 5.0 Lymph # (Auto) 2.1 Thomas # (Auto) 0.7 Eos # (Auto) 0.1 Baso # (Auto) 0.0 Sodium 133 L Potassium 4.0 Chloride 99 Carbon Dioxide 25 Anion Gap 13.0 Glucose 129 H Calcium 8.2 L Urine Color Yellow Urine Appearance Clear Urine pH 5.5 Ur Specific [place] 1.020 Urine Protein Negative Urine Glucose (UA) Negative Urine Ketones Negative Urine Blood Negative Urine Nitrate Negative Urine Bilirubin Negative Urine Urobilinogen 0.2 Ur Leukocyte Esterase Negative Urine RBC None Urine WBC None Ur Squamous Epith Cells None Urine Bacteria None DS: Diagnosis Discharge Diagnosis (1) Degenerative joint disease of left knee: Status: Acute Code(s): M17.12 - Unilateral primary osteoarthritis, left knee Problem details: s/p L TKR 03/07/[address] Soto Discharge Plan Disposition Patient Disposition: Home Health Service Condition: Good Discharge Order Discharge Orders: Discharge Order (Routine); Ordered 03/08/25 Ordered By: Char Blevins Follow up Plan Follow up with: Char Blevins PA [Physician Child And Family Counselor, Orthopedics] - 03/20/25 9:00 am Referral Note: Already scheduled with ortho office, please call with any questions or concerns. If you should run out of pain medication, please call the office by at noon the latest for refill request. Bobby Cespedes MD [Primary Care Provider, Medical] - 03/14/25 3:30 pm Prescriptions/Medication Reconciliation: No Action amitriptyline 10 mg tablet 10 mg PO DAILY calcium polycarbophil [FiberCon] 625 mg tablet 625 mg PO BID omeprazole 40 mg capsule,delayed release(DR/EC) 40 mg PO DAILY Qty: 90 3RF venlafaxine 37.5 mg capsule,extended release 24hr 37.5 mg PO DAILY Patient Comments: TAKE 1 CAPSULE BY MOUTH DAILY WITH FOOD spironolactone 25 mg tablet 25 mg PO DAILY Qty: 30 5RF Problem Reconciliation Problems Reviewed?: Yes Patient Discharge Instructions ACTIVITY: Ambulate as tolerated and Up with assistance DIET: advance to your usual diet Additional Instructions: Change dressing POD#2, replace with DSD, emerita wrap, then daily or more often as needed for drainage. May stop after 24 hours of no drainage seen on dressing. Patient Instructions: Knee Replacement, DI for Knee Replacement, DI for Surgical Site Infection, Catheter-Associated Urinary Tract Infection Print Language: Khmer Providers Primary Care Provider: Bobby Cespeeds Admit Provider: Hernandez Soto Attending Provider: Hernandez Soto
--- NOTE | 2025-03-08 09:50 | HMH.OTEV ---
OT Evaluation Rehab OT IP Evaluation Start: 03/07/25 11:51 Freq: ONCE Status: Active Protocol: Document 03/08/25 09:41 [facility] (Rec: 03/08/25 09:50 [facility] [id number]) Rehab OT IP Assessment Subjective History Pt oriented x 3 on arrival. Pt agreeable to engage in therapy evaluation. Pt admitted on 03/07/25 following a Left total knee arthroplasty. Prior to being in the hospital, pt lived at home alone. Normally patient is independent with all ADLs and IADLs. She does not require any type of AE during functional transfers. Pt also still drove. She plans to go home with her daughter temporarily following discharge from hospital for added assistance. Pt also would require a bsc and rolling walker prior to discharge from hospital. Pt's plan is to begin outpatient therapy services following discharge. Subjective I am in a lot of pain. Pt resting in chair on arrival. Pt had recently completed functional transfer of ~25 feet with rolling walker and cga with physical therapist. Therapist instructed patient on sit to stand from chair with min assist. Re-education provided to utilize chair arms to push self up into standing. Pt able to stand for ~3 minutes with rolling walker and complete weight shifting from side to side in order to bear weight through L lower extremity. Pt able to sit back down in chair with cga. Pt was left with call rudolph and all other needs in reach. Objective Patient Orientation Person,Place,Birthday Right Upper WFL Extremity Gross ROM Left Upper Extremity WFL Gross ROM Transfer Training Sit/Stand Transfer Assist Level Contact Guard/Hand Hold Rehab OT IP prob,goals,plan Problems Date of Evaluation: 03/08/25 OT IP Problems Bed Mobility,Transfers,Balance,Self care,Safety Rehab Potential Rehab Potential Good Equipment Needs Assistive Devices Rolling / Wheeled Walker Plan OT intervention Plan Bed Mobility,Transfers,Balance,Self care,Safety, Therapeutic Exercise OT Plan Frequency Daily Duration LOS Discharge Goals Bed Mobility Ability Standby Assistance Sit to Stand Chair Supervision/Stand by Transfer Ability Chair Transfer Supervision/Stand by Ability Chair Transfer Sit to/from Ambulatory Technique Chair Transfer Rolling Walker Assistive Devices Lower Body Dressing Minimal Assistance Ability Upper Body Dressing Contact Guard Ability Performing Toilet Minimal Assistance Hygiene Ability Overall Commode/ Contact Guard Toilet Transfer Ability Commode/Toilet Sit to/from Ambulatory Transfer Technique Discharge Plan OT Discharge Plan Pt will continue to be seen for OT services while at [facility]. Pt can return home with family assistance as needed once she is medically stable per physician. Therapist recommends either outpatient PT services or HH evaluation after discharge for continued skilled therapy services. Continued skilled therapy is important in order for patient to improve strength, safety, endurance, ADL independence, and functional transfers to reach PLOF. Eval Complexity Eval Charge Codes 83635 - Moderate Complexity PHYSICIAN CERTIFICATION: I certify the specified therapy services for Antonette Sim are required, authorized, and reviewed every 30 days.
--- NOTE | 2025-03-08 10:02 | HMH.PTEV ---
Physical Therapy Evaluation Rehab PT IP Evaluation Start: 03/07/25 11:51 Freq: ONCE Status: Active Protocol: Document 03/08/25 09:50 [facility] (Rec: 03/08/25 10:01 [facility] [id number]) Subjective/History History History Pt is a 74 y/o female who presents s/p L TKA 03/07/25. Subjective Subjective Pt reports she was IND with all mobility prior to L TKA . Pt reports she will be returning home with her grandchildren who attend school during the day. Pt reports she has 2 MONE home and 1 MONE kitchen. Pt does not yet own a RW, BSC, or shower chair. Pt reports concern for returning home alone and inquires about rehab placement. [facility] How much help from another person do you currently need... Turning from your A little back to your side while in a flat bed without using bedrails? Moving from lying on A little back to sitting on the side of a flat bed without using bedrails? Moving to and from a A little bed to a chair ( including a wheelchair)? Standing up from a A little chair using your arms? (e.g., wheelchair, bedside chair) Walking in hospital A little room? Climbing 3-5 steps A little with a railing? Mobility Score 18 Mobility Level [facility] Mobility 6 Walk 10 steps or more Mobility Calculator Rehab PT IP Eval Objective Appearance Patient Behavior Appropriate,Cooperative Patient Orientation Person,Place Difficulty following none instructions Speech Pattern Clear Ambulation Patient Able to Yes Ambulate Ambulation Observation IP General Gait Antalgic Gait Pattern Observation Ambulation Distance 25 (feet) Ambulation Assistive Rolling Walker Device Ambulation Ability Contact Guard/Hand Hold Balance Ability to Arise Able, uses arms to help Sitting Balance Steady, safe Standing Balance Steady, wide stance Dynamic Sitting Good Balance Ability Dynamic Standing Fair Balance Ability Transfers Bed Transfer Ability Supervision/Stand by Chair Transfer Supervision/Stand by Ability Sit to Stand Bed Supervision/Stand by Transfer Ability Rehab PT IP prob,goals,plan Problems Date of Evaluation: 03/08/25 PT IP Problems Transfers,Gait,Balance,Safety Rehab Potential Rehab Potential Good Plan PT Intervention Plan Transfers,Gait,Balance,Safety,Therapeutic Exercise Other Intervention 1-2 times Plan PT Plan Frequency Daily Duration LOS Discharge Goals Bed Transfer Ability Independent Sit to Stand Chair Independent Transfer Ability Ambulation Assistive Rolling Walker Device Ambulation Distance 50 (feet) Discharge Plan PT Discharge Plan Pt presents below baseline in gait and functional mobility. Pt most appropriate to return home with assistance as needed by family. Pt may benefit from rehab placement if she does not have the family support upon d/c. PT recommending HH or OP PT services to address deficits. PT provided pt with educational handout with HEP attached. Pt verbalized understanding to all educational topics. Eval Complexity Eval Charge Codes 60907 - Moderate Complexity PHYSICIAN CERTIFICATION: I certify the specified therapy services for Antonette Sim are required, authorized, and reviewed every 30 days.
[2025-03-08 12:16] LABS: Blood Urea Nitrogen 17 mg/dl (7-17); Creatinine Clearance Estimated 71 mL/min (50-200); Creatinine,Serum 0.90 mg/dl (0.52-1.04); Estimated Glomerular Filt Rate 62 ml/min (>60); GFR (African American) 74 ML/MIN (>60)
--- NOTE | 2025-03-09 10:16 | SW/DCPLANNER ---
Spoke with patient on the phone. Patient stated that she had a rough night. Patient stated that she is aware of her upcoming appointments. Patient stated that she was able to get her new medicine picked up from clinic pharmacy. Patient stated that she has no concerns or questions at this time. Sandra Cosby
--- NOTE | 2025-03-10 16:42 | P.PNANES_ITS ---
[facility] Anesthesia Record Part II Anesthesia Record Part II Discharge Time: 12:20 Destination: Medical Surgical Department PACU nurse assessment reviewed?: Yes Patient Condition:: Good Anesthesia Complications:: None Swallowing reflex intact?: Yes Airway Patency: Patent Cyanosis?: No Blood Pressure: 125/60 SaO2: 98 Respiratory Rate: 16 Pulse Rate: 68 Temperature: 98.1 F Mental Status: Alert & Oriented Pain level:: 0 Nausea and/or vomitting:: None Intake, IV Amount: 0 Hydration: Adequate
[2025-03-10 16:44] VITALS: BP 125/60; PULSE 68; RESP 16; TEMP 36.7; O2SAT 98
== END 2025-03-08 15:52 | disposition home health service (06) ==
LOC: 2ND 06:59
PROVIDERS: Admitting Provider Orthopaedic Surgery; PCP Family Medicine; Visit Provider Orthopaedic Surgery
PROC: (CPT 27447; principal; 2025-03-07 08:00)
DX: M17.12 Unilateral primary osteoarthritis, left knee (principal); I11.0 Hypertensive heart disease with heart failure; I50.30 Unspecified diastolic (congestive) heart failure; G47.33 Obstructive sleep apnea (adult) (pediatric); Z99.89 Dependence on other enabling machines and devices; Z96.652 Presence of left artificial knee joint
CPT/HCPCS: 27447; 51702; 73560; 80048; 81001; 85025; 96361; 96365; 96374; 96375; 96376; 97162; 97166; C1776; G0378; J0690; J1885; J2003; J2250; J2704; J3010; J7050; J7120

== ENCOUNTER 2025-03-20 08:50 | Outpatient (CLI) | payer MEDICARE, SELFPAY ==
--- OUTSIDE RECORDS SUMMARY | 2023-12-14 05:45 | XMS_ITS ---
Author Organization [facility] Address [address] [facility] [address] [place] [id number] Care Team Providers Care Javascript Software Engineer Name Role Phone Joaquin Cespedes Primary Care Provider Liam Cabelloian Unavailable [phone] Carmela Carreno Unavailable [phone] Allergies Allergen (clinical drug ingredient) Drug/Non Drug Allergy documented on EMR Reaction Allergy Type Onset Date Status amoxicillin / clavulanate Augmentin GI Drug Allergy Active ibuprofen Ibuprofen GI upset Drug Allergy Active Dye, Yellow Unknown Drug Allergy Activ e Iodinated contrast media (substance) Iodinated Contrast Media Unknown Drug Allergy Active metformin metFORMIN leg pain Drug Allergy Active Results Component Value Reference Range Notes P-Comprehensive Metabolic Pa jose (CMP) Reviewed date:12/21/2023 09:01:06 AM Interpretation:gluc 130 Performing Lab: Notes/Report: Test performed by [facility], [place] [address] [place] [address] , [address], [place] [address] Jeremy Crespo MD, Tests Superintendent CLIA: [id number] Sodium 144 135-145 mmol/L Potassium 3.8 3.5-5.3 mmol/L Chloride 103 97-108 mmol/L CO2 31 22-32 mmol/L Glucose 130 65-99 mg/dL BUN 17 8-23 mg/dL Creatinine 0.83 0.50-1.00 mg/dL Calcium 9.3 8.6-10.4 mg/dL eGFR by Creatinine 75 >59 mL/min/1.73m2 Protein 6.0 6.0-8.3 g/dL Albumin 4.0 3.5-5.3 g/dL Alkaline Phosphatase 75 35-121 IU/L ALT (SGPT) 18 <5-47 IU/L AST (SGOT) 19 <5-40 IU/L Bilirubin, Total 0.4 <0.2-1.2 mg/dL A/G Ratio 2.0 1.1-2.5 mg/dL P-TSH Reviewed date:12/21/2023 09:01:34 AM Interpretation:3.49 Performing Lab: Notes/Report: Test performed by [facility] [address] , [address], [place] [address] Jeremy Crespo MD, Tests Superintendent CLIA: [id number] TSH 3.49 0.43-5.25 mU/L REASON FOR VISIT blood sugar issues Medications Medication SIG (Take, Route, Frequency, Duration) Notes Start Date End Date Status Venlafaxine HCl ER 37.5 MG 1 tablet with food Orally Once a day; Duration: 90 days 10/08/2023 Active Triamterene-HCTZ 75-50 MG 1 tab(s) orall y once a day; Duration: 90 days Active Gabapentin 300 MG 1 capsule Orally at night; Duration: 30 day(s) 05/04/2023 Not-Taking Venlafaxine HCl ER 75 MG 1 tablet with f ood Orally Once a day; Duration: 90 days Not-Taking Synthroid 50 MCG 1 tab(s) orally once a day Not-Taking Omeprazole 40 MG 1 cap(s) orally once a day; Duration: 90 days Not-Takin g FreeStyle Marcelina 3 Plus Sensor - take qid qid 12/14/2023 Active Ondansetron 4 MG 1 tablet on the tong ue and allow to dissolve Orally every 8 hours prn 09/08/2023 Not-Taking Fluticasone Propionate 50 MCG/ACT 1 spray(s) intranasally once a day 05/21/2021 Not-Taking Cyclobenzaprine HCl 5 MG 1 tab(s) Orally three times a day as needed 02/23/2023 Not-Taking Gabapentin 100 MG 1 capsule Orally Onc e a day in the AM; Duration: 30 day(s) 05/04/2023 Not-Taking Vital Signs Blood pressure systolic 120 mm Hg 12/14/19 24 Blood pressure diastolic 80 mm Hg 024 Heart Rate 57 /min 12/14/2023 Height 62 in 12/14/2023 Weight 161.4 lbs 12/14/2023 BMI 29.52 kg/m2 12/14/2023 Encounters Encounter Location Date Provider Diagnosis [facility] [address] [facility] [address] [place] [phone] 12/14/2023 Carmela Carreno Type 2 diabetes mellitus without complication, without long-term current use of insulin E11.9 ; Essential hypertension I10 ; Depression with anxiety F41.8 and Hypothyroidism, unspecified E03.9 Assessments Encounter Date Diagnosis (ICD Code) Assessment Notes Treatment Notes Treatment Clinical Notes Section Notes 12/14/2023 Type 2 diabetes mellitus without complication, without long-term current use of insulin (ICD-10 - E11.9) reinforced diet; referred to [facility] on line; will try for another CGM; will not restart PO med due to A1C at 6.1; will recheck A1C in 3 months 12/14/2023 Essential hypertension (ICD-10 - I10) 12/14/2023 Depression with anxiety (ICD-10 - F41.8) 12/14/2023 Hypothyroidism, unspecified (ICD-10 - E03.9) Will recheck TSh since she has not taken Synthroid for several months 12/14/2023 Other with weight loss she has done well without some meds; she followed by Dr. Castillo for her GI issues Plan Of Treatment Medication Medication Name Sig Start Date Stop Date Notes Venlafaxine HCl ER 37.5 MG 1 tablet with food Orally Once a day; Duration: 90 days 10/08/2023 Triamterene-HCTZ 75-50 MG 1 tab(s) orall y once a day; Duration: 90 days FreeStyle Marcelina 3 Plus Sensor - take qid qid 12/14/2023 Farxiga 10 MG 1 tablet Orally Once a day Januvia 50 MG 1 tablet Orally Once a day 08/13/2023 Treatment Notes Assessment Notes Type 2 diabetes mellitus wit hout complication, without long-term current use of insulin reinforced diet; referred to [facility] on line; will try for another CGM; will not restart PO med due to A1C at 6.1; will recheck A1C in 3 months Hypothyroidism, unspecified Will recheck TSh since she has not taken Synthroid for several months Other with weight loss she has done well without some meds; she followed by Dr. Castillo for her GI issues Next Appt Details Follow Up: 3 Months,and prn, Reason: Provider Name:Maria Fernanda hunter, 04/14/2025 11:15:00 AM, [address], [address], [place], [place], [phone], Progress Notes * GUICHO BURKS CDOB: 3 (74 yo F)Acc No.[id number]:12/14/2023 Progress Notes Patient: GUICHO HUNTER Provider: ÓSCAR Lopez :1950 A ge:73 Y S ex:Female Date:12/14/2023 Address:[facility] [place], [id number] Pcp:Joaquin Cespedes Subjective: * Chief Complaints: * 1 . Blood sugar issues. * HPI: E ndocrinology: The pt is here for a check up on Diabetes. Pt states she has been out of her medications for 2-3 months. Pt is fasting. Blood sugars are consistently lower; she has decrased her carbs and sugars; she is very active with working FT and caring for grandchildren during her off days. * ROS: D ERMATOLOGY: no R dianne. n o H javier. G ASTROENTEROLOGY: Positive for t o have EGD and colonoscopy per DR Castillo for abn polyp; has had problems with abdominal pain and bloating. n o N ausea. H eartburn?improved. n o V omiting. A bdominal pain y es. n o D iarrhea. U ROLOGY: no D ifficulty urinating. n o B lood in urine. * Medical History: I rritable bowel syndrome, Hypothyroidism, Depression, H/o pancreatitis, Type 2 DM. * Surgical History: c -section , supracervical hysterectomy and bilateral oophorectomy , upper GI , colonoscopy 2003, left knee surgery repaired meniscus 03/2005, rt wrist surgery , rt wrist surgery 01/05. * Hospitalization/Major Diagno stic Procedure: p ancreatitis 2003, Sleep Study Apr 2019. * Family History: F ather: , throat cancer. M other: , lung cancer, diagnosed with Hypertension. S iblings: cancer. 1 sister(s) . 1 son(s) , 1 daughter(s) - healthy. . Sister wit lung cancer. * Social History: C URRENT TOBACCO USE S moking Status: Patient does NOT smoke. C affeine: yes, frequency:. Marital Status: . Past smoking status: no. Alcohol: Type: , Frequency: ,Years: , Determination:. * Medications: T aking Triamterene-HCTZ 75-50 MG Tablet 1 tab(s) orally once a day , Taking Venlafaxine HCl ER 37.5 MG Tablet Extended Release 24 Hour 1 tablet with food Orally Once a day , Not-Taking Gabapentin 300 MG Capsule 1 capsule Orally at night , Not-Taking Gabapentin 100 MG Capsule 1 capsule Orally Once a day in the AM , Not-Taking Fluticasone Propionate 50 MCG/ACT Suspension 1 spray(s) intranasally once a day , Not-Taking Cyclobenzaprine HCl 5 MG Tablet 1 tab(s) Orally three times a day as needed , Not-Taking Synthroid 50 MCG Tablet 1 tab(s) orally once a day , Not-Taking Omeprazole 40 MG Capsule Delayed Release 1 cap(s) orally once a day , Not-Taking Venlafaxine HCl ER 75 MG Tablet Extended Release 24 Hour 1 tablet with food Orally Once a day , Not-Taking Farxiga 10 MG Tablet 1 tablet Orally Once a day , Not-Taking Januvia 50 MG Tablet 1 tablet Orally Once a day , Not-Taking Ondansetron 4 MG Tablet Disintegrating 1 tablet on the tongue and allow to dissolve Orally every 8 hours prn , Discontinued FreeStyle Marcelina 3 Sensor - Miscellaneous as directed , Discontinued Meclizine HCl 25 MG Tablet 1 tablet Orally three times a day as needed , Medication List reviewed and reconciled with the patient * Allergies: D ye, Yellow, Iodinated Contrast Media, Ibuprofen: GI upset, Augmentin: GI, metFORMIN: leg pain. Objective: * Vitals: W t:161.4, Temp:98.0, BP:120/80, HR:57, Nurse:ZAC, Ht: 62, BMI:29.52. * Examination: G eneral Examination: General Appearance: NAD, appears healthy, alert, pleasant, well nourished and hydrated. H eart: RRR. L ungs: CTAB A&P. N eurologic Exam: alert and oriented. E xtremities: no leg edema. Assessment: * Assessment: 1. T ype 2 diabetes mellitus without complication, without long-term current use of insulin - E11.9 (Primary) 2 . E ssential hypertension - I10 3 . D epression with anxiety - F41.8 4 . H ypothyroidism, unspecified - E03.9 ? Plan: * Treatment: 2. E ssential hypertension Refill Triamterene-HCTZ Tablet, 75-50 MG, 1 tab(s), orally, once a day, 90 days, 90 Tablet, Refills 1. L AB: P-Comprehensive Metabolic Panel (CMP) (Collection Date & Time - 12/14/2023 08:30 AM) g kathleen 130 Value Reference Range A /G Ratio 2.0 1.1-2.5 - mg/dL * A lbumin 4.0 3.5-5.3 - g/dL * A lkaline Phosphatase 75 35-121 - IU/L * A LT (SGPT) 18 <5-47 - IU/L * A ST (SGOT) 19 <5-40 - IU/L * B ilirubin, Total 0.4 <0.2-1.2 - mg/dL * B UN 17 8-23 - mg/dL * C alcium 9.3 8.6-10.4 - mg/dL * C hloride 103 97-108 - mmol/L * C O2 31 22-32 - mmol/L * C reatinine 0.83 0.50-1.00 - mg/dL * G lucose 130 H 65-99 - mg/dL * P otassium 3.8 3.5-5.3 - mmol/L * S odium 144 135-145 - mmol/L * P rotein 6.0 6.0-8.3 - g/dL * e GFR by Creatinine 75 >59 - mL/min/1.73m2 * Carmela Carreno 12/21/2023 9:00:58 AM > , See encounter note 3.?Depression with anxiety? Refill Venlafaxine HCl ER Tablet Extended Release 24 Hour, 37.5 MG, 1 tablet with food, Orally, Once a day, 90 days, 90 Tablet, Refills 1.?? 4.?Hypothyroidism, unspecified?LAB: P-TSH (Collection Date & Time - 12/14/2023 08:30 AM)?3.49* Value Reference Range T SH 3.49 0.43-5.25 - mU/L * Carmela Carreno 12/15/2023 11:51:33 AM > , no answer when telephonedHYanni raiharine 12/21/2023 8:46:56 AM > , See encounter note Notes: Will recheck TSh since she has not taken Synthroid for several months?? 5.?Others? Notes: with weight loss she has done well without some meds; she followed by Dr. Castillo for her GI issues?? * Follow Up: 3 Months,and prn * Images: Billing Information: * Visit Code: 54629 Office Visit, Est Pt., Level 4. * Procedure Codes: * Electronic signature of Phylicia Carreno APRN on 03/20/2025 at 09:08 AM EDT Sign off status: Pending * Provider: ÓSCAR Lopez Date: 0 12/14/2023 Generated for Chasity leal/Naeem/Gilda on: 1 09:08 AM EDT History and Physical Notes * HPI (History of Present Illness) Category Sub-Category Detail Notes Category Not es Endocrinology Blood sugars a re consistently lower; she has decrased her carbs and sugars; she is very active with working FT and caring for grandchildren during her off days Examination Category Sub-Category Detail Notes Category Not es General Examination Heart: RRR Lungs: CTAB A&P Extremities: no leg edema General Appearance: NAD, appears healthy , alert, pleasant, well nourished and hydrated Neurologic Exam: alert and oriented
--- OUTSIDE RECORDS SUMMARY | 2024-01-22 06:00 | XMS_ITS ---
[facility] Address [address] [facility] [address] [place] [id number] Care Team Providers Care Delivery Driver/Supervisor Name Role Phone Joaquin Cespedes Primary Care Provider [phone] Teo Cabello Unavailable [phone] Allergies Allergen (clinical drug ingredient) Drug/Non Drug [...] Duration) Notes Start Date End Date Status FreeContent Raven Marcelina 3 Plus Sensor - take qid [...] Duration: 30 day(s) 12/21/2023 Active Vital Signs Blood pressure systolic 114 mm Hg 01/22/20 24 Blood pressure diastolic 78 mm Hg 024 Heart Rate 74 /min 01/22/2024 Height 62 in 01/22/2024 Weight 162 lbs 01/22/2024 BMI 29.63 kg/m2 01/22/2024 Encounters Encounter Location Date Provider Diagnosis [facility] [address] [facility] [address] [facility] [address] [place] [phone] 01/22/2024 Teo Cabello Left-sided low back pain with left-sided sciatica, [...] of tolerance and drug dependence. Refer to [facility] Controlled Substance Agreement. Plan Of Treatment Medication [...] of tolerance and drug dependence. Refer to [facility] Controlled Substance Agreement. Next Appt Details Follow Up: via phone to repo rt progress, Reason: Provider Name:Maria Fernanda hunter, 04/14/2025 11:15:00 AM, [address] [facility] [address] [facility], [address], [place], [phone], Progress Notes * GUICHO BURKS CDOB: 3 (74 yo F)Acc No.[id number]:01/22/2024 Progress Notes Patient: VERNA HUNTERLEONOR Cheney Provider: Ken Cabello M.D. :1950 A ge:73 Y S ex:Female Date:01/22/2024 Address:[facility] [place] [id number] Pcp:Joaquin Cespedes Subjective: * Chief Complaints: * [...] of tolerance and drug dependence. Refer to [facility] Controlled Substance Agreement.?? * Procedure Codes: G 2211 Complex e/m visit add on * Follow Up: v ia phone to report progress * Images: Billing Information: * Visit Code: 79140 Office Visit, Est Pt., Level 3. * Procedure Codes: G2211 Complex e/m visit add on. * Electronic signature of Lizeth Cabello MD on 03/20/2025 at 09:08 AM EDT Sign off status: Pending * Provider: Ken Cabello M.D. Date: 0 01/22/2024 Generated for Chasity leal/Naeem/Sunnyitting on: 1 09:08 AM EDT History and [...]
--- OUTSIDE RECORDS SUMMARY | 2024-02-05 10:10 | XMS_ITS ---
Author Organization [facility] Address [address] [facility] [address] [place] [id number] Care Team Providers Care Barrel Cleaner Name Role Phone Joaquin Cespedes Primary Care Provider DestineyTeo Unavailable [phone] Jack Genaoa Unavailable [phone] Allergies Allergen (clinical drug ingredient) Drug/Non Drug [...] 55 Performing Lab: Notes/Report: Test performed by [facility] , [address], [place] [address] Jeremy Crespo MD, Shooting Gallery Operator CLIA: [id number] Sodium 141 135-145 mmol/L Potassium 3.8 3.5-5.3 [...] pain, unsp ecified chronicity (M25.562) [facility] Referring Provider First Name Maria Fernanda Referring Provider Last Name Chadwick Referring Provider Speciality Physician Shingle Weaver Referred Provider Orthopedics, . Referred Provider Specialty Orthopedic S urgery General Notes Maria Fernanda Genao 2023 10:19:17 [...] Lidocaine & Adhesive Sheet Active Vital Signs Blood pressure systolic 120 mm Hg 02/05/20 24 Blood pressure diastolic 68 mm Hg 024 Heart Rate 69 /min 02/05/2024 Height 62 in 02/05/2024 Weight 158.6 lbs 02/05/2024 BMI 29.01 kg/m2 02/05/2024 Encounters Encounter Location Date Provider Diagnosis [facility] [address] [facility] [address] [facility] [address] [place] [phone] 02/05/2024 Maria Fernanda Genao Left hip pain [...] phone to repo rt test results, Reason: Provider Name:Maria Fernanda Pandey y, 04/14/2025 11:15:00 AM, [address] [facility], [address], [place], [id number], Progress Notes * GUICHO BURKS CDOB: (74 yo F)Acc No.[id number]:02/05/2024 Progress Notes Patient: GUICHO HUNTER Shravan Provider: GENIE Madrigal :1950 A ge:73 Y S ex:Female Date:02/05/2024 Address:[address] [place] [address], [place], [id number] Pcp:Joaquin Cespedes Subjective: * Chief Complaints: * [...] Procedure Codes: 3 6416 CAPILLARY BLOOD DRAW, 00837 GLYCATED HEMOGLOBIN TEST, Modifiers: QW * Follow Up: v ia phone to report test results * Images: Billing Information: * Visit Code: 26423 Office Visit, Est Pt., Level 3. * Procedure Codes: 11399 CAPILLARY BLOOD DRAW. 29954 GLYCATED HEMOGLOBIN TEST. Modifiers: QW * Electronic signature of GENIE Marcus on 03/20/2025 at 09:07 AM EDT Sign off status: Pending * Provider: GENIE Madrigal Date: 0 02/05/2024 Generated for Chasity leal/Fajovany/eTransmitting on: 1 09:07 AM EDT History and Physical Notes * [...]
--- OUTSIDE RECORDS SUMMARY | 2024-03-14 07:30 | XMS_ITS ---
Author Organization [facility] Address [address] [facility] [address] [facility] [address] [place] [phone] Care Team Providers Care Food Preparation Supervisor Name Role Phone Joaquin Cespedes Primary Care Provider [phone] Teo Cabello Unavailable [phone] Carmela Carreno Unavailable [phone] Allergies Allergen (clinical drug ingredient) Drug/Non Drug [...] Encounter Location Date Provider Diagnosis [facility] [address] [facility] [address] [facility] [address] [place] [phone] 03/14/2024 Carmela Carreno Plan Of Treatment Next Appt Details Provider Name:Maria Fernanda Pandey y, 04/14/2025 11:15:00 AM, [address] [facility], [address], [place], [phone], Progress Notes * GUICHO BURKS CDOB: (74 yo F)Acc No.[id number]:03/14/2024 Progress Notes Patient: VERNA HUNTERLIE Shravan Provider: ÓSCAR Lopez :1950 A ge:73 Y S ex:Female Date:03/14/2024 Address:[address] [place], [id number] Pcp:Joaquin Cespedes Subjective: * Chief Complaints: * [...] of Phylicia Carreno APRN on 03/20/2025 at 09:07 AM EDT Sign off status: Pending * Provider: ÓSCAR Lopez Date: Generated for Chasity leal/Naeem/eTblas on: 09:07 AM EDT History and Physical Notes * HPI (History of Present Illness) Category Sub-Category Detail Notes Category Not es HPI Patient is here today for Pt is here today for a 3 month check up
--- OUTSIDE RECORDS SUMMARY | 2024-03-23 07:00 | XMS_ITS ---
[facility] Address [address] [place] [phone] Care Team Providers Care Dice Dealer Name Role Phone Joaquin Cespedes Primary Care Provider Teo Cabello Unavailable [phone] Allergies Allergen (clinical drug ingredient) Drug/Non Drug Allergy documented on EMR Reaction Allergy Type Onset Date Status amoxicillin / clavulanate Augmentin GI Drug Allergy Active ibuprofen Ibuprofen GI upset Drug Allergy Active Dye, Yellow Unknown Drug Allergy Activ e Iodinated contrast media (substance) Iodinated Contrast Media Unknown Drug Allergy Active metformin metFORMIN leg pain Drug Allergy Active Reason For Referral Reason [facility], no MD preferenc e 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 Referred Provider Specialty ENT General Notes Rosa Elena Thapa 024 11:38:08 AM > faxed to [facility] ENT Referral Priority Routine REASON FOR [...] Signs Blood pressure systolic 120 mm Hg 03/23/20 24 Blood pressure diastolic 72 mm Hg 024 Heart Rate 75 /min 03/23/2024 Height 62 in 03/23/2024 Weight 156.6 lbs 03/23/2024 BMI 28.64 kg/m2 03/23/2024 Encounters Encounter Location Date Provider Diagnosis [facility] [address] [facility] [address] [facility] [address] [place] [phone] 03/23/2024 Teo Cabello Neoplasm of external ear [...] Disorder of neck heating pad to affec dashawn areas 2 to 3 times a day, Home exercise program provided to patient Referrals Referral Date Details 03/23/2024 03/23/2024, [facility], no MD preference, . ENT Next Appt Details Follow Up: via phone to repo rt progress, Reason: Provider Name:Maria Fernanda hunter, 04/14/2025 11:15:00 AM, [address] [facility], [address], [place], [phone], Progress Notes * GUICHO BURKS CDOB: 3 (74 yo F)Acc No.[id number]:03/23/2024 Progress Notes Patient: GUICHO HUNTER Provider: Ken Cabello M.D. :1950 A ge:73 Y S ex:Female Date:03/23/2024 Address:[facility] [address], [id number] Pcp:Joaquin Cespedes Subjective: * Chief Complaints: * [...] * Images: Billing Information: * Visit Code: 63889 Office Visit, Est Pt., Level 4. * Procedure Codes: * Electronic signature of Lizeth Cabello MD on 03/20/2025 at 09:07 AM EDT Sign off status: Pending * Provider: Ken Cabello M.D. Date: Generated for Chasity leal/Naeem/Sunnyitting on: 09:07 AM EDT History and Physical [...] Not es 03/23/2024 Teo Cabello ENT, . [facility], no MD p reference
--- OUTSIDE RECORDS SUMMARY | 2024-04-01 06:40 | XMS_ITS ---
Author Organization [facility] Address [address] [facility] [address] [place] [id number] Care Team Providers Care Nuclear Reactor Operator Name Role Phone Joaquin Cespedes Primary Care Provider Liam Cabelloian Unavailable [phone] Maria Fernanda Genao Unavailable [phone] Allergies Allergen (clinical drug ingredient) Drug/Non Drug [...] Encounter Location Date Provider Diagnosis [facility] [address] [facility] [address] [facility] [address] [place], [place] [phone] 04/01/2024 Maria Fernanda Genao Infected tick bite, [...] Details Follow Up: prn, Reason: Provider Name:Maria Fernandamallory Pandey y, 04/14/2025 11:15:00 AM, [address] [facility] [address] [facility], [address], [place], [place], [id number], Progress Notes * GUICHO BURKS CDOB: 3 (74 yo F)Acc No.[id number]:04/01/2024 Progress Notes Patient: GUICHO HUNTER Provider: GENIE Madrigal :1950 A ge:73 Y S ex:Female Date:04/01/2024 Address:[facility] [place] Pcp:Joaquin Cespedes Subjective: * Chief Complaints: * [...] * Images: Billing Information: * Visit Code: 34316 Office Visit, Est Pt., Level 3. * Procedure Codes: 58684 PULSE OX. * Electronic signature of GENIE Marcus on 03/20/2025 at 09:06 AM EDT Sign off status: Pending * Provider: GENIE Madrigal Date: 06/01/2023 Generated for Chasity leal/Naeem/eTransmitting on: 09:06 AM EDT History and Physical Notes * [...]
--- OUTSIDE RECORDS SUMMARY | 2024-04-16 07:15 | XMS_ITS ---
Author Organization [facility] Address [facility] [facility] [address] [facility] [address] [place] [phone] Care Team Providers Care Data Modeling Specialist Name Role Phone Joaquin Cespedes Primary Care Provider Teo Cabello [phone] Allergies Allergen (clinical drug ingredient) Drug/Non Drug [...] Encounter Location Date Provider Diagnosis [facility] [address] [facility] [address] [place] [phone] 04/16/2024 Teo Cabello Plan Of Treatment Next Appt Details Provider Name:Maria Fernanda hunter, 04/14/2025 11:15:00 AM, [address] [facility] [address] [facility], [address], [place], [phone], Progress Notes * GUICHO BURKS CDOB: 3 [...] Date: 06/16/2023 Generated for Chasity leal/Naeem/Gilda on: 09:07 AM EDT History and Physical Notes * HPI (History of Present Illness) Category Sub-Category Detail Notes Category Not es Endocrinology Recent Blood Sugars
--- OUTSIDE RECORDS SUMMARY | 2024-09-01 10:00 | XMS_ITS ---
Author Organization [facility] Address [address] [facility] [address] [place] [id number] Care Team Providers Care Buttermilk Drier Operator Name Role Phone Joaquin Cespedes Primary Care Provider [phone] Teo Cabello Unavailable [phone] AquilinoMaria Fernanda oliver Unavailable [phone] Allergies Allergen (clinical drug ingredient) Drug/Non Drug [...] 119 Performing Lab: Notes/Report: Test performed by [employer], [facility]0 [facility] , [address], [place] [address] Jeremy Crespo MD, Email Campaign Manager CLIA: [id number] Sodium 140 135-145 mmol/L Potassium 4.1 3.5-5.3 [...] Interpretation:Normal Performing Lab: Notes/Report: Test performed by [employer] [address] [place] [address] , [address], [place] [address] Jeremy Crespo MD, Email Campaign Manager CLIA: [id number] Thyroxine Free (free T4) 1.40 0.86-1.76 ng/dL P-Hemoglobin A1C Reviewed date:09/08/2024 02:22:22 PM Interpretation:6.8 Performing Lab: Notes/Report: Test performed by [employer] [address] [place] [address] , [address], [place] [address] Jeremy Crespo MD, Email Campaign Manager CLIA: [id number] Hemoglobin A1C 6.8 <5.7 % The following HbA1c ranges recommended by the [place] Diabetes [employer] (ADA) may be used as an aid in the diagnosis of diabetes mellitus. HbA1c Suggested Diagnosis >=6.5% Diabetic 5.7% - 6.4% Pre-Diabetic <5.7% Non-Diabetic P-Lipid Panel Reviewed date:09/08/2024 02:22:22 PM Interpretation:Chol 253, Non-HDL 194, LDL Chol 165 Performing Lab: Notes/Report: Test performed by [employer] [address] [place] [address] , [address], [place] [address] Jreemy Crespo MD, Email Campaign Manager CLIA: [id number] Cholesterol 253 <200 mg/dL Triglycerides 143 <150 [...] Interpretation:Normal Performing Lab: Notes/Report: Test performed by [employer], [address] , [facility], [place] [address] Jeremy Crespo MD, Email Campaign Manager CLIA: [id number] TSH 3.44 0.43-5.25 mU/L P-Vitamin D 25-Hydroxy Reviewed date:09/08/2024 02:22:22 PM Interpretation:22 Performing Lab: Notes/Report: Test performed by [employer], [address] , [address], [place] [address] Jeremy Crespo MD, Email Campaign Manager CLIA: [id number] Vitamin D 25-Hydroxy 22.0 30.0-100.0 ng/mL Interpretation of Vitamin D 25 OH: < 20 ng/mL - Deficiency 20 - 29 ng/mL - Insufficiency 30 - 100 ng/mL - Sufficiency > 100 ng/mL - Super-therapeutic- toxicity may occur above this level. Clinical correlation required. Estimated Average Glucose Reviewed date:09/08/2024 02:22:22 PM Interpretation:Normal Performing Lab: Notes/Report: Test performed by [employer] [address] [place] [address] [address], [place] [address] Jeremy Crespo MD, Email Campaign Manager CLIA: [id number] Estimated Average Glucose (eAG) 148 Estimated Average [...] Notes Start Date End Date Status Creon [id number] UNIT as directed Orally Active Gabapentin 300 [...] Duration: 10 day(s) 09/01/2024 Active Vital Signs Blood pressure systolic 124 mm Hg 09/02/19 25 Blood pressure diastolic 80 mm Hg 025 Heart Rate 76 /min 09/01/2024 Height 62 in 09/01/2024 Weight 179 lbs 09/01/2024 BMI 32.74 kg/m2 09/01/2024 Encounters Encounter Location Date Provider Diagnosis [facility] [address] [facility] [address] [place], [place] [id number] 09/01/2024 Maria Fernanda Chadwick Local infection of t he skin and [...] rt test results, Reason: Provider Name:Maria Fernanda hunter, 04/14/2025 11:15:00 AM, [address], [address] , [place], [place], [id number], Progress Notes * GUICHO BURKS CDOB: 3 (74 yo F)Acc No.[id number]:09/01/2024 Progress Notes Patient: GUICHO HUNTER Provider: GENIE Madrigal :1950 A ge:73 Y S ex:Female Date:09/01/2024 Address:[facility] [place], [id number] Pcp:Joaquin Cespedes Subjective: * Chief Complaints: * [...] , Determination:. * Medications: T aking Creon [id number] UNIT Capsule Delayed Release Particles as directed [...] stimated Average Glucose 148 - mg/dL * [facility], support 09/02/2024 06:55:08 : This order was created by the Interface. Ladan Young 09/08/2024 02:22:14 PM > See phone encounter * Procedure Codes: G 2211 Complex e/[place], [address] CBC WITH AUTO DIFF, 3044F HG A1C LEVEL LT 7.0%, G8752 MOST RECENT SYSTOLIC BP < 140MM HG, G8754 MOST RECENT DIASTOLIC BP < 90MM HG * Follow Up: v ia phone to report test results * Images: Billing Information: * Visit Code: 61330 Office Visit, Est Pt., Level 4. * Procedure Codes: G2211 Complex e/[place]. [address] CBC WITH AUTO DIFF. 3044F HG A1C LEVEL LT 7.0%. G8752 MOST RECENT SYSTOLIC BP < 140MM HG. G8754 MOST RECENT DIASTOLIC BP < 90MM HG. * Electronic signature of GENIE Marcus on 03/20/2025 at 09:06 AM EDT Sign off status: Pending * Provider: GENIE Madrigal Date: 0 09/01/2024 Generated for Chasity leal/Naeem/Sunnyitting on: 1 09:06 AM EDT History and Physical Notes [...]
--- OUTSIDE RECORDS SUMMARY | 2024-12-07 07:15 | XMS_ITS ---
[facility] Address [address] [place] [id number] Care Team Providers Care Dye Expert Name Role Phone Joaquin Cespedes Primary Care Provider Teo Cabello Unavailable [phone] Maria Fernanda Genao Unavailable [phone] Allergies Allergen (clinical drug ingredient) Drug/Non Drug [...] of uncertai n behavior (D48.9) [facility] Referring Provider First Name Maria Fernanda Referring Provider Last Name Chadwick Referring Provider Speciality Physician Welding Production Supervisor Referred Provider Dermatology, . Referred Provider Specialty [...] Orally Onc e a day Active Creon 95776-324537 UNIT as directed Orally Active Medrol 4 MG as directed Orally 12/07/2024 Active Vital Signs Blood pressure systolic 126 mm Hg 12/08/19 25 Blood pressure diastolic 78 mm Hg 025 Heart Rate 64 /min 12/07/2024 Height 62 in 12/07/2024 Weight 179.8 lbs 12/07/2024 BMI 32.88 kg/m2 12/07/2024 Encounters Encounter Location Date Provider [facility] [address] [phone] 12/07/2024 Maria Fernanda Genao Costochondritis M94. 0 [...] 04/14/2025 11:15:00 AM, [address], [address], [place], [id number], Progress Notes * GUICHO BURKS CDOB: 3 (74 yo F)Acc No.[id number]:12/07/2024 Progress Notes Patient: GUICHO HUNTER Shravan Provider: GENIE Madrigal :1950 A ge:74 Y S ex:Female Date:12/07/2024 Address:[address] [place], [place] [id number] Pcp:Joaquin Cespedes Subjective: * Chief Complaints: * [address] on forehead sore, left breast/rib cage. * HPI: D ermatology: Pt states that she has a place on her forehead that is just not right. Pt states that it hurts when she touches it. Pt states it came up in July. U rology: c/o flank pain P viridiana sates that she has pain when she's [...] Orally Once a day , Taking Creon 51249-054873 UNIT Capsule Delayed Release Particles as directed [...] Temp: 000, BP: 126/78, HR: 64, Nurse: bridger, Ht: 62, BMI:32.88. * Examination: G eneral [...] of insulin - E11.9 7 . B [place] 32.0-32.9,adult - Z68.32 Plan: * Treatment: 2. [...] G 2211 Complex e/[place], [address] Urinalysis, no micro, 1036F TOBACCO NON- USER, G8783 BP SCR PRFRM RCMDD DEFIND SCR INTVL, G8752 MOST RECENT SYSTOLIC BP < 140MM HG, G8754 MOST RECENT DIASTOLIC BP < 90MM HG * Follow Up: v ia phone to report test results * Images: Billing Information: * Visit Code: 52258 Office Visit, Est Pt., Level 4. * Procedure Codes: G2211 Complex e/[place]. [address] Urinalysis, no micro. 1036F TOBACCO NON-USER. 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 G8752 MOST RECENT SYSTOLIC BP < 140MM HG. G8754 MOST RECENT DIASTOLIC BP < 90MM HG. * Electronic signature of GENIE Marcus on 03/20/2025 at 09:08 AM EDT Sign off status: Pending * Provider: GENIE Madrigal Date: 0 12/07/2024 Generated for Chasity leal/Naeem/Gilda on: 1 09:08 [...]
--- OUTSIDE RECORDS SUMMARY | 2025-03-16 09:30 | XMS_ITS ---
Author Organization [facility] Address [address] [facility] [address] [place] [phone] Care Team Providers Care Bottom Precipitator Operator Name Role Phone Joaquin Cespedes Primary Care Provider Teo Cabello Unavailable [phone] Allergies Allergen (clinical drug ingredient) Drug/Non Drug [...] 173 100 - 400 REASON FOR VISIT [facility] d/c f/u knee replacement Medications Medication [...] tablet Orally Once a day Active Creon 70952-504356 UNIT as directed Orally Active Spironolactone 25 MG 1 tablet Orally Onc e a day Active HYDROcodone-Acetaminophen 5-325 MG 1 tablet as needed Orally every 6 hrs Active Problems Problem Type SNOMED Code ICD Code Onset Dates Problem Status W/U Status Risk Notes Problem Artificial knee joint present (611978113819) Presence of left artificial knee joint (Z96.652) Active confirmed Vital Signs Blood pressure systolic 122 mm Hg 03/16/20 25 Blood pressure diastolic 78 mm Hg 025 Heart Rate 64 /min 03/16/2025 Height 62 in 03/16/2025 Weight 000 lbs 03/16/2025 Encounters Encounter Location Date Provider Diagnosis [facility] [address] [facility] [address] [place] [address], [place] [phone] 03/16/2025 Joaquin Cespedes Presence of left artificial [...] Appt Details Follow Up: 3 Months, Reason: Provider Name:Maria Fernanda hunter, 04/14/2025 11:15:00 AM, [address] [facility] [address], [place], [phone], Progress Notes * VITALIY GUICHO CDOB: 3 (74 yo F)Acc No.[id number]:03/16/2025 Patient: GUICHO HUNTER Provider: Joaquin Cespedes M.D. :1950 A ge:74 Y S ex:Female Date:03/16/2025 Address:[address] [place], [place] [id number] Subjective: * Chief Complaints: * 1 . [facility] d/c f/u knee replacement. * HPI: H PI: Patient is here today for a Transition of Care Visit. Discharge from the following Facility: [facility] where she was admitted for a total [...] Orally Once a day , Taking Creon 08023-957649 UNIT Capsule Delayed Release Particles as directed [...] 64, O2 Sat: 100% on RA, Nurse: [facility], Ht: 62. * Examination: G eneral Examination: S he comes in by wheelchair accompanied by her granddaughter. She is alert and oriented. Color slightly pale. Lungs are clear to auscultation. Heart is regular. Bandages removed from the surgical site of the left knee. [place] are intact. There is mild surrounding erythema. [...] while patient in office. * Procedure Codes: 9 9495 [facility] 14 DAY DISCH, 1111F DSCHR MED/CURENT MED MERGE, G2211 Complex e/[place], [address] CAPILLARY BLOOD DRAW, 58667 CBC WITH AUTO DIFF * Follow Up: 3 Months * Images: Billing Information: * Visit Code: 61732 Office Visit, Est Pt., Level 3. * Procedure Codes: 91657 [facility] 14 DAY DISCH. 1111F DSCHR MED/CURENT MED MERGE. G2211 Complex e/[place]. [address] CAPILLARY BLOOD DRAW. 09348 CBC WITH AUTO DIFF. * Electronic signature of Joaquin Cespedes MD on 03/20/2025 at 09:06 AM EDT Sign off status: Pending * Provider: Joaquin Cespedes M.D. Date: Generated for Chasity Momin/Sunnyitting on: 09:06 AM EDT History and Physical Notes * HPI (History of Present Illness) Category Sub-Category Detail Notes Category Not es HPI Patient is here today for a Ruiz sition of Care Visit. Discharge from the following Facility: [facility] where she was admitted for a total [...]
--- NOTE | 2025-03-20 08:51 | XR_ITS ---
FINAL REPORT TECHNIQUE: 3 views left knee CLINICAL HISTORY: left knee post op COMPARISON: None FINDINGS: LEFT KNEE 3 views of the left knee were obtained. In the interval since the prior CT examination the patient has undergone total knee arthroplasty. The hardware is normally positioned. There is no acute fracture or dislocation. Visualized joint spaces are normally aligned. Surgical stacie are present anteriorly, and there is marked anterior soft tissue swelling. IMPRESSION: Interval placement of a total knee arthroplasty, with intact hardware. Anterior postoperative soft tissue swelling is present. Reviewed, Interpreted and Dictated by Jeyson Wallace MD Transcribed by Kimberly Quigley Authenticated and [facility]
--- OUTSIDE RECORDS SUMMARY | 2025-03-20 09:08 | XMS_ITS | Patient Health Record ---
Author Organization [facility] Address [address] [place] [phone] Care Team Providers Care Virtual Recruiter Name Role Phone Joaquin Cespedes Primary Care Provider RadfordTeo malave Unavailable [phone] Maria Fernanda Genao Unavailable [phone] Allergies Allergen (clinical drug ingredient) Drug/Non Drug [...] 119 Performing Lab: Notes/Report: Test performed by [facility], [facility] [address] [place] [address] , [address], [place] [address] Jeremy Crespo MD, Machine Joint Cutter CLIA: [id number] Sodium 140 135-145 mmol/L Potassium 4.1 3.5-5.3 [...] Interpretation:Normal Performing Lab: Notes/Report: Test performed by [facility] [address] [place] [address] , [place] [address] Jeremy Crespo MD, Machine Joint Cutter CLIA: [id number] Thyroxine Free (free T4) 1.40 0.86-1.76 ng/dL P-Hemoglobin A1C Reviewed date:09/08/2024 02:22:22 PM Interpretation:6.8 Performing Lab: Notes/Report: Test performed by [facility] [address] [place] [address] [place] [address] Jeremy Crespo MD, Machine Joint Cutter CLIA: [id number] Hemoglobin A1C 6.8 <5.7 % The following HbA1c ranges recommended by the [place] [employer] (ADA) may be used as an aid in the diagnosis of diabetes mellitus. HbA1c Suggested Diagnosis >=6.5% Diabetic 5.7% - 6.4% Pre-Diabetic <5.7% Non-Diabetic P-Lipid Panel Reviewed date:09/08/2024 02:22:22 PM Interpretation:Chol 253, Non-HDL 194, LDL Chol 165 Performing Lab: Notes/Report: Test performed by [facility] [address] [place] [address] , [place] [address] Jeremy Crespo MD, Machine Joint Cutter CLIA: [id number] Cholesterol 253 <200 mg/dL Triglycerides 143 <150 [...] Interpretation:Normal Performing Lab: Notes/Report: Test performed by [facility] [address] [place] [address] , [address], [place] [address] Jeremy Crespo MD, Machine Joint Cutter CLIA: [id number] TSH 3.44 0.43-5.25 mU/L P-Vitamin D 25-Hydroxy Reviewed date:09/08/2024 02:22:22 PM Interpretation:22 Performing Lab: Notes/Report: Test performed by [facility] [address] , [address], [place] [id number] Jeremy Crespo MD, Machine Joint Cutter CLIA: [id number] Vitamin D 25-Hydroxy 22.0 30.0-100.0 ng/mL Interpretation of Vitamin D 25 OH: < 20 ng/mL - Deficiency 20 - 29 ng/mL - Insufficiency 30 - 100 ng/mL - Sufficiency > 100 ng/mL - Super-therapeutic- toxicity may occur above this level. Clinical correlation required. Estimated Average Glucose Reviewed date:09/08/2024 02:22:22 PM Interpretation:Normal Performing Lab: Notes/Report: Test performed by [facility] [address] , [address] [place] [id number] Jeremy Crespo MD, Machine Joint Cutter CLIA: [id number] Estimated Average Glucose (eAG) 148 Estimated Average Glucose (eAG) is calculated using the equation eAG = (28.7 x HbA1c) - 46.7 based on the guidelines established by the ADA. If the patient has certain diseases including kidney disease, sickle cell anemia, thalassemia, or is taking medications such as dapsone, erythropoietin, or iron, eAG should not be evaluated. CBC Fingerstick (in house) Reviewed date:03/17/2025 09:45:01 [...] - 38 plat 173 100 - 400 Urinalysis - Inhouse Reviewed date:12/09/2024 08:52:10 AM Interpretation: Performing Lab: Notes/Report: Color/Clarity yellow/cloudy Leuk neg Nitrite pos Urobili 3.2 Protein neg pH 5.5 Blood neg Sp. Gr. 1.015 Ketone neg Bili neg Gluc trace Medications Medication SIG (Take, Route, Frequency, Duration) Notes Start Date End Date Status Ranolazine ER 500 MG 1 tablet Orally Twi ce a day Active Creon 02955-128189 UNIT as directed Orally Active FreeStyle Marcelina 3 Plus Sensor - change sensor every 15 days; Duration: 90 days 02/28/2025 Not-Taking Spironolactone 25 MG 1 tablet Orally Onc e a day Active Omeprazole 40 MG 1 capsule 1/2 to 1 hour before morning meal Orally Once a day Active Venlafaxine HCl ER 37.5 MG 1 capsule wit h food Orally Once a day 12/07/2024 Active HYDROcodone-Acetaminophen 5-325 MG 1 tablet as needed Orally every 6 hrs Active Aspirin 81 81 MG 1 tablet Orally Once a day Active Immunizations Vaccine Route Administration Date Status [...] Problem Status W/U Status Risk Notes Problem Gastroesophageal reflux disease (042140845) GERD (gastroesophage al reflux disease) (K21.9) Active confirmed Problem Vitamin D deficiency (71025675) Vitamin D deficiency (E55.9) Active confirmed Problem Essential hypertension (18555346) Essential hypertension (I10) Active confirmed Problem Abnormal mammogram (637336840) Abnormal mammogram (R92.8) Active confirmed Problem Mixed anxiety and depressive disorder (034462466) Depression with anxiety (F41.8) Active confirmed Problem Artificial knee joint present (571352283829) Presence of left artificial knee joint (Z96.652) Active confirmed Problem Dyslipidemia (865572292) Dyslipidemia (E78.5) Active confirmed Problem Type II diabetes mellitus without complication (479003577) Type 2 diabetes mellitus without complication, without long-term current use of insulin (E11.9) Active confirmed Problem Seasonal allergic rhinitis (387425069) Seasonal allergic rhinitis, unspecified trigger (J30.2) Active confirmed Problem Osteopenia following menopause (disorder) (066060783) Osteopenia 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 (M85.80) Active confirmed Vital Signs Heart Rate 64 /min 03/16/2025 Blood pressure diastolic 78 mm Hg 03/16/2025 Height 62 in 03/16/2025 Blood pressure systolic 122 mm Hg 03/16/2025 Weight 000 lbs 03/16/2025 BMI 32.88 kg/m2 12/07/2024 Encounters Encounter Location Date [facility] [address] [place] [phone] 03/23/2024 Teo Radford 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 ; Right rotator cuff tendinitis M75.81 ; Spasm of muscle M62.838 and Disorder of neck M53.82 [facility] [address] [place] [id number] 04/01/2024 Maria Fernanda Genao Infected tick bite, initial encounter W57.XXXA and Cellulitis, unspecified cellulitis site L03.90 [facility] [address] [place], [place] [phone] 09/01/2024 Maria Fernanda Genao Local infection of [...] reflux disease) K21.9 and Mixed hyperlipidemia E78.2 [facility] [address] [place] [id number] 12/07/2024 Maria Fernanda Crowmelody Costochondritis M94. 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 ; Depression with anxiety F41.8 ; Dyslipidemia E78.5 ; Type 2 diabetes mellitus without complication, without long-term current use of insulin E11.9 and BMI 32.0-32.9,adult Z68.32 [facility] [address] [place] [id number] 03/16/2025 R Usman Cespedes Presence of left artificial knee joint Z96.652 ; Type 2 diabetes mellitus without complication, without long-term current use of insulin E11.9 ; GERD (gastroesophageal reflux disease) K21.9 and Depression with anxiety F41.8 [facility] [address] [place] [id number] 08/08/2024 R Usman Cespedes Left-sided low back pain with left-sided sciatica, unspecified chronicity M54.42 [facility] [address] [place] [id number] 09/08/2024 Maria Fernandamallory Genao [facility] [address] [place] [id number] 12/13/2024 R Usman Nealt [facility] [address] [place] [id number] 02/28/2025 Maria Fernandamallory Genao [facility] [address] [place] [id number] 03/08/2025 Joaquin Cespedes Assessments Encounter Date Diagnosis (ICD [...] or pulling. 12/07/2024 Dysuria (ICD-10 - R30.0) 03/16/2025 Presence of left artificial knee joint (ICD-10 - Z96.652) Continue home PT. Wound care discussed.F/u with ortho as scheduled 03/16/2025 Type 2 diabetes mellitus without complication, without long-term current use of insulin (ICD-10 - E11.9) 03/16/2025 GERD (gastroesophageal reflux disease) (ICD-10 - K21.9) 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) 09/01/2024 Bitten or stung by nonvenomous insect and other nonvenomous arthropods, initial encounter (ICD-10 - W57.XXXA) 04/01/2024 Cellulitis, unspecified cellulitis site (ICD-10 - L03.90) 03/23/2024 Spasm of muscle (ICD-10 - M62.838) 03/23/2024 Disorder of neck (ICD-10 - M53.82) heating pad to affected areas 2 to 3 times a day, Home exercise program provided to patient 03/16/2025 Depression with anxiety (ICD-10 - F41.8) 12/07/2024 Depression with anxiety (ICD-10 - F41.8) [...] K21.9) 09/01/2024 Mixed hyperlipidemia (ICD-10 - E78.2) 03/16/2025 Other Discharge summa ry with available lab/diagnostic imaging results obtained and reviewed. Discharge medication list reconciled. Appropriate counseling provided. Moderate Complexity Plan Of Treatment Next Appt Details Provider Name:Maria Fernanda hunter, 04/14/2025 11:15:00 AM, [address], [address], [place], [place], [phone], Insurance Providers Payer Name Payer Address Payer Phone Subscriber Number Group Number Insured Name Patient Relationship to Insured Coverage Start Date Coverage End Date MEDICARE PART B [address] [address] [place] [id number] GUICHO BURKS Self - patient is the insured [facility] [employer] [address] [place] [id number] GUICHO BURKS Self - patient is the [...]
--- OUTSIDE RECORDS SUMMARY | 2025-03-20 09:09 | XMS_ITS | Data Portability ---
Author Organization [facility] [facility]OS[facility] Address [address] [place] [address] Care Team Providers Care Grazing Aide Name Role Phone SUSANNE RICE Primary Care [...] foot. She reports that she works with [employer] [facility] for pain management injections and has [...] control issues. IMAGING: Thoracic MRI completed at [facility] on 07/21/2024. I have reviewed the images [...] these images have been reviewed by Dr. Garcai. Updated thoracic MRI was reviewed by Dr. [...] of the balance issues she has occasionally. [email or web address] Not available 08/23/2024 12:14:27 Plan of Treatment [...] contr ast No observ ation record ed. [facility] [address], [place], [address], 10/18/2024 09:04:42 Result Notes None recorded. Medical Equipment None Reported. Allergies No known drug allergies Medications Not known to be on any medication Vitals Date Recorded Body height Body mass index (BMI) Body weight Systolic And Diastolic Provider Name and Address Organization Details Last Updated DateTime 08/22/2024 157.48 cm 31.1 kg/m2 55502.7 g 124/78 mm[Hg] [facility] 08/22/2024 13:00:05 Social History None recorded. Functional [...] Diagnosis SNOMED-CT Code Diagnosis ICD10 Code Diagnosis IMO Codes Diagnosis Note [id number] RENAN BARONE, [employer] MANA[employer] [facility] [address] [place] [address] 08/22/2024 12:26:20 08/23/2024 08:12:00 Lumbar spondylosis 640170972 M47.896 Cervical spondylosis 387 765439 M47.812 Thoracic spondylosis 387 254950 M47.814 Magnetic r esonance imaging of thoracic spine abnormal [id number] R93.7 Health Concerns Section Related Observation LastModified by Organization Detai ls LastModified Time None Recorded Concern Status LastModified by Organization Details LastModified Time None Recorded Advance Directives Directive None Recorded Payers Insurance Date Sequence Insurance Name Policy Number Policy Menard Covered Member ID Menard Member ID Guarantor Name 08/11/2024 1 [place] Antonette Rodriguezkaushal [id number] Abernathy C Chiquis 10/07/2024 2 [employer] (MEDICARE SUPPLEMENT) Antonette Cheney Chiquis [id number] Antonette Sim Notes Date Note Type Note [...] her left foot. RENAN BARONE, FABIO [address] [place], [address], [facility] 08/23/2024 12:17:11 OBGyn Episode No OBEpisode recorded.
== END 2025-03-20 23:59 | disposition home or self-care (01) ==
LOC: RAD 08:51
PROVIDERS: Visit Provider Physician Assistant Surgical
DX: Z09 Encounter for follow-up examination after completed treatment for conditions other than malignant neoplasm (principal); Z96.652 Presence of left artificial knee joint; M25.462 Effusion, left knee
CPT/HCPCS: 73562

== ENCOUNTER 2025-04-10 09:24 | Outpatient (CLI) | payer MEDICARE, SELFPAY ==
--- NOTE | 2025-04-10 09:26 | XR_ITS ---
FINAL REPORT CLINICAL HISTORY: left 5th digit fx COMPARISON: 02/23/2025 FINDINGS: LEFT HAND Three views of the left hand demonstrate partial healing of fifth proximal phalanx fracture. There is significant dorsal angulation remaining. There is diffuse osteopenia and arthritic change. Soft tissues are unremarkable. IMPRESSION: Partial healing of fifth proximal phalanx fracture. Reviewed, Interpreted and Dictated by Jeyson Wallace MD Transcribed by Lorene Gilliam Authenticated and [facility]
== END 2025-04-10 23:59 | disposition home or self-care (01) ==
LOC: RAD 09:25
PROVIDERS: PCP Family Medicine; Visit Provider Physician Assistant Surgical
DX: S62.617D Displaced fracture of proximal phalanx of left little finger, subsequent encounter for fracture with routine healing (principal); X58.XXXD Exposure to other specified factors, subsequent encounter
CPT/HCPCS: 73130

== ENCOUNTER 2025-04-18 12:53 | Outpatient (CLI) | payer MEDICARE, SELFPAY ==
--- NOTE | 2025-04-18 12:56 | XR_ITS ---
FINAL REPORT CLINICAL HISTORY: left hip pain COMPARISON: None FINDINGS: LEFT HIP: 3 images of the left hip were obtained. There is no evidence of fracture or dislocation. The joint spaces are intact. There is a well-corticated ossific density superior to the greater trochanter, that may represent a remote fracture fragment. IMPRESSION: No acute bony abnormality. Reviewed, Interpreted and Dictated by Momo Shelby MD Transcribed by Kimberly Quigley Authenticated and [facility]
--- NOTE | 2025-04-18 12:56 | XR_ITS ---
FINAL REPORT TECHNIQUE: 3 views left knee CLINICAL HISTORY: left knee pain COMPARISON: None FINDINGS: LEFT KNEE: 3 images of the left knee were obtained. The patient has undergone a prior total knee arthroplasty. There is no evidence of fracture. The patella is subluxed, seen best on the sunrise view. The joint spaces are intact. There is irregularity of the anterior cortex of the distal femur, seen on the lateral view just proximal to the superior edge of the femoral component of the arthroplasty hardware. There is no soft tissue abnormality identified. IMPRESSION: Prior total knee arthroplasty, with partial subluxation of the patella best seen on the sunrise view. Reviewed, Interpreted and Dictated by Momo Shelby MD Transcribed by Kimberly Quigley Authenticated and [facility]
== END 2025-04-18 23:59 | disposition home or self-care (01) ==
LOC: RAD 12:54
PROVIDERS: PCP Family Medicine; Visit Provider Physician Assistant Surgical
DX: T84.023A Instability of internal left knee prosthesis, initial encounter (principal); M25.552 Pain in left hip; Z96.652 Presence of left artificial knee joint
CPT/HCPCS: 73502; 73562

== ENCOUNTER 2025-04-20 13:00 | Outpatient (RCR) | payer MEDICARE, SELFPAY ==
--- NOTE | 2025-04-03 13:44 | HMH.PTOPEV ---
PT Evaluation Rehab PT Outpatient Evaluation Start: 04/03/25 12:47 Freq: Status: Active Protocol: Document 04/03/25 12:48 YADIRA (Rec: 04/03/25 13:44 KAVITHAJOETERESA [id number]) E-signed By Lucien Linton, PT Outpatient Therapy Subjective History Subjective History Pt is a 74 yof who is referred to [facility] outpatient PT s/p L TKA performed on 03/07. Pt reports that she had HH PT for a few weeks. Pt reports that she has been walking with a SP Cane for approximately 1 week. Pt reports that she has been walking throughout the house without a cane. Pt reports that she has been doing exercises 2- 3x/day and walking outside regularly. Pt reports that she is currently staying with her daughter. 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 Chief Complaint Pain,Stiff Symptom Type Ache,Sharp Symptoms Relieved By Ice,Prescription Meds Symptoms Aggravated Standing,Walking,Lifting By Prior Functional None Limitations Current Functional Housework,Standing,Sitting,Squatting,Recreation Limitations Activity,Walking,Stairs,Balance Symptom Description Constant but Variable,Activity Dependent Level of pain today 5 (0-10) Pain scale - at its 3 best (0-10) Pain scale - at its 9 worst (0-10) Hip/Knee Eval Gait Observation General Gait Pattern Antalgic Gait,Decrease Weight Bear (L),Decrease Stride Observation Lngth (R) Assistive Device Assistive Devices Straight Cane Palpation Tenderness left Knee Palpation Tenderness Finding Knee Palpation 3/4 to L Knee globally Overall Comment MMT Hip Flexion Strength 3+ Fair+ Grade Hip Abduction 3+ Fair+ Strength Grade Hip Adduction 3+ Fair+ Strength Grade Hip Extension 3+ Fair+ Strength Grade Knee Extension 2+ Poor+ Strength Grade Knee Flexion 2+ Poor+ Strength Grade ROM Knee Extension -3 Active Range of Motion (degrees) Knee Flexion Active 92 Range of Motion ( degrees) Lower Extremity Functional Index Activities Today, do you or would you have any difficulty at all with: a.Any of your usual Quite a bit of difficulty work, housework or school activities b. Your usual Quite a bit of difficulty hobbies, recreational or sporting activities c. Getting into or Moderate difficulty out of the bath d. Walking between Moderate difficulty rooms e. Putting on your Quite a bit of difficulty shoes or socks f. Squatting Extreme difficulty or unable to perform activity g. Lifting an object Moderate difficulty , like a bag of groceries from the floor h. Performing light A little bit of difficulty activities around your home i. Performing heavy Moderate difficulty activities around your home j. Getting into or Moderate difficulty out of a car k. Walking 2 blocks Moderate difficulty l. Walking a mile Quite a bit of difficulty m. Going up or down Moderate difficulty 10 stairs (about 1 flight of stairs) n. Standing for 1 Quite a bit of difficulty hour o. Sitting for 1 A little bit of difficulty hour p. Running on even A little bit of difficulty ground q. Running on uneven A little bit of difficulty ground r. Making sharp A little bit of difficulty turns while running fast s. Hopping A little bit of difficulty t. Rolling over in Moderate difficulty bed LEFI Score Lower Extremity 39 Functional Index Score Outpatient Therapy Assessment Impairments Problems/ Palpation Tenderness,Impaired Range of Motion,Impaired Impairmments Strength,Impaired Gait Pattern,Impaired Walking, Impaired Lifting,Impaired Household Care,Impaired Stair Climbing,Impaired Incline Stepping,Impaired Squatting, Impaired Balance,Subjective C/O Pain,Impaired Self Care /Self Management Prognosis Rehab Potential Good Comment w HEP compliance Clinical Impression Consistent with Yes Diagnosis Consistent with s/p :L TKA PT Patient Goals PT Patient Goals PT Short Term In 4 weeks: Patient Goals 1. Patient will improve L knee ROM to -2-100 in order to demonstrate improvements in functional movement patterns and improved gait mechanics. 2. Patient will improve L hip/knee strength to 4/5 grossly upon MMT to demonstrate functional strength improvements and to assist with functional movement patterns. 3. Patient will improve LEFS score to 48/80 in order to demonstrate overall improvement in QOL and improvement with normal daily activities. 4. Patient will be able to stand for 15 minutes at one time to demonstrate independence with gis scientist, such as washing her dishes. 5. Pt will demonstrate HEP compliance by completing prescribed HEP at least 1x/daily. 6. Pt will report a 48 hr pain average of 5/10 in order to demonstrate an improved QOL and overall functional improvement. 7. Pt will be able to walk with symmetrical WB and step length with the LRAD to demonstrate independence with in-home and community mobility. PT Detention Patient In 8 weeks: Goals 1. Patient will improve L knee ROM to 0-125 in order to demonstrate improvements in functional movement patterns and improved gait mechanics. 2. Patient will improve L hip/knee strength to 4+/5 grossly upon MMT to demonstrate functional strength improvements and to assist with functional movement patterns. 3. Patient will improve LEFS score to 57/80 in order to demonstrate overall improvement in QOL and improvement with normal daily activities. 4. Patient will be able to stand/walk for 60 minutes at one time to demonstrate independence with community activities such as grocery shopping. 5. Pt will be able to ascend/descend a flight of stairs with a reciprocal stepping pattern to demonstrate independence with in-home and community mobility. 6. Pt will report a 48 hr pain average of 2-3/10 in order to demonstrate an improved QOL and overall functional improvement. 7. Pt will be able to ambulate without an AD with no apparent gait abnormalities to demonstrate independence with in-home and community mobility. Outpatient Therapy Plan of Care Treatment Plan May Include Therapeutic Exercise Yes Including Home Exercise Program Manual Therapy Yes Techniques Neuromuscular Re- Yes education Therapeutic Yes Activities to Return to Previous Functional/Work Level Gait Training Yes ADL/Self Care Yes Education Thermal Modalities Yes Electrical Yes Stimulation Massage Yes Manual Lymphatic Yes Drainage Eval/Re-Eval Yes Frequency Times per week 2 Duration Number of Weeks 8 Addendums This patient is a No candidate for social or vocational rehab ? Patient/Guardian Yes verbally acknowledges understanding of treatment program and consents to further treatment? Patient/Guardian Yes verbally acknowledges understanding of diagnosis, prognosis and goals for treatment? Eval Complexity PT Charges 04225 - Moderate Complexity Shoulder/Elbow Eval Shoulder Objective Measurements Elbow Objective Measurements PHYSICIAN CERTIFICATION: I certify the specified therapy services for Antonette Sim are required, authorized, and reviewed every 30 days.
== END 2025-04-20 23:59 | disposition home or self-care (01) ==
LOC: PT 13:00
PROVIDERS: PCP Family Medicine; Visit Provider Physician Assistant Surgical
DX: Z47.1 Aftercare following joint replacement surgery (principal); Z96.652 Presence of left artificial knee joint
CPT/HCPCS: 97014; 97110; 97140; 97162; 97530; G0283

== ENCOUNTER 2025-04-20 14:00 | Outpatient (RCR) | payer MEDICARE, SELFPAY ==
--- NOTE | 2025-04-18 16:02 | HMH.RHREAS ---
Rehab Reassessment Rehab OP Re-assessment Start: 04/18/25 15:10 Freq: Status: Active Protocol: Document 04/18/25 15:59 KARY (Rec: 04/18/25 16:01 [email or web address] [id number]) E-signed By Hannah Nguyen, OT Rehab Re-assessment Subjective Subjective My hand just stays numb. Objective Objective Notes Pt is a 74 yr old female who presents for a reassessment to injury to L hand after falling on it at home >2 months. Pt reports they were in casting for 7 weeks of brace. Pt reports they are R hand dominant. Pt reports they have sharp shooting pain especially at night if digits get caught on covers. pt reports they have hx of skin cancer on ear in either August/July of this year and have follow up with cigar patcher for place on face. Pt presents with stiffness of L hand in ring finger and pinky. Pt presents with numbness in R hand digits #2-4. Patient has not attended therapy services consistently due to having a recent knee replacement. 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 Pt will improve endurance by completion of L hand Patient Goals exercises for 20 mins before rest. 6. Pt will be ind in HEP AAROM exercises for L hand and digits. 7. Pt will improve QuickDash Score Activities to 35 or below. 8. Pt will improve MMT of L ring and pinky finger to 3+ /5. OT Tooth Cutter Patient 1. Pt will improve L pinky finger MCP flexion to 90 Goals degrees, PIP flexion to 50 degrees, and DIP flexion to 25 degrees. 2. Pt will improve L ring finger PIP flexion to 80 degrees and DIP flexion to 25 degrees. 3. Pt will improve subjective pain at worst to 5/10. 4. Pt will improve L hand ceramic restorer strength to 25 lbs. 5. Pt will improve endurance by completion of L hand exercises for 25 mins before rest. 6. Pt will be ind in HEP advanced AROM exercises and strengthening for L hand and digits. 7. Pt will improve QuickDash Score Activities to 25 or below. 8. Pt will improve MMT of L ring and pinky finger to 4- /5. Plan Plan Continue Plan of Care Frequency of Therapy 2x/wk Duration of Therapy 4 weeks Therapeutic Exercise Yes Including Home Exercise Program Manual Therapy Yes Techniques Therapeutic Yes Activities to Return to Previous Functional/Work Level Thermal Modalities Yes Electrical Yes Stimulation Ultrasound/ Yes Phonophoresis Iontophoresis Yes Eval/Re-Eval Yes PHYSICIAN CERTIFICATION: I certify the specified therapy services for Antonette Sim are required, authorized, and reviewed every 30 days.
== END 2025-04-20 23:59 | disposition home or self-care (01) ==
LOC: OT 14:00
PROVIDERS: PCP Family Medicine; Visit Provider Physician Assistant Surgical
DX: S62.619D Displaced fracture of proximal phalanx of unspecified finger, subsequent encounter for fracture with routine healing (principal); Z96.652 Presence of left artificial knee joint; W19.XXXD Unspecified fall, subsequent encounter
CPT/HCPCS: 97110; 97140; 97530

== ENCOUNTER 2025-05-22 12:51 | Outpatient (CLI) | payer MEDICARE, SELFPAY ==
--- OUTSIDE RECORDS SUMMARY | 2024-01-22 05:00 | XMS_ITS ---
[facility] Address [address] [place] [id number] Care Team Providers Care Thread Weaver Name Role Phone Joaquin Cespedes Primary Care Provider [phone] Teo Cabello Unavailable [phone] Allergies Allergen (clinical drug ingredient) Drug/Non Drug Allergy documented on EMR Reaction Allergy Type Onset Date Status amoxicillin / clavulanate Augmentin GI Drug Allergy Active ibuprofen Ibuprofen GI upset Drug Allergy Active Dye, Yellow Unknown Drug Allergy Activ e Iodinated contrast media (substance) Iodinated Contrast Media Unknown Drug Allergy Active metformin metFORMIN leg pain Drug Allergy Active Results Component Value Reference Range Notes X ray : Spine, lumbosacral Reviewed date:01/28/2024 09:41:40 AM Interpretation:degenerative changes Performing Lab: Notes/Report: degenerative changes REASON FOR VISIT hip and back pain Medications Medication SIG (Take, Route, Frequency, Duration) Notes Start Date End Date Status FreeStyle Marcelina 3 Plus Sensor - take qid qid 12/14/2023 Active Triamterene-HCTZ 75-50 MG 1 tab(s) orall y once a day; Duration: 90 days Active Gabapentin 300 MG 1 capsule Orally Two times a day; Duration: 30 day(s) 01/22/2024 Active Venlafaxine HCl ER 75 MG 1 tablet with f ood Orally Once a day Active Pristiq 25 MG 1 tablet Orally Once a day; Duration: 30 day(s) 12/21/2023 Active Vital Signs Weight 162 lbs 01/22/2024 Blood pressure systolic 114 mm Hg 01/22/20 24 Blood pressure diastolic 78 mm Hg 024 Heart Rate 74 /min 01/22/2024 Height 62 in 01/22/2024 BMI 29.63 kg/m2 01/22/2024 Encounters Encounter Location Date Provider Diagnosis [facility] [address] [facility] [address] [place] [phone] 01/22/2024 Teo Destiney Left-sided low back pain with left-sided sciatica, unspecified chronicity M54.42 Assessments Encounter Date Diagnosis (ICD Code) Assessment Notes Treatment Notes Treatment Clinical Notes Section Notes 01/22/2024 Left-sided low back pain with left-sided sciatica, unspecified chronicity (ICD-10 - M54.42) Current course of treatment reviewed, including pertinent labs and diagnostic imaging. Risks and benefits of the use of controlled substances discussed, including the risk of tolerance and drug dependence. Refer to [facility] Controlled Substance Agreement. Plan Of Treatment Medication Medication Name Sig Start Date Stop Date Notes Gabapentin 300 MG 1 capsule Orally Two times a day; Duration: 30 day(s) 01/22/2024 Treatment Notes Assessment Notes Left-sided low back pain wit h left-sided sciatica, unspecified chronicity Current course of treatment reviewed, including pertinent labs and diagnostic imaging. Risks and benefits of the use of controlled substances discussed, including the risk of tolerance and drug dependence. Refer to [facility] Controlled Substance Agreement. Next Appt Details Follow Up: via phone to repo rt progress, Reason: Progress Notes * Antonette BURKS CDOB: 3 (74 yo F)Acc No.[id number]:01/22/2024 Progress Notes Patient: Antonette HUNTER Provider: Ken Cabello M.D. :1950 A ge:73 Y S ex:Female Date:01/22/2024 Address:[facility] [id number] Pcp:Joaquin Cespedes Subjective: * Chief Complaints: * 1 . Hip and back pain. * HPI: H ip/Thigh: 73 year old female presents with c/o radiation of pain P t complains of lt hip pain that radiated down to her lt foot for about a week. Pt states it feels like a stinging pain on the side of knee and abdalla bone hurts. Sitting worsens pain in hip. * ROS: D ERMATOLOGY: no R dianne. n o H javier. G ASTROENTEROLOGY: no N ausea. n o V omiting. U ROLOGY: no D ifficulty urinating. n [...] ,Years: , Determination:. * Medications: T aking FreeStyle Marcelina 3 Plus Sensor - Miscellaneous take qid qid , Taking Triamterene-HCTZ 75-50 MG Tablet 1 tab(s) orally once a day , Taking Pristiq 25 MG Tablet Extended Release 24 Hour 1 tablet Orally Once a day , Taking Venlafaxine HCl ER 75 MG Capsule Extended Release 24 Hour 1 tablet with food Orally Once a day , Discontinued Gabapentin 300 MG Capsule 1 capsule Orally at night , Discontinued Gabapentin 100 MG Capsule 1 capsule Orally Once a day in the AM , Discontinued Fluticasone Propionate 50 MCG/ACT Suspension 1 spray(s) intranasally once a day , Discontinued Cyclobenzaprine HCl 5 MG Tablet 1 tab(s) Orally three times a day as needed , Discontinued Synthroid 50 MCG Tablet 1 tab(s) orally once a day , Discontinued Omeprazole 40 MG Capsule Delayed Release 1 cap(s) orally once a day , Discontinued Ondansetron 4 MG Tablet Disintegrating 1 tablet on the tongue and allow to dissolve Orally every 8 hours prn , Medication List reviewed and reconciled with the patient * Allergies: Lesvia Hightower, Iodinated Contrast Media, Ibuprofen: GI upset, Augmentin: GI, metFORMIN: leg pain. Objective: * Vitals: W t:162, Temp:97.8, BP:114/78, HR:74, Nurse:lauryn, Ht: 62, BMI:29.63. * Examination: G eneral Examination: General Appearance: NAD. L ower back: Inspection: n ormal curvature of spine. P alpation:?no vertebral spine tenderness, no paraspinal spasm, minimal tenderness over the left SI joint.?Straight leg raising test: positive at 45 degrees on left. G ait: s tands and moves slowly due to pain. Assessment: * Assessment: 1. L eft-sided low back pain with left-sided sciatica, unspecified chronicity - M54.42 (Primary) Plan: * Treatment: Notes: Current course of treatment reviewed, including pertinent labs and diagnostic imaging. Risksand benefits of the use of controlled substances discussed, including the risk of tolerance and drug dependence. Refer to [facility] Controlled Substance Agreement.?? * Procedure Codes: G 2211 Complex e/m visit add on * Follow Up: v ia phone to report progress * Images: Billing Information: * Visit Code: 07053 Office Visit, Est Pt., Level 3. * Procedure Codes: G2211 Complex e/m visit add on. * Electronic signature of Lizeth Cabello MD on 05/22/2025 at 12:56 PM EST Sign off status: Pending * Provider: Ken Cabello M.D. Date: 0 01/22/2024 Generated for Chasity leal/Naeem/Sunnyitting on: 07/23/2024 12:56 PM EST History and Physical Notes * HPI (History of Present Illness) Category Sub-Category Detail Notes Category Not es Hip/Thigh radiation of pain Pt complains o f lt hip pain that radiated down to her lt foot for about a week. Pt states it feels like a stinging pain on the side of knee and abdalla bone hurts. Sitting worsens pain in hip Examination Category Sub-Category Detail Notes Category Not es General Examination General Appearance: NAD Lower back Straight leg raising test: positive at 45 degrees on left Gait: stands and moves slo wly due to pain Inspection: normal curvature of spine Palpation: no vertebral spine t enderness, no paraspinal spasm, minimal tenderness over the left SI joint
--- OUTSIDE RECORDS SUMMARY | 2024-02-05 09:10 | XMS_ITS ---
[facility] Address [address] [place] [id number] Care Team Providers Care Orthopedically Impaired Teacher Name Role Phone Joaquin Cespedes Primary Care Provider [phone] Teo Cabello Unavailable [phone] Chadwick Maria Fernanda Unavailable [phone] Allergies Allergen (clinical drug ingredient) Drug/Non Drug Allergy documented on EMR Reaction Allergy Type Onset Date Status amoxicillin / clavulanate Augmentin GI Drug Allergy Active ibuprofen Ibuprofen GI upset Drug Allergy Active Dye, Yellow Unknown Drug Allergy Activ e Iodinated contrast media (substance) Iodinated Contrast Media Unknown Drug Allergy Active metformin metFORMIN leg pain Drug Allergy Active Results Component Value Reference Range Notes Glycohemoglobin A1c (in hous e) Reviewed date:02/10/2024 04:13:19 PM Interpretation:6.8 Performing Lab: Notes/Report: 6.8 glycohemoglobin 6.8% 5 - 6.5 % P-Comprehensive Metabolic Pa jose (CMP) Reviewed date:02/10/2024 04:13:19 PM Interpretation:gluc 132, Cr 1.07, gfr 55 Performing Lab: Notes/Report: Test performed by [facility] [address] [place] [address] , [address], [place] [address] Jeremy Crespo MD, Production Pattern Maker CLIA: [id number] Sodium 141 135-145 mmol/L Potassium 3.8 3.5-5.3 mmol/L Chloride 100 97-108 mmol/L CO2 29 22-32 mmol/L Glucose 132 65-99 mg/dL BUN 19 8-23 mg/dL Creatinine 1.07 0.50-1.00 mg/dL Calcium 10.3 8.6-10.4 mg/dL eGFR by Creatinine 55 >59 mL/min/1.73m2 Protein 7.0 6.0-8.3 g/dL Albumin 4.5 3.5-5.3 g/dL Alkaline Phosphatase 70 35-121 IU/L ALT (SGPT) 24 <5-47 IU/L AST (SGOT) 26 <5-40 IU/L Bilirubin, Total 0.5 <0.2-1.2 mg/dL A/G Ratio 1.8 1.1-2.5 Reason For Referral Diagnosis 1 Left hip pain (M25.5 52) Diagnosis 2 Left knee pain, unsp ecified chronicity (M25.562) Referral Organization [facility] Referring Provider First Name Maria Fernanda Referring Provider Last Name Chadwick Referring Provider Speciality Physician Cad Operator Referred Provider Orthopedics, . Referred Provider Specialty Orthopedic [facility] General Notes Maria Fernanda Genao 2023 10:19:17 PM > Pt needs an appt with Dr. Soto., Rosa Elena Thapa 02/08/2024 3:03:48 PM > 02/15/2024 at 02:30pm; patient informed Referral Priority Routine REASON FOR VISIT left side pain Medications Medication SIG (Take, Route, Frequency, Duration) Notes Start Date End Date Status Medrol 4 MG as directed orally daily; Duration: 6 days 02/05/2024 Active Pristiq 25 MG 1 tablet Orally Once a day; Duration: 30 day(s) 12/21/2023 Active Gabapentin 300 MG 1 capsule Orally Two times a day; Duration: 30 day(s) 01/22/2024 Active Methocarbamol 500 MG 1.5 tablets Orally every 4 hrs; Duration: 30 day(s) Active Pantoprazole Sodium 40 MG 1 tablet Orall y Once a day; Duration: 30 day(s) Active Triamterene-HCTZ 75-50 MG 1 tab(s) orall y once a day; Duration: 90 days Active FreeStyle Marcelina 3 Plus Sensor - take qid qid 12/14/2023 Active Lidocaine & Adhesive Sheet Active Vital Signs Weight 158.6 lbs 02/05/2024 Blood pressure systolic 120 mm Hg 02/05/20 24 Blood pressure diastolic 68 mm Hg 024 Heart Rate 69 /min 02/05/2024 Height 62 in 02/05/2024 BMI 29.01 kg/m2 02/05/2024 Encounters Encounter Location Date Provider Diagnosis [facility] [address] [place] [id number] 02/05/2024 Maria Fernanda Genao Left hip pain M25.55 2 ; Left knee pain, unspecified chronicity M25.562 ; Type 2 diabetes mellitus without complication, without long-term current use of insulin E11.9 and Essential hypertension I10 Assessments Encounter Date Diagnosis (ICD Code) Assessment Notes Treatment Notes Treatment Clinical Notes Section Notes 02/05/2024 Left hip pain (ICD-10 - M25.552) She went to the ER and had x-rays. Will make referral to Dr. Soto. 02/05/2024 Left knee pain, unspecified chronicity (ICD-10 - M25.562) 02/05/2024 Type 2 diabetes mellitus without complication, without long-term current use of insulin (ICD-10 - E11.9) 02/05/2024 Essential hypertension (ICD-10 - I10) Plan Of Treatment Medication Medication Name Sig Start Date Stop Date Notes Medrol 4 MG as directed orally daily; Duration: 6 days 10/2023 Treatment Notes Assessment Notes Left hip pain She went to the ER a nd had x-rays. Will make referral to Dr. Soto. Referrals Referral Date Details 02/07/2024 02/07/2024, . Orthop edics Next Appt Details Follow Up: via phone to repo rt test results, Reason: Progress Notes * XINNATALY Antonette CDOB: 3 (74 yo F)Acc No.[id number]:02/05/2024 Progress Notes Patient: Antonette HUNTER Provider: GENIE Madrigal :1950 A ge:73 Y S ex:Female Date:02/05/2024 Address:[facility] [id number] Pcp:Joaquin Cespedes Subjective: * Chief Complaints: * 1 . Left side pain. * HPI: H ip/Thigh: 73 year old female presents with c/o Pain P t presents today with c/o left h ip pain. Pt states she has had pain for a week. Pt sts that when she lays down it hurts and that the pain goes down her thigh all the way to her ankle. Pt sts her Lidocaine patches seem to help some. She sts that she has one on since about 2am. Pt sts she does not think she has done anything to cause the pain. Pt sts when she gets in the shower she has to lift her leg up to even get in the bath tub because it gives her so much pain. Pt sts when going to bed she has to get in the bed with her right leg and scoot over into the bed because of her left h ip hurting. . * ROS: D ERMATOLOGY: no R dianne. [...] ,Years: , Determination:. * Medications: T aking Pantoprazole Sodium 40 MG Tablet Delayed Release 1 tablet Orally Once a day , Taking Methocarbamol 500 MG Tablet 1.5 tablets Orally every 4 hrs , Taking Lidocaine & Adhesive Sheet , Taking FreeStyle Marcelina 3 Plus Sensor - Miscellaneous take qid qid , Taking Triamterene-HCTZ 75-50 MG Tablet 1 tab(s) orally once a day , Taking Pristiq 25 MG Tablet Extended Release 24 Hour 1 tablet Orally Once a day , Taking Gabapentin 300 MG Capsule 1 capsule Orally Two times a day , Medication List reviewed and reconciled with the patient * Allergies: D ye, Yellow, Iodinated Contrast Media, Ibuprofen: GI upset, Augmentin: GI, metFORMIN: leg pain. Objective: * Vitals: W t:158.6, Temp:98.3, BP:120/68, HR:69, Nurse:RAVINDRA, Ht: 62, BMI:29.01. * Examination: H ip / Thigh: Hip joint: left. I nspection: no effusion, ecchymosis or deformities. P alpation: tenderness on trochanteric bursa and in the groin area.?Range of motion: restricted rotations and abduction. L -S spines: ttp along the lumbar spine as well. I psilateral knee joint: ttp along the lateral side of the left knee, pain with flexion and extension, crepitant. G ait: favoring affected side. ? Assessment: * Assessment: 1. L eft hip pain - M25.552 (Primary) 2 . L eft knee pain, unspecified chronicity - M25.562 3 . T ype 2 diabetes mellitus without complication, without long-term current use of insulin - E11.9 4 . E ssential hypertension - I10 ? Plan: * Treatment: 2. L eft knee pain, unspecified chronicity Referral To:. Orthopedics Orthopedic Surgery Reason: 3. T ype 2 diabetes mellitus without complication, without long-term current use of insulin L AB: P-Comprehensive Metabolic Panel (CMP) (Collection Date & Time - 02/05/2024 02:00 PM) g kathleen 132, Cr 1.07, gfr 55 Value Reference Range A /G Ratio 1.8 1.1-2.5 - * A lbumin 4.5 3.5-5.3 - g/dL * A lkaline Phosphatase 70 35-121 - IU/L * A LT (SGPT) 24 <5-47 - IU/L * A ST (SGOT) 26 <5-40 - IU/L * B ilirubin, Total 0.5 <0.2-1.2 - mg/dL * B UN 19 8-23 - mg/dL * C alcium 10.3 8.6-10.4 - mg/dL * C hloride 100 97-108 - mmol/L * C O2 29 22-32 - mmol/L * C reatinine 1.07 H 0.50-1.00 - mg/dL * G lucose 132 H 65-99 - mg/dL * P otassium 3.8 3.5-5.3 - mmol/L * S odium 141 135-145 - mmol/L * P rotein 7.0 6.0-8.3 - g/dL * e GFR by Creatinine 55 L >59 - mL/min/1.73m2 * Maria Fernanda Genao 02/10/2024 4: 13:12 PM > see TE ?LAB: Glycohemoglobin A1c (in house) (Collection Date & Time - 02/05/2024)? 6.8* Value Reference Range g lycohemoglobin 6.8% 5 - 6.5 % * Ladan Young 02/05/2024 3:12: 51 PM > Maria Fernanda Genao 02/10/2024 4:13:12 PM > see TE * Procedure Codes: 3 6416 CAPILLARY BLOOD DRAW, 43411 GLYCATED HEMOGLOBIN TEST, Modifiers: QW * Follow Up: v ia phone to report test results * Images: Billing Information: * Visit Code: 34851 Office Visit, Est Pt., Level 3. * Procedure Codes: 82557 CAPILLARY BLOOD DRAW. 27868 GLYCATED HEMOGLOBIN TEST. Modifiers: QW * Electronic signature of GENIE Marcus on 05/22/2025 at 12:55 PM EST Sign off status: Pending * Provider: GENIE Madrigal Date: 0 02/05/2024 Generated for Chasity leal/Naeem/Sunnyitting on: 1 07/23/2024 12:55 PM EST History and Physical Notes * HPI (History of Present Illness) Category Sub-Category Detail Notes Category Not es Hip/Thigh Pain Pt presents toda y with c/o left hip pain. Pt states she has had pain for a week. Pt sts that when she lays down it hurts and that the pain goes down her thigh all the way to her ankle. Pt sts her Lidocaine patches seem to help some. She sts that she has one on since about 2am. Pt sts she does not think she has done anything to cause the pain. Pt sts when she gets in the shower she has to lift her leg up to even get in the bath tub because it gives her so much pain. Pt sts when going to bed she has to get in the bed with her right leg and scoot over into the bed because of her left hip hurting. Examination Category Sub-Category Detail Notes Category Not es Hip / Thigh Gait: favoring affected side Range of motion: restricted rotations and abduction Ipsilateral knee joint: ttp along the la teral side of the left knee, pain with flexion and extension, crepitant L-S spines: ttp along the lumbar spine as well Hip joint: left Inspection: no effusion, ecchymo sis or deformities Palpation: tenderness on trocha nteric bursa and in the groin area Consultation Request Notes Referral Date Referring Provider Referred Provider Not es 02/07/2024 Maria Fernanda Genao Orthopedics, .
--- OUTSIDE RECORDS SUMMARY | 2024-03-14 06:30 | XMS_ITS ---
[facility] [address] [facility] [address] [place] [id number] Care Team Providers Care Final Installer Inspector Name Role Phone Joaquin Cespedes Primary Care Provider Teo Cabello Unavailable [phone] Carmela Carreno Unavailable [phone] Allergies Allergen (clinical drug ingredient) Drug/Non Drug Allergy documented on EMR Reaction Allergy Type Onset Date Status amoxicillin / clavulanate Augmentin GI Drug Allergy Active ibuprofen Ibuprofen GI upset Drug Allergy Active Dye, Yellow Unknown Drug Allergy Activ e Iodinated contrast media (substance) Iodinated Contrast Media Unknown Drug Allergy Active metformin metFORMIN leg pain Drug Allergy Active REASON FOR VISIT 3 month check up, Needs labs, diabetic eye exam, & flu vaccine Encounters Encounter Location Date Provider Diagnosis [facility] [address] [facility] [address] [place] [id number] 03/14/2024 Carmela Carreno Plan Of Treatment No Information Progress Notes * Antonette BURKS CDOB: 3 (74 yo F)Acc No.[id number]:03/14/2024 Progress Notes Patient: Antonette HUNTER Provider: ÓSCAR Lopez :1950 A ge:73 Y S ex:Female Date:03/14/2024 Address[address] [id number] Pcp:Joaquin Cespedes Subjective: * Chief Complaints: * 1 . 3 month check up. 2. Needs labs, diabetic eye exam, & flu vaccine. * HPI: H PI: 73 year old female presents with c/o Patient is here today for?Pt is here today for a 3 month check up. * ROS: D ERMATOLOGY: no R dianne. [...] Type: , Frequency: ,Years: , Determination:. * Allergies: D ye, Yellow, Iodinated Contrast Media, Ibuprofen: GI upset, Augmentin: GI, metFORMIN: leg pain. Objective: * Vitals: Assessment: Plan: * Treatment: * Images: Billing Information: * Visit Code: * Procedure Codes: * Electronic signature of Phylicia Carreno APRN on 05/22/2025 at 12:55 PM EST Sign off status: Pending * Provider: ÓSCAR Lopez Date: 1 Generated for Chasity leal/Naeem/Gilda on: 07/23/2024 12:55 PM EST History and Physical Notes * HPI (History of Present Illness) Category Sub-Category Detail Notes Category Not es HPI Patient is here today for Pt is here today for a 3 month check up
--- OUTSIDE RECORDS SUMMARY | 2024-03-23 06:00 | XMS_ITS ---
[facility] Address [address] [place] [id number] Care Team Providers Care Dictating Transcribing Machine Servicer Name Role Phone Joaquin Cespedes Primary Care Provider Teo Cabello Unavailable [phone] Allergies Allergen (clinical drug ingredient) Drug/Non Drug Allergy documented on EMR Reaction Allergy Type Onset Date Status amoxicillin / clavulanate Augmentin GI Drug Allergy Active ibuprofen Ibuprofen GI upset Drug Allergy Active Dye, Yellow Unknown Drug Allergy Activ e Iodinated contrast media (substance) Iodinated Contrast Media Unknown Drug Allergy Active metformin metFORMIN leg pain Drug Allergy Active Reason For Referral Reason [facility], no MD arpan e 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 Referred Provider Specialty ENT General Notes Rosa Elena Thapa 024 11:38:08 AM > faxed to [facility] ENT Referral Priority Routine REASON FOR VISIT knot inside lt ear, possible pulled muscle Medications Medication SIG (Take, Route, Frequency, Duration) Notes Start Date End Date Status Cyclobenzaprine HCl 5 MG 1 tablet Orally three times a day as needed 03/23/2024 Active Gabapentin 300 MG 1 capsule Orally Two times a day; Duration: 30 day(s) 01/22/2024 Active Triamterene-HCTZ 75-50 MG 1 tab(s) orall y once a day; Duration: 90 days Active Pantoprazole Sodium 40 MG 1 tablet Orall y Once a day; Duration: 30 day(s) Active FreeStyle Marcelina 3 Plus Senso r - take qid qid 12/14/2023 Active Lidocaine & Adhesive Sheet Active Vital Signs Weight 156.6 lbs 03/23/2024 Blood pressure systolic 120 mm Hg 03/23/20 24 Blood pressure diastolic 72 mm Hg 024 Heart Rate 75 /min 03/23/2024 Height 62 in 03/23/2024 BMI 28.64 kg/m2 03/23/2024 Encounters Encounter Location Date Provider Diagnosis [facility] [address] [facility] [address] [place], [place] [id number] 03/23/2024 Teo Cabello 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 ; Right rotator cuff tendinitis M75.81 ; Spasm of muscle M62.838 and Disorder of neck M53.82 Assessments Encounter Date Diagnosis (ICD Code) Assessment Notes Treatment Notes Treatment Clinical Notes Section Notes 03/23/2024 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) 03/23/2024 Right rotator cuff tendinitis (ICD-10 - M75.81) Home exercise program provided to patient 03/23/2024 Spasm of muscle (ICD-10 - M62.838) 03/23/2024 Disorder of neck (ICD-10 - M53.82) heating pad to affected areas 2 to 3 times a day, Home exercise program provided to patient Plan Of Treatment Medication Medication Name Sig Start Date Stop Date Notes Cyclobenzaprine HCl 5 MG 1 tablet Orally three times a day as needed 03/23/2024 Treatment Notes Assessment Notes Right rotator cuff tendinitis Home exerc ise program provided to patient Disorder of neck heating pad to affec dashwan areas 2 to 3 times a day, Home exercise program provided to patient Referrals Referral Date Details 03/23/2024 03/23/2024, [facility], no MD preference, . ENT Next Appt Details Follow Up: via phone to repo rt progress, Reason: Progress Notes * Antonette BURKS CDOB: 3 (74 yo F)Acc No.[id number]:03/23/2024 Progress Notes Patient: Antonette HUNTER Provider: Ken Cabello M.D. :1950 A ge:73 Y S ex:Female Date:03/23/2024 Address:[address] [place], [id number] Pcp:Joaquin Cespedes Subjective: * Chief Complaints: * 1 . Knot inside lt ear, possible pulled muscle. * HPI: D ermatology: 73 year old female presents with c/o knot P t complains of tender knot in lt ear. States that it has been there for a couple weeks and she thought it would?go away on its own but it hasn't. * ROS: C ARDIOLOGY: no D izziness. n o C hest pain. G ASTROENTEROLOGY: no N ausea. n o V omiting. U ROLOGY: no D ifficulty urinating. n o B lood in urine. * Medical History: I rritable Bowel Syndrome, Hypothyroidism, Depression, H/o pancreatitis, Diabetes Mellitus 2. * Surgical History: C -Section , Supracervical hysterectomy and bilateral oophorectomy , Upper GI , Colonoscopy 2003, LT Knee Repaired Meniscus 03/2005, RT Wrist 07/2006, RT Wrist 12/2006. * Hospitalization/Major Diagno stic Procedure: P ancreatitis 2003, Sleep Study 04/2019. * Family History: F ather: , throat [...] tablet Orally Once a day , Taking Lidocaine & Adhesive Sheet , Taking FreeStyle Marcelina 3 Plus Sensor - Miscellaneous take qid qid , Taking Triamterene-HCTZ 75-50 MG Tablet 1 tab(s) orally once a day , Taking Gabapentin 300 MG Capsule 1 capsule Orally Two times a day , Discontinued Pristiq 25 MG Tablet Extended Release 24 Hour 1 tablet Orally Once a day , Discontinued Methocarbamol 500 MG Tablet 1.5 tablets Orally every 4 hrs , Discontinued Medrol 4 MG Tablet Therapy Pack as directed orally daily , Medication List reviewed and reconciled with the patient * Allergies: D ye, Yellow, Iodinated Contrast Media, Ibuprofen: GI upset, Augmentin: GI, metFORMIN: leg pain. Objective: * Vitals: W t:156.6, Temp:98.0, BP:120/72, HR:75, Nurse:lauryn, Ht: 62, BMI:28.64. * Examination: G eneral Examination: General Appearance: N AD. H eart: R SR. L ungs:?clear to auscultation. S kin: l eft ear with a 6 mm wide subcutaneous mass, with an irregular surface. N haseeb: Vertebral spine tenderness: a bsent. P araspinal muscle spasm: present on right side. T rapezius tenderness: present on right side. ? S houlder / Upper arm: Shoulder: right. I nspection: n o swelling or redness. P alpation: tenderness over AC joint. S trength: diminished supraspinatus strength. Assessment: * Assessment: 1. 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 R ight rotator cuff tendinitis - M75.81 3 . S pasm of muscle - M62.838 4 . D isorder of neck - M53.82 Plan: * Treatment: 2. R ight rotator cuff tendinitis Notes: Home exercise program provided to patient 3. S pasm of muscle Start Cyclobenzaprine HCl Tablet, 5 MG, 1 tablet, Orally, three times a day as needed, 30, Refills 0. 4. D isorder of neck Notes: heating pad to affected areas 2 to 3 times a day, Home exercise program provided to patient? * Follow Up: v ia phone to report progress * Images: Billing Information: * Visit Code: 06469 Office Visit, Est Pt., Level 4. * Procedure Codes: * Electronic signature of Lizeth Cabello MD on 05/22/2025 at 12:55 PM EST Sign off status: Pending * Provider: Ken Cabello M.D. Date: Generated for Chasity leal/Naeem/Sunnyitting on: 07/23/2024 12:55 PM EST History and Physical Notes * HPI (History of Present Illness) Category Sub-Category Detail Notes Category Not es Dermatology knot Pt complains of tender knot in lt ear. States that it has been there for a couple weeks and she thought it would go away on its own but it hasn't Examination Category Sub-Category Detail Notes Category Not es General Examination Heart: RSR Lungs: clear to auscultatio n General Appearance: NAD Skin: left ear with a 6 mm wide subcutaneous mass, with an irregular surface Neck Vertebral spine tenderness: absent Paraspinal muscle spasm: present on righ t side Trapezius tenderness: present on right s ravindra Shoulder / Upper arm Strength: diminished supraspin atus strength Shoulder: right Inspection: no swelling or redne ss Palpation: tenderness over AC j oint Consultation Request Notes Referral Date Referring Provider Referred Provider Not es 03/23/2024 Teo Cabello ENT, . [facility], no MD p reference
--- OUTSIDE RECORDS SUMMARY | 2024-04-01 05:40 | XMS_ITS ---
Author Organization [facility] Address [address] [place] [id number] Care Team Providers Care Dictaphone Operator Name Role Phone Joaquin Cespedes Primary Care Provider Teo Cabello Unavailable [phone] Maria Fernanda Genao Unavailable [phone] Allergies Allergen (clinical drug ingredient) Drug/Non Drug Allergy documented on EMR Reaction Allergy Type Onset Date Status amoxicillin / clavulanate Augmentin GI Drug Allergy Active ibuprofen Ibuprofen GI upset Drug Allergy Active Dye, Yellow Unknown Drug Allergy Activ e Iodinated contrast media (substance) Iodinated Contrast Media Unknown Drug Allergy Active metformin metFORMIN leg pain Drug Allergy Active REASON FOR VISIT infected spot on back Medications Medication SIG (Take, Route, Frequency, Duration) Notes Start Date End Date Status Doxycycline Monohydrate 100 MG 1 capsule Orally every 12 hrs; Duration: 10 day(s) 04/01/2024 Active Triamterene-HCTZ 75-50 MG 1 tab(s) orall y once a day; Duration: 90 days Active Cyclobenzaprine HCl 5 MG 1 tablet Orally three times a day as needed 03/23/2024 Active Gabapentin 300 MG 1 capsule Orally Two times a day; Duration: 30 day(s) 01/22/2024 Active FreeStyle Marcelina 3 Plus Senso r - take qid qid 12/14/2023 Active Pantoprazole Sodium 40 MG 1 tablet Orall y Once a day; Duration: 30 day(s) Active Lidocaine & Adhesive Sheet Active Vital Signs Weight 160.2 lbs 04/01/2024 Blood pressure systolic 120 mm Hg 04/01/20 24 Blood pressure diastolic 80 mm Hg 024 Heart Rate 53 /min 04/01/2024 Height 62 in 04/01/2024 BMI 29.30 kg/m2 04/01/2024 Encounters Encounter Location Date Provider Diagnosis [facility] [address] [place] [id number] 04/01/2024 Maria Fernanda Genao Infected tick bite, initial encounter W57.XXXA and Cellulitis, unspecified cellulitis site L03.90 Assessments Encounter Date Diagnosis (ICD Code) Assessment Notes Treatment Notes Treatment Clinical Notes Section Notes 04/01/2024 Infected tick bite, initial encounter (ICD-10 - W57.XXXA) Keep clean and covered. Will start on abx. 04/01/2024 Cellulitis, unspecified cellulitis site (ICD-10 - L03.90) Plan Of Treatment Medication Medication Name Sig Start Date Stop Date Notes Doxycycline Monohydrate 100 MG 1 capsule Orally every 12 hrs; Duration: 10 day(s) 04/01/2024 Treatment Notes Assessment Notes Infected tick bite, initial encounter Ke ep clean and covered. Will start on abx. Next Appt Details Follow Up: prn, Reason: Progress Notes * VITALIY Antonette CDOB: 3 (74 yo F)Acc No.[id number]:04/01/2024 Progress Notes Patient: Antonette HUNTER Provider: GENIE Madrigal :1950 A ge:73 Y S ex:Female Date:04/01/2024 Address:[facility] [place] Pcp:Joaquin Cespedes Subjective: * Chief Complaints: * 1 . Infected spot on back. * HPI: D ermatology: 73 year old female presents with c/o redness. c/o itching?Pt is here today for c/o an infected spot on the back. Pt sts it has been there for several weeks. Pt sts that it itches a nd w hen she takes a shower it hung. Pt sts it is red around it as well. * ROS: C ARDIOLOGY: no D izziness. [...] capsule Orally Two times a day , Taking Cyclobenzaprine HCl 5 MG Tablet 1 tablet Orally three times a day as needed , Medication List reviewed and reconciled with the patient * Allergies: D ye, Yellow, Iodinated Contrast Media, Ibuprofen: GI upset, Augmentin: GI, metFORMIN: leg pain. Objective: * Vitals: W t:160.2, Temp:98.0, BP:120/80, HR:53, O2 Sat:97% on RA, Nurse:RAVINDRA, Ht: 62, BMI:29.30. * Examination: G eneral Examination: General Appearance: N AD. C hest: n ormal shape and expansion. H eart: R SR. L ungs: c lear to auscultation. S kin: r ight mid back with a tick attached with surrounding erythema, the tick is , it was removed with splinter forceps and peroxide, antibiotic ointment, and a bandaid were applied.. Assessment: * Assessment: 1. I nfected tick bite, initial encounter - W57.XXXA (Primary) 2 . C ellulitis, unspecified cellulitis site - L03.90 Plan: * Treatment: * Procedure Codes: 9 4760 PULSE OX * Follow Up: p rn * Images: Billing Information: * Visit Code: 56356 Office Visit, Est Pt., Level 3. * Procedure Codes: 73191 PULSE OX. * Electronic signature of GENIE Marcus on 05/22/2025 at 12:54 PM EST Sign off status: Pending * Provider: GENIE Madrigal Date: 06/01/2023 Generated for Chasity leal/Naeem/Honoriosmitting on: 07/23/2024 12:54 PM EST History and Physical Notes * HPI (History of Present Illness) Category Sub-Category Detail Notes Category Not es Dermatology redness itching Pt is here today for c/o an infected spot on the back. Pt sts it has been there for several weeks. Pt sts that it itches and when she takes a shower it hung. Pt sts it is red around it as well Examination Category Sub-Category Detail Notes Category Not es General Examination Heart: RSR Lungs: clear to auscultatio n General Appearance: NAD Skin: right mid back with a tick attached with surrounding erythema, the tick is , it was removed with splinter forceps and peroxide, antibiotic ointment, and a bandaid were applied. Chest: normal shape and exp ansion
--- OUTSIDE RECORDS SUMMARY | 2024-04-16 06:15 | XMS_ITS ---
Author Organization [facility] Address [address] [facility] [address] [place] [phone] Care Team Providers Care River Crossing Supervisor Name Role Phone Joaquin Cespedes Primary Care Provider Teo Cabello [phone] Allergies Allergen (clinical drug ingredient) Drug/Non Drug Allergy documented on EMR Reaction Allergy Type Onset Date Status amoxicillin / clavulanate Augmentin GI Drug Allergy Active ibuprofen Ibuprofen GI upset Drug Allergy Active Dye, Yellow Unknown Drug Allergy Activ e Iodinated contrast media (substance) Iodinated Contrast Media Unknown Drug Allergy Active metformin metFORMIN leg pain Drug Allergy Active REASON FOR VISIT blood sugar issues Encounters Encounter Location Date Provider Diagnosis [facility] [address] [facility] [address] [place] [phone] 04/16/2024 Teo Cabello Plan Of Treatment No Information Progress Notes * Antonette BURKS CDOB: 3 (74 yo F)Acc No.[id number]:04/16/2024 Progress Notes Patient: Antonette HUNTER Provider: Ken Cabello M.D. :1950 A ge:73 Y S ex:Female Date:04/16/2024 Address[place] Pcp:Joaquin Cespedes Subjective: * Chief Complaints: * 1 . Blood sugar issues. * HPI: E ndocrinology: 73 year old female presents with c/o Recent Blood Sugars. * ROS: D ERMATOLOGY: no R dianne. n o H javier. G ASTROENTEROLOGY: no N ausea. n o V omiting. n o D iarrhea.? U ROLOGY: no D ifficulty urinating. n [...] Pending * Provider: Ken Cabello M.D. Date: 06/16/2023 Generated for Chasity leal/Naeem/Sunnyitting on: 07/23/2024 12:55 PM EST History and Physical Notes * HPI (History of Present Illness) Category Sub-Category Detail Notes Category Not es Endocrinology Recent Blood Sugars
--- OUTSIDE RECORDS SUMMARY | 2024-09-01 09:00 | XMS_ITS ---
[facility] Address [address] [place] [id number] Care Team Providers Care [employer] Name Role Phone Joaquin Cespedes Primary Care Provider Teo Cabello Unavailable [phone] AquilinoMaria Fernanda oliver Unavailable [phone] Allergies Allergen (clinical drug ingredient) Drug/Non Drug Allergy documented on EMR Reaction Allergy Type Onset Date Status amoxicillin / clavulanate Augmentin GI Drug Allergy Active ibuprofen Ibuprofen GI upset Drug Allergy Active Dye, Yellow Unknown Drug Allergy Activ e Iodinated contrast media (substance) Iodinated Contrast Media Unknown Drug Allergy Active metformin metFORMIN leg pain Drug Allergy Active Results Component Value Reference Range Notes CBC Venipuncture (in house) Reviewed date:09/08/2024 02:22:22 PM Interpretation:Normal Performing Lab: Notes/Report: Normal wbc 5.0 3.5 - 10 lymph 35.6% 15 - 50 mid 6.2% 2 - 15 gran 58.2% 35 - 80 rbc 4.46 3.5 - 5.5 hgb 13.8 11.5 - 16.5 hct 40.3 35 - 55 mcv 90.4 75 - 100 mch 31.0 25 - 35 mchc 34.3 31 - 38 platlet 210 100 - 400 P-Comprehensive Metabolic Pa jose (CMP) Reviewed date:09/08/2024 02:22:22 PM Interpretation:Glu 119 Performing Lab: Notes/Report: Test performed by [facility], [place] [facility] , [address], [place] [address] Jeremy Crespo MD, Circular [employer] CLIA: [id number] Sodium 140 135-145 mmol/L Potassium 4.1 3.5-5.3 mmol/L Chloride 101 97-108 mmol/L CO2 25 22-32 mmol/L Glucose 119 65-99 mg/dL BUN 22 8-23 mg/dL Creatinine 0.92 0.50-1.00 mg/dL Calcium 9.9 8.6-10.4 mg/dL eGFR by Creatinine 66 >59 mL/min/1.73m2 Protein 7.2 6.0-8.3 g/dL Albumin 4.4 3.5-5.3 g/dL Alkaline Phosphatase 74 35-121 IU/L ALT (SGPT) 22 <5-47 IU/L AST (SGOT) 22 <5-40 IU/L Bilirubin, Total 0.5 <0.2-1.2 mg/dL A/G Ratio 1.6 1.1-2.5 P-T4 Free (thyroxine) Reviewed date:09/08/2024 02:22:22 PM Interpretation:Normal Performing Lab: Notes/Report: Test performed by [facility] [address] [place] [address] , [facility] [place] [address] Jeremy Crespo MD, Circular [employer] CLIA: [id number] Thyroxine Free (free T4) 1.40 0.86-1.76 ng/dL P-Hemoglobin A1C Reviewed date:09/08/2024 02:22:22 PM Interpretation:6.8 Performing Lab: Notes/Report: Test performed by [facility] [address] [place] [address] [place] [address] Jeremy Crespo MD, [employer] CLIA: [id number] Hemoglobin A1C 6.8 <5.7 % The following HbA1c ranges recommended by the [place] [employer] (ADA) may be used as an aid in the diagnosis of diabetes mellitus. HbA1c Suggested Diagnosis >=6.5% Diabetic 5.7% - 6.4% Pre-Diabetic <5.7% Non-Diabetic P-Lipid Panel Reviewed date:09/08/2024 02:22:22 PM Interpretation:Chol 253, Non-HDL 194, LDL Chol 165 Performing Lab: Notes/Report: Test performed by [facility] [address] [place] [address] [address], [place] [address] Jeremy Crespo MD, [employer] CLIA: [id number] Cholesterol 253 <200 mg/dL Triglycerides 143 <150 mg/dL HDL Cholesterol 59 >39 mg/dL Cholesterol / HDL Ratio 4.29 0.00-4.44 Ratio Non-HDL Cholesterol 194 <130 mg/dL LDL Cholesterol (Calculation) 165 <130 mg/dL LDL Cholesterol Levels* Less than 100 mg/dL Optimal 100 to 129 mg/dL Near Optimal/ Above Optimal 130 to 159 mg/dL Borderline High 160 to 189 mg/dL High 190 mg/dL and above Very High * Categories as recommended by the 2004 ATPIII guidelines LDL/HDL Ratio 2.8 <3.3 Ratio LDL Cholesterol Patient History Test Date: 08/04/2023 LDL Results: 108 Units: mg/dL % Change: - Test Date: 09/01/2024 LDL Results: 165 Units: mg/dL % Change: +52% P-TSH Reviewed date:09/08/2024 02:22:22 PM Interpretation:Normal Performing Lab: Notes/Report: Test performed by [facility] [address] [place] [address] , [address], [place] [address] Jeremy Crespo MD, Circular [employer] CLIA: [id number] TSH 3.44 0.43-5.25 mU/L P-Vitamin D 25-Hydroxy Reviewed date:09/08/2024 02:22:22 PM Interpretation:22 Performing Lab: Notes/Report: Test performed by [facility], [address] , [address], [place] [address] Jeremy Crespo MD, Circular Stuffer CLIA: [id number] Vitamin D 25-Hydroxy 22.0 30.0-100.0 ng/mL Interpretation of Vitamin D 25 OH: < 20 ng/mL - Deficiency 20 - 29 ng/mL - Insufficiency 30 - 100 ng/mL - Sufficiency > 100 ng/mL - Super-therapeutic- toxicity may occur above this level. Clinical correlation required. Estimated Average Glucose Reviewed date:09/08/2024 02:22:22 PM Interpretation:Normal Performing Lab: Notes/Report: Test performed by [facility] [address] , [address], [place] [address] Jeremy Crespo MD, Circular Stuffer CLIA: [id number] Estimated Average Glucose (eAG) 148 Estimated Average Glucose (eAG) is calculated using the equation eAG = (28.7 x HbA1c) - 46.7 based on the guidelines established by the ADA. If the patient has certain diseases including kidney disease, sickle cell anemia, thalassemia, or is taking medications such as dapsone, erythropoietin, or iron, eAG should not be evaluated. REASON FOR VISIT tick bite and blood sugar Medications Medication SIG (Take, Route, Frequency, Duration) Notes Start Date End Date Status Creon [id number] UNIT as directed Orally Active Gabapentin 300 MG 1 capsule Orally Two times a day; Duration: 30 day(s) 08/08/2024 Active Triamterene-HCTZ 75-50 MG 1 tab(s) orall y once a day; Duration: 90 days Active Cyclobenzaprine HCl 5 MG 1 tablet Orally three times a day as needed 03/23/2024 Active FreeStyle Marcelina 3 Plus Senso r - take qid qid 12/14/2023 Active Doxycycline Monohydrate 100 MG 1 tablet Orally Two times a day; Duration: 10 day(s) 09/01/2024 Active Vital Signs Weight 179 lbs 09/01/2024 Blood pressure systolic 124 mm Hg 09/02/19 25 Blood pressure diastolic 80 mm Hg 025 Heart Rate 76 /min 09/01/2024 Height 62 in 09/01/2024 BMI 32.74 kg/m2 09/01/2024 Encounters Encounter Location Date Provider Diagnosis [facility] [address] [place], [place] [id number] 09/01/2024 Maria Fernanda Genao Local infection of t he skin and subcutaneous tissue, unspecified L08.9 ; Insect bite (nonvenomous), right thigh, initial encounter S70.361A ; Bitten or stung by nonvenomous insect and other nonvenomous arthropods, initial encounter W57.XXXA ; Type 2 diabetes mellitus without complication, without long-term current use of insulin E11.9 ; Essential hypertension I10 ; Acquired hypothyroidism E03.9 ; Depression with anxiety F41.8 ; Vitamin D deficiency E55.9 ; GERD (gastroesophageal reflux disease) K21.9 and Mixed hyperlipidemia E78.2 Assessments Encounter Date Diagnosis (ICD Code) Assessment Notes Treatment Notes Treatment Clinical Notes Section Notes 09/01/2024 Local infection of the skin and subcutaneous tissue, unspecified (ICD-10 - L08.9) 09/01/2024 Insect bite (nonvenomous), right thigh, initial encounter (ICD-10 - S70.361A) 09/01/2024 Bitten or stung by nonvenomous insect and other nonvenomous arthropods, initial encounter (ICD-10 - W57.XXXA) 09/01/2024 Type 2 diabetes mellitus without complication, without long-term current use of insulin (ICD-10 - E11.9) Patient cannot take ozempic due to history of pancreatitis. Will get labs and make decision on the need for new medication. 09/01/2024 Essential hypertension (ICD-10 - I10) 09/01/2024 Acquired hypothyroidism (ICD-10 - E03.9) 09/01/2024 Depression with anxiety (ICD-10 - F41.8) 09/01/2024 Vitamin D deficiency (ICD-10 - E55.9) 09/01/2024 GERD (gastroesophageal reflux disease) (ICD-10 - K21.9) 09/01/2024 Mixed hyperlipidemia (ICD-10 - E78.2) Plan Of Treatment Medication Medication Name Sig Start Date Stop Date Notes Doxycycline Monohydrate 100 MG 1 tablet Orally Two times a day; Duration: 10 day(s) 09/01/2024 Treatment Notes Assessment Notes Type 2 diabetes mellitus wit hout complication, without long-term current use of insulin Patient cannot take ozempic due to history of pancreatitis. Will get labs and make decision on the need for new medication. Next Appt Details Follow Up: via phone to repo rt test results, Reason: Progress Notes * Antonette BURKS CDOB: 3 (74 yo F)Acc No.[id number]:09/01/2024 Progress Notes Patient: Antonette HUNTER Provider: GENIE Madrigal :1950 A ge:73 Y S ex:Female Date:09/01/2024 Address:[facility] [place], [phone] Pcp:Joaquin Cespedes Subjective: * Chief Complaints: * 1 . Tick bite and blood sugar. * HPI: D ermatology: 73 year old female presents with c/o h/o insect bite P t complains of tick bite on rt inner thigh. Pt states she did get the tick out but there is a big red area and bruising. E ndocrinology: c/o Recent Blood Sugars P t here to f/u on DM 2, pt states she does check blood at home. Pt states she has gained a lot of weight in a short time period and would like to possibly start Ozempic . * ROS: D ERMATOLOGY: no R [...] , 1 daughter(s) - healthy. . Sister with lung cancer. * Social History: C URRENT TOBACCO USE S moking Status: Patient does NOT smoke. C affeine: yes, frequency:. Marital Status: . Past smoking status: no. Alcohol: Type: , Frequency: ,Years: , Determination:. * Medications: T aking Creon [id number] UNIT Capsule Delayed Release Particles as directed Orally , Taking FreeStyle Marcelina 3 Plus Sensor - Miscellaneous take qid qid , Taking Triamterene-HCTZ 75-50 MG Tablet 1 tab(s) orally once a day , Taking Cyclobenzaprine HCl 5 MG Tablet 1 tablet Orally three times a day as needed , Taking Gabapentin 300 MG Capsule 1 capsule Orally Two times a day , Medication List reviewed and reconciled with the patient * Allergies: D ye, Yellow, Iodinated Contrast Media, Ibuprofen: GI upset, Augmentin: GI, metFORMIN: leg pain. Objective: * Vitals: W t:179, Temp:98.0, BP:124/80, HR:76, Nurse:lauryn, Ht: 62, BMI:32.74. * Examination: G eneral Examination: General Appearance: N AD. H EENT: u nremarkable.?Oral cavity: n o lesions, mucosa moist and WNL, no erythema. N haseeb: s upple, no lymphadenopathy. C hest: n ormal shape and expansion. H eart: R SR. L ungs: c lear to auscultation. A bdomen: b owel sounds present, soft and nontender. N eurologic Exam: I ntact, gait normal. S kin: r ight upper thigh with a bite dustin and surrounding erythema. P eripheral pulses: n ormal (2+) bilaterally. E xtremities: n o leg edema. Assessment: * Assessment: 1. L ocal infection of the skin and subcutaneous tissue, unspecified - L08.9 (Primary) ? 2 . I nsect bite (nonvenomous), right thigh, initial encounter - S70.361A 3. B itten or stung by nonvenomous insect and other nonvenomous arthropods, initial encounter - W57.XXXA 4 . T ype 2 diabetes mellitus without complication, without long-term current use of insulin - E11.9 5 . E ssential hypertension - I10 6. A cquired hypothyroidism - E03.9 7 . D epression with anxiety - F41.8? 8. V itamin D deficiency - E55.9 9 . G ERD (gastroesophageal reflux disease) - K21.9 1 0. M ixed hyperlipidemia - E78.2 Plan: * Treatment: Value Reference Range w bc 5.0 3.5 - 10 * l ymph 35.6% 15 - 50 * m id 6.2% 2 - 15 * g ran 58.2% 35 - 80 * r bc 4.46 3.5 - 5.5 * h gb 13.8 11.5 - 16.5 * h ct 40.3 35 - 55 * m cv 90.4 75 - 100 * m ch 31.0 25 - 35 * m chc 34.3 31 - 38 * p latlet 210 100 - 400 * Farzaneh Stokes 09/01/2024 3:53:56 PM > Ladan Young 09/08/2024 02:22:14 PM > See phone encounter 2.?Type 2 diabetes mellitus without complication, without long-term current use of insulin?LAB: P-Comprehensive Metabolic Panel (CMP) (Collection Date & Time - 09/01/2024 01:35 PM)?Glu 119* Value Reference Range A /G Ratio 1.6 1.1-2.5 - * A lbumin 4.4 3.5-5.3 - g/dL * A lkaline Phosphatase 74 35-121 - IU/L * A LT (SGPT) 22 <5-47 - IU/L * A ST (SGOT) 22 <5-40 - IU/L * B ilirubin, Total 0.5 <0.2-1.2 - mg/dL * B UN 22 8-23 - mg/dL * C alcium 9.9 8.6-10.4 - mg/dL * C hloride 101 97-108 - mmol/L * C O2 25 22-32 - mmol/L * C reatinine 0.92 0.50-1.00 - mg/dL * G lucose 119 H 65-99 - mg/dL * P otassium 4.1 3.5-5.3 - mmol/L * S odium 140 135-145 - mmol/L * P rotein 7.2 6.0-8.3 - g/dL * e GFR by Creatinine 66 >59 - mL/min/1.73m2 * Ladan Young 09/08/2024 02: 22:14 PM > See phone encounter ?LAB: P-Hemoglobin A1C (Collection Date & Time - 09/01/2024 01:35 PM)?6.8* Value Reference Range H emoglobin A1C 6.8 H <5.7 - % * Ladan Young 09/08/2024 02: 22:14 PM > See phone encounter Notes: Patient cannot take ozempic due to history of pancreatitis. Will get labs and make decision on the need for new medication.??3.?Acquired hypothyroidism?LAB: P-T4 Free (thyroxine) (Collection Date & Time - 09/01/2024 01:35 PM)? Normal* Value Reference Range T hyroxine Free (free T4) 1.40 0.86-1.76 - ng/d L * Ladan Young 09/08/2024 02: 22:14 PM > See phone encounter ?LAB: P-TSH (Collection Date & Time - 09/01/2024 01:35 PM)?Normal* Value Reference Range T SH 3.44 0.43-5.25 - mU/L * Ladan Young 09/08/2024 02: 22:14 PM > See phone encounter 4.?Vitamin D deficiency?LAB: P-Vitamin D 25-Hydroxy (Collection Date & Time - 09/01/2024 01:35 PM)? 22* Value Reference Range V itamin D 25-Hydroxy 22.0 L 30.0-100.0 - ng/mL * Ladan Young 09/08/2024 02: 22:14 PM > See phone encounter 5.?Mixed hyperlipidemia?LAB: P-Lipid Panel (Collection Date & Time - 09/01/2024 01:35 PM)?Chol 253, Non-HDL 194, LDL Chol 165* Value Reference Range C holesterol / HDL Ratio 4.29 0.00-4.44 - Ratio * C holesterol 253 H <200 - mg/dL * H DL Cholesterol 59 >39 - mg/dL * L DL Cholesterol (Calculation) 165 H <130 - mg/d L * L DL/HDL Ratio 2.8 <3.3 - Ratio * N on-HDL Cholesterol 194 H <130 - mg/dL * T riglycerides 143 <150 - mg/dL * Ladan Young 09/08/2024 02: 22:14 PM > See phone encounter * Labs: * L ab: Estimated Average Glucose (Collection Date & Time - 09/01/2024 01:35 PM) N ormal Value Reference Range E stimated Average Glucose 148 - mg/dL * [facility], IT support 09/02/2024 06:55:08 : This order was created by the Interface. Ladan Young 09/08/2024 02:22:14 PM > See phone encounter * Procedure Codes: G 2211 Complex e/[place], [address] CBC WITH AUTO DIFF, 3044F HG A1C LEVEL LT 7.0%, G8752 MOST RECENT SYSTOLIC BP < 140MM HG, G8754 MOST RECENT DIASTOLIC BP < 90MM HG * Follow Up: v ia phone to report test results * Images: Billing Information: * Visit Code: 32689 Office Visit, Est Pt., Level 4. * Procedure Codes: G2211 Complex e/[place]. [address] CBC WITH AUTO DIFF. 3044F HG A1C LEVEL LT 7.0%. G8752 MOST RECENT SYSTOLIC BP < 140MM HG. G8754 MOST RECENT DIASTOLIC BP < 90MM HG. * Electronic signature of GENIE Marcus on 05/22/2025 at 12:54 PM EST Sign off status: Pending * Provider: GENIE Madrigal Date: 0 09/01/2024 Generated for Printi ng/Faxing/eTransmitting on: 1 07/23/2024 12:54 PM EST History and Physical Notes * HPI (History of Present Illness) Category Sub-Category Detail Notes Category Not es Dermatology h/o insect bite Pt complains of tick bite on rt inner thigh. Pt states she did get the tick out but there is a big red area and bruising Endocrinology Recent Blood Sugars Pt here to f /u on DM 2, pt states she does check blood at home. Pt states she has gained a lot of weight in a short time period and would like to possibly start Ozempic Examination Category Sub-Category Detail Notes Category Not es General Examination HEENT: unremarkable Heart: RSR Lungs: clear to auscultatio n Abdomen: bowel sounds present , soft and nontender Extremities: no leg edema General Appearance: NAD Skin: right upper thigh wi th a bite dustin and surrounding erythema Neurologic Exam: Intact, gait normal Neck: supple, no lymphaden opathy Oral cavity: no lesions, mucosa m oist and WNL, no erythema Peripheral pulses: normal (2+) bilatera lly Chest: normal shape and exp ansion
--- OUTSIDE RECORDS SUMMARY | 2024-12-07 06:15 | XMS_ITS ---
Author Organization [facility] Address [address] [place] [id number] Care Team Providers Care Android Programmer Name Role Phone Joaquin Cespedes Primary Care Provider Teo Cabello Unavailable [phone] Maria Fernanda Genao Unavailable [phone] Allergies Allergen (clinical drug ingredient) Drug/Non Drug Allergy documented on EMR Reaction Allergy Type Onset Date Status amoxicillin / clavulanate Augmentin GI Drug Allergy Active ibuprofen Ibuprofen GI upset Drug Allergy Active Dye, Yellow Unknown Drug Allergy Activ e Iodinated contrast media (substance) Iodinated Contrast Media Unknown Drug Allergy Active metformin metFORMIN leg pain Drug Allergy Active Results Component Value Reference Range Notes Urinalysis - Inhouse Reviewed date:12/09/2024 08:52:10 AM Interpretation: Performing Lab: Notes/Report: Color/Clarity yellow/cloudy Leuk neg Nitrite pos Urobili 3.2 Protein neg pH 5.5 Blood neg Sp. Gr. 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 Referred Provider Specialty Dermatology General Notes Maria Fernanda Genao 01/2025 12:12:02 PM > Pt needs a referral to Dr. Myles in [place] 12/07/2024 01:40:52 PM > faxed to Dr. Myles's office Referral Priority Routine REASON FOR VISIT place on forehead sore, left breast/rib cage Medications Medication SIG (Take, Route, Frequency, Duration) Notes Start Date End Date Status Venlafaxine HCl ER 37.5 MG 1 capsule wit h food Orally Once a day; Duration: 90 days 12/07/2024 Active Ranolazine ER 500 MG 1 tablet Orally Twi ce a day Active Omeprazole 40 MG 1 capsule 1/2 to 1 h our before morning meal Orally Once a day Active Spironolactone 25 MG 1 tablet Orally Onc e a day Active Creon 33611-475460 UNIT as directed Orally Active Medrol 4 MG as directed Orally 12/07/2024 Active Vital Signs Weight 179.8 lbs 12/07/2024 Blood pressure systolic 126 mm Hg 12/08/19 25 Blood pressure diastolic 78 mm Hg 025 Heart Rate 64 /min 12/07/2024 Height 62 in 12/07/2024 BMI 32.88 kg/m2 12/07/2024 Encounters Encounter Location Date Provider Diagnosis [facility] [address], [place] [id number] 12/07/2024 Maria Fernanda Genao Costochondritis M94. 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 This is why the ranexa is not helping. Will start on some steroids. No heavy lifting, pushing, or pulling. 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 She says this does not work as well and makes her feel weird. She would like it switched back. 12/07/2024 Dyslipidemia (ICD-10 - E78.5) 12/07/2024 Type 2 diabetes mellitus without complication, without long-term current use of insulin (ICD-10 - E11.9) 12/07/2024 BMI 32.0-32.9,adult (ICD-10 - Z68.32) Plan Of Treatment Medication Medication Name Sig Start Date Stop Date Notes Venlafaxine HCl ER 37.5 MG 1 capsule wit h food Orally Once a day; Duration: 90 days 12/07/2024 Desvenlafaxine Succinate ER 25 MG 1 tablet Orally Once a day Medrol 4 MG as directed Orally 12/07/2024 Treatment Notes Assessment Notes Costochondritis Chest pain is likely due to costochondritis and not cardiac in nature. This is why the ranexa is not helping. Will start on some steroids. No heavy lifting, pushing, or pulling. Depression with anxiety Patient states h er insurance would not cover the effexor so she was sent pristiq. She says this does not work as well and makes her feel weird. She would like it switched back. Referrals Referral Date Details 12/07/2024 12/07/2024, . Dermat ology Next Appt Details Follow Up: via phone to repo rt test results, Reason: Progress Notes * Antonette BURKS CDOB: 3 (74 yo F)Acc No.[id number]:12/07/2024 Progress Notes Patient: Antonette HUNTER Provider: GENIE Madrigal :1950 A ge:74 Y S ex:Female Date:12/07/2024 Address:[facility] [place], [id number] Pcp:Joaquin Cespedes Subjective: * Chief Complaints: * 1 [address] Place on forehead sore, left breast/rib cage. * HPI: D ermatology: Pt states that she has a place on her forehead that is just not right. Pt states that it hurts when she touches it. Pt states it came up in July. U rology: c/o flank pain P t sates that she has pain when she's going to the bathroom. Pt states that she went to the heart doctor for a checkup, and they ran a urine, and it came up positive for ecoli. Pt states they started her on bactrim. She finished this but is unsure if symptoms have completely resolved. . H PI: Patient is here today for P t states that she has pain in the left side of her chest. She went to see cardiology and they ran a bunch of tests and everything was normal. T jayme started her on Ranolazine 500mg twice daily for the pain. She doesn't think it has helped.. * ROS: C ARDIOLOGY: no D izziness. [...] ,Years: , Determination:. * Medications: T aking Omeprazole 40 MG Capsule Delayed Release 1 capsule 1/2 to 1 hour before morning meal Orally Once a day , Taking Desvenlafaxine Succinate ER 25 MG Tablet Extended Release 24 Hour 1 tablet Orally Once a day , Taking Ranolazine ER 500 MG Tablet Extended Release 12 Hour 1 tablet Orally Twice a day , Taking Spironolactone 25 MG Tablet 1 tablet Orally Once a day , Taking Creon 30398-118324 UNIT Capsule Delayed Release Particles as directed Orally , Discontinued FreeStyle Marcelina 3 Plus Sensor - Miscellaneous take qid qid , Discontinued Triamterene-HCTZ 75-50 MG Tablet 1 tab(s) orally once a day , Discontinued Cyclobenzaprine HCl 5 MG Tablet 1 tablet Orally three times a day as needed , Discontinued Gabapentin 300 MG Capsule 1 capsule Orally Two times a day , Discontinued Crestor 5 MG Tablet 1 tablet Orally Once a day , Medication List reviewed and reconciled with the patient * Allergies: D ye, Yellow, Iodinated Contrast Media, Ibuprofen: GI upset, Augmentin: GI, metFORMIN: leg pain. Objective: * Vitals: W t: 179.8, Temp: 000, BP: 126/78, HR: 64, Nurse: pe, Ht: 62, BMI:32.88. * Examination: G eneral Examination: General Appearance: N AD. H EENT: u nremarkable.?Oral cavity: n o lesions, mucosa moist and WNL, no erythema. N haseeb: s upple, no lymphadenopathy. C hest: n ormal shape and expansion, ttp along the left lower costal cartilage, pain with breathing and twisting. H eart: R SR. L ungs: c lear to auscultation.?Abdomen: b owel sounds present, soft and nontender. N eurologic Exam: I ntact, gait normal. S kin: s mall nonhealing lesion on the forehead that is tender. P eripheral pulses: n ormal (2+) bilaterally. E xtremities: n o leg edema. Assessment: * Assessment: 1. C ostochondritis - M94.0 (Primary) 2 . D ysuria - R30.0 3 . N eoplasm of uncertain behavior - D48.9 S pecify :forehead 4 . D epression with anxiety - F41.8 5 . D yslipidemia - E78.5 6 . T ype 2 diabetes mellitus without complication, without long-term current use of insulin - E11.9 7 . B [place] 32.0-32.9,adult - Z68.32 Plan: * Treatment: 2. D ysuria L AB: P-Culture, Urine (Order Cancelled) ?LAB: Urinalysis - Inhouse (Collection Date & Time - 12/08/2024)* Value Reference Range C olor/Clarity yellow/cloudy * L euk neg * N itrite pos * U robili 3.2 * P rotein neg * p H 5.5 * B lood neg * S p. Gr. 1.015 * K etone neg * B demario neg * G kathleen trace * Jeri Bustamante 12/08/2024 03:1 8:36 PM EDT > Provider reviewed results while patient in office.Maria Fernanda Genao 12/09/2024 08:52:07 AM EDT > 3.?Neoplasm of uncertain behavior? Referral To:. Dermatology??Dermatology ?Reason: 4.?Depression with anxiety? Start Venlafaxine HCl ER Capsule Extended Release 24 Hour, 37.5 MG, 1 capsule with food, Orally, Once a day, 90 days, 90 Capsule, Refills 3;?Stop Desvenlafaxine Succinate ER Tablet Extended Release 24 Hour, 25 MG, 1 tablet, Orally, Once a day.?? Notes: Patient states her insurance would not cover the effexor so she was sent pristiq. She says this does not work as well and makes her feel weird. She would like it switched back. ?? * Procedure Codes: G 2211 Complex e/[place], [address] Urinalysis, no micro, 1036F TOBACCO NON- USER, G8783 BP SCR PRFRM RCMDD DEFIND SCR INTVL, G8752 MOST RECENT SYSTOLIC BP < 140MM HG, G8754 MOST RECENT DIASTOLIC BP < 90MM HG * Follow Up: v ia phone to report test results * Images: Billing Information: * Visit Code: 91941 Office Visit, Est Pt., Level 4. * Procedure Codes: G2211 Complex e/[place]. [address] Urinalysis, no micro. 1036F TOBACCO NON-USER. 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 G8752 MOST RECENT SYSTOLIC BP < 140MM HG. G8754 MOST RECENT DIASTOLIC BP < 90MM HG. * Electronic signature of GENIE Marcus on 05/22/2025 at 12:56 PM EST Sign off status: Pending * Provider: GENIE Madrigal Date: 0 12/07/2024 Generated for Chasity leal/Naeem/Honoriosmitting on: 1 07/23/2024 12:56 PM EST History and Physical Notes * HPI (History of Present Illness) Category Sub-Category Detail Notes Category Not es Dermatology Pt states that she has a place on her forehead that is just not right. Pt states that it hurts when she touches it. Pt states it came up in July Urology flank pain Pt sates that skylar lópez has pain when she's going to the bathroom. Pt states that she went to the heart doctor for a checkup, and they ran a urine, and it came up positive for ecoli. Pt states they started her on bactrim. She finished this but is unsure if symptoms have completely resolved. HPI Patient is here toda y for Pt states that she has pain in the left side of her chest. She went to see cardiology and they ran a bunch of tests and everything was normal. They started her on Ranolazine 500mg twice daily for the pain. She doesn't think it has helped. Examination Category Sub-Category Detail Notes Category Not es General Examination HEENT: unremarkable Heart: RSR Lungs: clear to auscultatio n Abdomen: bowel sounds present , soft and nontender Extremities: no leg edema General Appearance: NAD Skin: small nonhealing les ion on the forehead that is tender Neurologic Exam: Intact, gait normal Neck: supple, no lymphaden opathy Oral cavity: no lesions, mucosa m oist and WNL, no erythema Peripheral pulses: normal (2+) bilatera lly Chest: normal shape and exp ansion, ttp along the left lower costal cartilage, pain with breathing and twisting Consultation Request Notes Referral Date Referring Provider Referred Provider Not es 12/07/2024 Maria Fernanda Genao Dermatology, .
--- OUTSIDE RECORDS SUMMARY | 2025-03-16 08:30 | XMS_ITS ---
[facility] Address [address] [place] [id number] Care Team Providers Care Alum Mixer Name Role Phone Joaquin Cespedes Primary Care Provider Teo Cabello Unavailable [phone] Allergies Allergen (clinical drug ingredient) Drug/Non Drug [...] Results Component Value Reference Range Notes CBC Fingerstick (in house) Reviewed date:03/17/2025 09:45:01 AM Interpretation: Performing Lab: Notes/Report: wbc 8.7 3.5 - 10 lym 30.9 15 - 50 mid 6.7 2 - 15 gran 62.4 35 - 80 rbc 4.47 3.5 - 5.5 hgb 13.5 11.5 - 16.5 hct 41.1 35 - 55 mcv 92.0 75 - 100 mch 30.3 25 - 35 mchc 33.0 31 - 38 plat 173 100 - 400 REASON FOR VISIT [facility] d/c f/u knee replacement Medications Medication SIG (Take, Route, Frequency, Duration) Notes Start Date End Date Status Ranolazine ER 500 MG 1 tablet Orally Twi ce a day Active FreeStyle Marcelina 3 Plus Sensor - change sensor every 15 days; Duration: 90 days 02/28/2025 Not-Taking Omeprazole 40 MG 1 capsule 1/2 to 1 hour before morning meal Orally Once a day Active Venlafaxine HCl ER 37.5 MG 1 capsule wit h food Orally Once a day 12/07/2024 Active Aspirin 81 81 MG 1 tablet Orally Once a day Active Creon 86228-830216 UNIT as directed Orally Active Spironolactone 25 MG 1 tablet Orally Onc e a day Active HYDROcodone-Acetaminophen 5-325 MG 1 tablet as needed Orally every 6 hrs Active Problems Problem Type SNOMED Code ICD Code Onset Dates Problem Status W/U Status Risk Notes Problem Artificial knee joint present (139413512992) Presence of left artificial knee joint (Z96.652) Active confirmed Vital Signs Weight 000 lbs 03/16/2025 Blood pressure systolic 122 mm Hg 03/16/20 25 Blood pressure diastolic 78 mm Hg 025 Heart Rate 64 /min 03/16/2025 Height 62 in 03/16/2025 Encounters Encounter Location Date Provider Diagnosis [facility] [address] [place] [phone] 03/16/2025 Joaquin Cespedes Presence of left artificial knee joint Z96.652 ; Type 2 diabetes mellitus without complication, without long-term current use of insulin E11.9 ; GERD (gastroesophageal reflux disease) K21.9 and Depression with anxiety F41.8 Assessments Encounter Date Diagnosis (ICD Code) Assessment Notes Treatment Notes Treatment Clinical Notes Section Notes 03/16/2025 Presence of left artificial knee joint (ICD-10 - Z96.652) Continue home PT. Wound care discussed.F/u with ortho as scheduled 03/16/2025 Type 2 diabetes mellitus without complication, without long-term current use of insulin (ICD-10 - E11.9) 03/16/2025 GERD (gastroesophage al reflux disease) (ICD-10 - K21.9) 03/16/2025 Depression with anxiety (ICD-10 - F41.8) 03/16/2025 Other Discharge summary with available lab/diagnostic imaging results obtained and reviewed. Discharge medication list reconciled. Appropriate counseling provided. Moderate Complexity Plan Of Treatment Medication Medication Name Sig Start Date Stop Date Notes Omeprazole 40 MG 1 capsule 1/2 to 1 h our before morning meal Orally Once a day Venlafaxine HCl ER 37.5 MG 1 capsule wit h food Orally Once a day 12/07/2024 Treatment Notes Assessment Notes Presence of left artificial knee joint C ontinue home PT. Wound care discussed.F/u with ortho as scheduled Other Discharge summary wi available lab/diagnostic imaging results obtained and reviewed. Discharge medication list reconciled. Appropriate counseling provided. Moderate Complexity Next Appt Details Follow Up: 3 Months, Reason: Progress Notes * Antonette BURKS CDOB: 3 (74 yo F)Acc No.[id number]:03/16/2025 Patient: Antonette HUNTER Provider: Joaquin Cespedes M.D. :1950 A ge:74 Y S ex:Female Date:03/16/2025 Address:[facility] VITALIY FINK, [place], [id number] Subjective: * Chief Complaints: * 1 . [facility] d/c f/u knee replacement. * HPI: H PI: Patient is here today for a Transition of Care Visit. Discharge from the following Facility: [facility] where she was admitted for a total left knee replacement, she was discharged to home with live-in assistance from her daughter and planned in-home PT as there was a barrier to cost of admission to a rehab facility. D ischarge date: 03/08/2025 ,Date of phone contact following discharge: 03/09/2025. Pt sts she has not been taking any of her pther medications other than the Aspirin and the Acetaminophine/Hydrocodone. * ROS: D ERMATOLOGY: no R dianne. [...] Meniscus 03/2005, RT Wrist 07/2006, RT Wrist 12/2006, Left TKA - Dr. Soto 03/07/25. * Hospitalization/Major Diagno stic Procedure: P ancreatitis [...] ,Years: , Determination:. * Medications: T aking Aspirin 81 81 MG Tablet Delayed Release 1 tablet Orally Once a day , Taking HYDROcodone-Acetaminophen 5-325 MG Tablet 1 tablet as needed Orally every 6 hrs , Taking Venlafaxine HCl ER 37.5 MG Capsule Extended Release 24 Hour 1 capsule with food Orally Once a day , Taking Omeprazole 40 MG Capsule Delayed Release 1 capsule 1/2 to 1 hour before morning meal Orally Once a day , Taking Spironolactone 25 MG Tablet 1 tablet Orally Once a day , Taking Creon 16005-047287 UNIT Capsule Delayed Release Particles as directed Orally , Taking Ranolazine ER 500 MG Tablet Extended Release 12 Hour 1 tablet Orally Twice a day , Not-Taking FreeStyle Marcelina 3 Plus Sensor - Miscellaneous change sensor every 15 days , Medication List reviewed and reconciled with the patient * Allergies: D ye, Yellow, Iodinated Contrast Media, Ibuprofen: GI upset, Augmentin: GI, metFORMIN: leg pain. Objective: * Vitals: W t: 000, Temp: 98.6, BP: 122/78, HR: 64, O2 Sat: 100% on RA, Nurse: rachel, Ht: 62. * Examination: G eneral Examination: S he comes in by wheelchair accompanied by her granddaughter. She is alert and oriented. Color slightly pale. Lungs are clear to auscultation. Heart is regular. Bandages removed from the surgical site of the left knee. [place] are intact. There is mild surrounding erythema. No purulent drainage. Moderate swelling. Assessment: * Assessment: 1. P resence of left artificial knee joint - Z96.652 (Primary) 2 . T ype 2 diabetes mellitus without complication, without long-term current use of insulin - E11.9 ?3. G ERD (gastroesophageal reflux disease) - K21.9 4 . D epression with anxiety - F41.8 Plan: * Treatment: 2. G ERD (gastroesophageal reflux disease) Continue Omeprazole Capsule Delayed Release, 40 MG, 1 capsule 1/2 to 1 hour before morning meal, Orally, Once a day. 3. D epression with anxiety Continue Venlafaxine HCl ER Capsule Extended Release 24 Hour, 37.5 MG, 1 capsule with food, Orally, Once a day. 4. O thers Notes: Discharge summary with available lab/diagnostic imaging results obtained and reviewed. Discharge medication list reconciled. Appropriate counseling provided. Moderate Complexity * Labs: * L ab: CBC Fingerstick (in house) (Collection Date & Time - 03/16/2025) Value Reference Range w bc 8.7 3.5 - 10 * l ym 30.9 15 - 50 * m id 6.7 2 - 15 * g ran 62.4 35 - 80 * r bc 4.47 3.5 - 5.5 * h gb 13.5 11.5 - 16.5 * h ct 41.1 35 - 55 * m cv 92.0 75 - 100 * m ch 30.3 25 - 35 * m chc 33.0 31 - 38 * p lat 173 100 - 400 * Jeri Bustamante 03/16/2025 02: 13:41 PM EDT > Provider reviewed results while patient in office. * Procedure Codes: G 2211 Complex e/[place], [address] [facility] 14 DAY DISCH, 1111F DSC MED/CURENT MED MERGE, 64707 CAPILLARY BLOOD DRAW, 39160 CBC WITH AUTO DIFF, 1036F TOBACCO NON-USER, G8783 BP SCR PRFRM RCMDD DEFIND SCR INTVL, G8752 MOST RECENT SYSTOLIC BP < 140MM HG, G8754 MOST RECENT DIASTOLIC BP < 90MM HG, 3074F SYST BP LT 130 MM HG, 3078F DIAST BP < 80 MM HG * Follow Up: 3 Months * Images: Billing Information: * Visit Code: 39824 Office Visit, Est Pt., Level 3. * Procedure Codes: G2211 Complex e/[place]. [address] [facility] 14 DAY DISCH. 1111F DSC MED/CURENT MED MERGE. 38047 CAPILLARY BLOOD DRAW. 52131 CBC WITH AUTO DIFF. 1036F TOBACCO NON-USER. 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 G8752 MOST RECENT SYSTOLIC BP < 140MM HG. G8754 MOST RECENT DIASTOLIC BP < 90MM HG. 3074F SYST BP LT 130 MM HG. 3078F DIAST BP < 80 MM HG. * Electronic signature of Joaquin Cespedes MD on 05/22/2025 at 12:55 PM EST Sign off status: Pending * Provider: Joaquin Cespedes M.D. Date: 1 Generated for Shayi elvis/Naeem/Sunnyitting on: 07/23/2024 12:55 PM EST History and Physical Notes * HPI (History of Present Illness) Category Sub-Category Detail Notes Category Not es HPI Patient is here today for a Ruiz sition of Care Visit. Discharge from the following Facility: [facility] where she was admitted for a total left knee replacement, she was discharged to home with live-in assistance from her daughter and planned in-home PT as there was a barrier to cost of admission to a rehab facility. Discharge date: 03/08/2025 ,Date of phone contact following discharge: 03/09/2025. Pt sts she has not been taking any of her pther medications other than the Aspirin and the Acetaminophine/Hydrocodone Examination Category Sub-Category Detail Notes Category Not es General Examination She come s in by wheelchair accompanied by her granddaughter. She is alert and oriented. Color slightly pale. Lungs are clear to auscultation. Heart is regular. Bandages removed from the surgical site of the left knee. [place] are intact. There is mild surrounding erythema. No purulent drainage. Moderate swelling.
--- OUTSIDE RECORDS SUMMARY | 2025-04-25 08:45 | XMS_ITS ---
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 Name Role Phone Joaquin Cespedes Primary Care Provider [phone] Teo Cabello Unavailable [phone] Allergies Allergen (clinical drug ingredient) Drug/Non Drug Allergy documented on EMR Reaction Allergy Type Onset Date Status amoxicillin / clavulanate Augmentin GI Drug Allergy Active ibuprofen Ibuprofen GI upset Drug Allergy Active Dye, Yellow Unknown Drug Allergy Activ e Iodinated contrast media (substance) Iodinated Contrast Media Unknown Drug Allergy Active metformin metFORMIN leg pain Drug Allergy Active REASON FOR VISIT 3 Month checkup and Annual Wellness Visit, Due for Mammogram Medications Medication SIG (Take, Route, Frequency, Duration) Notes Start Date End Date Status Creon [id number] UNIT as directed Orally Not-Taking Spironolactone 25 MG 1 tablet Orally Onc e a day Active Ranolazine ER 500 MG 1 tablet Orally Twi ce a day Not-Taking HYDROcodone-Acetaminophen 5-325 MG 1 tablet as needed Orally every 6 hrs Not-Taking Aspirin 81 81 MG 1 tablet Orally Once a day Active Omeprazole 40 MG 1 capsule 1/2 to 1 hour before morning meal Orally Once a day Active Medrol 4 MG as directed Orally 04/25/2025 Active FreeStyle Marcelina 3 Plus Sensor - change sensor every 15 days; Duration: 90 days 02/28/2025 Not-Taking Venlafaxine HCl ER 37.5 MG 1 capsule wit h food Orally Once a day 12/07/2024 Active Gabapentin 300 MG 1 capsule Orally twi ce a day; Duration: 30 days 04/25/2025 Active Immunizations Vaccine Route Administration Date Status Comme nts Fluzone High Dose (65yr and older) IM Intramuscular 04/25/2025 Administered Prevnar (PCV20) IM Intramuscular 04/25/2025 Administered Problems Problem Type SNOMED Code ICD Code Onset Dates Problem Status W/U Status Risk Notes Problem Carpal tunnel syndrome (25523742) Carpal tunnel syndrome (G56.00) Active confirmed Problem Obese class I ([id number] 07) BMI 33.0-33.9,adul t (Z68.33) Active confirmed Vital Signs Weight 185.8 lbs 04/25/2025 Blood pressure systolic 124 mm Hg 04/25/20 Blood pressure diastolic 78 mm Hg 025 Heart Rate 82 /min 04/25/2025 Height 62 in 04/25/2025 BMI 33.98 kg/m2 04/25/2025 Encounters Encounter Location Date Provider Diagnosis [place] [address] [facility] [address] [place] [phone] 04/25/2025 Joaquin Cespedes Adult general medica l examination Z00.00 ; Carpal tunnel syndrome G56.00 ; Vitamin D deficiency E55.9 ; Type 2 diabetes mellitus without complication, without long-term current use of insulin E11.9 ; Encounter for immunization Z23 ; Breast cancer screening Z12.39 ; BMI 33.0-33.9,adult Z68.33 and Osteopenia 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 M85.80 Assessments Encounter Date Diagnosis (ICD Code) Assessment Notes Treatment Notes Treatment Clinical Notes Section Notes 04/25/2025 Adult general medical examination (ICD-10 - Z00.00) Patient instructed to return to office Annually for Annual Wellness Visits to include annual screenings of Pain assessment, Functional Ability assessment, Cognitive Ability assessment, Fall Risk assessment, Depression screening and Bladder control screening. 04/25/2025 Carpal tunnel syndrome (ICD-10 - G56.00) Order given to obtain cock up wrist splint for the left hand to be worn at night. If symptoms persist may need referral for EMG 04/25/2025 Vitamin D deficiency (ICD-10 - E55.9) 04/25/2025 Type 2 diabetes mellitus without complication, without long-term current use of insulin (ICD-10 - E11.9) 04/25/2025 Encounter for immunization (ICD-10 - Z23) 04/25/2025 Breast cancer screening (ICD-10 - Z12.39) 04/25/2025 BMI 33.0-33.9,adult (ICD-10 - Z68.33) 04/25/2025 Osteopenia 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 (ICD-10 - M85.80) Plan Of Treatment Medication Medication Name Sig Start Date Stop Date Notes Medrol 4 MG as directed Orally 04/25/2025 Gabapentin 300 MG 1 capsule Orally twi ce a day; Duration: 30 days 04/25/2025 Treatment Notes Assessment Notes Adult general medical examination Patien t instructed to return to office Annually for Annual Wellness Visits to include annual screenings of Pain assessment, Functional Ability assessment, Cognitive Ability assessment, Fall Risk assessment, Depression screening and Bladder control screening. Carpal tunnel syndrome Order given to ob erikan cock up wrist splint for the left hand to be worn at night. If symptoms persist may need referral for EMG Pending Test Test Name Order Date CBC Venipuncture (in house) 04/25/2025 Glycohemoglobin A1c (in house) P-Comprehensive Metabolic Panel (CMP) P-Lipid Panel 04/25/2025 P-Microalbumin/Creatinine, Random Urine Sample 04/25/2025 P-Vitamin D 25-Hydroxy 04/25/2025 Next Appt Details Follow Up: 6 Months, Reason: Progress Notes * Antonette BURKS CDOB: 3 (74 yo F)Acc No.[id number]:04/25/2025 Annual Wellness Visit Patient: Antonette HUNTER Provider: Joaquin Cespedes M.D. :1950 A ge:74 Y S ex:Female Date:04/25/2025 Address:[facility] [address], [id number] Subjective: * Chief Complaints: * 1 . 3 Month checkup and Annual Wellness Visit. 2. Due for Mammogram. * HPI: H PI: Patient is here today for 3 month checkup and Gene vieira Annual Wellness Visit. . N eurology: She complains of intermittent numbness in the thumb index and middle fingers of the left hand. It most consistently wakes her at night but is also noticeable with activities during the day. 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 K nee/Ga: She has recuperated well from her knee replacement. She does complain of some pain from the scar even with the bedsheets rubbing over at night. She has been using gabapentin as needed. * ROS: D ERMATOLOGY: no R dianne. n o H javier. G ASTROENTEROLOGY: no N ausea. n o V omiting. n o D iarrhea.? O PTHALMOLOGY: Negative for d enies vision issues. U ROLOGY: no B lood in urine. n o F requent urination. ? * Medical History: I rritable Bowel Syndrome, [...] tablet Orally Once a day , Taking Spironolactone 25 MG Tablet 1 tablet Orally Once a day , Taking Omeprazole 40 MG Capsule Delayed Release 1 capsule 1/2 to 1 hour before morning meal Orally Once a day , Taking Venlafaxine HCl ER 37.5 MG Capsule Extended Release 24 Hour 1 capsule with food Orally Once a day , Not-Taking HYDROcodone-Acetaminophen 5-325 MG Tablet 1 tablet as needed Orally every 6 hrs , Not-Taking Creon [id number] UNIT Capsule Delayed Release Particles as directed Orally , Not-Taking Ranolazine ER 500 MG Tablet Extended Release 12 Hour 1 tablet Orally Twice a day , Not-Taking FreeStyle Marcelina 3 Plus Sensor - Miscellaneous change sensor every 15 days , Medication List reviewed and reconciled with the patient * Allergies: D ye, Yellow, Iodinated Contrast Media, Ibuprofen: GI upset, Augmentin: GI, metFORMIN: leg pain. Objective: * Vitals: W t: 185.8, Temp: 97.9, BP: 124/78, HR: 82, Nurse: CESILIA, Ht: 62, BMI:33.98. * Examination: G eneral Examination: General Appearance: N AD. H EENT: u nremarkable.?Oral cavity: n o lesions, mucosa moist and WNL, no erythema. N haseeb: s upple, no lymphadenopathy. C hest: n ormal shape and expansion. H eart: R SR. L ungs: c lear to auscultation. N eurologic Exam: T here is some tenderness to palpation over the volar aspect of the left wrist. Slight decreased chlorinator strength on the left.. S kin: n ormal, no rash. E xtremities: S urgical scar over left knee is well-healed. No redness..? * Physical Examination: G ENERAL: Pain Assessment: P ain level: 5, on a scale of 0-10 (with 10 being extreme pain). F unctional Status Assessment: P atient response to question of how often physical health interferes with daily activities: Almost never. Able to perform ADLs-including meal preparation, grocery shopping, housework, laundry, taking medications or handling finances. Cognitive Status: alert and oriented. Ambulation Status: Fully ambulatory. F all Risk Assessment: I ndependant in ambulation, adequate lighting in home. Patient has fallen or had trouble walking within the past 12 months (prior to her knee replacement). D epression Screening: Denies depressed mood or anxiety. Describes emotional health as: calm. B ladder Control Screening: s ignificant problems. Assessment: * Assessment: 1. A dult general medical examination - Z00.00 (Primary) 2 . C arpal tunnel syndrome - G56.00 3 . V itamin D deficiency - E55.9 4 . T ype 2 diabetes mellitus without complication, without long-term current use of insulin - E11.9 & #160; 5 . E ncounter for immunization - Z23 6 . B reast cancer screening - Z12.39 7 . B DC 33.0-33.9,adult - Z68.33 8 . O steopenia 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 - M85.80 Plan: * Treatment: 2. C arpal tunnel syndrome Start Medrol Tablet Therapy Pack, 4 MG, as directed, Orally, 1. Notes: Order given to obtain cock up wrist splint for the left hand to be worn at night. If symptoms persist may need referral for EMG 3. O thers Refill Gabapentin Capsule, 300 MG, 1 capsule, Orally, twice a day, 30 days, 60 Capsule, Refills 1.? * Immunizations: Fluzone High Dose (65yr and older) : 0.5 mL (Route: Intramuscular) given by Christine Fuentes on Right Deltoid (Encounter for immunization) Prevnar (PCV20) : 0.5 mL (Route: Intramuscular) given by Christine Fuentes on Right Deltoid (Encounter for immunization) * Labs: * L ab: Glycohemoglobin A1c (in house) L ab: P-Microalbumin/Creatinine, Random Urine Sample L ab: P-Vitamin D 25-Hydroxy L ab: P-Lipid Panel L ab: P-Comprehensive Metabolic Panel (CMP) L ab: CBC Venipuncture (in house) * Procedure Codes: G 0439 ANNUAL WELLNESS VST; PPS SUBSQT VST, G2211 Complex e/m visit add on, 1090F PRES/ABSN URINE INCON ASSESS, 3288F FALL RISK ASSESSMENT DOCD, 1170F FXNL STATUS ASSESSED, 1159F MED LIST DOCD IN RCRD, 1003F LEVEL OF ACTIVITY ASSESS, 3017F COLORECTAL CA SCREEN DOC REV, 1036F TOBACCO NON-USER, G9899 Scrn hamzah perf rslts doc, G8399 PT W/DXA DOCUMENT OR ORDER, 1125F AMNT PAIN NOTED PAIN PRSNT, G8510 NEG SCR Depression PT NOT ELIG F/U/PLN DOC, G8783 BP SCR PRFRM RCMDD DEFIND SCR INTVL, G8752 MOST RECENT SYSTOLIC BP < 140MM HG, G8754 MOST RECENT DIASTOLIC BP < 90MM HG, 3074F SYST BP LT 130 MM HG, 3078F DIAST BP < 80 MM HG * Preventive Medicine: Counseling: E motional health: P atient encouraged to try connecting with family or friends to boost mood. B ladder control: M ethods of controlling or managing leakage of urine discussed. E xercise: P atient advised to start, increase or maintain level of exercise/physical activity. I njury prevention: F all prevention discussed. Discussed need for cane/walker. Potential trip hazards discussed. Immunizations: P neumococcal r ecommended. I nfluenza r ecommended seasonally. Screening / Special Tests: M ammogram R ecent history: 08/31/2023, benign, recommended today. C olonoscopy R ecent history: 01/21/2024 Dr. Castillo, polyps, pandiverticulosis. Bone mineral Density R ecent history: 08/31/2023, osteopenia. D iabetic Retinal Eye Exam?Recent history:, recommended today. N ephrology History R ecent history:, GFR and urine M/A ordered today. * Follow Up: 6 Months * Images: Billing Information: * Visit Code: 20809 Office Visit, Est Pt., Level 3. Modifiers: 25 * Procedure Codes: G0439 ANNUAL WELLNESS VST; PPS SUBSQT VST. G2211 Complex e/m visit add on. 1090F PRES/ABSN URINE INCON ASSESS. 3288F FALL RISK ASSESSMENT DOCD. 1170F FXNL STATUS ASSESSED. 1159F MED LIST DOCD IN RCRD. 1003F LEVEL OF ACTIVITY ASSESS. 3017F COLORECTAL CA SCREEN DOC REV. 1036F TOBACCO NON-USER. G9899 Scrn hamzah perf rslts doc. G8399 PT W/DXA DOCUMENT OR ORDER. 1125F AMNT PAIN NOTED PAIN PRSNT. G8510 NEG SCR Depression PT NOT ELIG F/U/PLN DOC. 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 G8752 MOST RECENT SYSTOLIC BP < 140MM HG. G8754 MOST RECENT DIASTOLIC BP < 90MM HG. 3074F SYST BP LT 130 MM HG. 3078F DIAST BP < 80 MM HG. * Electronic signature of Joaquin Cespedes MD on 05/22/2025 at 12:56 PM EST Sign off status: Pending * Provider: Joaquin Cespedes M.D. Date: 06/25/2024 Generated for Chasity leal/Naeem/eTransmitting on: 1 07/23/2024 12:56 PM EST History and Physical Notes * HPI (History of Present Illness) Category Sub-Category Detail Notes Category Not es HPI Patient is here today for 3 luis alfredo h checkup and Medicare Annual Wellness Visit. Physical Examination Category Sub-Category Detail Notes Section Note s GENERAL Pain Assessment: Pain level: 5, on a scale of 0-10 (with 10 being extreme pain) Functional Status Assessment: Patient re sponse to question of how often physical health interferes with daily activities: Almost never. Able to perform ADLs-including meal preparation, grocery shopping, housework, laundry, taking medications or handling finances.Cognitive Status: alert and oriented.Ambulation Status: Fully ambulatory Fall Risk Assessment: Independant in amb ulation, adequate lighting in home. Patient has fallen or had trouble walking within the past 12 months (prior to her knee replacement) Depression Screening: Denies depressed m ood or anxiety. Describes emotional health as: calm Bladder Control Screening: significant p roblems Examination Category Sub-Category Detail Notes Category Not es General Examination HEENT: unremarkable Heart: RSR Lungs: clear to auscultatio n Extremities: Surgical scar over l eft knee is well-healed. No redness. General Appearance: NAD Skin: normal, no rash Neurologic Exam: There is some tender ness to palpation over the volar aspect of the left wrist. Slight decreased chlorinator strength on the left. Neck: supple, no lymphaden opathy Oral cavity: no lesions, mucosa m oist and WNL, no erythema Chest: normal shape and exp ansion
--- NOTE | 2025-05-22 12:54 | MM_ITS ---
PROCEDURE INFORMATION: Exam: MG Bilateral Screening 3D Mammography Exam date and time: 05/22/2025 1:04 PM Age: 74 years old Clinical indication: Screening examination TECHNIQUE: Imaging protocol: Bilateral Screening tomosynthesis and 2D mammography including computer-aided detection (CAD) when performed. COMPARISON: 1. MG MM DIG SCREENING MAMM BI W/CAD 08/31/2023 8:20 AM 2. MG MM DIG SCREENING MAMM BI W/CAD 03/21/2021 1:14 PM FINDINGS: MAMMOGRAPHY: Breast composition: There are scattered areas of fibroglandular density. Mass: None. Architectural distortion: None. Calcifications: No suspicious calcifications. Asymmetric density: None. Skin thickening: None. Axillary adenopathy: None. IMPRESSION: No mammographic evidence of malignancy. Annual screening is recommended unless otherwise clinically indicated. ASSESSMENT: BI-RADS Category 1: Negative.
--- OUTSIDE RECORDS SUMMARY | 2025-05-22 12:56 | XMS_ITS | Patient Health Record ---
Author Organization [facility] Address [address] [facility] [address] [facility] [address] [place] [id number] Care Team Providers Care Physicist Nuclear Name Role Phone Joaquin Cespedes Primary Care Provider Teo Cabello Unavailable [phone] AquilinoMaria Fernanda oliver Unavailable [phone] Allergies Allergen (clinical drug ingredient) Drug/Non Drug [...] 119 Performing Lab: Notes/Report: Test performed by [employer] [facility] [facility] , [address], [place] [address] Jeremy Crespo MD, Refuse Collector Supervisor CLIA: [id number] Sodium 140 135-145 mmol/L Potassium 4.1 3.5-5.3 [...] Interpretation:Normal Performing Lab: Notes/Report: Test performed by [facility] [address] [place] [address] , [place] [address] Jeremy Crespo MD, Refuse Collector Supervisor CLIA: [id number] Thyroxine Free (free T4) 1.40 0.86-1.76 ng/dL P-Hemoglobin A1C Reviewed date:09/08/2024 02:22:22 PM Interpretation:6.8 Performing Lab: Notes/Report: Test performed by [facility] [address] [place] [address] [place] [address] Jeremy Crespo MD, Refuse Collector Supervisor CLIA: [id number] Hemoglobin A1C 6.8 <5.7 % The following HbA1c ranges recommended by the [place] [employer] (ADA) may be used as an aid in the diagnosis of diabetes mellitus. HbA1c Suggested Diagnosis >=6.5% Diabetic 5.7% - 6.4% Pre-Diabetic <5.7% Non-Diabetic P-Lipid Panel Reviewed date:09/08/2024 02:22:22 PM Interpretation:Chol 253, Non-HDL 194, LDL Chol 165 Performing Lab: Notes/Report: Test performed by [facility] [address] [place] [address] , [address], [place] [address] Jeremy Crespo MD, Refuse Collector Supervisor CLIA: [id number] Cholesterol 253 <200 mg/dL Triglycerides 143 <150 [...] Interpretation:Normal Performing Lab: Notes/Report: Test performed by [facility] [address] [place] [address] , [address], [place] [address] Jeremy Crespo MD, Refuse Collector Supervisor CLIA: [id number] TSH 3.44 0.43-5.25 mU/L P-Vitamin D 25-Hydroxy Reviewed date:09/08/2024 02:22:22 PM Interpretation:22 Performing Lab: Notes/Report: Test performed by [facility] [address] , [address], [place] [address] Jeremy Crespo MD, Refuse Collector Supervisor CLIA: [id number] Vitamin D 25-Hydroxy 22.0 30.0-100.0 ng/mL Interpretation of Vitamin D 25 OH: < 20 ng/mL - Deficiency 20 - 29 ng/mL - Insufficiency 30 - 100 ng/mL - Sufficiency > 100 ng/mL - Super-therapeutic- toxicity may occur above this level. Clinical correlation required. Estimated Average Glucose Reviewed date:09/08/2024 02:22:22 PM Interpretation:Normal Performing Lab: Notes/Report: Test performed by [facility] [address] [place] [address] , [address], [place] [id number] Jeremy Crespo MD, Refuse Collector Supervisor CLIA: [id number] Estimated Average Glucose (eAG) 148 Estimated Average [...] Duration) Notes Start Date End Date Status Matheus [id number] UNIT as directed Orally Not-Taking Spironolactone 25 MG 1 tablet Orally Onc e a day Active Omeprazole 40 MG 1 capsule 1/2 to 1 hour before morning meal Orally Once a day Active Ranolazine ER 500 MG 1 tablet Orally Twi ce a day Not-Taking HYDROcodone-Acetaminophen 5-325 MG 1 tablet as needed Orally every 6 hrs Not-Taking Aspirin 81 81 MG 1 tablet Orally Once a day Active Medrol 4 [...] xFluzone High Dose-private (65yr&older) Unknown 03/25/2018 Administered xFluzone High Dose-private (65yr&older) Unknown 02/12/2024 Administered Tetanus Tdap-Adacel (over 7yrs) IM Intramuscular 03/19/2010 Administered Tetanus Tdap-Adacel (over 7yrs) IM Intramuscular 01/12/2016 Administered Shingrix Unknown 02/13/2023 Administered Prevnar (PCV20) IM Intramuscular 04/25/2025 Administered Prevnar (PCV13) Unknown 03/25/2018 Administered PNEUMOVAX 23 VACCINE Unknown 03/17/2019 Administered Fluzone Quad (6months&older) Unknown 02/13/2023 Administered Fluzone High Dose (65yr and older) Unknown 02/02/2020 Administered Fluzone High Dose (65yr and older) Unknown 03/02/2021 Administered Fluzone High Dose (65yr and older) Unknown 03/31/2022 Administered Fluzone High Dose (65yr and older) IM Intramuscular 04/25/2025 Administered COVID 19 Moderna Unknown 08/01/2020 Administered COVID 19 Moderna Unknown 08/29/2020 Administered Problems Problem Type SNOMED Code ICD Code Onset Dates Problem Status W/U Status Risk Notes Problem Gastroesophageal reflux disease (689707509) GERD (gastroesophage al reflux disease) (K21.9) Active confirmed Problem Vitamin D deficiency (96373937) Vitamin D deficiency (E55.9) Active confirmed Problem Essential hypertension (07469858) Essential hypertension (I10) Active confirmed Problem Abnormal mammogram (629499031) Abnormal mammogram (R92.8) Active confirmed Problem Carpal tunnel syndrome (25472560) Carpal tunnel syndrome (G56.00) Active confirmed Problem Mixed anxiety and depressive disorder (530425410) Depression with anxiety (F41.8) Active confirmed Problem Obese class I (508096671381736) BMI 33.0-33.9,adult (Z68.33) Active confirmed Problem Artificial knee joint present (077518563976) Presence of left artificial knee joint (Z96.652) Active confirmed Problem Dyslipidemia (107263628) Dyslipidemia (E78.5) Active confirmed Problem Type II diabetes mellitus without complication (067446894) Type 2 diabetes mellitus without complication, without long-term current use of insulin (E11.9) Active confirmed Problem Seasonal allergic rhinitis (000064402) Seasonal allergic rhinitis, unspecified trigger (J30.2) Active confirmed Problem Osteopenia following menopause (disorder) (316105249) Osteopenia 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 (M85.80) Active confirmed Vital Signs Heart Rate 82 /min 04/25/2025 Blood pressure diastolic 78 mm Hg 04/25/2025 Height 62 in 04/25/2025 Blood pressure systolic 124 mm Hg 04/25/2025 Weight 185.8 lbs 04/25/2025 BMI 33.98 kg/m2 04/25/2025 Encounters Encounter Location Date Provider Diagnosis [facility] [address] [place], [place] [id number] 09/01/2024 Maria Fernanda Genao Local infection of [...] reflux disease) K21.9 and Mixed hyperlipidemia E78.2 [facility] [address] [facility] [address] [place], [place] [id number] 12/07/2024 Maria Fernanda Crowdy Costochondritis M94. 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 ; Depression with anxiety F41.8 ; Dyslipidemia E78.5 ; Type 2 diabetes mellitus without complication, without long-term current use of insulin E11.9 and BMI 32.0-32.9,adult Z68.32 [facility] [address] [place] [address] [place], [place] [id number] 03/16/2025 R Usman Cespedes Presence of left artificial knee joint Z96.652 ; Type 2 diabetes mellitus without complication, without long-term current use of insulin E11.9 ; GERD (gastroesophageal reflux disease) K21.9 and Depression with anxiety F41.8 [facility] [address] [place], [place] [id number] 04/25/2025 R Usman Cespedes Adult general medica l examination Z00.00 ; Carpal tunnel syndrome G56.00 ; Vitamin D deficiency E55.9 ; Type 2 diabetes mellitus without complication, without long-term current use of insulin E11.9 ; Encounter for immunization Z23 ; Breast cancer screening Z12.39 ; BMI 33.0-33.9,adult Z68.33 and Osteopenia 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 M85.80 [facility] [address] [facility] [address] [place], [place] [id number] 08/08/2024 R Usman Cespedes Left-sided low back pain with left-sided sciatica, unspecified chronicity M54.42 [facility] [address] [facility] [address] [place] [id number] 09/08/2024 Maria Fernanda Crowmelody [facility] [address] [place] [id number] 12/13/2024 [facility]quin [facility]es [facility] [address] [facility] [address] [place], [place] [id number] 02/28/2025 Maria Fernanda Genao [facility] [address] [facility] [address] [place] [id number] 03/08/2025 Joaquin Cespedes [facility] [address] [facility] [address] [place] [id number] 04/04/2025 R Usman Cespedes [facility] [address] [facility] [address] [place] [id number] 04/18/2025 R Usman Cespedes Assessments Encounter Date Diagnosis (ICD Code) Assessment Notes Treatment Notes Treatment Clinical Notes Section Notes 08/08/2024 Left-sided low back pain with left-sided [...] use of insulin (ICD-10 - E11.9) 04/25/2025 Carpal tunnel syndrome (ICD-10 - G56.00) Order given to obtain cock up wrist splint for the left hand to be worn at night. If symptoms persist may need referral for EMG 04/25/2025 Adult general medical examination (ICD-10 - Z00.00) Patient instructed to return to office Annually for Annual Wellness Visits to include annual screenings of Pain assessment, Functional Ability assessment, Cognitive Ability assessment, Fall Risk assessment, Depression screening and Bladder control screening. 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 04/25/2025 Type 2 diabetes mellitus without complication, without long-term current use of insulin (ICD-10 - E11.9) 04/25/2025 Encounter for immunization (ICD-10 - Z23) 12/07/2024 Dyslipidemia (ICD-10 - E78.5) 09/01/2024 Essential hypertension (ICD-10 - I10) 12/07/2024 Type 2 diabetes mellitus without complication, without long-term current use of insulin (ICD-10 - E11.9) 09/01/2024 Acquired hypothyroidism (ICD-10 - E03.9) 04/25/2025 Breast cancer screening (ICD-10 - Z12.39) 12/07/2024 BMI 32.0-32.9,adult (ICD-10 - Z68.32) 04/25/2025 BMI 33.0-33.9,adult (ICD-10 - Z68.33) 09/01/2024 Depression with anxiety (ICD-10 - F41.8) 09/01/2024 Vitamin D deficiency (ICD-10 - E55.9) 04/25/2025 Osteopenia 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 (ICD-10 - M85.80) 09/01/2024 GERD (gastroesophageal reflux disease) (ICD-10 - K21.9) 09/01/2024 Mixed hyperlipidemia (ICD-10 - E78.2) 03/16/2025 Other Discharge summa ry with available lab/diagnostic imaging results obtained and reviewed. Discharge medication list reconciled. Appropriate counseling provided. Moderate Complexity Plan Of Treatment Pending Test Test Name Order Date CBC Venipuncture (in house) 04/25/2025 Glycohemoglobin A1c (in house) Mammogram 04/26/2025 P-Comprehensive Metabolic Panel (CMP) P-Lipid Panel 04/25/2025 P-Microalbumin/Creatinine, Random Urine Sample 04/25/2025 P-Vitamin D 25-Hydroxy 04/25/2025 Insurance Providers Payer Name Payer Address Payer Phone Subscriber Number Group Number Insured Name Patient Relationship to Insured Coverage Start Date Coverage End Date MEDICARE PART B [address] [address] [place] [id number] Antonette Sim Self - patient is the insured [facility] [employer] [address] [place] [id number] Antonette Sim Self - patient is the insured Medications [...]
== END 2025-05-22 23:59 | disposition home or self-care (01) ==
LOC: RAD 12:52
PROVIDERS: PCP Family Medicine; Visit Provider Family Medicine
DX: Z12.31 Encounter for screening mammogram for malignant neoplasm of breast (principal); Z78.0 Asymptomatic menopausal state; R92.323 Mammographic fibroglandular density, bilateral breasts
CPT/HCPCS: 77063; 77067